=== PATIENT | female | born 1970 | race Caucasian/White ===

== ENCOUNTER → 2019-07-17 07:57 | Outpatient (CLI) | payer OTHER, SELFPAY ==
--- NOTE | ~2019-07-17 | MM_ITS ---
EXAMINATION: MM screening ailyn BI w nancy HISTORY: Screening mammogram TECHNIQUE: Craniocaudal and mediolateral oblique 3-D tomosynthesis images were obtained and synthetic 2-D images were generated. CAD analysis was submitted and interpreted. COMPARISON: 07/13/2018, 04/20/2017, 03/21/2016 bilateral digital screening mammogram examinations BREAST PARENCHYMAL COMPOSITION: The breasts are heterogeneously dense, which may obscure small masses ........... FINDINGS: New areas of asymmetry are suggested bilaterally. Recommend bilateral diagnostic mammography, with ul trasound if required. IMPRESSION: 1. New areas of mammographic asymmetry are suggested 2. Bilateral diagnostic mammography is recommended, with ultrasound if required BI-RADS Category 0: Incomplete: Needs additional imaging evaluation. Reviewed, dictated and finalized at location A. MER OPERATOR
== END ==
PROVIDERS: Visit Provider Obstetrics & Gynecology Gynecology
DX: Z12.31 Encounter for screening mammogram for malignant neoplasm of breast (principal); R92.8 Other abnormal and inconclusive findings on diagnostic imaging of breast
CPT/HCPCS: 77063; 77067

== ENCOUNTER → 2019-07-19 09:24 | Outpatient (CLI) | payer OTHER, SELFPAY ==
--- NOTE | ~2019-07-19 | MMUS_ITS ---
EXAMINATION: MM diagnostic mammo BI, US breast BI complete HISTORY: New mammographic areas of asymmetry were suggested bilaterally on 07/17/2019 screening mammogr am examination. TECHNIQUE: Additional 3-D tomosynthesis images of were performed and synthetic 2-D images were genera berkley. CAD analysis was submitted and interpreted. High resolution breast ultrasound was performed. COMPARISON: 07/17/2019 07/13/2018, 04/20/2017, 03/21/2016 bilateral digital screening mammogram examinatio ns FINDINGS: MAMMOGRAPHIC FINDINGS: No reproducible mass or architectural distortion is evident. No malignant calcification, skin thicken ing or retraction. ULTRASOUND: Right breast: 7:00 4 cm from nipple: 1.4 x 3.3 x 4.4 mm parallel circumscribed hypoechoic lesion without internal v ascularity or posterior shadowing 9:00 5 cm from nipple: Similar 2.6 x 6 x 5.1 mm parallel circumscribed hypoechoic lesion without inte rnal vascularity or posterior shadowing Left breast: 12:00 4 cm from nipple: 1.7 x 4.7 mm x 4.4 mm circumscribed parallel hypoechoic lesion without management internship al vascularity or posterior shadowing 4:00 4 cm from nipple: 3.8 x 6.2 x 6.4 mm sonolucency, compatible with simple cyst 6:00 subareolar area: 2.6 x 3.8 x 4.6 mm sonolucency without through transmission and posterior enhan cement No suspicious solid lesion or shadowing of either breast is evident. IMPRESSION: 1. No mammographic evidence of malignancy 2. Routine annual mammographic screening is recommended. BI-RADS Category 2: Benign finding(s). Reviewed, dictated and finalized at location A. MAKING MACHINE SETTER IMPRESSION: 1. No mammographic evidence of malignancy 2. Routine annual mammographic screening is recommended. BI-RADS Category 2: Benign finding(s).
== END ==
PROVIDERS: Visit Provider Obstetrics & Gynecology Gynecology
DX: R92.8 Other abnormal and inconclusive findings on diagnostic imaging of breast (principal)
CPT/HCPCS: 76641; 77066

== ENCOUNTER → 2020-07-17 07:35 | Outpatient (CLI) | payer OTHER, SELFPAY ==
--- NOTE | ~2020-07-17 | MM_ITS ---
EXAMINATION: MM screening ailyn BI w nancy HISTORY: Screening TECHNIQUE: Craniocaudal and mediolateral oblique 3-D tomosynthesis images were obtained and synthetic 2-D images were generated. CAD analysis was submitted and interpreted. COMPARISON: Comparison to multiple prior studies sequentially, with oldest reviewed study dated 10/24. BREAST PARENCHYMAL COMPOSITION: The breasts are heterogeneously dense, which may obscure small masses . FINDINGS: There is no evidence of suspicious mass, calcification, or architectural distortion to sugg est malignancy in either breast. There has been no suspicious interval change. IMPRESSION: 1. No mammographic evidence of malignancy. 2. Recommend routine screening mammography in one year. BI-RADS Category 1: Negative Reviewed, dictated and finalized at location A. RNAL MEDICINE HOSPITALIST
== END ==
PROVIDERS: PCP Family Medicine; Visit Provider Obstetrics & Gynecology Gynecology
DX: Z12.31 Encounter for screening mammogram for malignant neoplasm of breast (principal)
CPT/HCPCS: 77063; 77067

== ENCOUNTER 2020-11-25 10:26 | Outpatient (CLI) | payer OTHER, SELFPAY ==
[2020-11-25 11:04] LABS: Hematocrit 45.4 % (37.0-47.0); Hemoglobin 15.2 g/dL (12.0-15.0); Mean Corpuscular HGB Conc 33.5 g/dl (32-36); Mean Corpuscular Hemoglobin 28.7 pg (26-34); Mean Corpuscular Volume 85.8 fl (80-100); Mean Platelet Volume 10.4 fl (7.4-10.4); Platelet Count Result 307 k/mm3 (150-375); Red Blood Count 5.29 M/mm3 (4.2-5.4); White Blood Count 6.4 K/mm3 (4.5-10.0)
[2020-11-25 11:16] LABS: Alanine Aminotransferase 16 U/L (4-35); Albumin Level 4.7 g/dL (3.5-5.1); Alkaline Phosphatase 82 U/L (38-126); Anion Gap 11 mmol/L (8-16); Aspartate Amino Transferase 25 U/L (14-36); Bilirubin,Total 0.9 mg/dL (0.2-1.3); Blood Urea Nitrogen 15 mg/dL (7-17); Calcium 9.8 mg/dL (8.4-10.2); Carbon Dioxide 24 mmol/L (22-30); Chloride 108 mmol/L (98-107); Cholesterol 168 mg/dL (0-200); Estimated Glomerular Filt Rate > 60; Glucose 105 mg/dL (65-105); HDL Direct 58 mg/dL; Lipase 64 U/L (23-300); Potassium 3.6 mmol/L (3.4-5.0); Sodium 143 mmol/L (137-145); Triglycerides 36 mg/dL (<150)
[2020-11-25 11:27] LABS: LDL Cholesterol Direct 75 mg/dL
[2020-11-28 11:23] LABS: Vitamin D 1,25 (OH)2 Total 69 pg/mL (18-72); Vitamin D2 1,25 (OH)2 <8 pg/mL; Vitamin D3 1,25 (OH)2 69 pg/mL
== END 2020-11-25 10:27 | disposition home or self-care (01) ==
PROVIDERS: PCP Family Medicine; Visit Provider Physician Assistant
DX: E55.9 Vitamin D deficiency, unspecified (principal); R10.9 Unspecified abdominal pain; Z13.220 Encounter for screening for lipoid disorders
CPT/HCPCS: 36415; 80053; 80061; 82652; 83690; 85027

== ENCOUNTER 2020-11-28 12:38 | Inpatient (IN) | payer OTHER, SELFPAY ==
--- NOTE | ~2020-11-28 | US_ITS ---
EXAMINATION: US right upper quadrant DATE: 11/29/2020 08:06 INDICATION: Pancreatitis. TECHNIQUE: Multiple grayscale and Doppler ultrasound images of the abdomen were obtained. COMPARISON: CT abdomen and pelvis 11/28/2020 FINDINGS: The visualized portions of the head and body of the pancreas are normal. There are cysts in the liver measuring up to 4.0 cm. No liver surface nodularity. There is normal flow in main portal v ein. The gallbladder is normal in size and contains sludge. No gallstones or gallbladder wall thicken ing. There are comet tail artifacts in the gallbladder wall, consistent with adenomyomatosis. The com mon duct is normal and measures 5 mm. IMPRESSION: 1. Gallbladder sludge. No evidence of acute cholecystitis. Reviewed, dictated and finalized at location A.
--- NOTE | ~2020-11-28 | CT_ITS ---
EXAMINATION: CT abdomen pelvis w con DATE: 11/28/2020 17:24 INDICATION: Lower abdominal pain TECHNIQUE: Computed tomography (CT) of the abdomen and pelvis was performed with 100 mL Omnipaque-350 intravenous contrast. Automated exposure control and iterative reconstruction technique were employe d. The dose-length product was 324.59 mGy-cm. COMPARISON: None FINDINGS: Minimal discoid atelectasis in the bilateral lower lobes. Heart size is normal. No pericardial or ple ural effusion. Several hepatic cysts, the largest measuring 4.0 cm in maximal diameter. There is an a dditional 11 mm less well-defined low but not simple fluid attenuation lesion at the dome of the live r. Gallbladder, spleen, pancreas, bilateral adrenal glands and kidneys are normal. There are few scat tered colonic diverticula without adjacent from 3 change to suggest diverticulitis. No abnormal bowel wall thickening or obstruction. Appendix is normal. Bladder is normal. IUD in expected position with in the normal uterus. There is a prominent left gonadal vein and prominent left parametrial vessels w hich can be seen with pelvic vascular congestion syndrome. No free intraperitoneal gas or fluid. No p athologically enlarged abdominal or pelvic lymphadenopathy. Bone islands at the left posterior iliac spine and bilateral femoral heads. IMPRESSION: 1. No acute intra-abdominal/pelvic process. 2. Indeterminate 11 mm hypodense hepatic lesion most likely representing a hemangioma but would recom mend further evaluation with follow-up pre and postcontrast MRI. 3. Dilated left gonadal vein and left sided parametrial vessels which could be seen with pelvic vascu lar congestion syndrome. 4. IUD in expected position. Reviewed, dictated and finalized at location A. IMPRESSION: 1. No acute intra-abdominal/pelvic process. 2. Indeterminate 11 mm hypodense hepatic lesion most likely representing a alyssa ngioma but would recommend further evaluation with follow-up pre and postcontra st MRI. 3. Dilated left gonadal vein and left sided parametrial vessels which could be seen with pelvic vascular congestion syndrome. 4. IUD in expected position.
[2020-11-28 12:51] VITALS: BP 132/98; PULSE 88; RESP 18; TEMP 36.4
[2020-11-28 13:40] LABS: Add Urine Microscopic? YES; Appearance Urine Clear (Clear); Bilirubin Urine Negative (Negative); Blood Urine Negative (Negative); Calcium Oxalate Crystals Urine Present /hpf; Color Urine Yellow (Yellow); Glucose Urine UA Negative (Negative); Ketones Urine Negative (Negative); Leukocyte Esterase Ur Trace LEU/UL (Negative); Mucus Urine Few /lpf; Nitrate Urine Negative (Negative); Protein Urine Negative (Negative); RBC Urine 0-2 /hpf (0-2); Squamous Epithelial Cell Urine Occasional /hpf (Few); Urobilinogen Urine Negative mg/dL (<2.0); WBC Urine 0-3 /hpf
[2020-11-28] MEDS: MORPHINE SULFATE (*CRX) 4 MG/ML INJ IV PUSH ×2 (14:30→22:05)
[2020-11-28] MEDS: SODIUM CHLORIDE 0.9% IV 1,000 ML 999 ML IV CONT (14:31)
[2020-11-28] MEDS: ONDANSETRON INJ 4 MG/2 ML VIAL IV PUSH ×2 (14:31→22:05)
--- NOTE | 2020-11-28 14:43 | ED.ABDPAIN ---
HPI - Abdominal Pain General Chief Complaint: Urogenital-Female Stated Complaint: R Lower Back Pain Time Seen by Provider: 11/28/20 13:50 Source: patient Mode of arrival: ambulatory Limitations: no limitations History of Present Illness HPI narrative: Patient is 50 years old white female presents with intermittent lower abdominal pain for the last 2 to 3 days, associated with intermittent nausea and vomiting today pain radiating to right flank associated with nausea and vomiting. Patient denies any fever, chills, diarrhea, constipation, vaginal bleeding or discharge. Patient denied any history of abdominal surgery. Patient does not smoke or drink or uses drugs, does not take medicine at home, history of IVDA for the last 16 years. Patient is fully vaccinated for COVID-19 Related Data Allergies Allergy/AdvReac Type Severity Reaction Status Date / Time Penicillins Allergy Mild Unknown Verified 11/28/20 12:54 Review of Systems Review of Systems: Narrative: CONSTITUTIONAL: Denies fever, chills, or sweats. EYES: Denies visual changes, redness, or discharge. ENT: Denies rhinorrhea, congestion, sore throat, or otalgia. CARDIOVASCULAR: Denies chest pain, palpitations, or edema. RESPIRATORY: Denies cough or dyspnea. GASTROINTESTINAL: Denies abdominal pain, nausea, vomiting, or diarrhea. GENITOURINARY: Denies dysuria or hematuria. SKIN: Denies rash or itching. MUSCULOSKELETAL: Denies back pain, joint pain, or myalgia. NEUROLOGIC: Denies headache, numbness, or weakness. PSYCHIATRIC: Denies anxiety or depression. PMFSH Past Medical History Medical History Vitamin D deficiency Family History Family History Mother Healthy adult Father Healthy adult Social History Social History Smoking status: Never smoker Second hand tobacco smoke exposure: No Alcohol intake: current Substance use: never Exam Narrative: Exam Narrative: General appearance: Well-developed, well-nourished Skin: Normal color Head: Normocephalic, nontraumatic Eyes: Clear conjunctiva ENT: Oropharynx normal, ears normal, nose normal Neck: Supple, nontender Chest and respiratory: Airway patent, no respiratory distress, no accessory muscle use Heart: Regular rate/rhythm Abdomen: Soft, right flank tenderness, no organomegaly, quiet bowel sounds Vascular: Normal peripheral pulses, normal capillary refill. Musculoskeletal: Normal range of motion, nontender back Neurologic: Alert and oriented ?3, SIFTING OPERATOR is normal as tested, no gross motor deficit Course Course Emergency Course: Stable Consultations Consultation #1: Dr. Howard Date: 11/28/20 Time: 19:06 Vital Signs Vital signs: Vital Signs Temperature 36.4 C L 11/28/20 12:51 Pulse Rate 88 11/28/20 12:51 Respiratory Rate 18 11/28/20 12:51 Blood Pressure 132/98 H 11/28/20 12:51 Temperature 36.4 C L 11/28/20 12:51 Pulse Rate 88 11/28/20 12:51 Respiratory Rate 18 11/28/20 12:51 Blood Pressure 132/98 H 11/28/20 12:51 MDM - Abdominal Pain MDM Narrative Medical decision making narrative: Abdominal pain with numerous vomiting and nausea. Labs, IV fluid, CT abdomen pelvis with IV contrast, ordered. Further plan to follow Differential Diagnosis Differential diagnosis: Likely abdominal pain, calculus of kidney, constipation, diverticulitis and pancreatitis Lab Data Result diagrams: 11/28/20 14:33 11/28/20 16:41 Labs: Lab Results 11/28/20 11/28/20 11/28/20 Range/Units 13:00 14:33 16:41 WBC 4.8 (4.5-10.0) K/m
[2020-11-28 14:45] LABS: Basophils Percent Auto 0.6 % (0.2-1.2); Eosinophils Absolute Auto 0.1 K/mm3 (0-0.3); Eosinophils Percent Auto 1.7 % (0-4.4); Hematocrit 46.6 % (37.0-47.0); Hemoglobin 15.3 g/dL (12.0-15.0); Immature Granulocyte Absolute 0.02 K/mm3 (0.00-0.031); Immature Granulocyte Percent A 0.4 % (0-0.5); Lymphocytes Absolute Auto 1.14 K/mm3 (0.9-3.2); Lymphocytes Percent Auto 23.8 % (18.3-44.2); Mean Corpuscular HGB Conc 32.8 g/dl (32-36); Mean Corpuscular Hemoglobin 28.5 pg (26-34); Mean Corpuscular Volume 86.8 fl (80-100); Mean Platelet Volume 10.5 fl (7.4-10.4); Monocytes Absolute Auto 0.5 K/mm3 (0.1-0.6); Neutrophils Absolute Auto 3.1 K/mm3 (1.3-6.7); Neutrophils Percent Auto 63.5 % (45.5-73.1); Platelet Count Result 248 k/mm3 (150-375); Red Blood Count 5.37 M/mm3 (4.2-5.4); Red Cell Distribution Width 11.9 % (11.5-14.5); White Blood Count 4.8 K/mm3 (4.5-10.0)
[2020-11-28 16:59] LABS: Alanine Aminotransferase 16 U/L (4-35); Albumin Level 4.4 g/dL (3.5-5.1); Alkaline Phosphatase 72 U/L (38-126); Anion Gap 8 mmol/L (8-16); Aspartate Amino Transferase 23 U/L (14-36); Bilirubin,Total 0.8 mg/dL (0.2-1.3); Blood Urea Nitrogen 8 mg/dL (7-17); Carbon Dioxide 24 mmol/L (22-30); Chloride 110 mmol/L (98-107); Estimated CRCL calculation 89 ml/min; Estimated Glomerular Filt Rate > 60; Glucose 87 mg/dL (65-105); Potassium 3.8 mmol/L (3.4-5.0); Sodium 142 mmol/L (137-145)
[2020-11-28 17:13] LABS: Lipase 4307 U/L (23-300)
[2020-11-28 19:10] VITALS: BP 148/89; PULSE 75; RESP 16
[2020-11-28 20:00] VITALS: BP 141/72; PULSE 79; RESP 16; TEMP 36.6; O2SAT 98
--- NOTE | 2020-11-28 20:35 | PM.IMHP ---
H&P: HPI History of Present Illness Date/Time: 11/28/20 20:35 Chief Complaint: right flank pain Narrative: 50-year-old previously healthy female who presented to the ER with right flank pain. She reports that she initially began having symptoms about 2 weeks ago. She woke up in the middle of the night at that time and had severe nausea and vomiting that lasted throughout the night. The next days she had some vague abdominal discomfort was pressure-like in nature. After a day or to her symptoms resolved. She did not have any associated fever or known ill contacts. Then 5 days ago she had almost the same symptoms. She again woke up in the rail bender hours with severe nausea and vomiting that lasted throughout the night. It was also accompanied by incontinence of urine at that time due to severe vomiting. She was so weak that she could not get up off the bathroom floor and was throwing up into a bowl. She did not have any hematemesis or coffee-ground emesis. Ironically she had eaten fed itchy knee Jasvir before each event. The 1st time had been from a restaurant in the 2nd had been at a [employer] from [employer]. After the 2nd episode the patient went to her primary care physician where she was prescribed Zofran. They obtained labs at that time which were unremarkable. Then today the patient developed right flank pain. Her pain was a 6 or 7/10 in intensity. It was accompanied by some mild epigastric discomfort. Pain was sharp in nature and she has not noticed any eliciting or relieving factors. She had been on a clear liquid diet for the last 4 days following her recent episode of vomiting. She denied any changes in her bowel habits, hematochezia or melena. She reports that her last episode of emesis was 3 days ago. She reports that she has lost about 20 lb over the last year to urine half through dietary changes. She reports a decreased appetite over the last 2 weeks. She does not think she has any further weight loss. She has not noticed any eliciting or relieving factors for her abdominal pain. She had a fasting lipid panel performed a few days ago that was within normal limits. Review of Systems Review of Systems: Narrative: 12 systems were reviewed with pertinent positives and negatives per HPI. Except as documented in the HPI, all other systems were reviewed and are negative. [facility] Past Medical History Medical History (Updated 11/29/20 @ 03:48 by Celena Martinez DO) COVID-19 vaccine series completed Vitamin D deficiency Surgical History Surgical History (Updated 11/29/20 @ 03:44 by Celena Martinez DO) Status post excision of lipoma left shoulder Family History Family History Mother Healthy adult Father Healthy adult Social History Social History (Updated 11/29/20 @ 03:46 by Celena Martinez DO) Social History: Primary care physician: Dr. Jolly Bauman code status: Full code surrogate decision maker: Smoking status: Never smoker Second hand tobacco smoke exposure: No Alcohol intake: current Alcohol use details: She rarely drinks alcohol and only in moderation. Substance use: never Additional living arrangements comments: She lives in [place] with her and their 16-year-old daughter. She also has a 26-year-old daughter as well. 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 Gender identity (if verbalized by the patient): Female Sexual Orientation (if Verbalized by the Patient): Straight or Heterosexual Spiritual care concerns: No Meds Home Medications and Allergies Home Medications Medication Instructions Recorded Confirmed Type ondansetron 4 mg disintegrating 4 mg PO Q8H PRN #10 tablet 11/25/20 11/28/20 Rx tablet Allergies Allergy/AdvReac Type Severity Reaction Status Date / Time Penicillins Allergy Mild Unknown Verified
--- NOTE | 2020-11-28 21:35 | ADMGEN ---
This patient, Jenni López, was admitted to Medical Room 249-01. Patient/family oriented to hospital policies and general routines including ID bracelet, bed and alarms, visiting hours, pain management, procedures, bathroom and other care routines, personal items, smoking policy, room service/diet, and visiting hours. Information on how to activate the Rapid Response Team has been discussed. Patient/Family are encouraged to report perceived risks to care and to ask questions if they do not understand what they are told or what they should do.
[2020-11-28 21:53] VITALS: PULSE 75; RESP 16; O2SAT 97
[2020-11-28] MEDS: SODIUM CHLORIDE 0.9% IV 1,000 ML 200 ML IV CONT (21:58)
[2020-11-28 22:38] VITALS: BMI 26.9
[2020-11-29] VITALS (9 sets, daily range): BP systolic 105–137; BP diastolic 58–79; PULSE 60–73; RESP 16–18; TEMP 36.3–36.6; O2SAT 97–100
[2020-11-29] MEDS: SODIUM CHLORIDE 0.9% IV 1,000 ML 200 ML IV CONT (04:43)
[2020-11-29 06:48] LABS: Basophils Percent Auto 0.6 % (0.2-1.2); Eosinophils Absolute Auto 0.1 K/mm3 (0-0.3); Eosinophils Percent Auto 1.5 % (0-4.4); Hematocrit 43.5 % (37.0-47.0); Hemoglobin 14.3 g/dL (12.0-15.0); Immature Granulocyte Absolute 0.02 K/mm3 (0.00-0.031); Immature Granulocyte Percent A 0.4 % (0-0.5); Lymphocytes Absolute Auto 1.03 K/mm3 (0.9-3.2); Lymphocytes Percent Auto 19.5 % (18.3-44.2); Mean Corpuscular HGB Conc 32.9 g/dl (32-36); Mean Corpuscular Hemoglobin 28.5 pg (26-34); Mean Corpuscular Volume 86.7 fl (80-100); Mean Platelet Volume 10.3 fl (7.4-10.4); Monocytes Absolute Auto 0.5 K/mm3 (0.1-0.6); Monocytes Percent Auto 9.1 % (2.6-8.5); Neutrophils Absolute Auto 3.6 K/mm3 (1.3-6.7); Neutrophils Percent Auto 68.9 % (45.5-73.1); Platelet Count Result 255 k/mm3 (150-375); Red Blood Count 5.02 M/mm3 (4.2-5.4); Red Cell Distribution Width 11.8 % (11.5-14.5); White Blood Count 5.3 K/mm3 (4.5-10.0)
[2020-11-29 07:00] LABS: Alanine Aminotransferase 15 U/L (4-35); Albumin Level 4.3 g/dL (3.5-5.1); Alkaline Phosphatase 71 U/L (38-126); Amylase 235 U/L (30-110); Anion Gap 9 mmol/L (8-16); Aspartate Amino Transferase 22 U/L (14-36); Bilirubin,Total 0.9 mg/dL (0.2-1.3); Blood Urea Nitrogen 7 mg/dL (7-17); Calcium 9.2 mg/dL (8.4-10.2); Carbon Dioxide 23 mmol/L (22-30); Chloride 109 mmol/L (98-107); Estimated CRCL calculation 89 ml/min; Estimated Glomerular Filt Rate > 60; Glucose 84 mg/dL (65-105); Lipase 846 U/L (23-300); Potassium 4.1 mmol/L (3.4-5.0); Sodium 141 mmol/L (137-145)
[2020-11-29] MEDS: ENOXAPARIN 40 MG/0.4 ML SYRINGE SUB-Q (08:27)
[2020-11-29] MEDS: SODIUM CHLORIDE 0.9% IV 1,000 ML 150 ML IV CONT ×2 (11:06→18:48)
--- NOTE | 2020-11-29 14:38 | WPDGICN ---
Assessment and Plan Assessment and plan (1) Pancreatitis: Qualifiers: Chronicity: acute Pancreatitis type: unspecified pancreatitis type Acute pancreatitis complication: no infection or necrosis Qualified Code(s): K85.90 - Acute pancreatitis without necrosis or infection, unspecified Code(s): K85.90 - Acute pancreatitis without necrosis or infection, unspecified Status: Acute Assessment and Plan: denies alcohol use, normal TG and denies previous episode now she is doing better, start liquid diet and see if tolerates continue with supportive care will ask surgery to see, wonder if could have been related to GB (sludge but no stones or cholecystitis, also normal liver enzymes) (2) Sludge in gallbladder: Code(s): K82.8 - Other specified diseases of gallbladder Status: Acute (3) Abdominal pain: Qualifiers: Abdominal location: upper abdomen, unspecified Qualified Code(s): R10.10 - Upper abdominal pain, unspecified Code(s): R10.9 - Unspecified abdominal pain Status: Acute Assessment and Plan: improving (4) Nausea and vomiting in adult: Code(s): R11.2 - Nausea with vomiting, unspecified Status: Acute Assessment and Plan: antiemetics prn (5) Colon cancer screening: Code(s): Z12.11 - Encounter for screening for malignant neoplasm of colon Status: Acute Assessment and Plan: she never had a colonoscopy and she is interested eventually to have one we can schedule one later this year as outpatient (6) Liver cyst: Code(s): K76.89 - Other specified diseases of liver Status: Acute Assessment and Plan: reviewed, benign finding GI Consult Note Consult date/time: 11/29/20 14:38 Reason for consult: n/v, pancreatitis HPI: Jenni López is a 50 year old female with no chronic medial problems or previous abdominal surgery who about 2 weeks ago had episode of nausea and vomiting, then similar episode day before of admission but that time more severe, she had to lay down in floor for some time and also had epigastric discomfort with radiation to her back, sharp in nature. Patient says that both times she had dave sauce. She denies drinking or smoking, does not take any medications and never had scopes. CT scan no acute intra-abdominal/pelvic process, indeterminate 11 mm hypodense hepatic lesion most likely representing a hemangioma. Blood work with elevated lipase and amylase but normal liver enzymes, denies history of pancreatitis. Abdominal ultrasound reviewed and showed gallbladder sludge. No evidence of acute cholecystitis. She denies any more pain or nausea, feeling much better. Review of Systems Constitutional: Constitutional: Reports no additional constitutional complaints Eyes: Eyes: Denies blurry vision ENT: Reports Normal hearing present Cardiovascular: Cardiovascular: Denies chest pain Respiratory: Respiratory: Denies dyspnea Gastrointestinal: Gastrointestinal: Reports abdominal pain, Reports nausea and Reports vomiting Genitourinary: Genitourinary: Denies hematuria Musculoskeletal: Musculoskeletal: Denies neck pain Integumentary/Breasts: Skin/Breast: Denies dry skin Neurologic: Denies headache(s) Psychiatric: Psychiatric: Reports no additional psychiatric complaints [facility] Past Medical History Medical History (Updated 11/29/20 @ 14:51 by Toñito Ramirez MD) Colon cancer screening COVID-19 vaccine series completed Liver cyst Nausea and vomiting in adult Sludge in gallbladder Vitamin D deficiency Surgical History Surgical History (Updated 11/29/20 @ 03:44 by Celena Martinez DO) Status post excision of lipoma left shoulder Family History Family History Mother Healthy adult Father Healthy adult Social History Social History (Updated 11/29/20 @ 03:46 by Celena Martinez DO) Social History:
--- NOTE | 2020-11-29 15:28 | PM.IMPN ---
Progress Note: A&P Assessment and Plan (1) Pancreatitis: Qualifiers: Chronicity: acute Pancreatitis type: unspecified pancreatitis type Acute pancreatitis complication: no infection or necrosis Qualified Code(s): K85.90 - Acute pancreatitis without necrosis or infection, unspecified Code(s): K85.90 - Acute pancreatitis without necrosis or infection, unspecified Status: Acute Assessment and Plan: Patient presents for evaluation of abdominal pain after a few episodes of excessive vomiting 2 weeks apart, see timeline in HPI. Lipase elevated on arrival to 4307, now improved to 846. CT abd/pel shows normal appearing pancreas. US shows sludge in gallbladder. Appreciate GI recommendations. Discussed with Dr Howard this afternoon - agree with his recommendation for GI consult. She has improved with conservative management - bowel rest and IV hydration, analgesics and antiemetics as needed. Advance diet to liquids and repeat lipase in AM. 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 Appreciate general surgery input. Incidental liver cysts noted, explained to patient. (3) Sludge in gallbladder: Code(s): K82.8 - Other specified diseases of gallbladder Status: Acute Assessment and Plan: See above. Subjective Date/time seen: 11/29/20 1440 Interval history: Ms. López is a very pleasant 50yo F admitted with abdominal pain/nausea and vomiting. She is feeling much better today. She denies abdominal pain at present and has not vomited since Wednesday. She describes her pain returned yesterday in more of her right upper flank /back pain. These episodes were precipitated both by eating fettuccine dave each time. She denies chest pain or shortness of breath. Patient reported time line as follows: - 2 weeks ago, patient had fettuccine at a restaurant for dinner, woke up that night around 1am with excessive vomiting, no pain per se. - Wednesday night 11/24, patient made fettuccine at home and ate a lot of it, again woke up with excessive vomiting overnight this time with significant pain to mid abdomen/epigastrium. Seen by PCP following morning and had normal lipase (64), instructed on clear liquid diet. - 11/28 patient started to have back pain which she actually describes as right upper flank pain, no vomiting. Proceeded to ER thinking she may have a kidney stone. Had only had liquid diet that morning. Review of Systems Review of Systems: All systems reviewed & are unremarkable except as noted in HPI and below Exam Narrative: Exam Narrative: General: Well-developed well-appearing female resting comfortably supine in bed in no acute distress. HEENT: Normocephalic, EOMI, oral mucosa moist. Cardiovascular: Rate and rhythm are regular. Respiratory: Lungs clear to auscultation bilaterally. Respirations even and non-labored. Tolerating room air. Abdomen: Soft, non-tender, non-distended, bowel sounds present. Extremities: Peripheral pulses intact. No edema or pain to palpation. Neuro: Awake and alert; answering questions appropriately. No focal neurological deficits. Speech is clear. Objective Data Vital Signs Vital Signs: Last Vital Signs Temp 97.9 F 11/29/20 13:34 Pulse 73 11/29/20 13:34 Resp 16 11/29/20 13:34 BP 119/58 L 11/29/20 13:34 Pulse Ox 99 11/29/20 13:34 Intake/Output Intake/Output: Intake & Output 11/26/20 11/27/20 11/28/20 11/29/20 23:59 23:59 23:59 23:59 Intake Total 1000 2100 Output Total 17
--- NOTE | 2020-11-29 17:11 | PM.CNGS ---
Assessment and Plan Assessment and plan (1) Acute biliary pancreatitis: Code(s): K85.10 - Biliary acute pancreatitis without necrosis or infection Status: Acute Assessment and Plan: with her symptoms of pain nausea and vomiting after fatty meal on at least 2 occasions in the last 2 weeks, it seems very likely that she is having episodes of biliary dyskinesia or cholecystitis. With sludge in her gallbladder, it is most likely that her pancreatitis is also caused by this sludge. I explained this to the patient and her . Her pain has resolved at this time. Agree with liquids. If tolerated, she can advance to a low-fat diet. I have recommended laparoscopic cholecystectomy to prevent further recurrences. I described the procedure, the usual recovery, the time off work, the potential complications to her. I will continue to follow but she could possibly go home this weekend and come back for outpatient laparoscopic cholecystectomy in 1-2 weeks. History of Present Illness Consult details Consult date: 11/29/20 Reason for consult: other ( Acute pancreatitis) Requesting physician: Toñito Ramirez MD Narrative: patient is a 50-year-old woman who about 2 weeks ago had a dinner of fried chicken with pasta and Jasvir sauce. That night she got severe nausea and vomiting with some upper abdominal pain. This got better but then 6 days ago she again had pasta and developed periumbilical pain that was a heavy pressure like a brick and was also associated with even more severe nausea and vomiting. She saw her primary care physician, Dr. quintero, who ordered some labs which came back normal. Patient was pretty much okay last week but then yesterday started developing severe right lower thoracic back pain and some nausea. She was afraid her previous symptoms would recur her and went to the emergency room. Evaluation there showed right flank pain and tenderness. Chemistry showed a markedly elevated serum lipase of 4307. Her white count was normal and liver enzymes were normal. CT scan of the abdomen and pelvis was done and was negative. No acute pancreatitis was seen on CT. she had an ultrasound of the gallbladder which showed sludge but no evidence of cholecystitis. The common bile duct was normal diameter at 5 mm. She got admitted to the hospital last night around 10:00 p.m.. She received some morphine in the emergency room as well as right after being admitted. Since about 11 or 12:00 p.m. last night she has not required any further pain medicine an actually has no abdominal or back pain at this time. She is seen now in consultation at the request of Dr. Howard regarding her pancreatitis and abnormal gallbladder ultrasound. She has no family history of gallbladder disease. She has had no symptoms such as those she noticed in the last 2 weeks previously. Review of Systems Review of Systems: All systems reviewed & are unremarkable except as noted in HPI and below Constitutional: Constitutional: Denies chills and Denies fever(s) Cardiovascular: Cardiovascular: Denies chest pain, Denies diaphoresis, Denies dyspnea and Denies paroxysmal nocturnal dyspnea Respiratory: Respiratory: Denies chest congestion, Denies cough and Denies dyspnea Integumentary/Breasts: Skin/Breast: Denies lesions and Denies rash PMFSH Past Medical History Medical History (Updated 11/29/20 @ 17:19 by Tawanda Elizondo MD) Colon cancer screening COVID-19 vaccine series completed Liver cyst Nausea and vomiting in adult Sludge in gallbladder Vitamin D deficiency Surgical History Surgical History (Updated 11/29/20 @ 03:44 by Celena Martinez DO) Status post excision of lipoma left shoulder Family History Family History Mother Healthy adult Father Healthy adult Social History Social History (Updated 11/29/20 @ 03:46 by Celena Martinez DO) Social History: Primary c
[2020-11-30] VITALS: BP 117/70; PULSE 61; RESP 16; TEMP 36.1; O2SAT 100
[2020-11-30] MEDS: SODIUM CHLORIDE 0.9% IV 1,000 ML 150 ML IV CONT ×2 (01:00→07:51)
[2020-11-30 04:00] VITALS: BP 119/52; PULSE 84; RESP 16; TEMP 36.4; O2SAT 100
[2020-11-30 06:00] VITALS: BP 119/52; PULSE 84; RESP 16; TEMP 36.4; O2SAT 100
[2020-11-30 06:01] LABS: Basophils Percent Auto 0.6 % (0.2-1.2); Eosinophils Absolute Auto 0.1 K/mm3 (0-0.3); Eosinophils Percent Auto 1.5 % (0-4.4); Hematocrit 43.2 % (37.0-47.0); Hemoglobin 14.3 g/dL (12.0-15.0); Immature Granulocyte Absolute 0.01 K/mm3 (0.00-0.031); Immature Granulocyte Percent A 0.2 % (0-0.5); Lymphocytes Absolute Auto 1.15 K/mm3 (0.9-3.2); Lymphocytes Percent Auto 24.5 % (18.3-44.2); Mean Corpuscular HGB Conc 33.1 g/dl (32-36); Mean Corpuscular Volume 84.7 fl (80-100); Mean Platelet Volume 10.2 fl (7.4-10.4); Monocytes Absolute Auto 0.5 K/mm3 (0.1-0.6); Monocytes Percent Auto 10.4 % (2.6-8.5); Neutrophils Absolute Auto 2.9 K/mm3 (1.3-6.7); Neutrophils Percent Auto 62.8 % (45.5-73.1); Platelet Count Result 268 k/mm3 (150-375); Red Cell Distribution Width 11.5 % (11.5-14.5); White Blood Count 4.7 K/mm3 (4.5-10.0)
[2020-11-30 06:10] LABS: Alanine Aminotransferase 14 U/L (4-35); Alkaline Phosphatase 66 U/L (38-126); Anion Gap 9 mmol/L (8-16); Aspartate Amino Transferase 21 U/L (14-36); Blood Urea Nitrogen 4 mg/dL (7-17); Carbon Dioxide 22 mmol/L (22-30); Chloride 108 mmol/L (98-107); Estimated CRCL calculation 89 ml/min; Estimated Glomerular Filt Rate > 60; Glucose 74 mg/dL (65-110); Lipase 72 U/L (23-300); Magnesium 1.8 mg/dL (1.6-2.3); Potassium 4.1 mmol/L (3.4-5.0); Sodium 139 mmol/L (137-145)
--- NOTE | 2020-11-30 07:45 | PM.PNGS ---
Progress Note: A&P Assessment and Plan (1) Acute biliary pancreatitis: Code(s): K85.10 - Biliary acute pancreatitis without necrosis or infection Status: Acute Assessment and Plan: No recurrence of pain. Lipase normal this morning. Advance diet to low fat. Patient can go home at discretion of hospitalist and Gastroenterology. She should stay on a low-fat diet. My office will call her this week and set up appointment for outpatient laparoscopic cholecystectomy in the near future. Subjective Subjective Date/Time Seen: 11/30/20 07:45 Patient reports: pain is less ( No complaints of recurrent pain through the night.), tolerating liquids well and afebrile Interval history: Feels good. Tolerated liquids well. No recurrence of abdominal or back pain. Review of Systems Review of Systems: All systems reviewed & are unremarkable except as noted in HPI and below Constitutional: Constitutional: Reports as per HPI, Denies body ache(s), Denies chills, Denies fever(s) and Denies headache(s) Gastrointestinal: Gastrointestinal: Reports as per HPI, Denies abdominal pain, Denies nausea and Denies vomiting Neurologic: Denies confusion and Denies headache(s) Exam Const: General: comfortable and no acute distress; No confusion Orientation/consciousness: patient oriented x3 and No confusion GI: Inspection: non-distended and scaphoid GI Palp: Yes Soft to palpation, No Tenderness to palpation present (GI), No Guarding due to palpation present (GI) and No Rebound tenderness present Auscultation: normal bowel sounds Neuro: General: patient oriented x3, no focal motor deficits and No confusion Extrem: General: no calf tenderness and no edema Objective Data Vital Signs Vital Signs: Vital Signs - 24 hr 11/29/20 08:27 11/29/20 10:00 11/29/20 13:34 Temperature 36.3 C L 36.6 C Pulse Rate 70 73 Respiratory Rate 16 16 16 Blood Pressure 124/65 119/58 L Pulse Oximetry 98 100 99 11/29/20 18:00 11/29/20 20:00 11/30/20 00:00 Temperature 36.6 C 36.5 C 36.1 C L Pulse Rate 61 60 61 Respiratory Rate 18 18 16 Blood Pressure 119/68 109/79 117/70 Pulse Oximetry 100 99 100 11/30/20 04:00 Temperature 36.4 C Pulse Rate 84 Respiratory Rate 16 Blood Pressure 119/52 L Pulse Oximetry 100 Intake/Output Intake/Output: Intake & Output 11/27/20 11/28/20 11/29/20 11/30/20 23:59 23:59 23:59 23:59 Intake Total 1000 3980 1000 Output Total 2700 900 Balance 1000 1280 100 Meds/Results Medications: Active Medications Generic Name Dose Route Start Last Admin Trade Name Freq PRN Reason Stop Dose Admin Enoxaparin Sodium 40 mg 11/29/20 09:00 11/29/20 08:27 Enoxaparin 40 Mg/0.4 Ml Syringe SUB-Q 40 mg DAILY SHASHANK Administration Acetaminophen 1,000 mg in 100 mls @ 400 mls/hr 11/28/20 18:42 11/29/20 13:43 Ofirmev 1,000 Mg Ivpb IVPB 11/30/20 18:43 Infused Q6H PRN Infusion Mild Pain (1-3) or Fever Sodium Chloride 1,000 mls @ 150 mls/hr 11/28/20 19:00 11/30/20 03:15 Normal Saline Iv IV CONT Not Given .Q6H40M SHASHANK Morphine Sulfate 2 mg 11/29/20 13:37 Morphine Sulfate (*Crx) 4 Mg/Ml Inj IV PUSH Q4H PRN Pain Rated 7-10 Ondansetron HCl 4 mg 11/28/20 18:42 11/28/20 22:05 Ondansetron Inj 4 Mg/2 Ml Vial IV PUSH 4 mg Q4H PRN Administration Nausea Radiology Results: ITS Impressions Abdomen/Pelvis CT 11/28/20 17:43 IMPRESSION: 1. No acute intra-abdominal/pelvic process. 2. Indeterminate 11 mm hypodense hepatic lesion most likely representing a hemangioma but would recommend further evaluation with follow-up pre and postcontrast MRI. 3. Dilated left gonadal vein and left sided parametrial vessels which could be seen with pelvic vascular congestion syndrome. 4. IUD in expected position. Upper Quadrant Ultrasound 11/29/20 08:07 IMPRESSION: 1. Gallbladder sludge. No evidence of acute cholecystitis. Labs Labs: Laboratory Results - l
--- NOTE | 2020-11-30 09:33 | PM.DS ---
DS: Admitting Diagnosis Admitting Diagnosis Admitting Diagnosis: abdominal pain, elevated lipase DS: Discharge Diagnosis Discharge Diagnosis (1) Pancreatitis: Qualifiers: Acute pancreatitis complication: no infection or necrosis Chronicity: acute Pancreatitis type: unspecified pancreatitis type Qualified Code(s): K85.90 - Acute pancreatitis without necrosis or infection, unspecified Code(s): K85.90 - Acute pancreatitis without necrosis or infection, unspecified Status: Acute Assessment and Plan: Date of Admission 11/28/20 Date of Discharge 11/30/20 Mrs. López is a very pleasant healthy 50yo F who presented to the ED for evaluation of abdominal pain after a few episodes of excessive vomiting 2 weeks apart.She reports she was in her normal state of health up until about 2 weeks ago when she woke up in middle of the night with excessive vomiting after eating fettuccine dave at a restaurant. She felt okay the following day and felt well up until Friday 11/24 when she again woke up overnight with excessive vomiting this time with significant pain to her mid abdomen/ epigastrium. Ironically, this episode was also followed by eating fettuccine dave for dinner again. She was seen by PCP the following morning and had a normal lipase at 64 and was instructed on a clear liquid diet. On 11/28 the patient started to have back/right upper flank pain without vomiting and proceeded to the ER thinking she may have a kidney stone. Lipase was elevated on arrival to 4307. CT abdomen/pelvis demonstrated a normal appearing pancreas. Ultrasound showed sludge in the gallbladder without evidence of acute cholecystitis. She was evaluated by GI, Dr. Howard, and General surgery, Dr. Elizondo. It is felt that her symptoms after fatty meals on 2 occasions in the last 2 weeks seem likely that she may be having episodes of biliary dyskinesia given the sludge in her gallbladder this may have also caused pancreatitis. She was treated with supportive care to include bowel rest and IV hydration, analgesics and antiemetics as needed. Her diet was advanced slowly as her lipase improved. Lipase is normal at 72 this morning, day of discharge. She has had no abdominal pain or vomiting now for days and she is feeling better. Dr. Elizondo has offered her laparoscopic cholecystectomy outpatient in 1-2 weeks and his office will call her this week to schedule. It is the general medical consensus is that she is doing well and hemodynamically stable for discharge on 11/30/2020 with instructions to follow-up with Dr. Elizondo next week. She is instructed to stay on a low-fat diet until her surgery. She notes she has Zofran at home from Dr Bauman earlier this week. 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 Patient to have laparoscopic cholecystectomy by Dr. Elizondo in 1-2 weeks. Incidental liver cysts noted, explained to patient. (3) Sludge in gallbladder: Code(s): K82.8 - Other specified diseases of gallbladder Status: Acute Assessment and Plan: See above. DS: Summary Hospital Course Hospital Course: See above. Time Spent with Patient Time attestation: Total time spent providing and/or coordinating discharge services: 35 minutes. Exam Narrative: Exam Narrative: General: Well-developed well-appearing female resting comfortably supine in bed in no acute distress. HEENT: Normocephalic, EOMI, oral mucosa moist. Cardiovascular: Rate and rhythm are regular. Respira
[2020-11-30 10:00] VITALS: BP 120/52; PULSE 85; RESP 18; TEMP 36.6; O2SAT 100
[2020-11-30] MEDS: MAGNESIUM OXIDE 400 MG TABLET PO (11:17)
[2020-11-30] MEDS: ENOXAPARIN 40 MG/0.4 ML SYRINGE SUB-Q (11:19)
== END 2020-11-30 12:47 | disposition home or self-care (01) | DRG 440 ==
LOC: ANHED 19:05 → ANH2MED 11-29 08:11
PROVIDERS: Admitting Provider Internal Medicine; Emergency Provider Emergency Medicine; PCP Family Medicine; Visit Provider Physician Assistant
DX: K85.90 Acute pancreatitis without necrosis or infection, unspecified (principal); K82.8 Other specified diseases of gallbladder; K76.89 Other specified diseases of liver; R93.5 Abnormal findings on diagnostic imaging of other abdominal regions, including retroperitoneum; E55.9 Vitamin D deficiency, unspecified
CPT/HCPCS: 36415; 74177; 76705; 80053; 80061; 81001; 81025; 82150; 82652; 83690; 83735; 85025; 85027; 96361; 96374; 96375; 99285; A9270; J0131; J1650; J2270; J2405; J7030; Q9967

== ENCOUNTER 2020-12-13 12:53 | Emergency (ER) | payer OTHER, SELFPAY ==
--- NOTE | 2020-12-13 | ECHOL_ITS ---
Patient Info Name: Jenni López Age: 50 years : 1970 Gender: Female Ht: 63 in Wt: 147 lbs BSA: 1.74 m2 HR: 93 bpm BP: 107 / 68 mmHg Heart Rhythm: Sinus Rhythm Technical Quality: Good Exam Date: 12/13/2020 4:06 PM [facility]: ER Patient Status: Emergency Admit Date: 12/13/2020 Staff Ordering Physician: Shari Farrar MD [employer] Specialist: Sena Wynn RDCS Attending Provider: Shari Farrar MD Referring Physician: Charan TREVIÑO; Exam Type: CA echo limited Study Info Indications - pericardial effusion Limited two-dimensional transthoracic echocardiogram is performed. Summary 1. There is small circumferential pericardial effusion. 2. Otherwise normal exam. Left Ventricle Left ventricular chamber dimension is normal. Left ventricular systolic function is normal, estimated at 65-70%. Right Ventricle Right ventricular chamber dimension is normal. Left Atria Left atrial chamber dimension is normal. Right Atria Right atrial chamber dimension is normal. Aortic Valve The aortic valve is trileaflet. Pulmonic Valve The pulmonic valve is not well visualized. Mitral Valve The mitral valve has normal leaflets. Tricuspid Valve The tricuspid valve leaflets are normal. Pericardium/Pleural There is small circumferential pericardial effusion. Aorta The aortic root size at the sinus of Valsalva is normal. Report Signatures
--- NOTE | ~2020-12-13 | CT_ITS ---
EXAMINATION: CTA chest PE protocol EXAM DATE: 12/13/2020 15:02 INDICATION: Upper chest pain, upper back pain. TECHNIQUE: Spiral CTA of the chest (pulmonary arteries) was performed with 100 cc Omnipaque 350 intr avenous contrast injection. Images were acquired during the pulmonary arterial phase. Coronal maxi mum intensity projection 3D-reconstructions were created by the technologist on dedicated workstation . Axial, coronal and sagittal reformatted images were reviewed. The dose-length product (DLP) for t his examination was 388.23 mGy-cm. The exposure was tailored according to patient size (auto mA exp osure control), and iterative reconstruction (ASIR) was used as additional dose reduction technique. There is no prior study for comparison. FINDINGS: Pulmonary arteries are well opacified and without intraluminal filling defects. No thora cic aortic dissection. Left basilar subsegmental atelectasis. Moderate-sized pericardial effusion. Tracheobronchial tree is patent. There is no mediastinal, hilar or axillary lymphadenopathy. The re is no pneumothorax. Heart normal in size. No evidence of coronary arterial calcification. Sev eral fluid density liver lesions consistent with cysts, largest in the left liver lobe at 4 cm. Ther e is thoracic spondylosis without osteoblastic or osteolytic lesions identified. IMPRESSION: 1. Moderate-sized pericardial effusion. 2. Left basilar subsegmental atelectasis. 3. No pulmonary emboli. Reviewed, dictated and finalized at location B.
--- NOTE | ~2020-12-13 | XR_ITS ---
EXAMINATION: XR chest 2V 12/13/2020 13:35 INDICATION: Generalized chest pain PROCEDURE: 2 view chest COMPARISON: 07/08/2016 FINDINGS: The lungs are clear. The cardiomediastinal silhouette is within normal limits. There are no pleural effusions. There is no pneumothorax suspected. IMPRESSION: 1: NO ACUTE CARDIOPULMONARY DISEASE. Reviewed, dictated and finalized at location A.
[2020-12-13 13:00] VITALS: BP 181/99; PULSE 95; RESP 18; TEMP 36.6; O2SAT 99
[2020-12-13 13:05] VITALS: PULSE 103
--- NOTE | 2020-12-13 13:23 | ECG_ITS ---
Measurements Intervals [place] Rate: 93 P: 71 CO: 143 QRS: 53 QRSD: 73 T: 32 QT: 319 QTc: 397 Interpretive Statements SINUS RHYTHM POSSIBLE LEFT ATRIAL ENLARGEMENT BORDERLINE ECG Electronically Signed On 12-13-2020 15:35:22 CDT by Yonis Mccullough D.O.
[2020-12-13 13:35] LABS: Basophils Percent Auto 0.4 % (0.2-1.2); Eosinophils Percent Auto 0.5 % (0-4.4); Hemoglobin 13.5 g/dL (12.0-15.0); Immature Granulocyte Absolute 0.01 K/mm3 (0.00-0.031); Immature Granulocyte Percent A 0.1 % (0-0.5); Lymphocytes Percent Auto 10.3 % (18.3-44.2); Mean Corpuscular HGB Conc 32.9 g/dl (32-36); Mean Corpuscular Volume 84.9 fl (80-100); Mean Platelet Volume 11.1 fl (7.4-10.4); Monocytes Absolute Auto 0.9 K/mm3 (0.1-0.6); Monocytes Percent Auto 11.5 % (2.6-8.5); Neutrophils Percent Auto 77.2 % (45.5-73.1); Platelet Count Result 276 k/mm3 (150-375); Red Blood Count 4.83 M/mm3 (4.2-5.4); Red Cell Distribution Width 11.9 % (11.5-14.5); White Blood Count 7.7 K/mm3 (4.5-10.0)
--- NOTE | 2020-12-13 13:42 | ED.CHESTPAIN ---
HPI - Chest Pain General Chief Complaint: Chest Pain Stated Complaint: chest pain since Wednesday sent by PCP Time Seen by Provider: 12/13/20 12:58 Source: patient, RN notes reviewed and old records reviewed Mode of arrival: ambulatory Limitations: no limitations History of Present Illness HPI narrative: 50 year old female with history of cholelithiasis, anxiety and pancreatitis who presents for evaluation upper chest pain that has been present since Wednesday. She states this pain has been constant and she describes it as pressure. She has pain in her upper chest and upper back. She also states her pain is worse with eating. She is scheduled for a cholecystectomy next . She was referred to ER for evaluation of her chest pain to see if pain due to her gallbladder or something else. She denies shortness of breathing, fever, nausea, vomiting or cough. She took ibuprofen on Wednesday and she thinks that helped her pain. She denies any abdominal pain Related Data Allergies Allergy/AdvReac Type Severity Reaction Status Date / Time Penicillins Allergy Mild HIVES/ RASH Verified 12/13/20 13:03 Review of Systems Review of Systems: All systems reviewed & are unremarkable except as noted in HPI and below PMFSH Past Medical History Medical History Colon cancer screening COVID-19 vaccine series completed Liver cyst Nausea and vomiting in adult Sludge in gallbladder Vitamin D deficiency Surgical History Surgical History Status post excision of lipoma left shoulder Family History Family History Mother Healthy adult Father Healthy adult Social History Social History (Updated 11/29/20 @ 03:46 by Celena Martinez DO) Social History: Primary care physician: Dr. Jolly Bauman code status: Full code surrogate decision maker: Smoking status: Never smoker Second hand tobacco smoke exposure: No Alcohol intake: never Alcohol use details: She rarely drinks alcohol and only in moderation. Substance use: never Additional living arrangements comments: She lives in [place] with her and their 16-year-old daughter. She also has a 26-year-old daughter as well. 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 Gender identity (if verbalized by the patient): Female Spiritual care concerns: No Exam Const: General: alert Orientation/consciousness: patient oriented x3 Other: extremely anxious Eyes: EOM: EOMs intact bilaterally Resp: Effort & Inspection: normal respiratory effort and no retractions Auscultation: clear to auscultation bilaterally Cardio: Rate: regular rate Rhythm: regular rhythm Heart sounds: no murmurs GI: GI Palp: Yes Soft to palpation, No Tenderness to palpation present (GI) and No Guarding due to palpation present (GI) Auscultation: normal bowel sounds Skin: General skin exam: normal color Rashes: no rashes Neuro: General: patient oriented x3, moves all extremities and CN's II-XI intact bilaterally Course Reevaluation(s) Reevaluation #1: PAtient presented with upper chest pain and back pain. This may be due to her pericardial effusion . She had an ECHO performed in ED that shows only small pericardial effusion . Dr. Gardner reviewed ECHO and said its a very small pericardial effusion. No intervention needed at his time. I discussed patient with be discharge to take ibuprofen for her pain. I have reviewed discharge plan with patient. She is also requesting anxiety medication so will prescribe hydroxyzine. Date: 12/13/20 Time: 17:23 Consultations Consultation #1: I spoke with DR. Bauman about ED course and CT findings. She agrees with getting echo and talk with cardiology. Patient is to call office on Wednesday for follow up . Date: 12/13/20 Time:
[2020-12-13 13:43] LABS: Prothrombin Time 12.8 Seconds (11.1-14.7)
[2020-12-13 13:46] LABS: Partial Thromboplastin Time 32.6 SECONDS (22.3-36.8)
[2020-12-13 13:47] LABS: D Dimer 0.55 ug/mL (<0.48)
[2020-12-13] MEDS: LORazepam INJ (*CRX) 2 MG/ML VIAL 0.5 MG IV PUSH (13:58)
[2020-12-13] MEDS: PANTOPRAZOLE SODIUM IV 40 MG VIAL IV PUSH (13:58)
[2020-12-13 14:30] LABS: Alanine Aminotransferase 13 U/L (4-35); Albumin Level 4.2 g/dL (3.5-5.1); Alkaline Phosphatase 73 U/L (38-126); Anion Gap 10 mmol/L (8-16); Aspartate Amino Transferase 20 U/L (14-36); Bilirubin,Total 0.9 mg/dL (0.2-1.3); Blood Urea Nitrogen 11 mg/dL (7-17); Calcium 9.7 mg/dL (8.4-10.2); Carbon Dioxide 25 mmol/L (22-30); Chloride 104 mmol/L (98-107); Estimated CRCL calculation 79 ml/min; Estimated Glomerular Filt Rate > 60; Glucose 94 mg/dL (65-110); Lipase 79 U/L (23-300); Sodium 139 mmol/L (137-145)
[2020-12-13 14:38] VITALS: PULSE 101; RESP 18; O2SAT 98
[2020-12-13 14:42] LABS: Troponin I < 0.012 ng/mL (0.000-0.034)
--- NOTE | 2020-12-13 15:42 | PC.NURSE ---
Spoke with cardiology and notified that Dr Farrar ordered an echo at bedside.
[2020-12-13 15:54] VITALS: BP 107/69; PULSE 108; RESP 19; O2SAT 98
[2020-12-13] MEDS: SODIUM CHLORIDE 0.9% IV 1,000 ML 999 ML IV CONT (16:27)
[2020-12-13 17:14] LABS: Troponin I < 0.012 ng/mL (0.000-0.034)
[2020-12-13 17:46] VITALS: BP 131/77; PULSE 107; RESP 17; O2SAT 100
== END 2020-12-13 17:47 | disposition home or self-care (01) ==
PROVIDERS: Emergency Provider General Practice; PCP Family Medicine
DX: I31.3 Pericardial effusion (noninflammatory) (principal); F41.9 Anxiety disorder, unspecified; E55.9 Vitamin D deficiency, unspecified; R94.31 Abnormal electrocardiogram [ECG] [EKG]
CPT/HCPCS: 36415; 71046; 71275; 80053; 83690; 84484; 85025; 85380; 85610; 85730; 93005; 93308; 96361; 96374; 96375; 99284; C9113; J2060; J7030; Q9967

== ENCOUNTER 2020-12-16 12:43 | Outpatient (CLI) | payer OTHER, SELFPAY ==
[2020-12-16 15:27] LABS: Alanine Aminotransferase 13 U/L (4-35); Albumin Level 4.3 g/dL (3.5-5.1); Alkaline Phosphatase 67 U/L (38-126); Amylase 57 U/L (30-110); Aspartate Amino Transferase 20 U/L (14-36); Bilirubin,Total 0.4 mg/dL (0.2-1.3); Lipase 118 U/L (23-300)
== END 2020-12-16 12:44 | disposition home or self-care (01) ==
LOC: ANHSURGERY 01-24 12:44
PROVIDERS: PCP Family Medicine; Visit Provider Surgery
DX: Z01.812 Encounter for preprocedural laboratory examination (principal); K82.8 Other specified diseases of gallbladder; K81.0 Acute cholecystitis
CPT/HCPCS: 36415; 80076; 82150; 83690; 86850; 86900; 86901

== ENCOUNTER 2020-12-23 02:25 | Day surgery (SDC) | payer OTHER, SELFPAY ==
[2020-12-13 09:58] VITALS: BMI 26.2
--- NOTE | 2020-12-20 19:29 | WPDANESEPP ---
Anes - Eval Pre Procedure Procedure: Operation Date: 12/23/20 13:00 Proposed Procedures p Laparoscopic Cholecystectomy with Intra Operative Cholangiogram - Tawanda Elizondo MD Date/Time: 12/20/20 19:29 Pre Op Diagnosis: acute cholecystitis with stones Patient Data Age: 50 Gender: F Height: 1.6 m Weight: 67 kg Allergies Allergy/AdvReac Type Severity Reaction Status Date / Time Penicillins Allergy Mild HIVES/ RASH Verified 12/20/20 09:41 Home Medications Medication Instructions Recorded Confirmed Type ondansetron 4 mg PO Q8H PRN #10 tablet 11/30/20 12/20/20 Rx hydroxyzine HCl 50 mg PO BID PRN #14 tablet 12/13/20 12/20/20 Rx ibuprofen 600 mg PO TID PRN #20 tablet 12/13/20 12/20/20 Rx Patient hx anesthesia problems: none Family hx anesthesia problems: none PMFSH Past Medical History Medical History Colon cancer screening COVID-19 vaccine series completed Liver cyst Nausea and vomiting in adult Sludge in gallbladder Vitamin D deficiency Surgical History Surgical History Status post excision of lipoma left shoulder Family History Family History Mother Healthy adult Father Healthy adult Social History Social History (Updated 11/29/20 @ 03:46 by Celena Martinez DO) Social History: Primary care physician: Dr. Jolly Bauman code status: Full code surrogate decision maker: Smoking status: Never smoker Second hand tobacco smoke exposure: No Alcohol intake: never Alcohol use details: She rarely drinks alcohol and only in moderation. Substance use: never Additional living arrangements comments: She lives in [place] with her and their 16-year-old daughter. She also has a 26-year-old daughter as well. 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 Gender identity (if verbalized by the patient): Female Spiritual care concerns: No Exam Day of Procedure 12/20/20 19:29
[2020-12-23] VITALS (7 sets, daily range): BP systolic 81–132; BP diastolic 52–74; PULSE 60–86; RESP 14–18; TEMP 36.4–37.2; O2SAT 99
--- NOTE | ~2020-12-23 | XR_ITS ---
EXAMINATION: XR cholangiogram surg 1st inj DATE: 12/23/2020 14:30 INDICATION: Intraoperative cholangiogram TECHNIQUE: 164 fluoroscopic images of the right upper quadrant were obtained during intraoperative ch olangiography performed by the surgeon. I was not present in the operating room. Fluoroscopy exposure time was 25.6 seconds. COMPARISON: CT, 11/28/2020 FINDINGS: There is a small filling defect in the common bile duct on the first run. This is not ident ified on the second run, possibly reflecting a gas bubble. No stones or stricture are identified. IMPRESSION: 1. No biliary stones or stricture identified. Reviewed, dictated and finalized at location B.
--- NOTE | 2020-12-23 09:23 | P.PNAN_ITS ---
Anes - Initial Pre Proc Eval Procedure: Operation Date: 12/23/20 13:00 Proposed Procedures p Laparoscopic Cholecystectomy with Intra Operative Cholangiogram - Tawanda Elizondo MD Date/Time: 12/23/20 09:23 Surgeon: Tawanda Elizondo MD Pre Op Diagnosis: acute cholecystitis with stones Patient Data Age: 50 Gender: F Height: 1.6 m Weight: 67 kg Allergies Allergy/AdvReac Type Severity Reaction Status Date / Time Penicillins Allergy Intermediate HIVES/ RASH Verified 12/23/20 09:12 Home Medications Medication Instructions Recorded Confirmed Type ondansetron 4 mg PO Q8H PRN #10 tablet 11/30/20 12/23/20 Rx hydroxyzine HCl 50 mg PO BID PRN #14 tablet 12/13/20 12/23/20 Rx ibuprofen 600 mg PO TID PRN #20 tablet 12/13/20 12/23/20 Rx Patient hx anesthesia problems: none Family hx anesthesia problems: none PMFSH Past Medical History Medical History Colon cancer screening COVID-19 vaccine series completed Liver cyst Nausea and vomiting in adult Sludge in gallbladder Vitamin D deficiency Surgical History Surgical History Status post excision of lipoma left shoulder Family History Family History Mother Healthy adult Father Healthy adult Social History Social History (Updated 11/29/20 @ 03:46 by Celena Martinez DO) Social History: Primary care physician: Dr. Jolly Bauman code status: Full code surrogate decision maker: Smoking status: Never smoker Second hand tobacco smoke exposure: No Alcohol intake: never Alcohol use details: She rarely drinks alcohol and only in moderation. Substance use: never Living arrangements: with family Additional living arrangements comments: She lives in [place] with her shani harris and their 16-year-old daughter. She also has a 26-year-old daughter as well. 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 Gender identity (if verbalized by the patient): Female Spiritual care concerns: No Anes - Eval Final PreProcedure Day of Procedure 12/23/20 09:23 Patient weight: overweight Heart: regular rate and rhythm Lungs: clear to auscultation Airway: Mallampati scale class II Neurological: alert and oriented Last oral intake: >/= 8 hours ASA classification: II Emergent: no Anesthetic plan: proceed Anesthesia type and monitoring: general ETT and standard monitoring Informed Consent: The patient's anesthetic plan and its attendant risks and benefits were discussed with the patient/family/POA. Questions were solicited and answers provided to the satisfaction of the patient/family/POA.
[2020-12-23] MEDS: ACETAMINOPHEN 500 MG TABLET 1000 MG PO (11:37)
[2020-12-23] MEDS: MIDAZOLAM HCL (*CRX) 2 MG/2 ML VIAL IV PUSH (12:24)
--- NOTE | 2020-12-23 12:42 | WPDHPUPDATE1 ---
History and Physical Update Update Date/Time: 12/23/20 12:42 History and Physical has been reviewed, including an updated exam of the patient. There are NO changes in the patient's condition. Risks, benefits, and alternatives have been discussed and questions answered. Patient agrees to proceed with procedure.
[2020-12-23] MEDS: SCOPOLAMINE 1.5 MG PATCH TRANSDERM (12:55)
[2020-12-23] MEDS: ceFAZolin 2 GM/D5W 50 ML 2 GM/50 ML BAG IVPB (13:00)
[2020-12-23] MEDS: BUPIVACAINE/EPINEPHRINE 0.5% 10 ML VIAL 40 ML INFILTRATE (13:31)
[2020-12-23] MEDS: LACTATED RINGERS 1,000 ML 30 ML IV CONT ×2 (14:09→15:05)
--- NOTE | 2020-12-23 14:18 | P.OP_ITS ---
Procedure Note - Detailed Date of Procedure 12/23/20 Pre-op Diagnosis Biliary pancreatitis Post-op Diagnosis same Procedure Performed Laparoscopic cholecystectomy with intraoperative cholangiogram Surgeon Tawanda Elizondo MD Operator [employer] Anesthesia general and local (0.5% Marcaine with epinephrine) Indications Patient was admitted about 3 weeks ago with acute pancreatitis and was found to have sludge in the gallbladder on ultrasound. She is felt to have an episode of biliary pancreatitis. Her pain resolved and she was discharged. She is taken back to surgery now for laparoscopic cholecystectomy with cholangiogram. Findings Mild chronic inflammation. No stones noted. No biliary ductal dilatation. Intraoperative cholangiogram did not show any evidence of gallstones or anatomic variant. Liver appeared normal. Description of Procedure Patient was taken to surgery and induced into general anesthesia. The abdomen is prepped and draped. Trocars were placed in the usual fashion using 0.5% Marcaine with epinephrine and applied Medical optical trocars. A 5 mm camera was used. The gallbladder was decompressed with a laparoscopic aspirator. The cholecystotomy was closed with a Vicryl endoloop. The gallbladder was then retracted anterosuperiorly and traction was placed on the infundibulum. Dissection was carried out in the cholecystohepatic triangle. The cystic duct and cystic artery were dissected out very clearly. The cystic artery was securely clipped and divided. Critical view had been achieved. The cystic duct was clipped at its most proximal aspect near the gallbladder. Cystic duct scissors were used and this cystic duct was opened. Cholangiogram catheter was introduced into the cystic duct. Then using cine fluoroscopy, cholangiograms were obtained. Findings were as noted above. There was prompt duodenal filling and no evidence of any bile duct stones or injury. The cholangiogram catheter was removed. The cystic duct was securely clipped and then divided. We dissected the remaining peritoneal attachments of the gallbladder to the liver. Eventually the gallbladder was completely freed. It was placed in an Endo-Catch bag and retrieved through the 10 11 epigastric trocar. The trocar was then replaced. We reviewed the right upper quadrant and areas of dissection. There was no evidence of bleeding or bile leakage. Cautery had been used for hemostasis. We evacuated CO2 and removed the trocar sleeves. Skin wounds were closed with subcuticular 4 O Monocryl skin suture. The wounds were dressed with Exofin surgical adhesive. Estimated Blood Loss -5.0 Drains No Packing No Pathology yes (Gallbladder) Complications None Condition stable Disposition PACU
--- NOTE | 2020-12-23 14:41 | SUR.PHASEI ---
1440- pt does not have any c/o pain when asked.
[2020-12-23] MEDS: oxyCODONE HCL (*CRX) 5 MG TAB IR PO (15:35)
== END 2020-12-23 16:45 | disposition home or self-care (01) ==
PROVIDERS: PCP Family Medicine; Visit Provider Surgery
PROC: 0FT44ZZ Resection of Gallbladder, Percutaneous Endoscopic Approach (ICD-10-PCS; CPT 47562; principal; 2020-12-23 13:00)
DX: K81.1 Chronic cholecystitis (principal); K76.89 Other specified diseases of liver; E55.9 Vitamin D deficiency, unspecified; R11.2 Nausea with vomiting, unspecified; R10.9 Unspecified abdominal pain
CPT/HCPCS: 47563; 74300; 88304; A9270; C1713; J0690; J1100; J2250; J2370; J2405; J2704; J2710; J3010; J7030; J7120

== ENCOUNTER 2021-04-08 00:11 | Day surgery (SDC) | payer OTHER, SELFPAY ==
[2021-03-24 14:26] VITALS: BMI 25.7
[2021-04-08 06:54] VITALS: BP 124/79; PULSE 99; RESP 17; TEMP 36.3; O2SAT 99; BMI 25.1
[2021-04-08] MEDS: LACTATED RINGERS 1,000 ML 150 ML IV CONT (07:10)
--- NOTE | 2021-04-08 07:15 | WPDANESEPPF ---
Anes - Initial Pre Proc Eval Procedure: Operation Date: 04/08/21 08:15 Proposed Procedures p Screening Colonoscopy - Toñito Ramirez MD Date/Time: 04/08/21 07:15 Surgeon: Toñito Ramirez MD Pre Op Diagnosis: neoplasm screening Patient Data Age: 51 Gender: F Height: 1.6 m Weight: 64.3 kg Last Vital Signs Temp 36.3 C L 04/08/21 06:54 Pulse 99 04/08/21 06:54 Resp 17 04/08/21 06:54 BP 124/79 04/08/21 06:54 Pulse Ox 99 04/08/21 06:54 Allergies Allergy/AdvReac Type Severity Reaction Status Date / Time Penicillins Allergy Intermediate HIVES/ RASH Verified 04/08/21 06:53 Home Medications Medication Instructions Recorded Confirmed Type jthqcuffiglp-dtup-rrhkv acid 1 tablet PO DAILY 03/24/21 04/08/21 History [[facility]] Patient hx anesthesia problems: none Family hx anesthesia problems: none Results Review: All pre-operative results and documents have been reviewed as part of the pre-operative evaluation. [facility] Past Medical History Medical History Colon cancer screening COVID-19 vaccine series completed Liver cyst Nausea and vomiting in adult Sludge in gallbladder Vitamin D deficiency Surgical History Surgical History Hx laparoscopic cholecystectomy Status post excision of lipoma left shoulder Family History Family History Mother Healthy adult Father Healthy adult Social History Social History Social History: Primary care physician: Dr. Jolly Bauman code status: Full code surrogate decision maker: Smoking status: Never smoker Second hand tobacco smoke exposure: No Alcohol intake: never Alcohol use details: She rarely drinks alcohol and only in moderation. Substance use: never Substance use type: does not use Living arrangements: with family Additional living arrangements comments: She lives in [place] with her and their 16-year-old daughter. She also has a 26-year-old daughter as well. 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 Gender identity (if verbalized by the patient): Female Sexual Orientation (if Verbalized by the Patient): Straight or Heterosexual Spiritual care concerns: No Anes - Eval Final PreProcedure Day of Procedure 04/08/21 07:15 Patient weight: normal Heart: regular rate and rhythm Lungs: clear to auscultation Airway: Mallampati scale class II Neurological: alert and oriented Last oral intake: >/= 8 hours ASA classification: I Emergent: no Anesthetic plan: proceed Anesthesia type and monitoring: general Results Review: All pre-operative results and documents have been reviewed as part of the pre-operative evaluation. Informed Consent: The patient's anesthetic plan and its attendant risks and benefits were discussed with the patient/family/POA. Questions were solicited and answers provided to the satisfaction of the patient/family/POA.
--- NOTE | 2021-04-08 08:03 | PM.HPGS ---
History of Present Illness History of Present Illness Consent: Risks, benefits, and alternatives have been discussed and questions answered. Patient agrees to proceed with procedure. Chief complaint: neoplasm screening Narrative: Jenni López is a 51 year old female here for first screening colonoscopy Review of Systems Constitutional: Constitutional: Denies headache(s) and Denies weakness Eyes: Eyes: Denies blurry vision ENT: Reports Normal hearing present, Denies headache(s) and Denies neck pain Cardiovascular: Cardiovascular: Denies chest pain and Denies dyspnea Respiratory: Respiratory: Denies dyspnea Gastrointestinal: Gastrointestinal: Reports no additional gastrointestinal complaints Genitourinary: Genitourinary: Denies dysuria Musculoskeletal: Musculoskeletal: Denies neck pain Integumentary/Breasts: Skin/Breast: Denies dry skin Neurologic: Reports Normal hearing present, Denies headache(s) and Denies weakness Psychiatric: Psychiatric: Denies anxiety Endocrine: Endocrine: Denies change in body appearance Hematologic/Lymphatic: Hematologic/Lymphatic: Denies easy bleeding Allergic/Immunologic: Allergic/Immunologic: Denies urticaria PMFSH Past Medical History Medical History Colon cancer screening COVID-19 vaccine series completed Liver cyst Nausea and vomiting in adult Sludge in gallbladder Vitamin D deficiency Surgical History Surgical History Hx laparoscopic cholecystectomy Status post excision of lipoma left shoulder Family History Family History Mother Healthy adult Father Healthy adult Social History Social History Social History: Primary care physician: Dr. Jolly Bauman code status: Full code surrogate decision maker: Smoking status: Never smoker Second hand tobacco smoke exposure: No Alcohol intake: never Alcohol use details: She rarely drinks alcohol and only in moderation. Substance use: never Substance use type: does not use Living arrangements: with family Additional living arrangements comments: She lives in [place] with her and their 16-year-old daughter. She also has a 26-year-old daughter as well. 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 Gender identity (if verbalized by the patient): Female Sexual Orientation (if Verbalized by the Patient): Straight or Heterosexual Spiritual care concerns: No Meds Home Medications and Allergies Home Medications Medication Instructions Recorded Confirmed Type swwhaejvleoo-froh-ebdqk acid 1 tablet PO DAILY 03/24/21 04/08/21 History [[facility] Women] Allergies Allergy/AdvReac Type Severity Reaction Status Date / Time Penicillins Allergy Intermediate HIVES/ RASH Verified 04/08/21 06:53 Vital Signs Vital Signs - 24 hr 04/08/21 06:54 Temperature 97.3 F L Pulse Rate 99 Respiratory Rate 17 Blood Pressure 124/79 Pulse Oximetry 99 Exam Const: General: comfortable and no acute distress HENMT: General nose exam: Normal nares present Eyes: General: appearance normal, both eyes and all related structures Neck: Neck: no JVD Resp: Auscultation: clear to auscultation bilaterally Cardio: Rate: regular rate Rhythm: regular rhythm GI: Inspection: non-distended GI Palp: Yes Soft to palpation Skin: General skin exam: normal color Neuro: General: gait normal Speech: normal speech Extrem: General: normal to inspection Psych: Mental Status: mental status grossly normal Assessment and Plan Assessment and plan (1) Colon cancer screening: Code(s): Z12.11 - Encounter for screening for malignant neoplasm of colon Status: Acute Assessment and Plan: colonosco
[2021-04-08 08:24] VITALS: BP 92/56; PULSE 72; RESP 16; O2SAT 99
[2021-04-08 08:34] VITALS: BP 102/64; PULSE 71; RESP 24; O2SAT 100
[2021-04-08 08:44] VITALS: BP 109/67; PULSE 69; RESP 13; O2SAT 100
== END 2021-04-08 08:59 | disposition home or self-care (01) ==
PROVIDERS: PCP Family Medicine; Visit Provider Internal Medicine Gastroenterology
PROC: 0DJD8ZZ Inspection of Lower Intestinal Tract, Via Natural or Artificial Opening Endoscopic (ICD-10-PCS; CPT 45378; principal; 2021-04-08 08:15)
DX: Z12.11 Encounter for screening for malignant neoplasm of colon (principal); K64.8 Other hemorrhoids
CPT/HCPCS: 45378; J2704; J7120

== ENCOUNTER → 2021-07-21 10:25 | Outpatient (CLI) | payer OTHER, SELFPAY ==
--- NOTE | ~2021-07-21 | MM_ITS ---
EXAMINATION: MM screening ailyn BI w nancy HISTORY: Screening TECHNIQUE: Craniocaudal and mediolateral oblique 3-D tomosynthesis images were obtained and synthetic 2-D images were generated. CAD analysis was submitted and interpreted. COMPARISON: Comparison to multiple prior studies sequentially, with oldest reviewed study dated 09/2015. BREAST PARENCHYMAL COMPOSITION: The breasts are heterogenously dense, which may obscure small masses FINDINGS: There is no evidence of suspicious mass, calcification, or architectural distortion to sugg est malignancy in either breast. There has been no suspicious interval change. IMPRESSION: 1. No mammographic evidence of malignancy. 2. Recommend routine screening mammography in one year. BI-RADS Category 1: Negative Reviewed, dictated and finalized at location A. NUT COOKER
== END ==
PROVIDERS: PCP Family Medicine; Visit Provider Nurse Practitioner
DX: Z12.31 Encounter for screening mammogram for malignant neoplasm of breast (principal)
CPT/HCPCS: 77063; 77067

== ENCOUNTER → 2022-07-23 10:04 | Outpatient (CLI) | payer OTHER, SELFPAY ==
--- NOTE | ~2022-07-23 | MM_ITS ---
EXAMINATION: MM screening [facility] BI w nancy HISTORY: Screening mammogram TECHNIQUE: Craniocaudal and mediolateral oblique 3-D tomosynthesis images were obtained and synthetic 2-D images were generated. CAD analysis was submitted and interpreted. COMPARISON: 07/21/2021, 07/17/2020, 07/19/2019, 07/17/2019 BREAST PARENCHYMAL COMPOSITION: The breasts are heterogeneously dense, which may obscure small masses . FINDINGS: RIGHT BREAST: There is a possible mass in the posterior third of the outer breast. LEFT BREAST: No suspicious mass, calcification, or architectural distortion are identified to suggest malignancy. There has been no suspicious interval change. IMPRESSION: 1. Possible right breast mass 2. Additional mammographic views and possible breast ultrasound are recommended. BI-RADS Category 0: Incomplete: Needs additional imaging evaluation. Reviewed, dictated and finalized at location A. TO SPOTTER IMPRESSION: 1. Possible right breast mass 2. Additional mammographic views and possible breast ultrasound are recommended . BI-RADS Category 0: Incomplete: Needs additional imaging evaluation.
== END ==
PROVIDERS: PCP Family Medicine; Visit Provider Obstetrics & Gynecology Gynecology
DX: Z12.31 Encounter for screening mammogram for malignant neoplasm of breast (principal); R92.8 Other abnormal and inconclusive findings on diagnostic imaging of breast
CPT/HCPCS: 77063; 77067

== ENCOUNTER → 2022-08-18 08:30 | Outpatient (CLI) | payer OTHER, SELFPAY ==
--- NOTE | ~2022-08-18 | MMUS_ITS ---
EXAMINATION: MM diagnostic ailyn RT w nancy, US breast RT limited HISTORY: Possible mass reported in posterior third of outer right breast on 07/23/2022 screening mammog cecile TECHNIQUE: Additional 3-D tomosynthesis images of the right breast were performed and synthetic 2-D i mages were generated. CAD analysis was submitted and interpreted. High resolution upper outer and low er-outer quadrants right breast ultrasound was performed. COMPARISON: 07/23/2022 bilateral screening mammogram FINDINGS: MAMMOGRAPHIC FINDINGS: Possible 5 mm nodular mass in the lower outer right breast (spot right lateral craniocaudal Tomosynth esis image 15). No other suspicious mass, architectural distortion or any malignant calcification, skin thickening or retraction is noted. ULTRASOUND: 8:00 6 cm from nipple: 1.7 x 3.5 mm parallel circumscribed sonolucency, likely a small cyst 8:00 5 cm from nipple: Parallel circumscribed 2.2 x 3.5 x 3.7 mm hypoechoic lesion without internal v ascularity or suspicious shadowing. No suspicious mass or shadowing or other significant sonographic finding is noted. IMPRESSION: 1. Benign findings; no mammographic evidence of malignancy 2. Routine annual mammographic screening is recommended BI-RADS Category 2: Benign finding(s). Reviewed, dictated and finalized at location A. IMPRESSION: 1. Benign findings; no mammographic evidence of malignancy 2. Routine annual mammographic screening is recommended BI-RADS Category 2: Benign finding(s).
== END ==
PROVIDERS: PCP Family Medicine; Visit Provider Obstetrics & Gynecology Gynecology
DX: R92.8 Other abnormal and inconclusive findings on diagnostic imaging of breast (principal)
CPT/HCPCS: 76642; 77061; 77065; G0279

== ENCOUNTER → 2022-11-27 12:20 | Outpatient (CLI) | payer OTHER, SELFPAY ==
--- NOTE | ~2022-11-27 | DEXA_ITS ---
Bone Density Report Name: JORDAN WORLEY Age: 52 Sex: Female Ethnicity: White Date of : 1970 Indication: postmenopausal; screening for osteoporosis; Referring Provider: ANGÉLICA VAUGHAN Study: Bone densitometry was performed. Exam Date: November 27, 2022 Accession number: [id number] Bone Density: Region BMD T-score Z-score Classification AP Spine (L1-L4) 0.954 -0.8 0.1 Normal Femoral Neck (Left) 0.810 -0.4 0.5 Normal Total Hip (Left) 0.876 -0.5 0.0 Normal Femoral Neck (Right) 0.725 -1.1 -0.2 Osteopenia Total Hip (Right) 0.811 -1.1 -0.5 Osteopenia Total Hip Mean 0.844 -0.8 -0.3 Normal World Health Organization criteria for BMD impression classify patients as: Normal (T-score at or above -1.0), Osteopenia (T-score between -1.0 and -2.5), or Osteoporosis (T-score at or below -2.5). 10-year Fracture Risk(1): Major Osteoporotic Fracture 4.9% Hip Fracture 0.3% Reported Risk Factors: [place] (), Neck BMD=0.725, BMI=30.0 (1) FRAX(R) Version 3.08. Fracture probability calculated for an untreated patient. Fracture probability may be lower if the patient has received treatment. Clinical Information Provided by Patient: Has used the following medications: Vitamin D, MTV Patient maximum height was 63.5 No regular weight bearing exercise Onset of menses at age 13 Number of children 2 Missed period for more than 6 months in a row Impression: The patient has low bone mass, based on the Right Total Hip T-score. The patient has an estimated ten-year risk of hip fracture of 0.3% and an estimated ten-year risk of major fracture of 4.9%, based on the WHO FRAX algorithm. Discussion: BONE DENSITY IS LOW AT ONE OR MORE SKELETAL SITES. This patient's lowest T-score is low at one or more skeletal sites. It meets the World Health Organization's (WHO) criteria for ?low bone mass? (T-score between -1.0 and -2.5). The patient's 10-year risk of fracture as calculated by FRAX is less than the threshold where pharmacological therapy is recommended by the National Osteoporosis Foundation (NOF). However, all treatment decisions require clinical judgment and consideration of individual patient factors, including patient preferences, comorbidities, previous drug use, risk factors not captured in the FRAX model (e.g., frailty, falls, vitamin D deficiency, increased bone turnover, interval significant decline in bone density) and possible under or overestimation of fracture risk by FRAX. The patient should follow a healthful lifestyle (good nutrition with adequate calcium and vitamin D, and appropriate weight-bearing exercise). Follow-Up: Consider repeating this study in 2 to 3 years to reassess this patient's status, or sooner if there is some new clinical indication. Reported by: JESSICA on 11/27/2022 12:55:00
== END ==
PROVIDERS: PCP Family Medicine; Visit Provider Obstetrics & Gynecology Gynecology
DX: Z78.0 Asymptomatic menopausal state (principal); M85.851 Other specified disorders of bone density and structure, right thigh
CPT/HCPCS: 77080

== ENCOUNTER 2023-04-21 19:29 | Emergency (ER) | payer OTHER, SELFPAY ==
[2023-04-21 19:49] VITALS: BP 141/74; PULSE 104; RESP 16; TEMP 37.8; O2SAT 98
[2023-04-21 19:50] VITALS: BP 141/74; PULSE 104; RESP 16; TEMP 37.8; O2SAT 98
--- NOTE | 2023-04-21 20:11 | ED.URI ---
HPI - URI/Sore Throat General Chief Complaint: Upper Respiratory Infection Stated Complaint: sinus issue Source: patient and RN notes reviewed Mode of arrival: ambulatory Limitations: no limitations History of Present Illness HPI Narrative: 53-year-old female presented for complaint of sinus congestion for one week, that has moved to the chest. Endorses pressure to the upper chest. Cough is only when she is in the shower. denies shortness of breath, wheezing, nausea, vomiting, fevers or chills. She is taking Advil for symptoms. MD elicited complaint: cough Related Data Home Medications Medication Instructions Recorded Confirmed multivitamin-ferrous 1 tablet PO DAILY 03/24/21 04/21/23 fumarate-folic acid 18 mg-400 mcg tablet (Centrum Women) levonorgestrel 21 mcg/24 hours (8 See Rx Instructions .Route .COMPLEX 04/21/23 04/21/23 yrs) 52 mg intrauterine device (Mirena) Allergies Allergy/AdvReac Type Severity Reaction Status Date / Time Penicillins AdvReac Mild HIVES/ RASH Verified 04/21/23 19:50 Review of Systems Review of Systems: CONSTITUTIONAL: Denies malaise, chills, sweats, fever EYES: Denies visual changes, redness, or discharge ENT: Reports rhinorrhea, congestion, denies otalgia, sore throat CARDIOVASCULAR: Denies chest pain, palpitations, edema RESPIRATORY: Reports occasional cough, post nasal drainage. Denies dyspnea GASTROINTESTINAL: Denies abdominal pain, nausea, vomiting, diarrhea SKIN: Denies rash or itching MUSCULOSKELETAL: Denies myalgia NEUROLOGIC: Denies headache PMFSH Past Medical History Medical History Colon cancer screening COVID-19 vaccine series completed Liver cyst Nausea and vomiting in adult Sludge in gallbladder Vitamin D deficiency Surgical History Surgical History Hx laparoscopic cholecystectomy Status post excision of lipoma left shoulder Family History Family History Mother Healthy adult Father Healthy adult Social History Social History Social History: Primary care physician: Dr. Jolly Bauman code status: Full code surrogate decision maker: Smoking status: Never smoker Second hand tobacco smoke exposure: No Alcohol intake: never Alcohol use details: She rarely drinks alcohol and only in moderation. Substance use: never Substance use type: does not use Living arrangements: with family Additional living arrangements comments: She lives in [place] with her and their 16-year-old daughter. She also has a 26-year-old daughter as well. 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 Gender identity (if verbalized by the patient): Female Sexual Orientation (if Verbalized by the Patient): Straight or Heterosexual Spiritual care concerns: No Exam Narrative: GENERAL: well-appearing, nontoxic no acute distress. HEAD: Normocephalic EYES: PERRLA, conjunctivae clear ENT: Mucous membranes moist. TMs pearly marquez with dull light reflex bilaterally; no tragal tenderness. Oropharynx erythematous without lesions or exudate, no drooling, no hoarseness, no trismus, uvula midline. No tripod positioning, muffled voice, soft palate or pharyngeal wall bulging NECK: Supple. No lymphadenopathy CHEST: Clear to auscultation, breath sounds equal. No wheezing, rhonchi, rales, or stridor. No respiratory distress, speaks in full sentences. HEART: Regular rate and rhythm. No murmur heard. SKIN: Warm, dry, no rash. NEURO: Alert and oriented x3. PSYCH: Normal mood and affect Course Course Emergency Course: Patient is aware of diagnosis, understands and agrees to treatment plan. Anticipatory guidance given. Patient agrees to follow-up as directed and is awar
== END 2023-04-21 20:22 | disposition home or self-care (01) ==
PROVIDERS: Emergency Provider Nurse Practitioner Family; PCP Family Medicine
DX: J06.9 Acute upper respiratory infection, unspecified (principal)
CPT/HCPCS: 99213; G0463

== ENCOUNTER 2023-07-27 09:28 | Outpatient (CLI) | payer OTHER, SELFPAY ==
--- NOTE | ~2023-07-27 | MM_ITS ---
EXAMINATION: MM screening ailyn BI w nancy HISTORY: Screening mammogram TECHNIQUE: Craniocaudal and mediolateral oblique 3-D tomosynthesis images were obtained and synthetic 2-D images were generated. Bilateral rotated lateral CC views. CAD analysis was submitted and interp reted. COMPARISON: August 18, 2022 diagnostic right mammogram and limited right breast ultrasound July 23, 2022, July 21, 2021 bilateral screening mammogram examinations BREAST PARENCHYMAL COMPOSITION: The breasts are heterogeneously dense, which may obscure small masses . FINDINGS: There is no evidence of suspicious mass, calcification, or architectural distortion to sugg est malignancy in either breast. There has been no suspicious interval change. IMPRESSION: 1. No mammographic evidence of malignancy. 2. Recommend routine screening mammography in one year. BI-RADS Category 1: Negative Reviewed, dictated and finalized at location A.
== END 2023-07-27 09:29 ==
LOC: MICIMG 09:29
PROVIDERS: PCP Obstetrics & Gynecology Gynecology; Visit Provider Obstetrics & Gynecology Gynecology
DX: Z12.31 Encounter for screening mammogram for malignant neoplasm of breast (principal)
CPT/HCPCS: 77063; 77067

== ENCOUNTER 2023-11-01 09:14 | Emergency (ER) | payer OTHER, SELFPAY ==
[2023-11-01 09:23] VITALS: BP 102/61; PULSE 114; RESP 16; TEMP 37.4; O2SAT 97
--- NOTE | 2023-11-01 10:05 | ED.URI ---
HPI - URI/Sore Throat General Chief Complaint: Upper Respiratory Infection Stated Complaint: Sinus Infection Time Seen by Provider: 11/01/23 10:05 Source: patient, RN notes reviewed and old records reviewed Mode of arrival: ambulatory Limitations: no limitations History of Present Illness HPI Narrative: 53-year-old female presents to the [facility] with complaints of 6 day history of sinus pressure and ear pain. Reports a fever 101.4 last night. Reports of productive cough. Treatments prior to arrival: cold medicine Related Data Home Medications Medication Instructions Recorded Confirmed multivitamin-ferrous 1 tablet PO DAILY 03/24/21 11/01/23 fumarate-folic acid 18 mg-400 mcg tablet (Centrum Women) Allergies Allergy/AdvReac Type Severity Reaction Status Date / Time Penicillins AdvReac Mild HIVES/ RASH Verified 11/01/23 10:04 Review of Systems Review of Systems: All systems reviewed & are unremarkable except as noted in HPI and below Constitutional: Constitutional: Reports no additional constitutional complaints Eyes: Eyes: Reports no additional eye complaints ENT: Reports as per HPI Cardiovascular: Cardiovascular: Reports no additional cardiovascular complaints, Denies chest pain and Denies dyspnea Respiratory: Respiratory: Reports no additional respiratory complaints, Denies chest congestion, Denies cough and Denies dyspnea Gastrointestinal: Gastrointestinal: Reports no additional gastrointestinal complaints, Denies abdominal pain, Denies nausea and Denies vomiting Musculoskeletal: Musculoskeletal: Reports no additional musculoskeletal complaints Integumentary/Breasts: Skin/Breast: Reports system reviewed and no additional complaints, except as docu Neurologic: Reports system reviewed and no additional complaints, except as documented Psychiatric: Psychiatric: Reports no additional psychiatric complaints Allergic/Immunologic: Allergic/Immunologic: Reports no additional allergic/immunologic complaints [facility] Past Medical History Medical History Abdominal pain Abnormal abdominal ultrasound Acute biliary pancreatitis Chronic cholecystitis without calculus COVID-19 vaccine series completed Elevated lipase Encounter for surgical aftercare following surgery on the digestive system Hepatic lesion Liver cyst Pancreatitis Pericardial effusion Vitamin D deficiency Vomiting Surgical History Surgical History Hx laparoscopic cholecystectomy Status post excision of lipoma left shoulder Family History Family History Mother Healthy adult Father Healthy adult Social History Social History Social History: Primary care physician: Dr. Jolly Bauman code status: Full code surrogate decision maker: Smoking status: Never smoker Second hand tobacco smoke exposure: No Alcohol intake: never Alcohol use details: She rarely drinks alcohol and only in moderation. Substance use: never Substance use type: does not use Living arrangements: with family Additional living arrangements comments: She lives in [place] with her and their 16-year-old daughter. She also has a 26-year-old daughter as well. 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 Gender identity (if verbalized by the patient): Female Sexual Orientation (if Verbalized by the Patient): Straight or Heterosexual Spiritual care concerns: No Comments At the time of my signature, I reviewed and agree with the nursing past medical, surgical, social, and family history. There is no relevant family history pertinent to the patient complaint. Exam Const: General: cooperative, healthy appearing, comfortable, no acute distress, well developed, al
== END 2023-11-01 10:20 | disposition home or self-care (01) ==
PROVIDERS: Emergency Provider Nurse Practitioner; PCP Family Medicine
DX: H66.91 Otitis media, unspecified, right ear (principal); J01.10 Acute frontal sinusitis, unspecified
CPT/HCPCS: 99213; G0463

== ENCOUNTER 2024-02-26 09:56 | Outpatient (CLI) | payer OTHER, SELFPAY ==
--- NOTE | ~2024-02-26 | US_ITS ---
EXAMINATION: US soft tissue head and neck DATE: 02/26/2024 10:12 INDICATION: Localized swelling, mass and lump, neck. TECHNIQUE: Multiple grayscale and Doppler ultrasound images of the head and neck were obtained. COMPARISON: None FINDINGS: Right thyroid lobe measures 5.0 x 2.2 x 2.3 cm. Left thyroid lobe measures 3.0 x 1.1 x 1.1 cm. In the right thyroid lobe, there is a 3.6 cm solid, isoechoic, wider than tall nodule with smooth margin without echogenic foci (TI-RADS TR3). IMPRESSION: 1. Right thyroid nodule. Ultrasound-guided fine-needle aspiration is recommended. Reviewed, dictated and finalized at location A. IMPRESSION: 1. Right thyroid nodule. Ultrasound-guided fine-needle aspiration is recommende d.
== END 2024-02-26 09:57 | disposition home or self-care (01) ==
LOC: MICIMG 09:57
PROVIDERS: PCP Family Medicine; Visit Provider Student in an Organized Health Care Education/Training Program
DX: E04.1 Nontoxic single thyroid nodule (principal)
CPT/HCPCS: 76536

== ENCOUNTER 2024-04-05 08:05 | Outpatient (CLI) | payer OTHER, SELFPAY ==
[2024-04-05 09:16] LABS: Iron 93 ug/dL (37-170)
[2024-04-05 09:25] LABS: Percent Iron Saturation 28 % (20-50)
== END 2024-04-05 08:06 | disposition home or self-care (01) ==
LOC: ANHLAB 08:07
PROVIDERS: PCP Family Medicine; Visit Provider Student in an Organized Health Care Education/Training Program
DX: R71.8 Other abnormality of red blood cells (principal)
CPT/HCPCS: 36415; 82728; 83540; 83550

== ENCOUNTER 2024-04-10 12:21 | Outpatient (CLI) | payer OTHER, SELFPAY ==
--- NOTE | ~2024-04-10 | US_ITS ---
EXAMINATION: US FNA w image guidance DATE: 04/10/2024 13:13 INDICATION: Nontoxic single thyroid nodule TECHNIQUE: A time-out was performed to verify the patient's name, date of , and procedure to be performed . The procedure and its benefits and risks were discussed with the patient. Risks specifically discus sed included bleeding and infection. The patient understood the risks and agreed to proceed. The ante rior right neck was prepped and draped in the usual sterile manner. 3 mL 1% lidocaine was used for l ocal anesthesia. 6 passes were made with a 25G needle into the lesion. Appropriate needle location was documented with continuous sonographic guidance. A sterile bandage was applied. There were no i mmediate complications. FINDINGS: Grayscale ultrasound images demonstrate biopsy needles advanced into the 2.3 cm TI-RADS 3 solid isoec hoic right thyroid nodule of concern. IMPRESSION: 1. Successful ultrasound-guided fine needle aspiration of a 2.3 cm TI-RADS 3 right thyroid nodule. Reviewed, dictated and finalized at location A. NING DIRECTOR IMPRESSION: 1. Successful ultrasound-guided fine needle aspiration of a 2.3 cm TI-RADS 3 r ight thyroid nodule.
== END 2024-04-10 12:22 | disposition home or self-care (01) ==
LOC: ANHIMG 12:22
PROVIDERS: PCP Family Medicine; Visit Provider Student in an Organized Health Care Education/Training Program
DX: E04.1 Nontoxic single thyroid nodule (principal)
CPT/HCPCS: 10005; 88172; 88173; 88177; 88305

== ENCOUNTER 2024-07-04 08:22 | Inpatient (IN) | payer OTHER, SELFPAY ==
[2024-07-04] VITALS (12 sets, daily range): BP systolic 103–135; BP diastolic 70–93; PULSE 94–127; RESP 16–28; TEMP 36.7–37.1; O2SAT 91–97; BMI 30.8
--- NOTE | 2024-07-04 | ECHO_ITS ---
Patient Info Name: Jenni López Age: 54 years : 1970 Gender: Female Ht: 63 in Wt: 171 lbs BSA: 1.88 m2 HR: 114 bpm BP: 120 / 87 mmHg Heart Rhythm: Sinus Rhythm, Tachycardia Technical Quality: Good Exam Date: 07/04/2024 11:54 AM Exam Location: Echo Lab Patient Status: Inpatient Admit Date: 07/04/2024 Staff Ordering Physician: Hernan Yusuf MD Apprentice Stylist: Salena Hurtado RDCS Attending Provider: Priscila Gibbons MD Exam Type: CA echo doppler color flow Study Info Indications - PERICARDIAL EFFUSION Complete two-dimensional, color flow and Doppler transthoracic echocardiogram is performed. Summary 1. Left ventricular chamber dimension is normal. 2. Left ventricular systolic function is normal, estimated at 60-65%. 3. There is mildly increased left ventricular wall thickness. 4. The left ventricular diastolic function is grade I diastolic dysfunction. 5. Right ventricular systolic function is normal. 6. There is mild tricuspid valve regurgitation. 7. Large pericardial effusion. Measures up to 2.6cm posteriorly. Measures up to 1.5cm anteriorly. There is right atrial systolic collapse. There is respiratory variation of the tricuspid and mitral valve flow, although these do not meet the tamponade criteria. However, the right atrial systolic collapse is suggestive of echocardiographic tamponade. 8. Left pleural effusion present. Left Ventricle Left ventricular chamber dimension is normal. Left ventricular systolic function is normal, estimated at 60-65%. There is mildly increased left ventricular wall thickness. The left ventricular diastolic function is grade I diastolic dysfunction. Right Ventricle Right ventricular chamber dimension is normal. Right ventricular systolic function is normal. Left Atria Left atrial chamber dimension is normal. Right Atria Right atrial chamber dimension is normal. Atrial Septum Intact interatrial septum visualized by color flow imaging. Aortic Valve The aortic valve is trileaflet. There is no aortic valve stenosis. There is no aortic valve regurgitation. Pulmonic Valve The pulmonic valve is not well visualized. Mitral Valve There is trace mitral valve regurgitation. Tricuspid Valve There is mild tricuspid valve regurgitation. Pericardium/Pleural Left pleural effusion present. Large pericardial effusion. Measures up to 2.6cm posteriorly. Measures up to 1.5cm anteriorly. There is right atrial systolic collapse. There is respiratory variation of the tricuspid and mitral valve flow, although these do not meet the tamponade criteria. However, the right atrial systolic collapse is suggestive of echocardiographic tamponade. Inferior Vena Cava Normal inferior vena cava with >50% collapse upon inspiration consistent with normal right atrial pressure, 3 mmHg. Aorta The aortic root size at the sinus of Valsalva is normal. Left Ventricular Outflow Tract Name Value Normal LVOT 2D LVOT Diameter 1.8 cm LVOT Doppler LVOT Peak Gradient 7 mmHg LVOT Mean Gradient 4 mmHg LVOT VTI 21 cm LVOT VTI/AV VTI Ratio 0.9 LVOT Stroke Volume 55 ml LVOT CO 6.1 l/min LVOT CI 3.2 l/min/m2 Pulmonic Valve Name Value Normal RVOT Doppler RVOT Peak Gradient 2 mmHg PV Doppler PV Peak Gradient 4 mmHg Mitral Valve Name Value Normal MV Doppler MV Decel Pacific 738 cm/s2 MV PHT 30 ms MV Area (PHT) 7.4 cm2 4.0-5.0 MV Diastolic Function MV E Peak Velocity 76 cm/s MV A Peak Velocity 93 cm/s MV E/A 0.8 MV Decel Time 102 ms Tricuspid Valve Name Value Normal TV Regurgitation Doppler TR Peak Velocity 243 cm/s TR Peak Gradient 15 mmHg Estimated PAP/RSVP RA Pressure 3 mmHg <=5 PA Systolic Pressure 27 mmHg <36 RV Systolic Pressure 27 mmHg <36 Aorta Name Value Normal Ascending Aorta Ao Root Diameter (MM) 2.8 cm Ao Root Diam Index (MM) 1.5 cm/m2 Aortic Valve Name Value Normal AV Doppler AV Peak Velocity 146 cm/s AV Peak Gradient 9 mmHg AV Mean Gradient 5 mmHg AV VTI 23 cm AV Area (Cont Eq VTI) 2.4 cm2 >=3.0 AV Area (Cont Eq Arnie) 2.4 cm2 AV Regurgitation 2D LVOT Area 2.6 cm2 Ventricles Name Value Normal LV Dimensions 2D/MM IVS Diastolic Thickness (2D) 1.3 cm 0.6-1.0 IVS Diastole Thickness (MM) 1.6 cm 0.6-0.9 LVID Diastole (2D) 3.2 cm 3.8-5.2 LVID Diastole (MM) 4.4 cm 3.8-5.2 LVIW Diastolic Thickness (2D) 1.0 cm 0.6-0.9 LVIW Diastolic Thickness (MM) 0.8 cm 0.6-0.9 LVID Systole (2D) 2.0 cm 2.2-3.5 LVID Systole (MM) 2.4 cm 2.2-3.5 LVOT Diameter 1.8 cm LV Mass (2D Cubed) 104.73 g 67.00-162.00 LV Mass Index (2D Cubed) 56 g/m2 43-95 Relative Wall Thickness (2D) 0.61 LV Mass (MM Cubed) 190.81 g 67.00-162.00 LV Mass Index (MM Cubed) 101 g/m2 43-95 Relative Wall Thickness (MM) 0.36 LV Fractional Shortening/Ejection Fraction 2D/MM LV Fractional Shortening (2D) 37 % 27-45 LV Fractional Shortening (MM) 47 % 27-45 LV EF (MM Teicholz) 78 % 54-74 LV EF (2D Teicholz) 68 % 54-74 LV Diastolic Volume (4C MOD) 31 ml LV EF (4C MOD) 57 % LV Diastolic Volume (2C MOD) 34 ml LV EF (2C MOD) 81 % LV Diastolic Volume (BP MOD) 33 ml 46-106 LV Diastolic Volume Index (BP MOD) 17 ml/m2 29-61 LV Systolic Volume (BP MOD) 9 ml 14-42 LV Systolic Volume Index (BP MOD) 5 ml/m2 8-24 LV EF (BP MOD) 71 % 54-74 LV Diastolic Length (4C) 7.1 cm LV Systolic Length (4C) 4.9 cm LV Stroke Volume (4C MOD) 18 ml Atria Name Value Normal LA Dimensions LA Dimension (MM) 2.2 cm 2.7-3.8 LA Volume (4C A-L) 18 ml LA Volume (BP A-L) 28 ml RA Dimensions RA Area (4C) 10.4 cm2 <=18.0 Report Signatures
--- NOTE | ~2024-07-04 | CT_ITS ---
EXAMINATION: CTA chest PE protocol DATE: 07/04/2024 10:23 INDICATION: Chest pain. TECHNIQUE: Computed tomography angiography (CTA) of the chest was performed with 100 mL Omnipaque-350 intravenous contrast timed to evaluate the pulmonary arteries. Coronal maximum intensity projection 3D-reconstructions were created by the technologist. Automated exposure control and iterative reconst ruction technique were employed. The dose-length product was 357.17 mGy-cm. COMPARISON: Chest CT 12/13/2020, ultrasound 04/10/2024 FINDINGS: There are small right and moderate-sized left pleural effusions. There is dependent atelect asis bilaterally. There is a 2.0 cm nodule in right thyroid lobe status post recent biopsy. The heart size is normal. There is a large pericardial effusion. There is no pulmonary embolus. There are cyst s in the liver measuring up to 4.4 cm. There are changes of cholecystectomy. There is mild thoracic s pondylosis. IMPRESSION: 1. Large pericardial effusion. 2. Small right and moderate-sized left pleural effusions. 3. No pulmonary embolus. Reviewed, dictated and finalized at location A. UNT RESOLUTION EXPERT
--- NOTE | ~2024-07-04 | XR_ITS ---
EXAMINATION: XR chest 2V DATE: 07/04/2024 09:09 INDICATION: Chest tightness. TECHNIQUE: Frontal and lateral views of the chest were obtained. COMPARISON: Chest 2 views 12/13/2020 FINDINGS: There are small right and moderate-sized left pleural effusions. There are airspace opaciti es at the lung bases. No pneumothorax. The heart size is obscured. IMPRESSION: 1. Small right and moderate-sized left pleural effusions. 2. Airspace opacities at the lung bases, likely atelectasis. Reviewed, dictated and finalized at location A. PRE COOLER
--- NOTE | ~2024-07-04 | XR_ITS ---
EXAMINATION: XR chest 2V DATE: 07/08/2024 10:13 INDICATION: Pleural effusion TECHNIQUE: PA and lateral views of the chest were obtained. COMPARISON: Chest radiograph and CT dated 07/04/2024 FINDINGS: Persistent moderate-sized left and very small right pleural effusions with associated compressive ate lectasis. No evident pneumonia, pulmonary edema or other opacities in the aerated portions the lungs. No pneumothorax. The left-sided cardiac silhouette is obscured. Mediastinal silhouette is normal. Ch olecystectomy clips in right upper quadrant. IMPRESSION: 1. Unchanged moderate left and very small right pleural effusions with associated atelectasis. Reviewed, dictated and finalized at location A. ARINE ADVISORY TEAM WATCH OFFICER IMPRESSION: 1. Unchanged moderate left and very small right pleural effusions with associat ed atelectasis.
--- NOTE | 2024-07-04 08:23 | ECG_ITS ---
Test Date: 2024-07-04 08:34:27 Measurements Intervals Velva Rate: 121 P: 56 CA: 125 QRS: 37 QRSD: 70 T: 16 QT: 338 QTc: 480 Interpretive Statements SINUS TACHYCARDIA LOW QRS VOLTAGE IN PRECORDIAL LEADS BORDERLINE T WAVE ABNORMALITY- INF/HIGH LAT LEADS BASELINE ARTIFACT- I, II, III, AVR, AVL, AVF, V2 ABNORMAL ECG No previous ECG available for comparison Electronically Signed On 07-04-2024 08:48:29 MEDICAL IMAGING TECH by Yonis Mccullough D.O.
--- OUTSIDE RECORDS SUMMARY | 2024-07-04 08:27 | XMS_ITS | Referral Summary ---
Author Organization [facility] Address [facility] [place] [address] Care Team Providers Care Regional Planner Name Role Phone Jolly Bauman MD Primary Care Provider [phone] Allergies Active Allergy Reactions Criticality Noted Date Comments Penicillins Hives Medium Reaction: HIVES, Medications cholecalciferol (cholecalciferol) 25 mcg (1,000 unit) tablet Active Active Problems Problem Noted Date Diagnosed Date Lipoma of left upper extremity 02/13/2021 Left shoulder pain 02/13/2021 Pericardial effusion 12/17/2020 Other chest pain 12/17/2020 Neoplasm of connective and soft tissue 7 Social History Tobacco Use Types Packs/Day Years Used Date Smoking Tobacco: Never Smokeless Tobacco: Never Comments Unknown Sex and Gender Information Value Date Recorded Sex Assigned at Not on file Legal 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 Gender Identity Female 12/16/2020 4:04 PM CDT Sexual Orientation Straight 12/16/2020 4: 04 PM CDT Last Filed Vital Signs Vital Sign Reading Time Taken Comments Blood Pressure 124/68 12/17/2020 10:10 AM CDT Pulse 65 12/17/2020 10:10 AM CDT Temperature - - Respiratory Rate - - Oxygen Saturation 97% 12/17/2020 10:10 AM CDT Inhaled Oxygen Concentration - - Weight 65.8 kg (145 lb) 04/28/2021 12:40 PM 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
--- OUTSIDE RECORDS SUMMARY | 2024-07-04 08:27 | XMS_ITS | Clinical Summary ---
Author Organization [facility] Address [facility] [place] [address] Care Team Providers Care Eyeglass Assembler Name Role Phone Jolly Bauman MD Primary Care Provider Allergies Active Allergy Reactions Criticality Noted Date Comments Penicillins Hives Medium Reaction: HIVES, Medications cholecalciferol (cholecalciferol) 25 mcg (1,000 unit) tablet Active Active Problems Problem Noted Date Diagnosed Date Lipoma of left upper extremity 02/13/2021 Left shoulder pain 02/13/2021 Pericardial effusion 12/17/2020 Other chest pain 12/17/2020 Neoplasm of connective and soft tissue 7 Surgical History Surgery Date Site/Laterality Comments CHOLECYSTECTOMY Family History Medical History Relation Name Comments No Known Problems Father No Known Problems Mother No Known Problems Sister Relation Name Status Comments Father Alive Mother Alive Sister Alive Social History Tobacco Use Types Packs/Day Years Used Date Smoking Tobacco: Never Smokeless Tobacco: Never Comments Unknown Sex and Gender Information Value Date Recorded Sex Assigned at Not on file Legal Sex Female 8:36 AM PHARMACY STUDENT Gender Identity Female 12/16/2020 4:04 PM CDT Sexual Orientation Straight 12/16/2020 4: 04 PM CDT Obstetrics History Last Filed Vital Signs Vital Sign Reading Time Taken Comments Blood Pressure 124/68 12/17/2020 10:10 AM CDT Pulse 65 12/17/2020 10:10 AM CDT Temperature - - Respiratory Rate - - Oxygen Saturation 97% 12/17/2020 10:10 AM CDT Inhaled Oxygen Concentration - - Weight 65.8 kg (145 lb) 04/28/2021 12:40 PM PHARMACY STUDENT Height 160 cm (5' 3 ) 04/28/2021 12:40 PM PHARMACY STUDENT Body Mass Index 25.69 04/28/2021 12:40 PM PHARMACY STUDENT Plan of Treatment Health Maintenance Due Date Last Done Comments Breast Cancer Screening-Mammogram 1970 Cervical Cancer Screening 1970 Colon Cancer Screening-Colonoscopy 1970 Depression Screening 1970 Hepatitis C Screening 1970 DTaP/Tdap/Td Vaccine (1 - Tdap) 1981 Hepatitis B Screening 1988 Regular Well Visit/Exam 18-64 1988 Zoster Vaccine (1 of 2) 2020 Covid-19 Vaccine (3 - 2023-2 5 season) 2024 10/31/2020, 10/10/2020 Influenza Vaccine (#1) 2024 Pneumococcal vaccine <65 Aged Out No longer eligible based on patient's age to complete this topic Insurance [facility] CHOICE PLUS Member Subscriber Plan / Payer (Ef fective 2020-Present) Name:Jenni López Relation to Subscriber:Spouse Name:KETAN LÓPEZ Date of :1970 (Home) Address: [address] [place] [address] Payer ID:[id number] (NAIC) Type:[facility] HMO/PPO Address: [place] [id number] Care Teams Eyeglass Assembler Relationship Specialty Start Date End Date Jolly Bauman MD PCP - General Family Medicine 12/13/20
--- NOTE | 2024-07-04 08:29 | PC.NURSE ---
Patient stating she needs an ultrasonic IV . Patient refusing to allow this RN start an IV and requesting that an US nurse start line. Patient unable to tell this RN where they are usually successful obtaining IV access, states they have to stick her 5 or 6 times . EDP made aware.
[2024-07-04] MEDS: ASPIRIN 81 MG CHEWABLE TABLET 324 MG PO (08:36)
[2024-07-04 08:58] LABS: Basophils Percent Auto 0.4 % (0.2-1.2); Eosinophils Absolute Auto 0.1 K/mm3 (0-0.3); Eosinophils Percent Auto 0.5 % (0-4.4); Hematocrit 42.7 % (37.0-47.0); Hemoglobin 13.8 g/dL (12.0-15.0); Immature Granulocyte Absolute 0.06 K/mm3 (0.00-0.031); Immature Granulocyte Percent A 0.5 % (0-0.5); Lymphocytes Absolute Auto 0.72 K/mm3 (0.9-3.2); Lymphocytes Percent Auto 6.3 % (18.3-44.2); Mean Corpuscular HGB Conc 32.3 g/dl (32-36); Mean Corpuscular Hemoglobin 28.1 pg (26-34); Mean Platelet Volume 9.2 fl (7.4-10.4); Monocytes Absolute Auto 1.1 K/mm3 (0.1-0.6); Monocytes Percent Auto 9.5 % (2.6-8.5); Neutrophils Absolute Auto 9.4 K/mm3 (1.3-6.7); Neutrophils Percent Auto 82.8 % (45.5-73.1); Platelet Count Result 464 k/mm3 (150-375); Red Blood Count 4.91 M/mm3 (4.2-5.4); White Blood Count 11.4 K/mm3 (4.5-10.0)
[2024-07-04 09:10] LABS: INR 1.2; Prothrombin Time 15.5 Seconds (11.1-14.7)
[2024-07-04 09:11] LABS: Alanine Aminotransferase 23 U/L (6-35); Albumin Level 4.2 g/dL (3.5-5.1); Alkaline Phosphatase 128 U/L (38-126); Anion Gap 11 mmol/L (4-12); Aspartate Amino Transferase 24 U/L (14-36); Bilirubin,Total 1.8 mg/dL (0.2-1.3); Blood Urea Nitrogen 13 mg/dL (7-17); Calcium 9.5 mg/dL (8.4-10.2); Carbon Dioxide 24 mmol/L (22-30); Chloride 103 mmol/L (98-107); Estimated Glomerular Filt Rate > 60; Glucose 106 mg/dL (65-110); Lipase 39 U/L (23-300); Partial Thromboplastin Time 33.4 Seconds (22.3-36.8); Potassium 4.2 mmol/L (3.4-5.0); Sodium 138 mmol/L (137-145)
[2024-07-04 09:23] LABS: Troponin I < 0.012 ng/mL (0.000-0.034)
[2024-07-04 09:26] LABS: D Dimer 6.09 ug/mL (<0.48)
--- NOTE | 2024-07-04 11:00 | ED_ITS ---
HPI - Chest Pain General Chief Complaint: Chest Pain Stated Complaint: cp, SOB Time Seen by Provider: 07/04/24 08:28 Source: patient Mode of arrival: ambulatory Limitations: no limitations History of Present Illness HPI narrative: 54-year-old with a history remote history of pericardial effusion here with the complaints of left-sided chest pain mostly under the left breast for past 1 week. She denied any shortness of breath, cough or, fever or chills. No previous history of CAD. MD complaint: chest pain Onset (ago): week(s) (1) Timing of current episode: constant Pain location: left chest Pain radiation: none Relieving factors: nothing Exacerbating factors: nothing Risk Factors Coronary artery disease risk factors: none Related Data Home Medications ?Medication ?Instructions ?Recorded ?Confirmed ?Last Taken ?Type multivitamin-ferrous 1 tablet PO DAILY 03/24/21 07/04/24 07/03/24 History fumarate-folic acid 18 mg-400 mcg tablet (Centrum Women) Allergies Allergy/AdvReac Type Severity Reaction Status Date / Time Penicillins AdvReac Mild HIVES/ RASH Verified 07/04/24 08:22 Review of Systems 2 Review of Systems: All systems reviewed & are unremarkable except as noted in HPI and below Constitutional: Constitutional: Reports no additional constitutional complaints Eyes: Eyes: Reports no additional eye complaints ENT: Reports system reviewed and no additional complaints, except as documented Cardiovascular: Cardiovascular: Reports as per HPI Respiratory: Respiratory: Reports no additional respiratory complaints Gastrointestinal: Gastrointestinal: Reports no additional gastrointestinal complaints Musculoskeletal: Musculoskeletal: Reports no additional musculoskeletal complaints PMFSH Past Medical History Medical History Chronic cholecystitis without calculus Encounter for surgical aftercare following surgery on the digestive system Pericardial effusion Acute biliary pancreatitis Abnormal abdominal ultrasound Liver cyst Pancreatitis COVID-19 vaccine series completed Hepatic lesion Elevated lipase Vomiting Abdominal pain Vitamin D deficiency Surgical History Surgical History Hx laparoscopic cholecystectomy Status post excision of lipoma left shoulder Family History Family History Mother Healthy adult Father Healthy adult Social History Social History Social History: Primary care physician: Dr. Jolly Bauman code status: Full code surrogate decision maker: Smoking status: Never smoker Second hand tobacco smoke exposure: No Alcohol intake: never Alcohol use details: She rarely drinks alcohol and only in moderation. Substance use: never Substance use type: does not use Living arrangements: with family Additional living arrangements comments: She lives in [place] with her and their 16-year-old daughter. She also has a 26-year-old daughter as well. 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 Gender identity (if verbalized by the patient): Female Sexual Orientation (if Verbalized by the Patient): Straight or Heterosexual Spiritual care concerns: No Exam 2 Narrative: GENERAL: Well-appearing, well-nourished, and in no acute distress. HEAD: Normocephalic, atraumatic. EYES: PERRLA and EOMI. ENT: Nares clear, no rhinorrhea or epistaxis. Mucous membranes moist. NECK: Supple. CHEST: Clear to auscultation. No respiratory distress. HEART: Regular rate and rhythm. No murmur heard. Normal peripheral pulses. ABDOMEN: Soft, nontender, nondistended, normal active bowel sounds. EXTREMITIES: Normal range of motion. No edema. SKIN: Warm, dry, no rash. NEURO: No focal deficits. Alert and oriented x3. PSYCH: Normal mood and affect. Course Course Emergency Course: Patient comfortably resting on the bed in no discomfort. she is stightly tachycardic with a heart rate of 107-110. With a blood pressure of 120/87. I discussed lab values and CT findings with the patient and .. Did consult Cardiology recommended admission. Discussed with Hospitalist , will accept the pt . Vital Signs Vital signs: Vital Signs Temperature 36.7 C 07/04/24 08:28 Pulse Rate 122 H 07/04/24 08:28 Respiratory Rate 17 07/04/24 08:28 Blood Pressure 127/93 H 07/04/24 08:28 Pulse Oximetry 97 07/04/24 08:28 Oxygen Delivery Room Air 07/04/24 08:28 Temperature 36.7 C 07/04/24 08:28 Pulse Rate 113 H 07/04/24 08:54 Respiratory Rate 17 07/04/24 08:28 Blood Pressure 117/87 07/04/24 08:54 Pulse Oximetry 97 07/04/24 08:54 Oxygen Delivery Room Air 07/04/24 08:44 MDM - Chest Pain Differential Diagnosis Differential diagnosis: Likely stable angina, unstable angina pectoris, atypical chest pain, st elevation myocardial infarction and costochondritis Medical Records Data Attestation: I reviewed the patient's medical records. Lab Data Attestation: I reviewed the patient's lab results. 07/04/24 08:52 07/04/24 08:52 Labs: Lab Results 07/04/24 Range/Units 08:52 WBC 11.4 H (4.5-10.0) K/mm3 RBC 4.91 (4.2-5.4) M/mm3 Hgb 13.8 (12.0-15.0) g/dL Hct 42.7 (37.0-47.0) % MCV 87.0 (80-100) fl MCH 28.1 (26-34) pg MCHC 32.3 (32-36) g/dl RDW 12.0 (11.5-14.5) % Plt Count 464 H D (150-375) k/mm3 MPV 9.2 (7.4-10.4) fl Immature Gran % (Auto) 0.5 (0-0.5) % Neut % (Auto) 82.8 H (45.5-73.1) % Lymph % (Auto) 6.3 L (18.3-44.2) % Dorado % (Auto) 9.5 H (2.6-8.5) % Eos % (Auto) 0.5 (0-4.4) % Baso % (Auto) 0.4 (0.2-1.2) % Lymph # (Auto) 0.72 L (0.9-3.2) K/mm3 Dorado # (Auto) 1.1 H (0.1-0.6) K/mm3 Eos # (Auto) 0.1 (0-0.3) K/mm3 Baso # (Auto) 0.0 (0.0-0.1) K/mm3 Abs Immat Gran (auto) 0.06 H (0.00-0.031) K/mm3 Absolute Neuts (auto) 9.4 H (1.3-6.7) K/mm3 Absolute Nucleated RBC 0.000 (0.0-0.012) K/mm3 Nucleated RBC % 0.0 (0.0-0.2) % PT 15.5 H (11.1-14.7) Seconds INR 1.2 APTT 33.4 (22.3-36.8) Seconds D-Dimer 6.09 H (<0.48) ug/mL Sodium 138 (137-145) mmol/L Potassium 4.2 (3.4-5.0) mmol/L Chloride 103 (98-107) mmol/L Carbon Dioxide 24 (22-30) mmol/L Anion Gap 11 (4-12) mmol/L BUN 13 (7-17) mg/dL Creatinine 0.55 L (0.7-1.0) mg/dL Estim Creat Clear Calc Not Reportable Estimated GFR > 60 (59 - ) Glucose 106 (65-110) mg/dL Calcium 9.5 (8.4-10.2) mg/dL Total Bilirubin 1.8 H (0.2-1.3) mg/dL AST 24 (14-36) U/L ALT 23 (6-35) U/L Alkaline Phosphatase 128 H (38-126) U/L Troponin I < 0.012 (0.000-0.034) ng/mL Total Protein 8.0 (6.3-8.2) g/dL Albumin 4.2 (3.5-5.1) g/dL Lipase 39 (23-300) U/L Imaging Data Attestation: I personally reviewed and interpreted this imaging study as follows: Radiologist's impression: ITS Impressions Chest X-Ray 07/04/24 09:16 IMPRESSION: 1. Small right and moderate-sized left pleural effusions. 2. Airspace opacities at the lung bases, likely atelectasis. Chest CTA 07/04/24 10:25 IMPRESSION: 1. Large pericardial effusion. 2. Small right and moderate-sized left pleural effusions. 3. No pulmonary embolus. ECG Data EKG #1: ECG completion date: 07/04/24 ECG completion time: 08:34 EKG Interpretation: tachycardia (121), non-specific ST changes and normal QT Discharge Plan Discharge Clinical Impression: Pericardial effusion Chest pain Qualifiers: Chest pain type: unspecified Qualified Code(s): R07.9 - Chest pain, unspecified Patient Disposition: Still a Patient Condition: Stable Patient Language: Syriac Prescriptions: No Action cholecalciferol (vitamin D3) 25 mcg (1,000 unit) capsule 25 mcg PO DAILY Qty: 1 0RF Centrum Women 18-400 mg-mcg Tablet 1 tablet PO DAILY Follow-up/Referrals: Jolly Bauman MD [Primary Care Provider] - Time of Disposition: 11:12
--- NOTE | 2024-07-04 11:04 | ECG_ITS ---
Test Date: 2024-07-04 11:10:06 Measurements Intervals Morris Rate: 112 P: 53 WY: 130 QRS: 29 QRSD: 74 T: -1 QT: 308 QTc: 421 Interpretive Statements SINUS TACHYCARDIA POSSIBLE LEFT ATRIAL ENLARGEMENT LOW QRS VOLTAGE IN PRECORDIAL LEADS NONSPECIFIC T-WAVE ABNORMALITY- INFERIOR LEADS BASELINE ARTIFACT- I, II, III, AVR, AVL, AVF, V3-V3 ABNORMAL ECG Compared to ECG 07/04/2024 08:34:27 NO SIGNIFICANT CHANGE Electronically Signed On 07-04-2024 12:04:23 NIP WRAPPER by Yonis Mccullough D.O.
[2024-07-04 11:51] LABS: Troponin I < 0.012 ng/mL (0.000-0.034)
--- NOTE | 2024-07-04 13:51 | PC.NURSE ---
Cardiac Cath team here to take pt for procedure and following pt is to be admitted to the ICU. Family member at bedside directed to ICU waiting room by test cell technician.
--- NOTE | 2024-07-04 13:55 | PM.CNCAR ---
Assessment and Plan Assessment and plan (1) Pericardial effusion: Code(s): I31.39 - Other pericardial effusion (noninflammatory) Status: Acute Plan 1. Pericardial effusion This is a 54 year old female who had previously been seen by Dr. Sutherland in 2020 for an incidentally noted small pericardial effusion; no clear etiology for the effusion at that time; no pericarditis. She presented to the ED today for shortness of breath and chest pressure over the past five days. Gets short of breath laying flat. In the ED, noted to have stable blood pressure, however, tachycardic. EKG with sinus tachycardia, low QRS voltage in the precordial leads. Troponins negative x 2. TSH level normal. Chest CTA with large pericardial effusion, small right and moderate left pleural effusions; no pulmonary embolism. STAT echocardiogram shows large pericardial effusion, measuring up to 2.6cm posteriorly, 1.5cm anteriorly. There is right atrial systolic collapse with some respiratory variation of the tricuspid and mitral valve flow. Although the tricuspid and mitral valve flow do not meet the criteria for tamponade, the right atrial systolic collapse is concerning for echocardiographic tamponade. Given the tachycardia, patient's symptoms, and echocardiographic findings, I recommended pericardiocentesis with placement of pericardial drain. Discussed indication for the procedure, risks vs benefits, alternative management options, etc. Patient agreeable to proceed. Will plan for pericardiocentesis today. Will be admitted to the ICU afterwards. Case discussed with ICU Physician. History of Present Illness History of Present Illness Consult date/time: 07/04/24 13:55 Requesting physician: Hernan Yusuf MD Consult reason: Other (Pericardial effusion) Reason For Visit: Pericardial Effusion Narrative: We are consulted for pericardial effusion. This is a 54 year old female who had previously been seen by Dr. Sutherland in 2020 for an incidentally noted small pericardial effusion; no clear etiology for the effusion at that time; no pericarditis. She presented to the ED today for shortness of breath and chest pressure over the past five days. Started suddenly. Gets short of breath laying flat. In the ED, noted to have stable blood pressure, however, tachycardic. EKG with sinus tachycardia, low QRS voltage in the precordial leads. WBC elevated at 11.4. Platelet count elevated at 464. Troponins negative x 2. TSH level normal. CXR showed small right and moderate-sized left pleural effusions. Chest CTA with large pericardial effusion, small right and moderate left pleural effusions; no pulmonary embolism. STAT echocardiogram was done which shows large pericardial effusion, measuring up to 2.6cm posteriorly, 1.5cm anteriorly. There is right atrial systolic collapse with some respiratory variation of the tricuspid and mitral valve flow. Review of Systems Review of Systems: All systems reviewed & are unremarkable except as noted in HPI and below (HPI) [facility] Past Medical History Medical History Chronic cholecystitis without calculus Encounter for surgical aftercare following surgery on the digestive system Pericardial effusion Acute biliary pancreatitis Abnormal abdominal ultrasound Liver cyst Pancreatitis COVID-19 vaccine series completed Hepatic lesion Elevated lipase Vomiting Abdominal pain Vitamin D deficiency Surgical History Surgical History Hx laparoscopic cholecystectomy Status post excision of lipoma left shoulder Family History Family History Mother Healthy adult Father Healthy adult Social History Social History Social History: Primary care physician: Dr. Jolly Bauman code status: Full code surrogate decision maker: Smoking status: Never smoker Second hand tobacco smoke exposure: No Alcohol intake: never Alcohol use details: She rarely drinks alcohol and only in moderation. Substance use: never Substance use type: does not use Living arrangements: with family Additional living arrangements comments: She lives in [place] with her and their 16-year-old daughter. She also has a 26-year-old daughter as well. 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 Gender identity (if verbalized by the patient): Female Sexual Orientation (if Verbalized by the Patient): Straight or Heterosexual Spiritual care concerns: No Meds Home Medications and Allergies Home Medications ?Medication ?Instructions ?Recorded ?Confirmed ?Type multivitamin-ferrous 1 tablet PO DAILY 03/24/21 07/04/24 History fumarate-folic acid 18 mg-400 mcg tablet (Centrum Women) cholecalciferol (vitamin D3) 25 25 mcg PO DAILY #1 cap 02/24/24 07/04/24 Rx mcg (1,000 unit) capsule Allergies Allergy/AdvReac Type Severity Reaction Status Date / Time Penicillins AdvReac Mild HIVES/ RASH Verified 07/04/24 08:22 Vital Signs Vital Signs - 24 hr 07/04/24 08:28 07/04/24 08:43 07/04/24 08:44 Temperature 36.7 C Pulse Rate 122 H 116 H Respiratory Rate 17 Blood Pressure 127/93 H Pulse Oximetry 97 96 Oxygen Delivery Room Air Room Air 07/04/24 08:54 07/04/24 11:26 07/04/24 12:35 Temperature Pulse Rate 113 H 107 H 112 H Respiratory Rate 17 19 Blood Pressure 117/87 120/87 130/83 Pulse Oximetry 97 95 95 Oxygen Delivery Exam Const: General: uncomfortable HENMT: Mouth: Yes moist mucous membranes Eyes: General: appearance normal, both eyes and all related structures Sclera: sclerae normal Resp: Effort & Inspection: normal respiratory effort Cardio: Rate: tachycardic Rhythm: regular rhythm Heart sounds: no murmurs Skin: General skin exam: normal color Neuro: Speech: normal speech Psych: Mental Status: mental status grossly normal Affect: normal affect Results Labs and Meds 07/04/24 08:52 07/04/24 08:52 Lab results: Cardiac Enzymes 07/04/24 07/04/24 Range/Units 08:52 11:16 AST 24 (14-36) U/L Troponin I < 0.012 < 0.012 (0.000-0.034) ng/mL Coagulation 07/04/24 Range/Units 08:52 PT 15.5 H (11.1-14.7) Seconds APTT 33.4 (22.3-36.8) Seconds CBC 07/04/24 Range/Units 08:52 WBC 11.4 H (4.5-10.0) K/mm3 RBC 4.91 (4.2-5.4) M/mm3 Hgb 13.8 (12.0-15.0) g/dL Hct 42.7 (37.0-47.0) % Plt Count 464 H D (150-375) k/mm3 Lymph # (Auto) 0.72 L (0.9-3.2) K/mm3 Ashley # (Auto) 1.1 H (0.1-0.6) K/mm3 Eos # (Auto) 0.1 (0-0.3) K/mm3 Baso # (Auto) 0.0 (0.0-0.1) K/mm3 Comprehensive Metabolic Panel 07/04/24 Range/Units 08:52 Sodium 138 (137-145) mmol/L Potassium 4.2 (3.4-5.0) mmol/L Chloride 103 (98-107) mmol/L Carbon Dioxide 24 (22-30) mmol/L BUN 13 (7-17) mg/dL Creatinine 0.55 L (0.7-1.0) mg/dL Glucose 106 (65-110) mg/dL Calcium 9.5 (8.4-10.2) mg/dL AST 24 (14-36) U/L ALT 23 (6-35) U/L Alkaline Phosphatase 128 H (38-126) U/L Total Protein 8.0 (6.3-8.2) g/dL Albumin 4.2 (3.5-5.1) g/dL Patient Weight 07/04/24 23:59 Weight 78 kg
--- NOTE | 2024-07-04 14:06 | WPDMODSED ---
Moderate Sedation Note-Pt Data Patient Data Diagnosis: Pericardial effusion Present Complaint: Pericardial effusion Procedure to be performed/Plan: Pericardiocentesis with placement of pericardial drain Allergies Allergy/AdvReac Type Severity Reaction Status Date / Time Penicillins AdvReac Mild HIVES/ RASH Verified 07/04/24 08:22 Home Medications ?Medication ?Instructions ?Recorded ?Confirmed ?Type multivitamin-ferrous 1 tablet PO DAILY 03/24/21 07/04/24 History fumarate-folic acid 18 mg-400 mcg tablet (Centrum Women) cholecalciferol (vitamin D3) 25 25 mcg PO DAILY #1 cap 02/24/24 07/04/24 Rx mcg (1,000 unit) capsule Current Medications: Active Medications Acetaminophen (Acetaminophen 325 Mg Tablet) 650 mg PO Q4H PRN PRN Reason: Mild Pain (1-3) or Fever Morphine Sulfate (Morphine Sulfate (*Crx) 2 Mg/Ml Inj) 2 mg IV PUSH Q2H PRN PRN Reason: Pain Rated 7-10 Ondansetron HCl (Ondansetron Inj 4 Mg/2 Ml Vial) 4 mg IV PUSH Q4H PRN PRN Reason: Nausea Perflutren Lipid Microsphere (Perflutren Lipid Microspheres 1.5 Ml Vial Diluted To 10 Ml Total Volume) 0 ml IV PUSH ONCE PRN; Protocol PRN Reason: adequate visualization Stop: 07/07/24 11:19 Sedation/Anesthesia: No previous sedation/anesthesia problems (including family history). [facility] Past Medical History Medical History Chronic cholecystitis without calculus Encounter for surgical aftercare following surgery on the digestive system Pericardial effusion Acute biliary pancreatitis Abnormal abdominal ultrasound Liver cyst Pancreatitis COVID-19 vaccine series completed Hepatic lesion Elevated lipase Vomiting Abdominal pain Vitamin D deficiency Surgical History Surgical History Hx laparoscopic cholecystectomy Status post excision of lipoma left shoulder Family History Family History Mother Healthy adult Father Healthy adult Social History Social History Social History: Primary care physician: Dr. Jolly Bauman code status: Full code surrogate decision maker: Smoking status: Never smoker Second hand tobacco smoke exposure: No Alcohol intake: never Alcohol use details: She rarely drinks alcohol and only in moderation. Substance use: never Substance use type: does not use Living arrangements: with family Additional living arrangements comments: She lives in [place] with her and their 16-year-old daughter. She also has a 26-year-old daughter as well. 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 Gender identity (if verbalized by the patient): Female Sexual Orientation (if Verbalized by the Patient): Straight or Heterosexual Spiritual care concerns: No Mod Sed Physical Exam Physical Exam Pre Procedural Exam: Normal: Heart Rhythm, Neuro Exam, Extremities and Skin and Variation: Appearance (Mild discomfort), Lungs (Normal respirations, decreased breath sounds at bases) and Heart Rate (Tachycardia ) Hours since solid foods: 0 Hours since liquid intake: 0 Mallampati Classification: class III Internal Medicine - PN: Obj Da Vital Signs Vital Signs: Vital Signs - 24 hr 07/04/24 08:28 07/04/24 08:43 07/04/24 08:44 Temperature 36.7 C Pulse Rate 122 H 116 H Respiratory Rate 17 Blood Pressure 127/93 H Pulse Oximetry 97 96 Oxygen Delivery Room Air Room Air 07/04/24 08:54 07/04/24 11:26 07/04/24 12:35 Temperature Pulse Rate 113 H 107 H 112 H Respiratory Rate 17 19 Blood Pressure 117/87 120/87 130/83 Pulse Oximetry 97 95 95 Oxygen Delivery Meds/Results Medications: Active Medications Generic Name Dose Route Start Last Admin Trade Name Freq PRN Reason Stop Dose Admin Acetaminophen 650 mg 07/04/24 11:16 Acetaminophen 325 Mg Tablet PO Q4H PRN Mild Pain (1-3) or Fever Morphine Sulfate 2 mg 07/04/24 11:16 Morphine Sulfate (*Crx) 2 Mg/Ml Inj IV PUSH Q2H PRN Pain Rated 7-10 Ondansetron HCl 4 mg 07/04/24 11:16 Ondansetron Inj 4 Mg/2 Ml Vial IV PUSH Q4H PRN Nausea Perflutren Lipid Microsphere 0 ml 07/04/24 11:16 Perflutren Lipid Microspheres 1.5 Ml Vial Diluted To 10 Ml Total Volume IV PUSH 07/07/24 11:19 ONCE PRN adequate visualization Protocol Radiology Results: ITS Impressions Chest X-Ray 07/04/24 09:16 IMPRESSION: 1. Small right and moderate-sized left pleural effusions. 2. Airspace opacities at the lung bases, likely atelectasis. Chest CTA 07/04/24 10:25 IMPRESSION: 1. Large pericardial effusion. 2. Small right and moderate-sized left pleural effusions. 3. No pulmonary embolus. Labs 07/04/24 08:52 07/04/24 08:52 Labs: Laboratory Results - last 24 hr 07/04/24 07/04/24 08:52 11:16 WBC 11.4 H RBC 4.91 Hgb 13.8 Hct 42.7 MCV 87.0 MCH 28.1 MCHC 32.3 RDW 12.0 Plt Count 464 H D MPV 9.2 Immature Gran % (Auto) 0.5 Neut % (Auto) 82.8 H Lymph % (Auto) 6.3 L [place] % (Auto) 9.5 H Eos % (Auto) 0.5 Baso % (Auto) 0.4 Lymph # (Auto) 0.72 L [place] # (Auto) 1.1 H Eos # (Auto) 0.1 Baso # (Auto) 0.0 Abs Immat Gran (auto) 0.06 H Absolute Neuts (auto) 9.4 H Absolute Nucleated RBC 0.000 Nucleated RBC % 0.0 PT 15.5 H INR 1.2 APTT 33.4 D-Dimer 6.09 H Sodium 138 Potassium 4.2 Chloride 103 Carbon Dioxide 24 Anion Gap 11 BUN 13 Creatinine 0.55 L Estim Creat Clear Calc Not Reportable Estimated GFR > 60 Glucose 106 Calcium 9.5 Total Bilirubin 1.8 H AST 24 ALT 23 Alkaline Phosphatase 128 H Troponin I < 0.012 < 0.012 Total Protein 8.0 Albumin 4.2 Lipase 39 TSH (Reflex) 2.480 ASA Classification/Sedation ASA Classification/Sedation ASA Class: III Emergent: No Risks: Risks, benefits and alternatives explained and patient/family accepted plan for sedation. Patient re-evaluated immediately prior to sedation.
--- NOTE | 2024-07-04 15:00 | PM.IMHP ---
H&P: HPI History of Present Illness Date/Time: 07/04/24 15:00 Chief Complaint: 54-year-old female past medical history of pericardial effusion who presented to the ER on account of chest pain which she stated is substernal pressure with worse with laying and better with sitting up, 10/10. Denies any vomiting, abd pain, diarrhea, lightheadedness, no dysuria and no focal weakness. ER eval notable for HR 113, ST on EKG, with low voltage on precordial leads. CT Chest showed large pericardial effusion. Stat ECHO as done and cardiology noted it was concerning and thus stat pericardial fluid drainage was recommended. Review of Systems Review of Systems: All other systems were reviewed and negative except as noted in the HPI above. [facility] Past Medical History Medical History Chronic cholecystitis without calculus Encounter for surgical aftercare following surgery on the digestive system Pericardial effusion Acute biliary pancreatitis Abnormal abdominal ultrasound Liver cyst Pancreatitis COVID-19 vaccine series completed Hepatic lesion Elevated lipase Vomiting Abdominal pain Vitamin D deficiency Surgical History Surgical History Hx laparoscopic cholecystectomy Status post excision of lipoma left shoulder Family History Family History Mother Healthy adult Father Healthy adult Social History Social History Social History: Primary care physician: Dr. oJlly Bauman code status: Full code surrogate decision maker: Smoking status: Never smoker Second hand tobacco smoke exposure: No Alcohol intake: never Alcohol use details: She rarely drinks alcohol and only in moderation. Substance use: never Substance use type: does not use Living arrangements: with family Additional living arrangements comments: She lives in [place] with her and their 16-year-old daughter. She also has a 26-year-old daughter as well. 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 Gender identity (if verbalized by the patient): Female Sexual Orientation (if Verbalized by the Patient): Straight or Heterosexual Spiritual care concerns: No Meds Home Medications and Allergies Home Medications ?Medication ?Instructions ?Recorded ?Confirmed ?Type multivitamin-ferrous 1 tablet PO DAILY 03/24/21 07/04/24 History fumarate-folic acid 18 mg-400 mcg tablet (Centrum Women) cholecalciferol (vitamin D3) 25 25 mcg PO DAILY #1 cap 02/24/24 07/04/24 Rx mcg (1,000 unit) capsule Allergies Allergy/AdvReac Type Severity Reaction Status Date / Time Penicillins AdvReac Mild HIVES/ RASH Verified 07/04/24 16:16 Vital Signs Vital Signs - 24 hr 07/04/24 08:28 07/04/24 08:43 07/04/24 08:44 Temperature 98.0 F Pulse Rate 122 H 116 H Respiratory Rate 17 Blood Pressure 127/93 H Pulse Oximetry 97 96 Oxygen Delivery Room Air Room Air 07/04/24 08:54 07/04/24 11:26 07/04/24 12:35 Temperature Pulse Rate 113 H 107 H 112 H Respiratory Rate 17 19 Blood Pressure 117/87 120/87 130/83 Pulse Oximetry 97 95 95 Oxygen Delivery Exam Narrative: General: alert and comfortable Eyes: EOMI, PERRLA ENNT External ears normal, Neck is supple, no masses, Respiratory systems: Clear to auscultation Cardiovascular S1, S2, normal rhythm, no murmur, rub, or gallop; no thrill or palpable murmurs on palpation. Gastrointestinal: soft, non-tender, and non-distended abdomen with no masses; BS present Skin: no rash, lesions, ulcerations, subcutaneous nodules or induration Musculoskeletal: no abnormality and no tenderness, normal ROM Neurologic: Alert and oriented x3, non focal Mental Status Exam: normal affect H&P: Results Labs Labs: Short CBC 07/04/24 Range/Units 08:52 WBC 11.4 H (4.5-10.0) K/mm3 Hgb 13.8 (12.0-15.0) g/dL Hct 42.7 (37.0-47.0) % Plt Count 464 H D (150-375) k/mm3 BMP 07/04/24 08:52 Sodium 138 Potassium 4.2 Chloride 103 Carbon Dioxide 24 BUN 13 Creatinine 0.55 L Glucose 106 Calcium 9.5 Cardiac Enzymes 07/04/24 07/04/24 Range/Units 08:52 11:16 Troponin I < 0.012 < 0.012 (0.000-0.034) ng/mL Liver Function 02/18/25 Range/Units 08:52 Total Bilirubin 1.8 H (0.2-1.3) mg/dL AST 24 (14-36) U/L ALT 23 (6-35) U/L Alkaline Phosphatase 128 H (38-126) U/L Albumin 4.2 (3.5-5.1) g/dL Assessment and Plan Assessment and plan (1) Pericardial effusion: Code(s): I31.39 - Other pericardial effusion (noninflammatory) Status: Acute Assessment and Plan: Pericardial Effusion CT Chest large pericardial effusion stat ECHO showed pericardial For pericardiocentesis cardiology following DVT prophylaxis on [facility] [place] [facility] Advance Care Plan I have confirmed that the patient's Advanced Care Plan is present, code status is documented, or surrogate decision maker is listed in patient medical record.: Yes Medication Reconciliation I have utilized all available resources to obtain, update and review the patients current medications (includes all prescriptions, OTC, herbals, cannabis, and nutritional supplements).: Yes
--- NOTE | 2024-07-04 16:07 | WPDCARDPROC ---
Cardiac Cath Procedure Note Date of procedure:: 07/04/24 Performing physician:: CATHETERIZATION LABORATORY REPORT Procedure Date: 07/04/2024 Product Development Director: Lorraine Nicoel M.D., [facility]? Referring Physician: Lorraine Nicole M.D. ? Anesthesia: Versed and Fentanyl were ordered and given in my presence at 14:16, procedure ended at 15:30 Supervision of nurse monitored moderate sedation with Versed and Fentanyl was provided for 74 minutes. Total of Versed 3mg and Fentanyl 200mcg were administered by the [facility] RN Pierre Harris. Pre-op Diagnosis: Symptomatic large pericardial effusion Post-op Diagnosis: Unsuccessful attempt at pericardiocentesis via subxiphoid approach Procedure(s): 1. Moderate sedation 2.Unsuccessful attempt at pericardiocentesis via subxiphoid approach Access Site: Subxiphoid approach Brief History and Clinical Indications: Patient is a 54 year old female who is referred for pericardiocentesis for symptomatic large pericardial effusion with echocardiographic tamponade. All risks, benefits and alternatives to pericardiocentesis was discussed at length with the patient. Risk of complications including but not limited to bleeding, infection, arrhythmia, blood loss, hematoma, emergency surgery, and even were discussed with the patient and all questions were answered. The patient understood and wished to proceed. Time out called, patient name, date of , medical record number, allergies, procedure performed, identify Product Development Director, patient and staff member concurred with accurate data, procedure carried on. Description of Procedure: Informed consent signed and placed in the chart. Patient transferred to cathead operator room. Prepped and draped in usual sterile fashion. 2% lidocaine injected subcutaneously in subxiphoid area. Multiple attempts at accessing the pericardial fluid via subxiphoid area, however, had difficulty and was unable to get access into pericardium. After prolonged attempt, we decided to stop and reattempt case with my partner, Dr. Myers. Disposition: ICU Plan: Admit to ICU. Not in clinical cardiac tamponade at this time, however, closely monitor for signs of clinical tamponade. NPO at midnight, will reattempt pericardiocentesis tomorrow morning. ? Lorraine Nicole M.D. Interventional Cardiology
--- NOTE | 2024-07-04 16:14 | ADMGEN ---
This patient, Jenni López, was admitted to Intensive Care Unit-5 at approximaetly 1600. Patient/family oriented to hospital policies and general routines including ID bracelet, bed and alarms, visiting hours, pain management, procedures, bathroom and other care routines, personal items, smoking policy, room service/diet, and visiting hours. Information on how to activate the Rapid Response Team has been discussed. Patient/Family are encouraged to report perceived risks to care and to ask questions if they do not understand what they are told or what they should do.
[2024-07-04 16:44] LABS: Influenza A QL RT-PCR Negative (Negative); Influenza B QL RT-PCR Negative (Negative); RSV RNA, RT-PCR Negative (Negative); SARS-CoV-2 RNA PCR Negative (Negative)
[2024-07-04 17:13] LABS: Erythrocyte Sedimentation Rate 21 mm/hr (0-20)
[2024-07-04 17:18] LABS: Troponin I < 0.012 ng/mL (0.000-0.034)
[2024-07-04 17:37] LABS: MRSA (PCR) NOT DETECTED (NOT DETECTE)
[2024-07-04 17:50] LABS: CRP 14.6 mg/dL (<1.0)
[2024-07-04] MEDS: ACETAMINOPHEN 325 MG TABLET 650 MG PO (20:32)
[2024-07-05] VITALS (15 sets, daily range): BP systolic 90–127; BP diastolic 65–85; PULSE 90–117; RESP 14–22; TEMP 36.8–37.2; O2SAT 89–97
--- NOTE | 2024-07-05 | ECHOL_ITS ---
Patient Info Name: Jenni López Age: 54 years : 1970 Gender: Female Ht: 64 in Wt: 171 lbs BSA: 1.90 m2 HR: 125 bpm BP: 90 / 65 mmHg Heart Rhythm: Tachycardia Technical Quality: Good Exam Date: 07/05/2024 9:21 AM Exam Location: Echo Lab Patient Status: Inpatient Admit Date: 07/04/2024 Staff Ordering Physician: Lorraine Nicole MD (alton/ollie) Membership Director: Shelby Cruz RDCS Attending Provider: Priscila Gibbons MD Referring Physician: Corey FONTENOT; Exam Type: CA echo limited Study Info Indications - pericardialcentesis Limited two-dimensional transthoracic echocardiogram is performed. Summary 1. Circumferential pericardial effusion. Moderate in size anteriorly. Large in size posteriorly. Echocardiogram was done during pericardiocentesis. Bubbles are seen in the pericardium. Decrease in the size of the pericardial effusion noted after pericardiocentesis. Pericardium/Pleural Circumferential pericardial effusion. Moderate in size anteriorly. Large in size posteriorly. Echocardiogram was done during pericardiocentesis. Bubbles are seen in the pericardium. Decrease in the size of the pericardial effusion noted after pericardiocentesis. Report Signatures
[2024-07-05 04:44] LABS: Basophils Percent Auto 0.3 % (0.2-1.2); Eosinophils Percent Auto 0.3 % (0-4.4); Hematocrit 38.9 % (37.0-47.0); Hemoglobin 12.8 g/dL (12.0-15.0); Immature Granulocyte Absolute 0.07 K/mm3 (0.00-0.031); Immature Granulocyte Percent A 0.6 % (0-0.5); Lymphocytes Absolute Auto 0.76 K/mm3 (0.9-3.2); Lymphocytes Percent Auto 6.6 % (18.3-44.2); Mean Corpuscular HGB Conc 32.9 g/dl (32-36); Mean Corpuscular Hemoglobin 28.3 pg (26-34); Mean Corpuscular Volume 85.9 fl (80-100); Mean Platelet Volume 9.3 fl (7.4-10.4); Monocytes Absolute Auto 1.5 K/mm3 (0.1-0.6); Monocytes Percent Auto 12.7 % (2.6-8.5); Neutrophils Absolute Auto 9.2 K/mm3 (1.3-6.7); Neutrophils Percent Auto 79.5 % (45.5-73.1); Platelet Count Result 452 k/mm3 (150-375); Red Blood Count 4.53 M/mm3 (4.2-5.4); White Blood Count 11.5 K/mm3 (4.5-10.0)
[2024-07-05 05:37] LABS: Alanine Aminotransferase 18 U/L (6-35); Albumin Level 3.7 g/dL (3.5-5.1); Alkaline Phosphatase 97 U/L (38-126); Anion Gap 10 mmol/L (4-12); Aspartate Amino Transferase 17 U/L (14-36); Bilirubin,Total 1.6 mg/dL (0.2-1.3); Blood Urea Nitrogen 14 mg/dL (7-17); Calcium 8.9 mg/dL (8.4-10.2); Carbon Dioxide 24 mmol/L (22-30); Chloride 103 mmol/L (98-107); Estimated CRCL calculation 96 ml/min; Estimated Glomerular Filt Rate > 60; Glucose 123 mg/dL (65-110); Magnesium 2.1 mg/dL (1.6-2.3); Sodium 137 mmol/L (137-145)
--- NOTE | 2024-07-05 09:02 | PC.NURSE ---
Patient off floor to experimental machining lab manager via bed with RN x2 at bedside. No issue noted.
--- NOTE | 2024-07-05 09:40 | P.SEDATION_ITS ---
Moderate Sedation Note-Pt Data Patient Data Diagnosis: Pericardial effusion Present Complaint: Pericardial effusion Procedure to be performed/Plan: Pericardiocentesis Allergies Allergy/AdvReac Type Severity Reaction Status Date / Time Penicillins AdvReac Mild HIVES/ RASH Verified 07/04/24 16:16 Home Medications ?Medication ?Instructions ?Recorded ?Confirmed ?Type multivitamin-ferrous 1 tablet PO DAILY 03/24/21 07/04/24 History fumarate-folic acid 18 mg-400 mcg tablet (Centrum Women) cholecalciferol (vitamin D3) 25 25 mcg PO DAILY #1 cap 02/24/24 07/04/24 Rx mcg (1,000 unit) capsule Current Medications: Active Medications Acetaminophen (Acetaminophen 325 Mg Tablet) 650 mg PO Q4H PRN PRN Reason: Mild Pain (1-3) or Fever Last Admin: 07/04/24 20:32 Dose: 650 mg Enoxaparin Sodium (Enoxaparin 40 Mg/0.4 Ml Syringe) 40 mg SUB-Q DAILY SHASHANK Last Admin: 07/05/24 08:53 Dose: Not Given Morphine Sulfate (Morphine Sulfate (*Crx) 2 Mg/Ml Inj) 2 mg IV PUSH Q2H PRN PRN Reason: Pain Rated 7-10 Ondansetron HCl (Ondansetron Inj 4 Mg/2 Ml Vial) 4 mg IV PUSH Q4H PRN PRN Reason: Nausea Perflutren Lipid Microsphere (Perflutren Lipid Microspheres 1.5 Ml Vial Diluted To 10 Ml Total Volume) 0 ml IV PUSH ONCE PRN; Protocol PRN Reason: adequate visualization Stop: 07/07/24 11:19 Sedation/Anesthesia: No previous sedation/anesthesia problems (including family history). [facility] Past Medical History Medical History Chronic cholecystitis without calculus Encounter for surgical aftercare following surgery on the digestive system Pericardial effusion Acute biliary pancreatitis Abnormal abdominal ultrasound Liver cyst Pancreatitis COVID-19 vaccine series completed Hepatic lesion Elevated lipase Vomiting Abdominal pain Vitamin D deficiency Surgical History Surgical History Hx laparoscopic cholecystectomy Status post excision of lipoma left shoulder Family History Family History Mother Healthy adult Father Healthy adult Social History Social History Social History: Primary care physician: Dr. Jolly Bauman code status: Full code surrogate decision maker: Smoking status: Never smoker Second hand tobacco smoke exposure: No Alcohol intake: current Drinks per week: 0 Alcohol use details: She rarely drinks alcohol and only in moderation. Substance use: never Substance use type: does not use Do You Feel Safe in your Home?: Yes Lack of Transportation: No Lack of Food: Never True Current Housing: I Have Housing Concerned About Future Housing: No Difficulty Paying Gas/Electric Bills: No Difficulty Paying for Meds: No Currently Unemployed: No Education: Bachelor's Degree Difficulty w/ Childcare or Family Care: No Living arrangements: with family Additional living arrangements comments: She lives in [place] with her and their 16-year-old daughter. She also has a 26-year-old daughter as well. 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 Gender identity (if verbalized by the patient): Female Sexual Orientation (if Verbalized by the Patient): Straight or Heterosexual Spiritual care concerns: No Mod Sed Physical Exam Physical Exam Pre Procedural Exam: Normal: Appearance, Heart Rhythm, Neuro Exam, Extremities and Skin and Variation: Heart Rate (Tachycardia ) Hours since solid foods: 12 Hours since liquid intake: 8 Mallampati Classification: class III Internal Medicine - PN: Obj Da Vital Signs Vital Signs: Vital Signs - 24 hr 07/04/24 11:26 07/04/24 12:35 07/04/24 16:00 Temperature 37.1 C Pulse Rate 107 H 112 H 109 H Respiratory Rate 17 19 17 Blood Pressure 120/87 130/83 121/70 Pulse Oximetry 95 95 93 Oxygen Delivery 07/04/24 16:00 07/04/24 16:00 07/04/24 18:00 Temperature Pulse Rate 94 127 H Respiratory Rate Blood Pressure Pulse Oximetry Oxygen Delivery Room Air 07/04/24 18:00 07/04/24 19:58 07/04/24 19:59 Temperature Pulse Rate 127 H 120 H 120 H Respiratory Rate 17 20 Blood Pressure 135/89 Pulse Oximetry 94 91 Oxygen Delivery Room Air 07/04/24 20:00 07/04/24 22:00 07/04/24 22:00 Temperature 36.8 C Pulse Rate 120 H 114 H 114 H Respiratory Rate 28 H 16 Blood Pressure 111/84 103/78 Pulse Oximetry 97 92 Oxygen Delivery 07/05/24 00:00 07/05/24 00:00 07/05/24 00:00 Temperature Pulse Rate 108 H 108 H 108 H Respiratory Rate 14 14 Blood Pressure 100/75 Pulse Oximetry 92 92 Oxygen Delivery Room Air 07/05/24 02:00 07/05/24 02:00 07/05/24 03:53 Temperature 36.8 C Pulse Rate 104 H 104 H 103 H Respiratory Rate 20 20 Blood Pressure 107/77 Pulse Oximetry 91 91 Oxygen Delivery Room Air 07/05/24 03:53 07/05/24 04:00 07/05/24 06:00 Temperature 36.8 C Pulse Rate 103 H 107 H 109 H Respiratory Rate 20 Blood Pressure 90/65 L Pulse Oximetry 90 Oxygen Delivery 07/05/24 06:00 07/05/24 08:00 07/05/24 08:00 Temperature 37.2 C Pulse Rate 106 H 115 H 115 H Respiratory Rate 20 21 H 21 H Blood Pressure 99/73 L 108/76 Pulse Oximetry 91 93 93 Oxygen Delivery Room Air 07/05/24 08:00 Temperature Pulse Rate 117 H Respiratory Rate Blood Pressure Pulse Oximetry Oxygen Delivery Intake/Output Intake/Output: Intake & Output 07/02/24 07/03/24 07/04/24 07/05/24 23:59 23:59 23:59 23:59 Intake Total 360 200 Output Total 350 Balance 360 -150 Meds/Results Medications: Active Medications Generic Name Dose Route Start Last Admin Trade Name Freq PRN Reason Stop Dose Admin Acetaminophen 650 mg 07/04/24 11:16 07/04/24 20:32 Acetaminophen 325 Mg Tablet PO 650 mg Q4H PRN Administration Mild Pain (1-3) or Fever Enoxaparin Sodium 40 mg 07/05/24 09:00 07/05/24 08:53 Enoxaparin 40 Mg/0.4 Ml Syringe SUB-Q Not Given DAILY SHASHANK Morphine Sulfate 2 mg 07/04/24 11:16 Morphine Sulfate (*Crx) 2 Mg/Ml Inj IV PUSH Q2H PRN Pain Rated 7-10 Ondansetron HCl 4 mg 07/04/24 11:16 Ondansetron Inj 4 Mg/2 Ml Vial IV PUSH Q4H PRN Nausea Perflutren Lipid Microsphere 0 ml 07/04/24 11:16 Perflutren Lipid Microspheres 1.5 Ml Vial Diluted To 10 Ml Total Volume IV PUSH 07/07/24 11:19 ONCE PRN adequate visualization Protocol Radiology Results: ITS Impressions Chest X-Ray 07/04/24 09:16 IMPRESSION: 1. Small right and moderate-sized left pleural effusions. 2. Airspace opacities at the lung bases, likely atelectasis. Chest CTA 07/04/24 10:25 IMPRESSION: 1. Large pericardial effusion. 2. Small right and moderate-sized left pleural effusions. 3. No pulmonary embolus. Labs 07/05/24 04:37 07/05/24 04:37 Labs: Laboratory Results - last 24 hr 07/04/24 07/04/24 07/04/24 11:16 16:03 16:49 WBC RBC Hgb Hct MCV MCH MCHC RDW Plt Count MPV Immature Gran % (Auto) Neut % (Auto) Lymph % (Auto) [place] % (Auto) Eos % (Auto) Baso % (Auto) Lymph # (Auto) [place] # (Auto) Eos # (Auto) Baso # (Auto) Abs Immat Gran (auto) Absolute Neuts (auto) Absolute Nucleated RBC Nucleated RBC % ESR 21 H Sodium Potassium Chloride Carbon Dioxide Anion Gap BUN Creatinine Estim Creat Clear Calc Estimated GFR Glucose Lactic Acid Calcium Magnesium Total Bilirubin AST ALT Alkaline Phosphatase Troponin I < 0.012 < 0.012 C-Reactive Protein 14.6 H Total Protein Albumin TSH (Reflex) 2.480 Nasal MRSA (PCR) Not detected Influenza A (RT-PCR) Negative Influenza B (RT-PCR) Negative RSV (RT-PCR) Negative SARS-CoV-2 RNA (RT-PCR) Negative 07/05/24 04:37 WBC 11.5 H RBC 4.53 Hgb 12.8 Hct 38.9 MCV 85.9 MCH 28.3 MCHC 32.9 RDW 12.0 Plt Count 452 H MPV 9.3 Immature Gran % (Auto) 0.6 H Neut % (Auto) 79.5 H Lymph % (Auto) 6.6 L [place] % (Auto) 12.7 H Eos % (Auto) 0.3 Baso % (Auto) 0.3 Lymph # (Auto) 0.76 L [place] # (Auto) 1.5 H Eos # (Auto) 0.0 Baso # (Auto) 0.0 Abs Immat Gran (auto) 0.07 H Absolute Neuts (auto) 9.2 H Absolute Nucleated RBC 0.000 Nucleated RBC % 0.0 ESR Sodium 137 Potassium 4.0 Chloride 103 Carbon Dioxide 24 Anion Gap 10 BUN 14 Creatinine 0.56 L Estim Creat Clear Calc 96 Estimated GFR > 60 Glucose 123 H Lactic Acid 1.0 Calcium 8.9 Magnesium 2.1 Total Bilirubin 1.6 H AST 17 ALT 18 Alkaline Phosphatase 97 Troponin I C-Reactive Protein Total Protein 7.0 Albumin 3.7 TSH (Reflex) Nasal MRSA (PCR) Influenza A (RT-PCR) Influenza B (RT-PCR) RSV (RT-PCR) SARS-CoV-2 RNA (RT-PCR) ASA Classification/Sedation ASA Classification/Sedation ASA Class: III Emergent: No Risks: Risks, benefits and alternatives explained and patient/family accepted plan for sedation. Patient re-evaluated immediately prior to sedation.
--- NOTE | 2024-07-05 09:40 | WPDHPUPDATE1 ---
History and Physical Update Update Date/Time: 07/05/24 09:40 History and Physical has been reviewed, including an updated exam of the patient. There are NO changes in the patient's condition. Risks, benefits, and alternatives have been discussed and questions answered. Patient agrees to proceed with procedure.
--- NOTE | 2024-07-05 10:24 | WPDCARDPROC ---
Cardiac Cath Procedure Note Date of procedure:: 07/05/24 Performing physician:: CATHETERIZATION LABORATORY REPORT Procedure Date: 07/05/2024 Orchestra Teacher: Lazaro Myers M.D and Lorraine Nicole M.D., [facility]? Referring Physician: Lorraine Nicole M.D. Anesthesia: Versed and Fentanyl were ordered and given in my presence at 09:56, procedure ended at 10:18. Supervision of nurse monitored moderate sedation with Versed and Fentanyl was provided for 20 minutes. Total of Versed 2mg, Fentanyl 100mcg, Morphine 1mg were administered by the Sales Contractor RN Gema Najera. Pre-op Diagnosis: Pericardial effusion Post-op Diagnosis: Successful pericardiocentesis via subxiphoid approach with removal of 180ccs of serosanguineous fluid, successful placement of pigtail catheter Procedure(s): 1. Moderate sedation 2. Pericardiocentesis with placement of pericardial drain. Access Site: Subxiphoid Brief History and Clinical Indications: Patient is a 54 year old female who is referred for pericardiocentesis for symptomatic large pericardial effusion with echocardiographic tamponade. All risks, benefits and alternatives to pericardiocentesis was discussed at length with the patient. Risk of complications including but not limited to bleeding, infection, arrhythmia, blood loss, hematoma, emergency surgery, and even were discussed with the patient and all questions were answered. The patient understood and wished to proceed. Time out called, patient name, date of , medical record number, allergies, procedure performed, identify Orchestra Teacher, patient and staff member concurred with accurate data, procedure carried on. Description of Procedure: Informed consent signed and placed in the chart. Patient transferred to chemical lab technician room. Prepped and draped in usual sterile fashion. 2% lidocaine injected subcutaneously in subxiphoid area. Micropuncture needle used to access pericardial space. Micropuncture wire advanced through needed. Confirmed via fluoroscopy. Micropuncture dilator advanced over wire. Bubble study done to confirm position was in the pericardium. J-wire advanced through micropuncture dilator. Dilator advanced over wire. Pigtail catheter advanced over wire. Bubble study done again to confirm position. Total of 180ccs of serosanguineous fluid was removed via syringe and sent to lab for testing. Drain connected to pigtail catheter. Pigtail catheter sutured in place. Disposition: ICU Plan: Remove pigtail catheter when drain output is <50ccs/24 hours. ? Lorraien Nicole M.D. Interventional Cardiology
--- NOTE | 2024-07-05 10:35 | PM.PNCARD ---
Progress Note: A&P Assessment and Plan (1) Pericardial effusion: Code(s): I31.39 - Other pericardial effusion (noninflammatory) Status: Acute Plan 1. Pericardial effusion This is a 54 year old female who had previously been seen by Dr. Sutherland in 2020 for an incidentally noted small pericardial effusion; no clear etiology for the effusion at that time; no pericarditis. She presented to the ED for shortness of breath and chest pressure over the past five days. Gets short of breath laying flat. In the ED, noted to have stable blood pressure, however, tachycardic. EKG with sinus tachycardia, low QRS voltage in the precordial leads. Troponins negative x 2. TSH level normal. Chest CTA with large pericardial effusion, small right and moderate left pleural effusions; no pulmonary embolism. STAT echocardiogram shows large pericardial effusion, measuring up to 2.6cm posteriorly, 1.5cm anteriorly. There is right atrial systolic collapse with some respiratory variation of the tricuspid and mitral valve flow. Although the tricuspid and mitral valve flow do not meet the criteria for tamponade, the right atrial systolic collapse is concerning for echocardiographic tamponade. Given the tachycardia, patient's symptoms, and echocardiographic findings, recommended pericardiocentesis with placement of pericardial drain. Unsuccessful attempt at pericardiocentesis on 07/04, however s/p successful pericardiocentesis on 07/05 with via subxiphoid approach with removal of 180ccs of serosanguineous fluid, successful placement of pigtail catheter with drain. Pericardial fluid sent to lab for testing. Remove pigtail catheter when drain output is <50ccs/24 hours. Plan discussed with ICU Physician. Subjective Date/time seen: 07/05/24 10:35 Interval history: Reason for visit: Pericardial effusion HPI: We are consulted for pericardial effusion. This is a 54 year old female who had previously been seen by Dr. Sutherland in 2020 for an incidentally noted small pericardial effusion; no clear etiology for the effusion at that time; no pericarditis. She presented to the ED today for shortness of breath and chest pressure over the past five days. Started suddenly. Gets short of breath laying flat. In the ED, noted to have stable blood pressure, however, tachycardic. EKG with sinus tachycardia, low QRS voltage in the precordial leads. WBC elevated at 11.4. Platelet count elevated at 464. Troponins negative x 2. TSH level normal. CXR showed small right and moderate-sized left pleural effusions. Chest CTA with large pericardial effusion, small right and moderate left pleural effusions; no pulmonary embolism. STAT echocardiogram was done which shows large pericardial effusion, measuring up to 2.6cm posteriorly, 1.5cm anteriorly. There is right atrial systolic collapse with some respiratory variation of the tricuspid and mitral valve flow. Date of service 07/05: S/p successful pericardiocentesis this morning. Remains tachycardic. Blood pressures stable. Review of Systems Review of Systems: All systems reviewed & are unremarkable except as noted in HPI and below (HPI) Exam Const: General: in distress mild HENMT: Mouth: Yes moist mucous membranes Eyes: General: appearance normal, both eyes and all related structures Sclera: sclerae normal Resp: Effort & Inspection: normal respiratory effort Cardio: Rate: tachycardic Rhythm: regular rhythm Skin: General skin exam: normal color Neuro: Speech: normal speech Psych: Mental Status: mental status grossly normal Affect: normal affect Objective Data Vital Signs Vital Signs: Vital Signs - 24 hr 07/04/24 11:26 07/04/24 12:35 07/04/24 16:00 Temperature 37.1 C Pulse Rate 107 H 112 H 109 H Respiratory Rate 17 19 17 Blood Pressure 120/87 130/83 121/70 Pulse Oximetry 95 95 93 Oxygen Delivery 07/04/24 16:00 07/04/24 16:00 07/04/24 18:00 Temperature Pulse Rate 94 127 H Respiratory Rate Blood Pressure Pulse Oximetry Oxygen Delivery Room Air 07/04/24 18:00 07/04/24 19:58 07/04/24 19:59 Temperature Pulse Rate 127 H 120 H 120 H Respiratory Rate 17 20 Blood Pressure 135/89 Pulse Oximetry 94 91 Oxygen Delivery Room Air 07/04/24 20:00 07/04/24 22:00 07/04/24 22:00 Temperature 36.8 C Pulse Rate 120 H 114 H 114 H Respiratory Rate 28 H 16 Blood Pressure 111/84 103/78 Pulse Oximetry 97 92 Oxygen Delivery 07/05/24 00:00 07/05/24 00:00 07/05/24 00:00 Temperature Pulse Rate 108 H 108 H 108 H Respiratory Rate 14 14 Blood Pressure 100/75 Pulse Oximetry 92 92 Oxygen Delivery Room Air 07/05/24 02:00 07/05/24 02:00 07/05/24 03:53 Temperature 36.8 C Pulse Rate 104 H 104 H 103 H Respiratory Rate 20 20 Blood Pressure 107/77 Pulse Oximetry 91 91 Oxygen Delivery Room Air 07/05/24 03:53 07/05/24 04:00 07/05/24 06:00 Temperature 36.8 C Pulse Rate 103 H 107 H 109 H Respiratory Rate 20 Blood Pressure 90/65 L Pulse Oximetry 90 Oxygen Delivery 07/05/24 06:00 07/05/24 08:00 07/05/24 08:00 Temperature 37.2 C Pulse Rate 106 H 115 H 115 H Respiratory Rate 20 21 H 21 H Blood Pressure 99/73 L 108/76 Pulse Oximetry 91 93 93 Oxygen Delivery Room Air 07/05/24 08:00 Temperature Pulse Rate 117 H Respiratory Rate Blood Pressure Pulse Oximetry Oxygen Delivery Intake/Output Intake/Output: Intake & Output 07/02/24 07/03/24 07/04/24 07/05/24 23:59 23:59 23:59 23:59 Intake Total 360 200 Output Total 350 Balance 360 -150 Meds/Results Medications: Active Medications Generic Name Dose Route Start Last Admin Trade Name Freq PRN Reason Stop Dose Admin Acetaminophen 650 mg 07/04/24 11:16 07/04/24 20:32 Acetaminophen 325 Mg Tablet PO 650 mg Q4H PRN Administration Mild Pain (1-3) or Fever Enoxaparin Sodium 40 mg 07/05/24 09:00 07/05/24 08:53 Enoxaparin 40 Mg/0.4 Ml Syringe SUB-Q Not Given DAILY SHASHANK Morphine Sulfate 2 mg 07/04/24 11:16 Morphine Sulfate (*Crx) 2 Mg/Ml Inj IV PUSH Q2H PRN Pain Rated 7-10 Ondansetron HCl 4 mg 07/04/24 11:16 Ondansetron Inj 4 Mg/2 Ml Vial IV PUSH Q4H PRN Nausea Perflutren Lipid Microsphere 0 ml 07/04/24 11:16 Perflutren Lipid Microspheres 1.5 Ml Vial Diluted To 10 Ml Total Volume IV PUSH 07/07/24 11:19 ONCE PRN adequate visualization Protocol Radiology Results: ITS Impressions Chest X-Ray 07/04/24 09:16 IMPRESSION: 1. Small right and moderate-sized left pleural effusions. 2. Airspace opacities at the lung bases, likely atelectasis. Chest CTA 07/04/24 10:25 IMPRESSION: 1. Large pericardial effusion. 2. Small right and moderate-sized left pleural effusions. 3. No pulmonary embolus. Labs Labs: Laboratory Results - last 24 hr 07/04/24 07/04/24 07/04/24 11:16 16:03 16:49 WBC RBC Hgb Hct MCV MCH MCHC RDW Plt Count MPV Immature Gran % (Auto) Neut % (Auto) Lymph % (Auto) [place] % (Auto) Eos % (Auto) Baso % (Auto) Lymph # (Auto) [place] # (Auto) Eos # (Auto) Baso # (Auto) Abs Immat Gran (auto) Absolute Neuts (auto) Absolute Nucleated RBC Nucleated RBC % ESR 21 H Sodium Potassium Chloride Carbon Dioxide Anion Gap BUN Creatinine Estim Creat Clear Calc Estimated GFR Glucose Lactic Acid Calcium Magnesium Total Bilirubin AST ALT Alkaline Phosphatase Troponin I < 0.012 < 0.012 C-Reactive Protein 14.6 H Total Protein Albumin TSH (Reflex) 2.480 Nasal MRSA (PCR) Not detected Influenza A (RT-PCR) Negative Influenza B (RT-PCR) Negative RSV (RT-PCR) Negative SARS-CoV-2 RNA (RT-PCR) Negative 07/05/24 04:37 WBC 11.5 H RBC 4.53 Hgb 12.8 Hct 38.9 MCV 85.9 MCH 28.3 MCHC 32.9 RDW 12.0 Plt Count 452 H MPV 9.3 Immature Gran % (Auto) 0.6 H Neut % (Auto) 79.5 H Lymph % (Auto) 6.6 L [place] % (Auto) 12.7 H Eos % (Auto) 0.3 Baso % (Auto) 0.3 Lymph # (Auto) 0.76 L [place] # (Auto) 1.5 H Eos # (Auto) 0.0 Baso # (Auto) 0.0 Abs Immat Gran (auto) 0.07 H Absolute Neuts (auto) 9.2 H Absolute Nucleated RBC 0.000 Nucleated RBC % 0.0 ESR Sodium 137 Potassium 4.0 Chloride 103 Carbon Dioxide 24 Anion Gap 10 BUN 14 Creatinine 0.56 L Estim Creat Clear Calc 96 Estimated GFR > 60 Glucose 123 H Lactic Acid 1.0 Calcium 8.9 Magnesium 2.1 Total Bilirubin 1.6 H AST 17 ALT 18 Alkaline Phosphatase 97 Troponin I C-Reactive Protein Total Protein 7.0 Albumin 3.7 TSH (Reflex) Nasal MRSA (PCR) Influenza A (RT-PCR) Influenza B (RT-PCR) RSV (RT-PCR) SARS-CoV-2 RNA (RT-PCR)
--- NOTE | 2024-07-05 10:45 | PC.NURSE ---
Received report from Helen Campbell at 1035. Patient back in room via bed at 1040 without issue. Bedside assessment completed, vitals reviewed.
--- NOTE | 2024-07-05 10:54 | P.CONIN_ITS ---
Assessment and Plan Assessment and plan (1) Pericardial effusion: Code(s): I31.39 - Other pericardial effusion (noninflammatory) Status: Acute Assessment and Plan: No clear etiology at this point. Can be secondary to pericarditis Status post drain placement Fluid sent for studies (2) Pleural effusion: Code(s): J90 - Pleural effusion, not elsewhere classified Status: Acute Assessment and Plan: CT scan showed very small right and moderate site left pleural effusion with some atelectasis This could be secondary to heart failure could be secondary to tamponade (3) Pericarditis: Code(s): I31.9 - Disease of pericardium, unspecified Status: Acute Assessment and Plan: Patient's chest pain and elevated CRP suggest possible pericarditis Will start a course of NSAIDs and colchicine And PPI for GI prophylaxis Plan DVT prophylaxis -SCD Nutrition - Tube Feeds [employer] Consult Note Consult date: 07/05/24 Reason for consult: Pericardial effusion HPI: Jenni López is a 54 year old female with past medical history of pericardial effusion presented with chest pain under left breast for last 1 week to ER yesterday. Patient was evaluated in 2020 by Cardiology with incidental finding of small pericardial effusion. No clear etiology was determined at that time and pericarditis was not diagnosed. EKG showed sinus tachycardia with low QRS in precordial leads. Troponin were negative TSH was normal CT chest showed large pericardial effusion and bilateral pleural effusion left greater than right. Echocardiogram showed some echocardiogram findings suggestive of tamponade. Patient had a pericardiocentesis attempted yesterday but was unsuccessful. Patient was taken back to cardiac catheterization lab this morning and had a pericardiocentesis with 180 mL of fluid removed and a drain placed. Fluid was serosanguineous Patient states that in 2020 she was diagnosed with fluid collection on her heart and she had a repeat echocardiogram done which did not show any worsening and she took medications for short while. She was unable to tell me the name of the medication. She states that she had a gallbladder removed at that time. She was at her baseline until a week ago when she started having shortness of breath on exertion. No PND. She states she sleeps on a bed with head reclined up. She also started having pain in her chest which she rates 8/10 severe. She states the pain was consistent with a with acute worsening specially when she laid on her belly or had deep breathing or coughing. She denied any fever cough or runny nose. No sick contacts around her. No body aches diarrhea dysuria hematuria of vaginal discharge. All other systems were reviewed and were negative Review of Systems 2 Review of Systems: All systems reviewed & are unremarkable except as noted in HPI and below (HPI) [facility] Past Medical History Medical History Chronic cholecystitis without calculus Encounter for surgical aftercare following surgery on the digestive system Pericardial effusion Acute biliary pancreatitis Abnormal abdominal ultrasound Liver cyst Pancreatitis COVID-19 vaccine series completed Hepatic lesion Elevated lipase Vomiting Abdominal pain Vitamin D deficiency Surgical History Surgical History Hx laparoscopic cholecystectomy Status post excision of lipoma left shoulder Family History Family History Mother Healthy adult Father Healthy adult Social History Social History Social History: Primary care physician: Dr. Jolly Bauman code status: Full code surrogate decision maker: Smoking status: Never smoker Second hand tobacco smoke exposure: No Alcohol intake: current Drinks per week: 0 Alcohol use details: She rarely drinks alcohol and only in moderation. Substance use: never Substance use type: does not use Do You Feel Safe in your Home?: Yes Lack of Transportation: No Lack of Food: Never True Current Housing: I Have Housing Concerned About Future Housing: No Difficulty Paying Gas/Electric Bills: No Difficulty Paying for Meds: No Currently Unemployed: No Education: Bachelor's Degree Difficulty w/ Childcare or Family Care: No Living arrangements: with family Additional living arrangements comments: She lives in [place] with her and their 16-year-old daughter. She also has a 26-year-old daughter as well. 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 Gender identity (if verbalized by the patient): Female Sexual Orientation (if Verbalized by the Patient): Straight or Heterosexual Spiritual care concerns: No Meds Home Medications and Allergies Home Medications ?Medication ?Instructions ?Recorded ?Confirmed ?Type multivitamin-ferrous 1 tablet PO DAILY 03/24/21 07/04/24 History fumarate-folic acid 18 mg-400 mcg tablet (Centrum Women) cholecalciferol (vitamin D3) 25 25 mcg PO DAILY #1 cap 02/24/24 07/04/24 Rx mcg (1,000 unit) capsule Allergies Allergy/AdvReac Type Severity Reaction Status Date / Time Penicillins AdvReac Mild HIVES/ RASH Verified 07/04/24 16:16 Vital Signs Vital Signs - 24 hr 07/04/24 11:26 07/04/24 12:35 07/04/24 16:00 Temperature 37.1 C Pulse Rate 107 H 112 H 109 H Respiratory Rate 17 19 17 Blood Pressure 120/87 130/83 121/70 Pulse Oximetry 95 95 93 Oxygen Delivery 07/04/24 16:00 07/04/24 16:00 07/04/24 18:00 Temperature Pulse Rate 94 127 H Respiratory Rate Blood Pressure Pulse Oximetry Oxygen Delivery Room Air 07/04/24 18:00 07/04/24 19:58 07/04/24 19:59 Temperature Pulse Rate 127 H 120 H 120 H Respiratory Rate 17 20 Blood Pressure 135/89 Pulse Oximetry 94 91 Oxygen Delivery Room Air 07/04/24 20:00 07/04/24 22:00 07/04/24 22:00 Temperature 36.8 C Pulse Rate 120 H 114 H 114 H Respiratory Rate 28 H 16 Blood Pressure 111/84 103/78 Pulse Oximetry 97 92 Oxygen Delivery 07/05/24 00:00 07/05/24 00:00 07/05/24 00:00 Temperature Pulse Rate 108 H 108 H 108 H Respiratory Rate 14 14 Blood Pressure 100/75 Pulse Oximetry 92 92 Oxygen Delivery Room Air 07/05/24 02:00 07/05/24 02:00 07/05/24 03:53 Temperature 36.8 C Pulse Rate 104 H 104 H 103 H Respiratory Rate 20 20 Blood Pressure 107/77 Pulse Oximetry 91 91 Oxygen Delivery Room Air 07/05/24 03:53 07/05/24 04:00 07/05/24 06:00 Temperature 36.8 C Pulse Rate 103 H 107 H 109 H Respiratory Rate 20 Blood Pressure 90/65 L Pulse Oximetry 90 Oxygen Delivery 07/05/24 06:00 07/05/24 08:00 07/05/24 08:00 Temperature 37.2 C Pulse Rate 106 H 115 H 115 H Respiratory Rate 20 21 H 21 H Blood Pressure 99/73 L 108/76 Pulse Oximetry 91 93 93 Oxygen Delivery Room Air 07/05/24 08:00 Temperature Pulse Rate 117 H Respiratory Rate Blood Pressure Pulse Oximetry Oxygen Delivery Exam 2 Narrative: General: Pt is alert awake and in NAD Lungs/Chest: Trachea central Clear BS B/L, No crackles or wheezing. Cardiac: Tachycardia. Normal S1 S2. No murmurs, pericardial drain in place with serosanguineous output 400 mL in the back Circulation: Pedal pulses are intact and symmetrical. Abdomen: Normal bowel sounds.. Soft. NT. ND. Extremities: No clubbing, cyanosis or edema. Warm : Echols in place Neurologic: Follows commands. Moves all 4 extremities PERRL AO x3 Skin: No Rash Results Labs 07/05/24 04:37 07/05/24 04:37 Labs: Short CBC 07/05/24 Range/Units 04:37 WBC 11.5 H (4.5-10.0) K/mm3 Hgb 12.8 (12.0-15.0) g/dL Hct 38.9 (37.0-47.0) % Plt Count 452 H (150-375) k/mm3 BMP 07/05/24 04:37 Sodium 137 Potassium 4.0 Chloride 103 Carbon Dioxide 24 BUN 14 Creatinine 0.56 L Glucose 123 H Calcium 8.9 Cardiac Enzymes 07/04/24 07/04/24 Range/Units 11:16 16:49 Troponin I < 0.012 < 0.012 (0.000-0.034) ng/mL Liver Function 07/05/24 Range/Units 04:37 Total Bilirubin 1.6 H (0.2-1.3) mg/dL AST 17 (14-36) U/L ALT 18 (6-35) U/L Alkaline Phosphatase 97 (38-126) U/L Albumin 3.7 (3.5-5.1) g/dL ECG Interpretation: SINUS TACHYCARDIA POSSIBLE LEFT ATRIAL ENLARGEMENT LOW QRS VOLTAGE IN PRECORDIAL LEADS NONSPECIFIC T-WAVE ABNORMALITY- INFERIOR LEADS BASELINE ARTIFACT- I, II, III, AVR, AVL, AVF, V3-V3 ABNORMAL ECG Quality VTE Prophylaxis VTE prophylaxis: mechanical ordered Hospitalist MIPS Advance Care Plan I have confirmed that the patient's Advanced Care Plan is present, code status is documented, or surrogate decision maker is listed in patient medical record.: Yes Medication Reconciliation I have utilized all available resources to obtain, update and review the patients current medications (includes all prescriptions, OTC, herbals, cannabis, and nutritional supplements).: Yes
[2024-07-05] MEDS: MORPHINE SULFATE (*CRX) 2 MG/ML INJ IV PUSH ×2 (10:58→23:10)
[2024-07-05 11:33] LABS: NT Pro B Type Natriuretic Pept 133 pg/mL (19.9-100)
[2024-07-05] MEDS: PANTOPRAZOLE 40 MG TABLET PO (12:05)
[2024-07-05] MEDS: IBUPROFEN 600 MG TABLET PO ×2 (13:50→17:34)
[2024-07-05] MEDS: COLCHICINE 0.6 MG TABLET PO (20:07)
--- NOTE | 2024-07-05 23:06 | ECG_ITS ---
Test Date: 2024-07-05 23:16:41 Measurements Intervals [place] Rate: 102 P: 60 WA: 138 QRS: 30 QRSD: 72 T: 29 QT: 330 QTc: 430 Interpretive Statements SINUS TACHYCARDIA LOW QRS VOLTAGE IN PRECORDIAL LEADS BORDERLINE T WAVE ABNORMALITY- ANT/INF LEADS BASELINE ARTIFACT- I, II, III, AVR, AVL, AVF BORDERLINE ECG Compared to ECG 07/04/2024 11:10:06 HEART RATE HAS DECREASED Electronically Signed On 07-06-2024 05:46:49 LEAD JANITOR by Yonis Mccullough D.O.
[2024-07-06] VITALS (15 sets, daily range): BP systolic 90–137; BP diastolic 59–88; PULSE 91–110; RESP 15–27; TEMP 36.8–37.2; O2SAT 92–100
[2024-07-06] MEDS: MORPHINE SULFATE (*CRX) 2 MG/ML INJ IV PUSH ×2 (01:04→06:10)
[2024-07-06] MEDS: ACETAMINOPHEN 325 MG TABLET 650 MG PO (02:11)
[2024-07-06] MEDS: HYDROcodone/acetaminophen (*CRX) 7.5-325 MG TABLET 1 TAB PO (02:38)
[2024-07-06] MEDS: PANTOPRAZOLE 40 MG TABLET PO (08:15)
[2024-07-06] MEDS: CHOLECALCIFEROL 1,000 UNITS TABLET 1000 UNITS PO (08:15)
[2024-07-06] MEDS: COLCHICINE 0.6 MG TABLET PO ×2 (08:15→20:30)
[2024-07-06] MEDS: IBUPROFEN 600 MG TABLET PO ×3 (08:15→17:24)
[2024-07-06] MEDS: ENOXAPARIN 40 MG/0.4 ML SYRINGE SUB-Q (08:16)
[2024-07-06] MEDS: MULTIVITAMINS /C LUTEIN (CENTRUM SILVER) TABLET *BKC 1 TAB PO (08:16)
--- NOTE | 2024-07-06 09:12 | WPDINTPN ---
Progress Note: A&P Assessment and Plan (1) Pericardial effusion: Code(s): I31.39 - Other pericardial effusion (noninflammatory) Status: Acute Assessment and Plan: Likely secondary to pericarditis Status post drain placement. Pericardial drain output 100 mL over last 12 hours. Monitor Fluid sent for studies Hemodynamically stable tachycardia improved Monitor (2) Pericarditis: Code(s): I31.9 - Disease of pericardium, unspecified Status: Acute Assessment and Plan: Patient's chest pain and elevated CRP suggest possible pericarditis Discussed with Cardiology and patient started on course of NSAIDs and colchicine Continue PPI for GI prophylaxis (3) Pleural effusion: Code(s): J90 - Pleural effusion, not elsewhere classified Status: Acute Assessment and Plan: CT scan showed very small right and moderate site left pleural effusion with some atelectasis This could be secondary to heart failure could be secondary to tamponade Monitor Incentive spirometry Plan DVT prophylaxis -Lovenox SuP-PPI Nutrition -diet ordered Subjective Date/time seen: 07/06/24 Overnight events reviewed. Afebrile Tachycardia improved She states she feels tired. States the pain is improved but still present per rates pain at 3/10. Pain is worse with deep breathing. Denies any other complaints all other systems were reviewed and were negative Patient has pericardial drain with 100 mL of serosanguineous fluid over last 12 hours Other Vitals acceptable Review of Systems Review of Systems: All systems reviewed & are unremarkable except as noted in HPI and below (HPI) Exam Narrative: General: Pt is alert awake and in NAD Lungs/Chest: Trachea central Clear BS B/L, No crackles or wheezing. Cardiac: Tachycardia. Normal S1 S2. No murmurs, pericardial drain in place with serosanguineous output Circulation: Pedal pulses are intact and symmetrical. Abdomen: Normal bowel sounds.. Soft. NT. ND. Extremities: No clubbing, cyanosis or edema. Warm : Echols in place Neurologic: Follows commands. Moves all 4 extremities PERRL AO x3 Skin: No Rash Objective Data Vital Signs Vital Signs: Vital Signs - 24 hr 07/05/24 10:42 07/05/24 10:42 07/05/24 11:00 Temperature Pulse Rate 111 H 111 H Respiratory Rate 14 16 Blood Pressure 119/80 Pulse Oximetry 90 89 L Oxygen Delivery Nasal Cannula Oxygen Flow Rate 2 07/05/24 12:00 07/05/24 12:00 07/05/24 12:00 Temperature 36.8 C Pulse Rate 112 H 114 H 114 H Respiratory Rate 16 21 H Blood Pressure 104/74 Pulse Oximetry 95 96 Oxygen Delivery Nasal Cannula Oxygen Flow Rate 2 07/05/24 14:00 07/05/24 14:00 07/05/24 16:00 Temperature 36.8 C Pulse Rate 117 H 117 H 102 H Respiratory Rate 19 17 Blood Pressure 127/79 116/78 Pulse Oximetry 94 95 Oxygen Delivery Oxygen Flow Rate 07/05/24 16:00 07/05/24 16:00 07/05/24 18:00 Temperature Pulse Rate 109 H 117 H 113 H Respiratory Rate 21 H Blood Pressure Pulse Oximetry 97 Oxygen Delivery Nasal Cannula Oxygen Flow Rate 2 07/05/24 18:00 07/05/24 20:00 07/05/24 20:00 Temperature Pulse Rate 113 H 102 H 102 H Respiratory Rate 22 H 16 Blood Pressure 121/85 Pulse Oximetry 95 95 Oxygen Delivery Nasal Cannula Oxygen Flow Rate 2 07/05/24 20:47 07/05/24 22:00 07/05/24 22:00 Temperature 36.8 C 36.9 C Pulse Rate 110 H 99 90 Respiratory Rate 19 20 Blood Pressure 121/85 109/76 Pulse Oximetry 94 96 Oxygen Delivery Oxygen Flow Rate 07/06/24 00:00 07/06/24 00:00 07/06/24 00:00 Temperature 36.9 C Pulse Rate 94 97 100 Respiratory Rate 15 18 Blood Pressure 126/59 L Pulse Oximetry 96 96 Oxygen Delivery Nasal Cannula Oxygen Flow Rate 2 07/06/24 02:00 07/06/24 02:00 07/06/24 02:49 Temperature 36.9 C Pulse Rate 108 H 102 H 102 H Respiratory Rate 27 H 20 Blood Pressure 103/70 103/70 Pulse Oximetry 100 95 Oxygen Delivery Nasal Cannula Oxygen Flow Rate 2 07/06/24 04:00 07/06/24 04:00 07/06/24 04:00 Temperature 36.9 C Pulse Rate 103 H 93 91 Respiratory Rate 20 15 Blood Pressure 103/76 Pulse Oximetry 96 93 Oxygen Delivery Nasal Cannula Oxygen Flow Rate 2 07/06/24 06:00 07/06/24 06:07 07/06/24 08:00 Temperature 37.1 C 36.9 C Pulse Rate 107 H 101 H 106 H Respiratory Rate 20 17 Blood Pressure 102/77 133/88 Pulse Oximetry 94 95 Oxygen Delivery Oxygen Flow Rate Intake/Output Intake/Output: Intake & Output 07/03/24 07/04/24 07/05/24 07/06/24 23:59 23:59 23:59 23:59 Intake Total 360 680 340 Output Total 850 500 Balance 360 -170 -160 Meds/Results Medications: Active Medications Generic Name Dose Route Start Last Admin Trade Name Freq PRN Reason Stop Dose Admin Acetaminophen 650 mg 07/04/24 11:16 07/06/24 02:11 Acetaminophen 325 Mg Tablet PO 650 mg Q4H PRN Administration Mild Pain (1-3) or Fever Hydrocodone Bitart/Acetaminophen 1 tab 07/06/24 08:27 Hydrocodone/Acetaminophen (*Crx) 7.5-325 Mg Tablet PO Q6H PRN Pain Rated 7-10 Colchicine 0.6 mg 07/05/24 21:00 07/06/24 08:15 Colchicine 0.6 Mg Tablet PO 0.6 mg Q12HR SHASHANK Administration Enoxaparin Sodium 40 mg 07/05/24 09:00 07/06/24 08:16 Enoxaparin 40 Mg/0.4 Ml Syringe SUB-Q 40 mg DAILY SHASHANK Administration Ibuprofen 600 mg 07/05/24 13:00 07/06/24 08:15 Ibuprofen 600 Mg Tablet PO 600 mg TID SHASHANK Administration Morphine Sulfate 2 mg 07/04/24 11:16 07/06/24 06:10 Morphine Sulfate (*Crx) 2 Mg/Ml Inj IV PUSH 2 mg Q2H PRN Administration Pain Rated 7-10 Multivitamins/Minerals 1 tab 07/06/24 09:00 07/06/24 08:16 Multivitamins /C Lutein (Centrum Silver) Tablet *Bkc PO 1 tab DAILY SHASHANK Administration Ondansetron HCl 4 mg 07/04/24 11:16 Ondansetron Inj 4 Mg/2 Ml Vial IV PUSH Q4H PRN Nausea Pantoprazole Sodium 40 mg 07/05/24 11:45 07/06/24 08:15 Pantoprazole 40 Mg Tablet PO 40 mg QAM SHASHANK Administration Perflutren Lipid Microsphere 0 ml 07/04/24 11:16 Perflutren Lipid Microspheres 1.5 Ml Vial Diluted To 10 Ml Total Volume IV PUSH 07/07/24 11:19 ONCE PRN adequate visualization Protocol Vitamin D 1,000 units 07/06/24 09:00 07/06/24 08:15 Cholecalciferol 1,000 Units Tablet PO 1,000 units DAILY SHASHANK Administration Radiology Results: ITS Impressions Chest X-Ray 07/04/24 09:16 IMPRESSION: 1. Small right and moderate-sized left pleural effusions. 2. Airspace opacities at the lung bases, likely atelectasis. Chest CTA 07/04/24 10:25 IMPRESSION: 1. Large pericardial effusion. 2. Small right and moderate-sized left pleural effusions. 3. No pulmonary embolus. Labs Labs: Laboratory Results - last 24 hr 07/05/24 04:37 NT-Pro-B Natriuret Pep 133 H Quality VTE Prophylaxis VTE prophylaxis: mechanical ordered
[2024-07-06 09:18] LABS: Basophils Percent Auto 0.2 % (0.2-1.2); Eosinophils Percent Auto 0.2 % (0-4.4); Hematocrit 42.4 % (37.0-47.0); Hemoglobin 13.6 g/dL (12.0-15.0); Immature Granulocyte Absolute 0.05 K/mm3 (0.00-0.031); Immature Granulocyte Percent A 0.5 % (0-0.5); Lymphocytes Absolute Auto 0.47 K/mm3 (0.9-3.2); Lymphocytes Percent Auto 4.5 % (18.3-44.2); Mean Corpuscular HGB Conc 32.1 g/dl (32-36); Mean Corpuscular Hemoglobin 27.6 pg (26-34); Mean Platelet Volume 9.7 fl (7.4-10.4); Monocytes Absolute Auto 0.9 K/mm3 (0.1-0.6); Monocytes Percent Auto 8.6 % (2.6-8.5); Neutrophils Absolute Auto 9.1 K/mm3 (1.3-6.7); Platelet Count Result 462 k/mm3 (150-375); Red Blood Count 4.93 M/mm3 (4.2-5.4); White Blood Count 10.5 K/mm3 (4.5-10.0)
[2024-07-06 10:17] LABS: Alanine Aminotransferase 30 U/L (6-35); Albumin Level 3.4 g/dL (3.5-5.1); Alkaline Phosphatase 128 U/L (38-126); Anion Gap 10 mmol/L (4-12); Aspartate Amino Transferase 23 U/L (14-36); Bilirubin,Total 1.1 mg/dL (0.2-1.3); Blood Urea Nitrogen 13 mg/dL (7-17); Calcium 9.2 mg/dL (8.4-10.2); Carbon Dioxide 25 mmol/L (22-30); Chloride 103 mmol/L (98-107); Estimated CRCL calculation 105 ml/min; Estimated Glomerular Filt Rate > 60; Glucose 162 mg/dL (65-110); Magnesium 1.9 mg/dL (1.6-2.3); Potassium 4.1 mmol/L (3.4-5.0); Sodium 138 mmol/L (137-145)
--- NOTE | 2024-07-06 12:05 | PM.PNCARD ---
Progress Note: A&P Assessment and Plan (1) Pericarditis: Code(s): I31.9 - Disease of pericardium, unspecified Status: Acute Plan 54-year-old woman who presented with shortness of breath and chest pressure found to have large pericardial effusion with evidence of tamponade who is now status post pericardial drain Acute pericarditis -continue ibuprofen 600 mg t.i.d. and colchicine 0.6 mg p.o. b.i.d. -at about 100 cc drain output in the last 24 hours and patient has a on repeat limited echo with possible drain level today -she expressed concerns of having to re-attempt pericardiocentesis and thus was leaning towards having the drain in for another day which is reasonable since there was 100 cc drain output in the last 24 hours -likely limited echo to reassess effusion tomorrow morning if drain output less than 50 cc in the last 24 hours -we discussed possible etiologies and necessity to follow-up with primary care physician for workup of autoimmune or vasculitis conditions Subjective Date/time seen: 07/06/24 12:05 Interval history: She is having the chest discomfort throughout the evening requiring pain medication. Review of Systems Cardiovascular: Cardiovascular: Reports as per HPI Respiratory: Respiratory: Reports as per HPI Exam Const: General: comfortable HENMT: Mouth: Yes moist mucous membranes Eyes: EOM: EOMs intact bilaterally Neck: Neck: no JVD Resp: Effort & Inspection: normal respiratory effort Auscultation: clear to auscultation bilaterally Cardio: Rate: regular rate Rhythm: regular rhythm Extrem: General: no pedal edema Objective Data Vital Signs Vital Signs: Vital Signs - 24 hr 07/05/24 14:00 07/05/24 14:00 07/05/24 16:00 Temperature 36.8 C Pulse Rate 117 H 117 H 102 H Respiratory Rate 19 17 Blood Pressure 127/79 116/78 Pulse Oximetry 94 95 Oxygen Delivery Oxygen Flow Rate 07/05/24 16:00 07/05/24 16:00 07/05/24 18:00 Temperature Pulse Rate 109 H 117 H 113 H Respiratory Rate 21 H Blood Pressure Pulse Oximetry 97 Oxygen Delivery Nasal Cannula Oxygen Flow Rate 2 07/05/24 18:00 07/05/24 20:00 07/05/24 20:00 Temperature Pulse Rate 113 H 102 H 102 H Respiratory Rate 22 H 16 Blood Pressure 121/85 Pulse Oximetry 95 95 Oxygen Delivery Nasal Cannula Oxygen Flow Rate 2 07/05/24 20:47 07/05/24 22:00 07/05/24 22:00 Temperature 36.8 C 36.9 C Pulse Rate 110 H 99 90 Respiratory Rate 19 20 Blood Pressure 121/85 109/76 Pulse Oximetry 94 96 Oxygen Delivery Oxygen Flow Rate 07/06/24 00:00 07/06/24 00:00 07/06/24 00:00 Temperature 36.9 C Pulse Rate 94 97 100 Respiratory Rate 15 18 Blood Pressure 126/59 L Pulse Oximetry 96 96 Oxygen Delivery Nasal Cannula Oxygen Flow Rate 2 07/06/24 02:00 07/06/24 02:00 07/06/24 02:49 Temperature 36.9 C Pulse Rate 108 H 102 H 102 H Respiratory Rate 27 H 20 Blood Pressure 103/70 103/70 Pulse Oximetry 100 95 Oxygen Delivery Nasal Cannula Oxygen Flow Rate 2 07/06/24 04:00 07/06/24 04:00 07/06/24 04:00 Temperature 36.9 C Pulse Rate 103 H 93 91 Respiratory Rate 20 15 Blood Pressure 103/76 Pulse Oximetry 96 93 Oxygen Delivery Nasal Cannula Oxygen Flow Rate 2 07/06/24 06:00 07/06/24 06:07 07/06/24 08:00 Temperature 37.1 C 36.9 C Pulse Rate 107 H 101 H 106 H Respiratory Rate 20 17 Blood Pressure 102/77 133/88 Pulse Oximetry 94 95 Oxygen Delivery Oxygen Flow Rate 07/06/24 08:00 07/06/24 08:00 07/06/24 10:00 Temperature Pulse Rate 108 H 96 Respiratory Rate Blood Pressure Pulse Oximetry 95 Oxygen Delivery Nasal Cannula Oxygen Flow Rate 1 07/06/24 10:00 Temperature 36.8 C Pulse Rate 97 Respiratory Rate 17 Blood Pressure 124/79 Pulse Oximetry 95 Oxygen Delivery Oxygen Flow Rate Intake/Output Intake/Output: Intake & Output 07/03/24 07/04/24 07/05/24 07/06/24 23:59 23:59 23:59 23:59 Intake Total 360 680 340 Output Total 850 500 Balance 360 170 -160 Meds/Results Medications: Active Medications Generic Name Dose Route Start Last Admin Trade Name Freq PRN Reason Stop Dose Admin Acetaminophen 650 mg 07/04/24 11:16 07/06/24 02:11 Acetaminophen 325 Mg Tablet PO 650 mg Q4H PRN Administration Mild Pain (1-3) or Fever Hydrocodone Bitart/Acetaminophen 1 tab 07/06/24 08:27 Hydrocodone/Acetaminophen (*Crx) 7.5-325 Mg Tablet PO Q6H PRN Pain Rated 7-10 Colchicine 0.6 mg 07/05/24 21:00 07/06/24 08:15 Colchicine 0.6 Mg Tablet PO 0.6 mg Q12HR SHASHANK Administration Enoxaparin Sodium 40 mg 07/05/24 09:00 07/06/24 08:16 Enoxaparin 40 Mg/0.4 Ml Syringe SUB-Q 40 mg DAILY SHASHANK Administration Ibuprofen 600 mg 07/05/24 13:00 07/06/24 08:15 Ibuprofen 600 Mg Tablet PO 600 mg TID SHASHANK Administration Morphine Sulfate 2 mg 07/04/24 11:16 07/06/24 06:10 Morphine Sulfate (*Crx) 2 Mg/Ml Inj IV PUSH 2 mg Q2H PRN Administration Pain Rated 7-10 Multivitamins/Minerals 1 tab 07/06/24 09:00 07/06/24 08:16 Multivitamins /C Lutein (Centrum Silver) Tablet *Bkc PO 1 tab DAILY SHASHANK Administration Ondansetron HCl 4 mg 07/04/24 11:16 Ondansetron Inj 4 Mg/2 Ml Vial IV PUSH Q4H PRN Nausea Pantoprazole Sodium 40 mg 07/05/24 11:45 07/06/24 08:15 Pantoprazole 40 Mg Tablet PO 40 mg QAM SHASHANK Administration Perflutren Lipid Microsphere 0 ml 07/04/24 11:16 Perflutren Lipid Microspheres 1.5 Ml Vial Diluted To 10 Ml Total Volume IV PUSH 07/07/24 11:19 ONCE PRN adequate visualization Protocol Vitamin D 1,000 units 07/06/24 09:00 07/06/24 08:15 Cholecalciferol 1,000 Units Tablet PO 1,000 units DAILY SHASHANK Administration Radiology Results: ITS Impressions Chest X-Ray 07/04/24 09:16 IMPRESSION: 1. Small right and moderate-sized left pleural effusions. 2. Airspace opacities at the lung bases, likely atelectasis. Chest CTA 07/04/24 10:25 IMPRESSION: 1. Large pericardial effusion. 2. Small right and moderate-sized left pleural effusions. 3. No pulmonary embolus. Labs Labs: Laboratory Results - last 24 hr 07/06/24 08:55 WBC 10.5 H RBC 4.93 Hgb 13.6 Hct 42.4 MCV 86.0 MCH 27.6 MCHC 32.1 RDW 12.0 Plt Count 462 H MPV 9.7 Immature Gran % (Auto) 0.5 Neut % (Auto) 86.0 H Lymph % (Auto) 4.5 L [place] % (Auto) 8.6 H Eos % (Auto) 0.2 Baso % (Auto) 0.2 Lymph # (Auto) 0.47 L [place] # (Auto) 0.9 H Eos # (Auto) 0.0 Baso # (Auto) 0.0 Abs Immat Gran (auto) 0.05 H Absolute Neuts (auto) 9.1 H Absolute Nucleated RBC 0.000 Nucleated RBC % 0.0 Sodium 138 Potassium 4.1 Chloride 103 Carbon Dioxide 25 Anion Gap 10 BUN 13 Creatinine 0.51 L Estim Creat Clear Calc 105 Estimated GFR > 60 Glucose 162 H Calcium 9.2 Magnesium 1.9 Total Bilirubin 1.1 AST 23 ALT 30 Alkaline Phosphatase 128 H Total Protein 7.0 Albumin 3.4 L
[2024-07-06] MEDS: DOCUSATE SODIUM 100 MG CAPSULE PO (20:30)
[2024-07-07] VITALS (12 sets, daily range): BP systolic 100–124; BP diastolic 67–88; PULSE 100–129; RESP 17–24; TEMP 37–37.3; O2SAT 92–95
--- NOTE | 2024-07-07 | ECHOL_ITS ---
Patient Info Name: Jenni López Age: 54 years : 1970 Gender: Female Ht: 63 in Wt: 176 lbs BSA: 1.91 m2 HR: 121 bpm BP: 120 / 83 mmHg Technical Quality: Fair Exam Date: 07/07/2024 11:38 AM Exam Location: Echo Lab Patient Status: Inpatient Admit Date: 07/04/2024 Staff Ordering Physician: Lorraine Nicole MD (alton/ollie) Tableau Administrator: Kimberli Grossman RDCS Attending Provider: Priscila Gibbons MD Referring Physician: Corey FONTENOT; Exam Type: CA echo limited Study Info Indications - EVAL PERICARDIAL EFFUSION Limited two-dimensional transthoracic echocardiogram is performed. Summary 1. This was a limited study to evaluate for pericardial effusion. Technically difficult study. 2. Technically difficult study with limited views. Small pericardial effusion with echogenic material. 3. Left pleural effusion present. Pericardium/Pleural Left pleural effusion present. Technically difficult study with limited views. Small pericardial effusion with echogenic material. Report Signatures
[2024-07-07 05:02] LABS: Hematocrit 44.1 % (37.0-47.0); Hemoglobin 14.2 g/dL (12.0-15.0); Mean Corpuscular HGB Conc 32.2 g/dl (32-36); Mean Corpuscular Hemoglobin 27.7 pg (26-34); Mean Platelet Volume 9.9 fl (7.4-10.4); Platelet Count Result 549 k/mm3 (150-375); Red Blood Count 5.13 M/mm3 (4.2-5.4); Red Cell Distribution Width 11.9 % (11.5-14.5); White Blood Count 10.7 K/mm3 (4.5-10.0)
[2024-07-07 05:17] LABS: Alanine Aminotransferase 24 U/L (6-35); Albumin Level 3.4 g/dL (3.5-5.1); Alkaline Phosphatase 117 U/L (38-126); Anion Gap 10 mmol/L (4-12); Aspartate Amino Transferase 17 U/L (14-36); Bilirubin,Total 0.8 mg/dL (0.2-1.3); Blood Urea Nitrogen 12 mg/dL (7-17); Calcium 9.1 mg/dL (8.4-10.2); Carbon Dioxide 25 mmol/L (22-30); Chloride 105 mmol/L (98-107); Estimated CRCL calculation 94 ml/min; Estimated Glomerular Filt Rate > 60; Glucose 105 mg/dL (65-110); Potassium 3.9 mmol/L (3.4-5.0); Sodium 140 mmol/L (137-145)
[2024-07-07] MEDS: polyethylene glycoL 3350 17 GM POWD.PACK PO (08:26)
[2024-07-07] MEDS: CHOLECALCIFEROL 1,000 UNITS TABLET 1000 UNITS PO (08:27)
[2024-07-07] MEDS: MULTIVITAMINS /C LUTEIN (CENTRUM SILVER) TABLET *BKC 1 TAB PO (08:27)
[2024-07-07] MEDS: PANTOPRAZOLE 40 MG TABLET PO (08:27)
[2024-07-07] MEDS: COLCHICINE 0.6 MG TABLET PO ×2 (08:27→22:19)
[2024-07-07] MEDS: DOCUSATE SODIUM 100 MG CAPSULE PO ×2 (08:27→22:19)
[2024-07-07] MEDS: IBUPROFEN 600 MG TABLET PO ×3 (08:27→19:13)
[2024-07-07] MEDS: ENOXAPARIN 40 MG/0.4 ML SYRINGE SUB-Q (08:28)
--- NOTE | 2024-07-07 08:37 | WPDINTPN ---
Progress Note: A&P Assessment and Plan (1) Pericardial effusion: Code(s): I31.39 - Other pericardial effusion (noninflammatory) Status: Acute Assessment and Plan: Likely secondary to pericarditis Status post drain placement. Pericardial drain output decreased over last 24 hours Monitor Will discuss with Cardiology regarding obtaining an at repeat echo and may be removing the drain Cytology suggestive of hemopericardium negative for malignancy Hemodynamically stable tachycardia improved but still breath Monitor (2) Pericarditis: Code(s): I31.9 - Disease of pericardium, unspecified Status: Acute Assessment and Plan: Patient's chest pain and elevated CRP suggest possible pericarditis Discussed with Cardiology and patient started on course of NSAIDs and colchicine Continue PPI for GI prophylaxis (3) Pleural effusion: Code(s): J90 - Pleural effusion, not elsewhere classified Status: Acute Assessment and Plan: CT scan showed very small right and moderate site left pleural effusion with some atelectasis This could be secondary to heart failure could be secondary to tamponade Monitor Incentive spirometry PT OT once pericardial drain is removed Plan DVT prophylaxis -Lovenox SuP-PPI Nutrition -diet ordered Subjective Date/time seen: 07/07/24 She states her pain is better but still present she rates it a 4/10. She had only 1 Tylenol tonight. She denies any fever shortness of breath cough nausea vomiting abdominal pain. Her appetite is poor but she is eating. Afebrile. Sinus tachycardia on the monitor. Significant output from the pericardial drain overnight. Review of Systems Review of Systems: All systems reviewed & are unremarkable except as noted in HPI and below (HPI) Exam Narrative: General: Pt is alert awake and in NAD Lungs/Chest: Trachea central Clear BS B/L, No crackles or wheezing. Cardiac: Tachycardia. Normal S1 S2. No murmurs, pericardial drain in place with minimal serosanguineous output Circulation: Pedal pulses are intact and symmetrical. Abdomen: Normal bowel sounds.. Soft. NT. ND. Extremities: No clubbing, cyanosis or edema. Warm : Echols in place Neurologic: Follows commands. Moves all 4 extremities PERRL AO x3 Skin: No Rash Objective Data Vital Signs Vital Signs: Vital Signs - 24 hr 07/06/24 10:00 07/06/24 10:00 07/06/24 12:00 Temperature 36.8 C 36.9 C Pulse Rate 96 97 99 Respiratory Rate 17 19 Blood Pressure 124/79 123/78 Pulse Oximetry 95 93 Oxygen Delivery 07/06/24 12:00 07/06/24 12:00 07/06/24 14:00 Temperature Pulse Rate 98 107 H Respiratory Rate Blood Pressure Pulse Oximetry Oxygen Delivery Room Air 07/06/24 14:00 07/06/24 16:00 07/06/24 16:00 Temperature 36.8 C Pulse Rate 108 H 107 H Respiratory Rate 19 Blood Pressure 112/80 Pulse Oximetry 92 Oxygen Delivery Room Air 07/06/24 16:00 07/06/24 18:00 07/06/24 18:00 Temperature 37.0 C 37.2 C Pulse Rate 104 H 105 H 110 H Respiratory Rate 21 H 21 H Blood Pressure 113/76 119/74 Pulse Oximetry 92 93 Oxygen Delivery 07/06/24 20:00 07/06/24 20:00 07/06/24 20:29 Temperature 36.9 C Pulse Rate 108 H 106 H 108 H Respiratory Rate 22 H 22 H Blood Pressure 137/88 Pulse Oximetry 94 94 Oxygen Delivery Room Air 07/06/24 22:00 07/06/24 22:00 07/07/24 00:00 Temperature Pulse Rate 107 H 110 H 108 H Respiratory Rate 21 H 22 H Blood Pressure 90/67 L Pulse Oximetry 92 94 Oxygen Delivery Room Air 07/07/24 00:00 07/07/24 00:00 07/07/24 02:00 Temperature 37.0 C Pulse Rate 107 H 109 H 109 H Respiratory Rate 21 H 21 H Blood Pressure 100/67 106/82 Pulse Oximetry 93 93 Oxygen Delivery 07/07/24 02:00 07/07/24 04:00 07/07/24 04:00 Temperature 37.2 C Pulse Rate 109 H 115 H 108 H Respiratory Rate 22 H 22 H Blood Pressure 107/84 Pulse Oximetry 94 94 Oxygen Delivery Room Air 07/07/24 04:00 07/07/24 06:00 07/07/24 06:00 Temperature Pulse Rate 109 H 110 H 115 H Respiratory Rate 22 H Blood Pressure 109/83 Pulse Oximetry 93 Oxygen Delivery 07/07/24 08:00 Temperature 37.0 C Pulse Rate 115 H Respiratory Rate 19 Blood Pressure 124/83 Pulse Oximetry 93 Oxygen Delivery Intake/Output Intake/Output: Intake & Output 02/1807/05/24 07/06/24 07/07/24 23:59 23:59 23:59 23:59 Intake Total 547 301 7753 Output Total 850 810 300 Balance 360 -170 990 -300 Meds/Results Medications: Active Medications Generic Name Dose Route Start Last Admin Trade Name Freq PRN Reason Stop Dose Admin Acetaminophen 650 mg 07/04/24 11:16 07/06/24 02:11 Acetaminophen 325 Mg Tablet PO 650 mg Q4H PRN Administration Mild Pain (1-3) or Fever Hydrocodone Bitart/Acetaminophen 1 tab 07/06/24 08:27 Hydrocodone/Acetaminophen (*Crx) 7.5-325 Mg Tablet PO Q6H PRN Pain Rated 7-10 Bisacodyl 10 mg 07/06/24 15:46 Bisacodyl 10 Mg Suppository RECTAL QAM PRN Constipation Colchicine 0.6 mg 07/05/24 21:00 07/07/24 08:27 Colchicine 0.6 Mg Tablet PO 0.6 mg Q12HR SHASHANK Administration Docusate Sodium 100 mg 07/06/24 21:00 07/07/24 08:27 Docusate Sodium 100 Mg Capsule PO 100 mg Q12HR SHASHANK Administration Enoxaparin Sodium 40 mg 07/05/24 09:00 07/07/24 08:28 Enoxaparin 40 Mg/0.4 Ml Syringe SUB-Q 40 mg DAILY SHASHANK Administration Ibuprofen 600 mg 07/05/24 13:00 07/07/24 08:27 Ibuprofen 600 Mg Tablet PO 600 mg TID SHASHANK Administration Morphine Sulfate 2 mg 07/04/24 11:16 07/06/24 06:10 Morphine Sulfate (*Crx) 2 Mg/Ml Inj IV PUSH 2 mg Q2H PRN Administration Pain Rated 7-10 Multivitamins/Minerals 1 tab 07/06/24 09:00 07/07/24 08:27 Multivitamins /C Lutein (Centrum Silver) Tablet *Bkc PO 1 tab DAILY SHASHANK Administration Ondansetron HCl 4 mg 07/04/24 11:16 Ondansetron Inj 4 Mg/2 Ml Vial IV PUSH Q4H PRN Nausea Pantoprazole Sodium 40 mg 07/05/24 11:45 07/07/24 08:27 Pantoprazole 40 Mg Tablet PO 40 mg QAM SHASHANK Administration Perflutren Lipid Microsphere 0 ml 07/04/24 11:16 Perflutren Lipid Microspheres 1.5 Ml Vial Diluted To 10 Ml Total Volume IV PUSH 07/07/24 11:19 ONCE PRN adequate visualization Protocol Polyethylene Glycol 17 gm 07/07/24 09:00 07/07/24 08:26 Polyethylene Glycol 3350 17 Gm Powd.Pack PO 17 gm QAM SHASHANK Administration Vitamin D 1,000 units 07/06/24 09:00 07/07/24 08:27 Cholecalciferol 1,000 Units Tablet PO 1,000 units DAILY SHASHANK Administration Radiology Results: ITS Impressions Chest X-Ray 07/04/24 09:16 IMPRESSION: 1. Small right and moderate-sized left pleural effusions. 2. Airspace opacities at the lung bases, likely atelectasis. Chest CTA 07/04/24 10:25 IMPRESSION: 1. Large pericardial effusion. 2. Small right and moderate-sized left pleural effusions. 3. No pulmonary embolus. Labs Labs: Laboratory Results - last 24 hr 07/06/24 07/07/24 08:55 04:34 WBC 10.5 H 10.7 H RBC 4.93 5.13 Hgb 13.6 14.2 Hct 42.4 44.1 MCV 86.0 86.0 MCH 27.6 27.7 MCHC 32.1 32.2 RDW 12.0 11.9 Plt Count 462 H 549 H MPV 9.7 9.9 Immature Gran % (Auto) 0.5 Neut % (Auto) 86.0 H Lymph % (Auto) 4.5 L [place] % (Auto) 8.6 H Eos % (Auto) 0.2 Baso % (Auto) 0.2 Lymph # (Auto) 0.47 L [place] # (Auto) 0.9 H Eos # (Auto) 0.0 Baso # (Auto) 0.0 Abs Immat Gran (auto) 0.05 H Absolute Neuts (auto) 9.1 H Absolute Nucleated RBC 0.000 Nucleated RBC % 0.0 Sodium 138 140 Potassium 4.1 3.9 Chloride 103 105 Carbon Dioxide 25 25 Anion Gap 10 10 BUN 13 12 Creatinine 0.51 L 0.58 L Estim Creat Clear Calc 105 94 Estimated GFR > 60 > 60 Glucose 162 H 105 Calcium 9.2 9.1 Magnesium 1.9 2.0 Total Bilirubin 1.1 0.8 AST 23 17 ALT 30 24 Alkaline Phosphatase 128 H 117 Total Protein 7.0 7.0 Albumin 3.4 L 3.4 L Quality VTE Prophylaxis VTE prophylaxis: mechanical ordered
--- NOTE | 2024-07-07 10:02 | PM.PNCARD ---
Progress Note: A&P Assessment and Plan (1) Pericarditis: Code(s): I31.9 - Disease of pericardium, unspecified Status: Acute Plan 54-year-old woman who presented with shortness of breath and chest pressure found to have large pericardial effusion with evidence of tamponade who is now status post pericardial drain on 07/05. Large pericardial effusion with evidence of tamponade Acute pericarditis -Cytology of the pericardial fluid shows: numerous red blood cells with scattered white blood cells consistent with hemopericardium; negative for malignancy. Remainder of the pericardial fluid lab studies are pending. -Continue Ibuprofen 600 mg TID and Colchicine 0.6 mg PO BID. -Will obtain limited echo to reassess pericardial effusion today. -Will plan to remove pericardial drain after echocardiogram as it is no longer draining. -Discussed possible etiologies and necessity to follow-up with primary care physician for workup of autoimmune or vasculitis conditions. Recommendations and plan discussed with ICU Physician. Subjective Date/time seen: 07/07/24 10:02 Interval history: Reason for visit: Pericardial effusion HPI: We are consulted for pericardial effusion. This is a 54 year old female who had previously been seen by Dr. Sutherland in 2020 for an incidentally noted small pericardial effusion; no clear etiology for the effusion at that time; no pericarditis. She presented to the ED today for shortness of breath and chest pressure over the past five days. Started suddenly. Gets short of breath laying flat. In the ED, noted to have stable blood pressure, however, tachycardic. EKG with sinus tachycardia, low QRS voltage in the precordial leads. WBC elevated at 11.4. Platelet count elevated at 464. Troponins negative x 2. TSH level normal. CXR showed small right and moderate-sized left pleural effusions. Chest CTA with large pericardial effusion, small right and moderate left pleural effusions; no pulmonary embolism. STAT echocardiogram was done which shows large pericardial effusion, measuring up to 2.6cm posteriorly, 1.5cm anteriorly. There is right atrial systolic collapse with some respiratory variation of the tricuspid and mitral valve flow. Date of service 07/05: S/p successful pericardiocentesis this morning. Remains tachycardic. Blood pressures stable. Date of service 07/06: She is having the chest discomfort throughout the evening requiring pain medication. Date of service 07/07: No output from the drain since yesterday morning. Not able to aspirate any fluid from the drain, not able to flush it either. Review of Systems Cardiovascular: Cardiovascular: Reports as per HPI Exam Const: General: no acute distress HENMT: Mouth: Yes moist mucous membranes Eyes: General: appearance normal, both eyes and all related structures Sclera: sclerae normal Cardio: Rate: tachycardic Rhythm: regular rhythm Neuro: Speech: normal speech Psych: Affect: Anxious affect present Objective Data Vital Signs Vital Signs: Vital Signs - 24 hr 07/06/24 12:00 07/06/24 12:00 07/06/24 12:00 Temperature 36.9 C Pulse Rate 99 98 Respiratory Rate 19 Blood Pressure 123/78 Pulse Oximetry 93 Oxygen Delivery Room Air 07/06/24 14:00 07/06/24 14:00 07/06/24 16:00 Temperature 36.8 C Pulse Rate 107 H 108 H 107 H Respiratory Rate 19 Blood Pressure 112/80 Pulse Oximetry 92 Oxygen Delivery 07/06/24 16:00 07/06/24 16:00 07/06/24 18:00 Temperature 37.0 C 37.2 C Pulse Rate 104 H 105 H Respiratory Rate 21 H 21 H Blood Pressure 113/76 119/74 Pulse Oximetry 92 93 Oxygen Delivery Room Air 07/06/24 18:00 07/06/24 20:00 07/06/24 20:00 Temperature Pulse Rate 110 H 108 H 106 H Respiratory Rate 22 H Blood Pressure Pulse Oximetry 94 Oxygen Delivery Room Air 07/06/24 20:29 07/06/24 22:00 07/06/24 22:00 Temperature 36.9 C Pulse Rate 108 H 107 H 110 H Respiratory Rate 22 H 21 H Blood Pressure 137/88 90/67 L Pulse Oximetry 94 92 Oxygen Delivery 07/07/24 00:00 07/07/24 00:00 07/07/24 00:00 Temperature 37.0 C Pulse Rate 108 H 107 H 109 H Respiratory Rate 22 H 21 H Blood Pressure 100/67 Pulse Oximetry 94 93 Oxygen Delivery Room Air 07/07/24 02:00 07/07/24 02:00 07/07/24 04:00 Temperature 37.2 C Pulse Rate 109 H 109 H 115 H Respiratory Rate 21 H 22 H Blood Pressure 106/82 107/84 Pulse Oximetry 93 94 Oxygen Delivery 07/07/24 04:00 07/07/24 04:00 07/07/24 06:00 Temperature Pulse Rate 108 H 109 H 110 H Respiratory Rate 22 H 22 H Blood Pressure 109/83 Pulse Oximetry 94 93 Oxygen Delivery Room Air 07/07/24 06:00 07/07/24 08:00 07/07/24 08:00 Temperature 37.0 C Pulse Rate 115 H 115 H Respiratory Rate 19 Blood Pressure 124/83 Pulse Oximetry 93 92 Oxygen Delivery Room Air Intake/Output Intake/Output: Intake & Output 07/04/24 07/05/24 07/06/24 07/07/24 23:59 23:59 23:59 23:59 Intake Total 993 494 2926 Output Total 850 810 300 Balance 360 -170 990 -300 Meds/Results Medications: Active Medications Generic Name Dose Route Start Last Admin Trade Name Freq PRN Reason Stop Dose Admin Acetaminophen 650 mg 07/04/24 11:16 07/06/24 02:11 Acetaminophen 325 Mg Tablet PO 650 mg Q4H PRN Administration Mild Pain (1-3) or Fever Hydrocodone Bitart/Acetaminophen 1 tab 07/06/24 08:27 Hydrocodone/Acetaminophen (*Crx) 7.5-325 Mg Tablet PO Q6H PRN Pain Rated 7-10 Bisacodyl 10 mg 07/06/24 15:46 Bisacodyl 10 Mg Suppository RECTAL QAM PRN Constipation Colchicine 0.6 mg 07/05/24 21:00 07/07/24 08:27 Colchicine 0.6 Mg Tablet PO 0.6 mg Q12HR SHASHANK Administration Docusate Sodium 100 mg 07/06/24 21:00 07/07/24 08:27 Docusate Sodium 100 Mg Capsule PO 100 mg Q12HR SHASHANK Administration Enoxaparin Sodium 40 mg 07/05/24 09:00 07/07/24 08:28 Enoxaparin 40 Mg/0.4 Ml Syringe SUB-Q 40 mg DAILY SHASHANK Administration Ibuprofen 600 mg 07/05/24 13:00 07/07/24 08:27 Ibuprofen 600 Mg Tablet PO 600 mg TID SHASHANK Administration Morphine Sulfate 2 mg 07/04/24 11:16 07/06/24 06:10 Morphine Sulfate (*Crx) 2 Mg/Ml Inj IV PUSH 2 mg Q2H PRN Administration Pain Rated 7-10 Multivitamins/Minerals 1 tab 07/06/24 09:00 07/07/24 08:27 Multivitamins /C Lutein (Centrum Silver) Tablet *Bkc PO 1 tab DAILY SHASHANK Administration Ondansetron HCl 4 mg 07/04/24 11:16 Ondansetron Inj 4 Mg/2 Ml Vial IV PUSH Q4H PRN Nausea Pantoprazole Sodium 40 mg 07/05/24 11:45 07/07/24 08:27 Pantoprazole 40 Mg Tablet PO 40 mg QAM SHASHANK Administration Perflutren Lipid Microsphere 0 ml 07/04/24 11:16 Perflutren Lipid Microspheres 1.5 Ml Vial Diluted To 10 Ml Total Volume IV PUSH 07/07/24 11:19 ONCE PRN adequate visualization Protocol Polyethylene Glycol 17 gm 07/07/24 09:00 07/07/24 08:26 Polyethylene Glycol 3350 17 Gm Powd.Pack PO 17 gm QAM SHASHANK Administration Vitamin D 1,000 units 07/06/24 09:00 07/07/24 08:27 Cholecalciferol 1,000 Units Tablet PO 1,000 units DAILY SHASHANK Administration Radiology Results: ITS Impressions Chest X-Ray 07/04/24 09:16 IMPRESSION: 1. Small right and moderate-sized left pleural effusions. 2. Airspace opacities at the lung bases, likely atelectasis. Chest CTA 07/04/24 10:25 IMPRESSION: 1. Large pericardial effusion. 2. Small right and moderate-sized left pleural effusions. 3. No pulmonary embolus. Labs Labs: Laboratory Results - last 24 hr 07/06/24 07/07/24 08:55 04:34 WBC 10.5 H 10.7 H RBC 4.93 5.13 Hgb 13.6 14.2 Hct 42.4 44.1 MCV 86.0 86.0 MCH 27.6 27.7 MCHC 32.1 32.2 RDW 12.0 11.9 Plt Count 462 H 549 H MPV 9.7 9.9 Immature Gran % (Auto) 0.5 Neut % (Auto) 86.0 H Lymph % (Auto) 4.5 L [place] % (Auto) 8.6 H Eos % (Auto) 0.2 Baso % (Auto) 0.2 Lymph # (Auto) 0.47 L [place] # (Auto) 0.9 H Eos # (Auto) 0.0 Baso # (Auto) 0.0 Abs Immat Gran (auto) 0.05 H Absolute Neuts (auto) 9.1 H Absolute Nucleated RBC 0.000 Nucleated RBC % 0.0 Sodium 138 140 Potassium 4.1 3.9 Chloride 103 105 Carbon Dioxide 25 25 Anion Gap 10 10 BUN 13 12 Creatinine 0.51 L 0.58 L Estim Creat Clear Calc 105 94 Estimated GFR > 60 > 60 Glucose 162 H 105 Calcium 9.2 9.1 Magnesium 1.9 2.0 Total Bilirubin 1.1 0.8 AST 23 17 ALT 30 24 Alkaline Phosphatase 128 H 117 Total Protein 7.0 7.0 Albumin 3.4 L 3.4 L
[2024-07-07] MEDS: MORPHINE SULFATE (*CRX) 2 MG/ML INJ IV PUSH (13:19)
--- NOTE | 2024-07-07 15:36 | P.CONPL_ITS ---
Assessment and Plan Assessment and plan (1) Pleural effusion: Code(s): J90 - Pleural effusion, not elsewhere classified Status: Acute Assessment and Plan: A 54-year-old female presented with shortness of breath and chest pain, attributed to a large pericardial effusion. This was successfully drained using a pericardial catheter. In addition to the pericardial effusion, she was also found to have a moderate-sized pleural effusion on the left side and a small pleural effusion on the right. The etiology of the pericardial effusion is most likely inflammatory, as cytology showed no malignant cells. It is noteworthy that this is her second pericardial effusion episode in the last five years. Serology tests conducted thus far have not indicated any underlying autoimmune disease. The pleural effusions are likely due to the same inflammatory process affecting the pericardium, as inflammation can extend to the pleura, resulting in pleural effusion. The patient does not report significant discomfort from the left pleural effusion and remains stable on room air, with no signs of lower respiratory tract infection such as cough, sputum production, or fever. Plan: We will monitor the pleural effusion while the patient undergoes anti- inflammatory treatment for pericarditis, which is expected to also alleviate the left pleural effusion. If follow-up imaging studies show an increase in the size of the pleural effusion, we will consider proceeding with thoracentesis. Will screen for latent TB. Monitor CRP. Added rheumatoid factor and anti CCP antibodies. May consider HIV testing after talking to the patient. Repeat chest x-ray Wednesday morning. Will continue to follow along with you. (2) Pericardial effusion: Code(s): I31.39 - Other pericardial effusion (noninflammatory) Status: Acute (3) Pericarditis: Code(s): I31.9 - Disease of pericardium, unspecified Status: Acute History of Present Illness History of Present Illness Consult date: 07/07/24 Chief complaint: Pericardial Effusion Narrative: A 54-year-old female presented with a several-day history of shortness of breath and left-sided chest pain. She was in her usual state of health until a few days before admission, when she began experiencing exertional shortness of breath and left-sided chest pain beneath her left breast. She reported no other respiratory symptoms, such as hemoptysis, wheezing, fever, chills, or orthopnea. A chest CT revealed a large pericardial effusion, a moderate left pleural effusion, and a very small right pleural effusion. Cardiology Services evaluated her, and due to signs consistent with tamponade, she underwent pericardial tube placement, which drained over 500 mL of serosanguineous fluid. The pericardial tube was removed earlier today. Cytology showed the fluid was bloody, with no evidence of malignancy. I was consulted to evaluate the moderate left pleural effusion and the smaller right pleural effusion. On questioning, the patient denied any previous history of lung disease and is a non-smoker. Approximately four years ago, she had a small pericardial effusion detected on echocardiogram, for which she received short-term treatment, and subsequent testing showed resolution of the effusion. The patient reports no history of autoimmune diseases such as rheumatoid arthritis or systemic lupus erythematosus (SLE). She also denies any history of arthritis or skin rashes, other than contact dermatitis, and has no exposure to inhalant agents at home or work. Her clinical condition has significantly improved since hospital admission, and she is currently in the intensive care unit, breathing ambient air. Laboratory tests showed a borderline elevation of white blood cell count, without a left shift, and she has remained afebrile. The erythrocyte sedimentation rate (ESR) was elevated at 21. She is currently receiving treatment with colchicine and other anti-inflammatory agents, also subcu treatment for for DVT prophylaxis. Review of Systems 2 Review of Systems: Patient was diagnosed with thyroid nodule for which she underwent biopsy. Reportedly the nodule was not malignant. She had gallbladder removed in the past. [facility] Past Medical History Medical History Chronic cholecystitis without calculus Encounter for surgical aftercare following surgery on the digestive system Pericardial effusion Acute biliary pancreatitis Abnormal abdominal ultrasound Liver cyst Pancreatitis COVID-19 vaccine series completed Hepatic lesion Elevated lipase Vomiting Abdominal pain Vitamin D deficiency Surgical History Surgical History Hx laparoscopic cholecystectomy Status post excision of lipoma left shoulder Family History Family History Mother Healthy adult Father Healthy adult Social History Social History Social History: Primary care physician: Dr. Jolly Bauman code status: Full code surrogate decision maker: Smoking status: Never smoker Second hand tobacco smoke exposure: No Alcohol intake: current Drinks per week: 0 Alcohol use details: She rarely drinks alcohol and only in moderation. Substance use: never Substance use type: does not use Do You Feel Safe in your Home?: Yes Lack of Transportation: No Lack of Food: Never True Current Housing: I Have Housing Concerned About Future Housing: No Difficulty Paying Gas/Electric Bills: No Difficulty Paying for Meds: No Currently Unemployed: No Education: Bachelor's Degree Difficulty w/ Childcare or Family Care: No Living arrangements: with family Additional living arrangements comments: She lives in [place] with her and their 16-year-old daughter. She also has a 26-year-old daughter as well. 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 Gender identity (if verbalized by the patient): Female Sexual Orientation (if Verbalized by the Patient): Straight or Heterosexual Spiritual care concerns: No Meds Home Medications and Allergies Home Medications ?Medication ?Instructions ?Recorded ?Confirmed ?Type multivitamin-ferrous 1 tablet PO DAILY 03/24/21 07/04/24 History fumarate-folic acid 18 mg-400 mcg tablet (Centrum Women) cholecalciferol (vitamin D3) 25 25 mcg PO DAILY #1 cap 02/24/24 07/04/24 Rx mcg (1,000 unit) capsule Allergies Allergy/AdvReac Type Severity Reaction Status Date / Time Penicillins AdvReac Mild HIVES/ RASH Verified 07/04/24 16:16 Vital Signs Vital Signs - 24 hr 07/06/24 16:00 07/06/24 16:00 07/06/24 16:00 Temperature 37.0 C Pulse Rate 107 H 104 H Respiratory Rate 21 H Blood Pressure 113/76 Pulse Oximetry 92 Oxygen Delivery Room Air 07/06/24 18:00 07/06/24 18:00 07/06/24 20:00 Temperature 37.2 C Pulse Rate 105 H 110 H 108 H Respiratory Rate 21 H 22 H Blood Pressure 119/74 Pulse Oximetry 93 94 Oxygen Delivery Room Air 07/06/24 20:00 07/06/24 20:29 07/06/24 22:00 Temperature 36.9 C Pulse Rate 106 H 108 H 107 H Respiratory Rate 22 H 21 H Blood Pressure 137/88 90/67 L Pulse Oximetry 94 92 Oxygen Delivery 07/06/24 22:00 07/07/24 00:00 07/07/24 00:00 Temperature 37.0 C Pulse Rate 110 H 108 H 107 H Respiratory Rate 22 H 21 H Blood Pressure 100/67 Pulse Oximetry 94 93 Oxygen Delivery Room Air 07/07/24 00:00 07/07/24 02:00 07/07/24 02:00 Temperature Pulse Rate 109 H 109 H 109 H Respiratory Rate 21 H Blood Pressure 106/82 Pulse Oximetry 93 Oxygen Delivery 07/07/24 04:00 07/07/24 04:00 07/07/24 04:00 Temperature 37.2 C Pulse Rate 115 H 108 H 109 H Respiratory Rate 22 H 22 H Blood Pressure 107/84 Pulse Oximetry 94 94 Oxygen Delivery Room Air 07/07/24 06:00 07/07/24 06:00 07/07/24 08:00 Temperature 37.0 C Pulse Rate 110 H 115 H 115 H Respiratory Rate 22 H 19 Blood Pressure 109/83 124/83 Pulse Oximetry 93 93 Oxygen Delivery 07/07/24 08:00 07/07/24 08:00 07/07/24 10:00 Temperature Pulse Rate 114 H 119 H Respiratory Rate Blood Pressure Pulse Oximetry 92 Oxygen Delivery Room Air 07/07/24 10:00 07/07/24 12:00 07/07/24 12:00 Temperature 37.0 C Pulse Rate 121 H 115 H Respiratory Rate 18 18 Blood Pressure 120/83 124/87 Pulse Oximetry 93 95 94 Oxygen Delivery Room Air 07/07/24 12:00 07/07/24 14:00 07/07/24 14:00 Temperature Pulse Rate 111 H 110 H 106 H Respiratory Rate 19 Blood Pressure 118/84 Pulse Oximetry 93 Oxygen Delivery Exam 2 Narrative: GENERAL APPEARANCE: Well developed, well nourished, alert and cooperative, and appears to be in no acute distress SKIN: Inspection of the skin reveals no rashes, ulcerations or petechiae. HEENT: Sclerae anicteric and conjunctivae pink and moist. Extraocular movements were intact and pupils were equal, round, and reactive to light. The oral mucosa, hard and soft palate, tongue and posterior pharynx were normal. NECK: Supple. JVD present There was no thyroid enlargement, and no tenderness, or masses were felt. CHEST: Normal AP diameter and normal contour without any kyphoscoliosis. LUNGS: Clear breath sounds anteriorly decreased breath sounds left lateral chest CARDIAC: There was a regular rate and rhythm without any murmurs, gallops, rubs. ABDOMEN: Soft and nontender with normal bowel sounds. There was no organomegaly. LYMPH NODES: No lymphadenopathy was appreciated in the neck. EXTREMITIES: No cyanosis, clubbing or edema. NEUROLOGIC: Alert and oriented x 3. Normal affect. Results Laboratory Findings 07/07/24 04:34 07/07/24 04:34 ABG, PT/INR, D-dimer: PT/INR, D-dimer PT 15.5 Seconds (11.1-14.7) H 07/04/24 08:52 INR 1.2 07/04/24 08:52 D-Dimer 6.09 ug/mL (<0.48) H 07/04/24 08:52 Abnormal lab findings: Abnormal Labs 07/04/24 07/04/24 07/05/24 08:52 16:49 04:37 WBC 11.4 H 11.5 H Plt Count 464 H D 452 H Immature Gran % (Auto) 0.6 H Neut % (Auto) 82.8 H 79.5 H Lymph % (Auto) 6.3 L 6.6 L [place] % (Auto) 9.5 H 12.7 H Lymph # (Auto) 0.72 L 0.76 L [place] # (Auto) 1.1 H 1.5 H Abs Immat Gran (auto) 0.06 H 0.07 H Absolute Neuts (auto) 9.4 H 9.2 H ESR 21 H PT 15.5 H D-Dimer 6.09 H Creatinine 0.55 L 0.56 L Glucose 123 H Total Bilirubin 1.8 H 1.6 H Alkaline Phosphatase 128 H C-Reactive Protein 14.6 H NT-Pro-B Natriuret Pep 133 H Albumin 07/06/24 07/07/24 08:55 04:34 WBC 10.5 H 10.7 H Plt Count 462 H 549 H Immature Gran % (Auto) Neut % (Auto) 86.0 H Lymph % (Auto) 4.5 L [place] % (Auto) 8.6 H Lymph # (Auto) 0.47 L [place] # (Auto) 0.9 H Abs Immat Gran (auto) 0.05 H Absolute Neuts (auto) 9.1 H ESR PT D-Dimer Creatinine 0.51 L 0.58 L Glucose 162 H Total Bilirubin Alkaline Phosphatase 128 H C-Reactive Protein NT-Pro-B Natriuret Pep Albumin 3.4 L 3.4 L
[2024-07-08] VITALS (9 sets, daily range): BP systolic 117; BP diastolic 85; PULSE 100–131; RESP 17; TEMP 37.1; O2SAT 94–96
--- NOTE | 2024-07-08 | ECHOL_ITS ---
Patient Info Name: Jenni López Age: 54 years : 1970 Gender: Female Ht: 63 in Wt: 176 lbs BSA: 1.91 m2 HR: 91 bpm BP: 117 / 85 mmHg Heart Rhythm: Sinus Rhythm Technical Quality: Good Exam Date: 07/08/2024 9:16 AM Exam Location: Echo Lab Exam Room: ICU 5 Patient Status: Inpatient Admit Date: 07/04/2024 Staff Ordering Physician: Lorraine Nicole MD (alton/ollie) Log Handling Equipment Operator: Rhonda Esparza RDCS Attending Provider: Priscila Gibbons MD Referring Physician: Corey FONTENOT; Exam Type: CA echo limited Study Info Indications - EVAL PERICARDIAL EFFUSION Limited two-dimensional transthoracic echocardiogram is performed. Summary 1. Limited echo. Normal LV size and wall thickness, normal LV systolic function, ejection fraction 65-70%. Normal structure of the visualized valves. Trivial to mild residual pericardial effusion, no echo evidence of tamponade. Pleural effusion is noted. Left Ventricle Left ventricular chamber dimension is normal. Left ventricular systolic function is normal, estimated at 65-70%. There is no increased left ventricular wall thickness. Right Ventricle Right ventricular chamber dimension is normal. Right ventricular systolic function is normal. Left Atria Left atrial chamber dimension is normal. Right Atria Right atrial chamber dimension is normal. Aortic Valve The aortic valve is normal. Pulmonic Valve The pulmonic valve is not well visualized. Mitral Valve The mitral valve has normal leaflets. Tricuspid Valve The tricuspid valve leaflets are normal. Pericardium/Pleural There is trivial pericardial effusion. Aorta The aortic root size at the sinus of Valsalva is not well visualized. Ventricles Name Value Normal LV Fractional Shortening/Ejection Fraction 2D/MM LV Diastolic Volume (4C MOD) 62 ml LV EF (4C MOD) 69 % LV Diastolic Length (4C) 6.5 cm LV Systolic Length (4C) 5.1 cm LV Stroke Volume (4C MOD) 42 ml Atria Name Value Normal LA Dimensions LA Volume (4C A-L) 42 ml RA Dimensions RA Area (4C) 12.7 cm2 <=18.0 Report Signatures
[2024-07-08 04:00] LABS: Hematocrit 42.8 % (37.0-47.0); Hemoglobin 13.7 g/dL (12.0-15.0); Mean Corpuscular Hemoglobin 28.3 pg (26-34); Mean Corpuscular Volume 88.4 fl (80-100); Mean Platelet Volume 9.6 fl (7.4-10.4); Platelet Count Result 461 k/mm3 (150-375); Red Blood Count 4.84 M/mm3 (4.2-5.4); Red Cell Distribution Width 11.9 % (11.5-14.5); White Blood Count 5.9 K/mm3 (4.5-10.0)
[2024-07-08 04:16] LABS: Rheumatoid Factor < 12.0 IU/ML (<12)
[2024-07-08 04:18] LABS: Alanine Aminotransferase 20 U/L (6-35); Albumin Level 2.9 g/dL (3.5-5.1); Alkaline Phosphatase 105 U/L (38-126); Anion Gap 8 mmol/L (4-12); Aspartate Amino Transferase 17 U/L (14-36); Bilirubin,Total 0.6 mg/dL (0.2-1.3); Blood Urea Nitrogen 11 mg/dL (7-17); Calcium 8.7 mg/dL (8.4-10.2); Carbon Dioxide 27 mmol/L (22-30); Chloride 106 mmol/L (98-107); Estimated CRCL calculation 102 ml/min; Estimated Glomerular Filt Rate > 60; Glucose 100 mg/dL (65-110); Magnesium 1.9 mg/dL (1.6-2.3); Potassium 3.8 mmol/L (3.4-5.0); Sodium 141 mmol/L (137-145)
[2024-07-08 04:27] LABS: CRP 17.1 mg/dL (<1.0)
--- NOTE | 2024-07-08 07:22 | P.PNPL_ITS ---
Progress Note: A&P Assessment and Plan (1) Pleural effusion: Code(s): J90 - Pleural effusion, not elsewhere classified Status: Acute Assessment and Plan: A 54-year-old female presented with shortness of breath and chest pain, attributed to a large pericardial effusion. This was successfully drained using a pericardial catheter. In addition to the pericardial effusion, she was also found to have a moderate-sized pleural effusion on the left side and a small pleural effusion on the right. The etiology of the pericardial effusion is most likely inflammatory, as cytology showed no malignant cells. It is noteworthy that this is her second pericardial effusion episode in the last five years. Serology tests conducted thus far have not indicated any underlying autoimmune disease. The pleural effusions are likely due to the same inflammatory process affecting the pericardium, as inflammation can extend to the pleura, resulting in pleural effusion. The patient does not report significant discomfort from the left pleural effusion and remains stable on room air, with no signs of lower respiratory tract infection such as cough, sputum production, or fever. On today's testing the WBC is normal although the CRP remains more or less the same range. Additional tests ordered yesterday pending. Plan: We will monitor the pleural effusion while the patient undergoes anti- inflammatory treatment for pericarditis, which is expected to also alleviate the left pleural effusion. If follow-up imaging studies show an increase in the size of the pleural effusion, we will consider proceeding with thoracentesis. Will continue to follow along with you. (2) Pericardial effusion: Code(s): I31.39 - Other pericardial effusion (noninflammatory) Status: Acute (3) Pericarditis: Code(s): I31.9 - Disease of pericardium, unspecified Status: Acute Subjective Date/time seen: 07/08/24 07:22 Interval history: Patient has no new respiratory symptoms infectious stated her breathing is improving. Was able to mow out of bed yesterday. She is still in bed now breathing ambient air. Afebrile. No chest pain coughing or wheezing Review of Systems Review of Systems: All systems reviewed & are unremarkable except as noted in HPI and below (HPI and below) Exam Narrative: GENERAL APPEARANCE: Well developed, well nourished, alert and cooperative, and appears to be in no acute distress SKIN: Inspection of the skin reveals no rashes, ulcerations or petechiae. HEENT: Sclerae anicteric and conjunctivae pink and moist. Extraocular movements were intact and pupils were equal, round, and reactive to light. The oral mucosa, hard and soft palate, tongue and posterior pharynx were normal. NECK: Supple. JVD present There was no thyroid enlargement, and no tenderness, or masses were felt. CHEST: Normal AP diameter and normal contour without any kyphoscoliosis. LUNGS: Clear breath sounds anteriorly decreased breath sounds left lateral chest CARDIAC: There was a regular rate and rhythm without any murmurs, gallops, rubs. ABDOMEN: Soft and nontender with normal bowel sounds. There was no organomegaly. LYMPH NODES: No lymphadenopathy was appreciated in the neck. EXTREMITIES: No cyanosis, clubbing or edema. NEUROLOGIC: Alert and oriented x 3. Normal affect. Objective Data Vital Signs Vital Signs: Vital Signs - 24 hr 07/07/24 08:00 07/07/24 08:00 07/07/24 08:00 Temperature 37.0 C Pulse Rate 115 H 114 H Respiratory Rate 19 Blood Pressure 124/83 Pulse Oximetry 93 92 Oxygen Delivery Room Air 07/07/24 10:00 07/07/24 10:00 07/07/24 12:00 Temperature 37.0 C Pulse Rate 119 H 121 H 115 H Respiratory Rate 18 18 Blood Pressure 120/83 124/87 Pulse Oximetry 93 95 Oxygen Delivery 07/07/24 12:00 07/07/24 12:00 07/07/24 14:00 Temperature Pulse Rate 111 H 110 H Respiratory Rate 19 Blood Pressure 118/84 Pulse Oximetry 94 93 Oxygen Delivery Room Air 07/07/24 14:00 07/07/24 16:00 07/07/24 16:00 Temperature 37.3 C Pulse Rate 106 H 100 Respiratory Rate 17 Blood Pressure 118/88 Pulse Oximetry 92 Oxygen Delivery Room Air 07/07/24 16:00 07/07/24 18:00 07/07/24 18:00 Temperature Pulse Rate 105 H 129 H 129 H Respiratory Rate 24 H Blood Pressure Pulse Oximetry 93 Oxygen Delivery 07/07/24 20:00 07/07/24 20:00 07/07/24 20:00 Temperature 37.1 C Pulse Rate 105 H 115 H 103 H Respiratory Rate 20 20 Blood Pressure 100/76 Pulse Oximetry 92 93 Oxygen Delivery Room Air 07/07/24 22:00 07/07/24 22:00 07/08/24 00:00 Temperature Pulse Rate 115 H 108 H 111 H Respiratory Rate 20 Blood Pressure 109/70 Pulse Oximetry 93 Oxygen Delivery 07/08/24 04:00 Temperature Pulse Rate 101 H Respiratory Rate Blood Pressure Pulse Oximetry Oxygen Delivery Intake/Output Intake/Output: Intake & Output 07/05/24 07/06/24 07/07/24 07/08/24 23:59 23:59 23:59 23:59 Intake Total 680 1800 480 Output Total 850 810 600 300 Balance -170 990 -120 -300 Meds/Results Medications: Active Medications Generic Name Dose Route Start Last Admin Trade Name Freq PRN Reason Stop Dose Admin Acetaminophen 650 mg 07/04/24 11:16 07/06/24 02:11 Acetaminophen 325 Mg Tablet PO 650 mg Q4H PRN Administration Mild Pain (1-3) or Fever Hydrocodone Bitart/Acetaminophen 1 tab 07/06/24 08:27 Hydrocodone/Acetaminophen (*Crx) 7.5-325 Mg Tablet PO Q6H PRN Pain Rated 7-10 Bisacodyl 10 mg 07/06/24 15:46 Bisacodyl 10 Mg Suppository RECTAL QAM PRN Constipation Colchicine 0.6 mg 07/05/24 21:00 07/07/24 22:19 Colchicine 0.6 Mg Tablet PO 0.6 mg Q12HR SHASHANK Administration Docusate Sodium 100 mg 07/06/24 21:00 07/07/24 22:19 Docusate Sodium 100 Mg Capsule PO 100 mg Q12HR SHASHANK Administration Enoxaparin Sodium 40 mg 07/05/24 09:00 07/07/24 08:28 Enoxaparin 40 Mg/0.4 Ml Syringe SUB-Q 40 mg DAILY SHASHANK Administration Ibuprofen 600 mg 07/05/24 13:00 07/07/24 19:13 Ibuprofen 600 Mg Tablet PO 600 mg TID SHASHANK Administration Morphine Sulfate 2 mg 07/04/24 11:16 07/07/24 13:19 Morphine Sulfate (*Crx) 2 Mg/Ml Inj IV PUSH 2 mg Q2H PRN Administration Pain Rated 7-10 Multivitamins/Minerals 1 tab 07/06/24 09:00 07/07/24 08:27 Multivitamins /C Lutein (Centrum Silver) Tablet *Bkc PO 1 tab DAILY SHASHANK Administration Ondansetron HCl 4 mg 07/04/24 11:16 Ondansetron Inj 4 Mg/2 Ml Vial IV PUSH Q4H PRN Nausea Pantoprazole Sodium 40 mg 07/05/24 11:45 07/07/24 08:27 Pantoprazole 40 Mg Tablet PO 40 mg QAM SHASHANK Administration Perflutren Lipid Microsphere 0 ml 07/07/24 10:01 Perflutren Lipid Microspheres 1.5 Ml Vial Diluted To 10 Ml Total Volume IV PUSH 07/10/24 10:01 ONCE PRN adequate visualization Protocol Perflutren Lipid Microsphere 0 ml 07/07/24 13:51 Perflutren Lipid Microspheres 1.5 Ml Vial Diluted To 10 Ml Total Volume IV PUSH 07/10/24 13:51 ONCE PRN adequate visualization Protocol Polyethylene Glycol 17 gm 07/07/24 09:00 07/07/24 08:26 Polyethylene Glycol 3350 17 Gm Powd.Pack PO 17 gm QAM SHASHANK Administration Vitamin D 1,000 units 07/06/24 09:00 07/07/24 08:27 Cholecalciferol 1,000 Units Tablet PO 1,000 units DAILY SHASHANK Administration Radiology Results: ITS Impressions Chest X-Ray 07/04/24 09:16 IMPRESSION: 1. Small right and moderate-sized left pleural effusions. 2. Airspace opacities at the lung bases, likely atelectasis. Chest CTA 07/04/24 10:25 IMPRESSION: 1. Large pericardial effusion. 2. Small right and moderate-sized left pleural effusions. 3. No pulmonary embolus. Labs Labs: Laboratory Results - last 24 hr 07/08/24 03:54 WBC 5.9 RBC 4.84 Hgb 13.7 Hct 42.8 MCV 88.4 MCH 28.3 MCHC 32.0 RDW 11.9 Plt Count 461 H MPV 9.6 Sodium 141 Potassium 3.8 Chloride 106 Carbon Dioxide 27 Anion Gap 8 BUN 11 Creatinine 0.53 L Estim Creat Clear Calc 102 Estimated GFR > 60 Glucose 100 Calcium 8.7 Magnesium 1.9 Total Bilirubin 0.6 AST 17 ALT 20 Alkaline Phosphatase 105 C-Reactive Protein 17.1 H Total Protein 6.0 L Albumin 2.9 L Rheumatoid Factor < 12.0
--- NOTE | 2024-07-08 08:34 | P.PNIM_ITS ---
Progress Note: A&P Assessment and Plan (1) Pericardial effusion: Code(s): I31.39 - Other pericardial effusion (noninflammatory) Status: Acute Assessment and Plan: Likely secondary to pericarditis Status post drain placement. Pericardial drain now removed Plan for repeat limited echo today Cytology suggestive of hemopericardium negative for malignancy Hemodynamically stable tachycardia improved but still breath Monitor (2) Pericarditis: Code(s): I31.9 - Disease of pericardium, unspecified Status: Acute Assessment and Plan: Patient's chest pain and elevated CRP suggest possible pericarditis Discussed with Cardiology and patient started on course of NSAIDs and colchicine Continue PPI for GI prophylaxis (3) Pleural effusion: Code(s): J90 - Pleural effusion, not elsewhere classified Status: Acute Assessment and Plan: CT scan showed very small right and moderate site left pleural effusion with sylvie e atelectasis This could be secondary to heart failure could be secondary to tamponade or pericardial Patient evaluated by Pulmonary Incentive spirometry PT OT once pericardial drain is removed Plan DVT prophylaxis -Lovenox SuP-PPI Nutrition -diet ordered Anticipate patient will ambulate today Subjective Date/time seen: 07/08/24 08:34 Overnight events reviewed. Afebrile On room air Tolerating p.o. Sinus rhythm on the monitor Other Vitals acceptable She states her pain is resolved. She denies any new complaints. All other systems review and negative Review of Systems Review of Systems: All systems reviewed & are unremarkable except as noted in HPI and below (HPI) Exam Narrative: General: Pt is alert awake and in NAD Lungs/Chest: Trachea central Clear BS B/L, No crackles or wheezing. Cardiac: Tachycardia. Normal S1 S2. No murmurs, pericardial drain in place with minimal serosanguineous output Circulation: Pedal pulses are intact and symmetrical. Abdomen: Normal bowel sounds.. Soft. NT. ND. Extremities: No clubbing, cyanosis or edema. Warm : Echols in place Neurologic: Follows commands. Moves all 4 extremities PERRL AO x3 Skin: No Rash Objective Data Vital Signs Vital Signs: Vital Signs - 24 hr 07/07/24 10:00 07/07/24 10:07/07/24 12:00 Temperature 37.0 C Pulse Rate 119 H 121 H 115 H Respiratory Rate 18 18 Blood Pressure 120/83 124/87 Pulse Oximetry 93 95 Oxygen Delivery 07/07/24 12:00 07/07/24 12:00 07/07/24 14:00 Temperature Pulse Rate 111 H 110 H Respiratory Rate 19 Blood Pressure 118/84 Pulse Oximetry 94 93 Oxygen Delivery Room Air 07/07/24 14:00 07/07/24 16:00 07/07/24 16:00 Temperature 37.3 C Pulse Rate 106 H 100 Respiratory Rate 17 Blood Pressure 118/88 Pulse Oximetry 92 Oxygen Delivery Room Air 07/07/24 16:00 07/07/24 18:00 07/07/24 18:00 Temperature Pulse Rate 105 H 129 H 129 H Respiratory Rate 24 H Blood Pressure Pulse Oximetry 93 Oxygen Delivery 07/07/24 20:00 07/07/24 20:00 07/07/24 20:00 Temperature 37.1 C Pulse Rate 105 H 115 H 103 H Respiratory Rate 20 20 Blood Pressure 100/76 Pulse Oximetry 92 93 Oxygen Delivery Room Air 07/07/24 22:00 07/07/24 22:00 07/08/24 00:00 Temperature Pulse Rate 115 H 108 H 111 H Respiratory Rate 20 Blood Pressure 109/70 Pulse Oximetry 93 Oxygen Delivery 07/08/24 04:00 07/08/24 08:00 Temperature 37.1 C Pulse Rate 101 H 100 Respiratory Rate 17 Blood Pressure 117/85 Pulse Oximetry 96 Oxygen Delivery Intake/Output Intake/Output: Intake & Output 07/05/24 07/06/24 07/07/24 07/08/24 23:59 23:59 23:59 23:59 Intake Total 680 1800 480 Output Total 850 810 600 300 Balance -170 990 -120 -300 Meds/Results Medications: Active Medications Generic Name Dose Route Start Last Admin Trade Name Freq PRN Reason Stop Dose Admin Acetaminophen 650 mg 07/04/24 11:16 07/06/24 02:11 Acetaminophen 325 Mg Tablet PO 650 mg Q4H PRN Administration Mild Pain (1-3) or Fever Hydrocodone Bitart/Acetaminophen 1 tab 07/06/24 08:27 Hydrocodone/Acetaminophen (*Crx) 7.5-325 Mg Tablet PO Q6H PRN Pain Rated 7-10 Bisacodyl 10 mg 07/06/24 15:46 Bisacodyl 10 Mg Suppository RECTAL QAM PRN Constipation Colchicine 0.6 mg 07/05/24 21:00 07/07/24 22:19 Colchicine 0.6 Mg Tablet PO 0.6 mg Q12HR HSASHANK Administration Docusate Sodium 100 mg 07/06/24 21:00 07/07/24 22:19 Docusate Sodium 100 Mg Capsule PO 100 mg Q12HR SHASHANK Administration Enoxaparin Sodium 40 mg 07/05/24 09:00 07/07/24 08:28 Enoxaparin 40 Mg/0.4 Ml Syringe SUB-Q 40 mg DAILY SHASHANK Administration Ibuprofen 600 mg 07/05/24 13:00 07/07/24 19:13 Ibuprofen 600 Mg Tablet PO 600 mg TID SHASHANK Administration Morphine Sulfate 2 mg 07/04/24 11:16 07/07/24 13:19 Morphine Sulfate (*Crx) 2 Mg/Ml Inj IV PUSH 2 mg Q2H PRN Administration Pain Rated 7-10 Multivitamins/Minerals 1 tab 07/06/24 09:00 07/07/24 08:27 Multivitamins /C Lutein (Centrum Silver) Tablet *Bkc PO 1 tab DAILY SHASHANK Administration Ondansetron HCl 4 mg 07/04/24 11:16 Ondansetron Inj 4 Mg/2 Ml Vial IV PUSH Q4H PRN Nausea Pantoprazole Sodium 40 mg 07/05/24 11:45 07/07/24 08:27 Pantoprazole 40 Mg Tablet PO 40 mg QAM SHASHANK Administration Perflutren Lipid Microsphere 0 ml 07/07/24 10:01 Perflutren Lipid Microspheres 1.5 Ml Vial Diluted To 10 Ml Total Volume IV PUSH 07/10/24 10:01 ONCE PRN adequate visualization Protocol Perflutren Lipid Microsphere 0 ml 07/07/24 13:51 Perflutren Lipid Microspheres 1.5 Ml Vial Diluted To 10 Ml Total Volume IV PUSH 07/10/24 13:51 ONCE PRN adequate visualization Protocol Polyethylene Glycol 17 gm 07/07/24 09:00 07/07/24 08:26 Polyethylene Glycol 3350 17 Gm Powd.Pack PO 17 gm QAM SHASHANK Administration Vitamin D 1,000 units 07/06/24 09:00 07/07/24 08:27 Cholecalciferol 1,000 Units Tablet PO 1,000 units DAILY SHASHANK Administration Radiology Results: ITS Impressions Chest X-Ray 07/04/24 09:16 IMPRESSION: 1. Small right and moderate-sized left pleural effusions. 2. Airspace opacities at the lung bases, likely atelectasis. Chest CTA 07/04/24 10:25 IMPRESSION: 1. Large pericardial effusion. 2. Small right and moderate-sized left pleural effusions. 3. No pulmonary embolus. Labs Labs: Laboratory Results - last 24 hr 07/08/24 03:54 WBC 5.9 RBC 4.84 Hgb 13.7 Hct 42.8 MCV 88.4 MCH 28.3 MCHC 32.0 RDW 11.9 Plt Count 461 H MPV 9.6 Sodium 141 Potassium 3.8 Chloride 106 Carbon Dioxide 27 Anion Gap 8 BUN 11 Creatinine 0.53 L Estim Creat Clear Calc 102 Estimated GFR > 60 Glucose 100 Calcium 8.7 Magnesium 1.9 Total Bilirubin 0.6 AST 17 ALT 20 Alkaline Phosphatase 105 C-Reactive Protein 17.1 H Total Protein 6.0 L Albumin 2.9 L Rheumatoid Factor < 12.0 Quality VTE Prophylaxis VTE prophylaxis: mechanical ordered
[2024-07-08] MEDS: polyethylene glycoL 3350 17 GM POWD.PACK PO (09:11)
[2024-07-08] MEDS: COLCHICINE 0.6 MG TABLET PO (09:11)
[2024-07-08] MEDS: PANTOPRAZOLE 40 MG TABLET PO (09:11)
[2024-07-08] MEDS: IBUPROFEN 600 MG TABLET PO ×2 (09:11→13:00)
[2024-07-08] MEDS: CHOLECALCIFEROL 1,000 UNITS TABLET 1000 UNITS PO (09:11)
[2024-07-08] MEDS: ENOXAPARIN 40 MG/0.4 ML SYRINGE SUB-Q (09:11)
[2024-07-08] MEDS: MULTIVITAMINS /C LUTEIN (CENTRUM SILVER) TABLET *BKC 1 TAB PO (09:11)
[2024-07-08] MEDS: DOCUSATE SODIUM 100 MG CAPSULE PO (09:11)
--- NOTE | 2024-07-08 10:04 | PM.PNCARD ---
Progress Note: A&P Assessment and Plan (1) Pericarditis: Code(s): I31.9 - Disease of pericardium, unspecified Status: Acute Plan 54-year-old female with no known prior cardiac history presented with shortness of breath and chest pressure found to have large pericardial effusion with evidence of tamponade who is now status post pericardiocentesis with serosanguineous drainage of more 500 CC. Pericardial drain is out. Repeat echocardiogram on my personal interpretation today shows minimal residual pericardial effusion; pleural effusion. Patient symptomatically better. -Cytology of the pericardial fluid shows: numerous red blood cells with scattered white blood cells consistent with hemopericardium; negative for malignancy. Remainder of the pericardial fluid lab studies are pending. -Continue Ibuprofen 600 mg TID along with PPI and Colchicine 0.6 mg PO BID. -discussed with ICU physician. Plan for repeat chest x-ray today to reassess for pleural effusion. -Discussed possible etiologies and necessity to follow-up with primary care physician for workup of possible autoimmune or vasculitis etiology. -cardiology follow-up information was provided to the patient. -will sign off. Please call with any questions. Subjective Date/time seen: 07/08/24 10:04 Interval history: 07/08/2024-patient reports resolution of dyspnea. No chest pain. Bedside echocardiogram which I personally reviewed on preliminary assessment shows minimal residual pericardial effusion; pleural effusion. Normal LV systolic function. On telemetry, patient is in predominantly in sinus rhythm. At the time of evaluation, patient's was present in the room. Review of Systems Review of Systems: General: Negative for fever, chills, fatigue Psychological: Positive for anxiety Ophthalmic: negative for loss of vision ENT: Negative for epistaxis, headaches Allergy and immunology: Negative for hives, nasal congestion Hematologic and lymphatic: Negative for overt bleeding problems Endocrine: Negative for hot flashes, palpitations Respiratory: Negative for cough, hemoptysis Cardiovascular: Negative for chest pain. Gastrointestinal: Negative for abdominal pain, nausea, vomiting, hematochezia Musculoskeletal: Negative for myalgia, joint pains Neurological: Negative for weakness Dermatological: Negative for rash, skin discoloration Exam Narrative: PHYSICAL EXAMINATION: GENERAL: Alert, oriented, no acute distress MENTAL STATUS: Anxious EYES: Extraocular movements intact, no pallor EARS: External ears appear normal, hearing grossly normal NOSE: Normal and patent, no discharge MOUTH: Mucous membranes moist, tongue normal NECK: Supple, no JVD CHEST: Decreased breath sounds at base HEART: Normal rate, regular rhythm, normal S1 and S2, no audible murmurs ABDOMEN: Soft, nontender NEUROLOGICAL: Alert, oriented, normal speech, no gross motor deficits MUSCULOSKELETAL: No major deformity, no amputation EXTREMITIES: No pedal edema, no clubbing, no cyanosis SKIN: no rash on the exposed area, no cyanosis PSYCHIATRIC: Normal mood, appropriate affect Objective Data Vital Signs Vital Signs: Vital Signs - 24 hr 07/07/24 12:00 07/07/24 12:00 07/07/24 12:00 Temperature 37.0 C Pulse Rate 115 H 111 H Respiratory Rate 18 Blood Pressure 124/87 Pulse Oximetry 95 94 Oxygen Delivery Room Air 07/07/24 14:00 07/07/24 14:00 07/07/24 16:00 Temperature Pulse Rate 110 H 106 H Respiratory Rate 19 Blood Pressure 118/84 Pulse Oximetry 93 Oxygen Delivery Room Air 07/07/24 16:00 07/07/24 16:00 07/07/24 18:00 Temperature 37.3 C Pulse Rate 100 105 H 129 H Respiratory Rate 17 Blood Pressure 118/88 Pulse Oximetry 92 Oxygen Delivery 07/07/24 18:00 07/07/24 20:00 07/07/24 20:00 Temperature 37.1 C Pulse Rate 129 H 105 H 115 H Respiratory Rate 24 H 20 20 Blood Pressure 100/76 Pulse Oximetry 93 92 93 Oxygen Delivery Room Air 07/07/24 20:00 07/07/24 22:00 07/07/24 22:00 Temperature Pulse Rate 103 H 115 H 108 H Respiratory Rate 20 Blood Pressure 109/70 Pulse Oximetry 93 Oxygen Delivery 07/08/24 00:00 07/08/24 04:00 07/08/24 08:00 Temperature 37.1 C Pulse Rate 111 H 101 H 100 Respiratory Rate 17 Blood Pressure 117/85 Pulse Oximetry 96 Oxygen Delivery 07/08/24 08:00 07/08/24 08:00 Temperature Pulse Rate 101 H Respiratory Rate Blood Pressure Pulse Oximetry Oxygen Delivery Room Air Intake/Output Intake/Output: Intake & Output 07/05/24 07/06/24 07/07/24 07/08/24 23:59 23:59 23:59 23:59 Intake Total 680 1800 480 Output Total 850 810 600 300 Balance -170 990 -120 -300 Meds/Results Medications: Active Medications Generic Name Dose Route Start Last Admin Trade Name Freq PRN Reason Stop Dose Admin Acetaminophen 650 mg 07/04/24 11:16 07/06/24 02:11 Acetaminophen 325 Mg Tablet PO 650 mg Q4H PRN Administration Mild Pain (1-3) or Fever Hydrocodone Bitart/Acetaminophen 1 tab 07/06/24 08:27 Hydrocodone/Acetaminophen (*Crx) 7.5-325 Mg Tablet PO Q6H PRN Pain Rated 7-10 Bisacodyl 10 mg 07/06/24 15:46 Bisacodyl 10 Mg Suppository RECTAL QAM PRN Constipation Colchicine 0.6 mg 07/05/24 21:00 07/08/24 09:11 Colchicine 0.6 Mg Tablet PO 0.6 mg Q12HR SHASHANK Administration Docusate Sodium 100 mg 07/06/24 21:00 07/08/24 09:11 Docusate Sodium 100 Mg Capsule PO 100 mg Q12HR SHASHANK Administration Enoxaparin Sodium 40 mg 07/05/24 09:00 07/08/24 09:11 Enoxaparin 40 Mg/0.4 Ml Syringe SUB-Q 40 mg DAILY SHASHANK Administration Ibuprofen 600 mg 07/05/24 13:00 07/08/24 09:11 Ibuprofen 600 Mg Tablet PO 600 mg TID SHASHANK Administration Morphine Sulfate 2 mg 07/04/24 11:16 07/07/24 13:19 Morphine Sulfate (*Crx) 2 Mg/Ml Inj IV PUSH 2 mg Q2H PRN Administration Pain Rated 7-10 Multivitamins/Minerals 1 tab 07/06/24 09:00 07/08/24 09:11 Multivitamins /C Lutein (Centrum Silver) Tablet *Bkc PO 1 tab DAILY SHASHANK Administration Ondansetron HCl 4 mg 07/04/24 11:16 Ondansetron Inj 4 Mg/2 Ml Vial IV PUSH Q4H PRN Nausea Pantoprazole Sodium 40 mg 07/05/24 11:45 07/08/24 09:11 Pantoprazole 40 Mg Tablet PO 40 mg QAM SHASHANK Administration Perflutren Lipid Microsphere 0 ml 07/07/24 10:01 Perflutren Lipid Microspheres 1.5 Ml Vial Diluted To 10 Ml Total Volume IV PUSH 07/10/24 10:01 ONCE PRN adequate visualization Protocol Perflutren Lipid Microsphere 0 ml 07/07/24 13:51 Perflutren Lipid Microspheres 1.5 Ml Vial Diluted To 10 Ml Total Volume IV PUSH 07/10/24 13:51 ONCE PRN adequate visualization Protocol Polyethylene Glycol 17 gm 07/07/24 09:00 07/08/24 09:11 Polyethylene Glycol 3350 17 Gm Powd.Pack PO 17 gm QAM SHASHANK Administration Vitamin D 1,000 units 07/06/24 09:00 07/08/24 09:11 Cholecalciferol 1,000 Units Tablet PO 1,000 units DAILY SHASHANK Administration Radiology Results: ITS Impressions Chest X-Ray 07/04/24 09:16 IMPRESSION: 1. Small right and moderate-sized left pleural effusions. 2. Airspace opacities at the lung bases, likely atelectasis. Chest CTA 07/04/24 10:25 IMPRESSION: 1. Large pericardial effusion. 2. Small right and moderate-sized left pleural effusions. 3. No pulmonary embolus. Labs Labs: Laboratory Results - last 24 hr 07/08/24 03:54 WBC 5.9 RBC 4.84 Hgb 13.7 Hct 42.8 MCV 88.4 MCH 28.3 MCHC 32.0 RDW 11.9 Plt Count 461 H MPV 9.6 Sodium 141 Potassium 3.8 Chloride 106 Carbon Dioxide 27 Anion Gap 8 BUN 11 Creatinine 0.53 L Estim Creat Clear Calc 102 Estimated GFR > 60 Glucose 100 Calcium 8.7 Magnesium 1.9 Total Bilirubin 0.6 AST 17 ALT 20 Alkaline Phosphatase 105 C-Reactive Protein 17.1 H Total Protein 6.0 L Albumin 2.9 L Rheumatoid Factor < 12.0
--- NOTE | 2024-07-08 10:31 | PCRCNOTE ---
RT completed home oxygen evaluation. Patient does not qualify for home oxygen. Pt completed entire test on room air. Will notify RN that patient does not need oxygen for home.
--- NOTE | 2024-07-08 11:59 | PM.DS ---
DS: Admitting Diagnosis Discharge Date 07/08/2024 Admitting Diagnosis Chest pain and pericardial effusion DS: Discharge Diagnosis Discharge Diagnosis (1) Pericardial effusion: Code(s): I31.39 - Other pericardial effusion (noninflammatory) Status: Acute Assessment and Plan: Patient presented on 07/04 with chief complaint of chest pain and was found to be having a large pericardial effusion on CTA which was negative for PE. Patient was evaluated for pericardial effusion in 2020 at that time it was small. Echocardiogram was done which showed some finding concerning of tamponade. A pericardiocentesis attempted on 07/04 but was unsuccessful. A repeat pericardiocentesis was done on 07/05 and a drain was placed. Due to her symptoms of chest pain which was worse with deep breathing, cough laying on her abdomen a was suspected the patient pericarditis although EKG findings were not convincing but they could have been altered due to large pericardial effusion. Patient was started on a course of NSAIDs, colchicine and Protonix after discussion with Cardiology Fluid was serosanguineous and total 540 mL was drained over 2 days. Repeat echo was poor quality but there was no significant output from the drain hence was drain was removed on 07/07. And repeat echocardiogram was done on 07/08 which showed a trivial pericardial effusion. I spoke to Cardiology and they recommended discharge and follow up as an outpatient in 2 weeks. Cardiology recommended 2 weeks of ibuprofen and 3 months of colchicine. Patient is also on protonix for stress ulcer prophylaxis since due to high ibuprofen dose. Fluid cytology was negative for malignancy and showed hemopericardium Patient will be discharged today and will follow up with both storyboard artist and salvager helper in 2 weeks she has been instructed to call and set up an appointment (2) Pericarditis: Code(s): I31.9 - Disease of pericardium, unspecified Status: Acute Assessment and Plan: See above (3) Pleural effusion: Code(s): J90 - Pleural effusion, not elsewhere classified Status: Acute Assessment and Plan: CT scan showed very small right and moderate site left pleural effusion with some atelectasis This could be secondary to heart failure from the tamponade that she presented with or inflammatory process of pericarditis Patient was evaluated by storyboard artist Dr. Altman. He recommended conservative management at this time unless there was increase infusions, repeat two-view chest x-ray was done today on 07/08 which showed unchanged effusion. He recommends follow-up as an outpatient for repeat image. And continue treatment of pericarditis at this time. Patient will call and set up an appointment Her oxygen levels were evaluated on walking and ambulation and she was found to be oxygenating satisfactorily and does not needing oxygen at this time. Patient was recommended to use incentive spirometry and be active at home DS: Summary Hospital Course Reason for hospitalization: Chest pain and pericardial effusion Hospital Course: See above Time Spent with Patient Time attestation: Total time spent providing and/or coordinating discharge services: Exam Narrative: General: Pt is alert awake and in NAD Lungs/Chest: Trachea central Clear BS B/L, No crackles or wheezing. Cardiac: Tachycardia. Normal S1 S2. No murmurs, pericardial drain in place with minimal serosanguineous output Circulation: Pedal pulses are intact and symmetrical. Abdomen: Normal bowel sounds.. Soft. NT. ND. Extremities: No clubbing, cyanosis or edema. Warm : Echols in place Neurologic: Follows commands. Moves all 4 extremities PERRL AO x3 Skin: No Rash DS: Data Data Completed and Pending Completed studies during hospitalization: Pending at discharge 07/04/24 13:29 Cytology [PTH] Routine Labs on day of discharge: Labs from last 24 hours 07/08/24 03:54 WBC 5.9 RBC 4.84 Hgb 13.7 Hct 42.8 MCV 88.4 MCH 28.3 MCHC 32.0 RDW 11.9 Plt Count 461 H MPV 9.6 Sodium 141 Potassium 3.8 Chloride 106 Carbon Dioxide 27 Anion Gap 8 BUN 11 Creatinine 0.53 L Estim Creat Clear Calc 102 Estimated GFR > 60 Glucose 100 Calcium 8.7 Magnesium 1.9 Total Bilirubin 0.6 AST 17 ALT 20 Alkaline Phosphatase 105 C-Reactive Protein 17.1 H Total Protein 6.0 L Albumin 2.9 L Rheumatoid Factor < 12.0 Anti-Cycl Citrul Peptide Pending TB Test (QFT) Gold Plus Pending TB Test (QFT) Nil Pending TB Test Mitogen - Nil Pending TB Test Ag - Nil 1 Pending TB Test Ag - Nil 2 Pending Discharge Plan Discharge Attending physician on discharge: Carlos Galdamez Consulting providers: Lorraine Nicole; Torin Altman Discharging Clinician: Rudolph,Carlos Patient Disposition: Home, Self-Care Activity: as tolerated Diet: as tolerated and regular Patient Instructions: Antibiotic Form, Colchicine (By mouth), Pericardial Effusion (GEN) Patient Language: Tamaz[place] Stand Alone Forms: General Discharge Information, Work/School Release IP Follow-up/Referrals: Lazaro Myers MD [Physician] - 2 Weeks (Call office to set up an appointment) Torin Altman MD [Physician] - Call for Appointment (Call office to set up an appointment on 07/10/2024) Discharge Medications: New pantoprazole 40 mg Tablet,Delayed Release (Dr/Ec) 40 mg PO QAM 30 Days Qty: 30 0RF ibuprofen 600 mg Tablet 600 mg PO TID 10 Days Qty: 30 0RF colchicine [Colcrys] 0.6 mg Tablet 0.6 mg PO BID Qty: 60 2RF Continued cholecalciferol (vitamin D3) 25 mcg (1,000 unit) capsule 25 mcg PO DAILY Qty: 1 0RF Centrum Women 18-400 mg-mcg Tablet 1 tablet PO DAILY Date of admission: 07/04/24 11:16 Primary Care Provider: Jolly Bauman Admitting Provider: Priscila Gibbons Attending physician on admission: Priscila Gibbons Condition: Stable Hospitalist MIPS Heart Failure (Exclusion) Patient has history of Heart Transplant or Left Ventricular Assistive Device?: No IF YES, STOP HERE Heart Failure (Qualifier) Patient has current or prior documentation of LVEF less than or equal to 40%, or mod/servere depressed LVSF?: No IF NO, STOP HERE
--- NOTE | 2024-07-08 13:08 | PC.NURSE ---
This patient was discharged from room ICU 6 on 07/08/24 at 13:08. This nurse reviewed written discharge instructions with the patient and the patient's ; both parties acknowledged the instructions and expressed understanding. The written discharge instructions were given to the patient. The patient was transported to their privately owned vehicle via wheelchair where she was discharged to home with .
[2024-07-10 16:03] LABS: Anti Cyclic Citrullinated Pept <16 UNITS
[2024-07-12 13:14] LABS: NIL 0.03 IU/mL; Quantiferon TB Plus, 1T NEGATIVE (NEGATIVE)
== END 2024-07-08 13:08 | disposition home or self-care (01) | DRG 315 ==
LOC: ANHED 11:12 → ANH3MEDSUR 12:19 → ANHICU 15:03
PROVIDERS: Internal Medicine; Internal Medicine Pulmonary Disease; Admitting Provider Internal Medicine; Emergency Provider Family Medicine; PCP Family Medicine; Visit Provider Internal Medicine
PROC: 0WJ Anatomical Regions, General, Inspection (ICD-10-PCS; CPT 33016; principal; 2024-07-04 13:30)
PROC: 0W9D30Z Drainage of Pericardial Cavity with Drainage Device, Percutaneous Approach (ICD-10-PCS; CPT 33016; principal; 2024-07-05 09:30)
DX: I31.39 Other pericardial effusion (noninflammatory) (principal); J91.8 Pleural effusion in other conditions classified elsewhere; J98.11 Atelectasis; I31.9 Disease of pericardium, unspecified; I31.4 Cardiac tamponade; I50.9 Heart failure, unspecified; Z90.49 Acquired absence of other specified parts of digestive tract
CPT/HCPCS: 33016; 36415; 71046; 71275; 80053; 83605; 83690; 83735; 83880; 84443; 84484; 85025; 85027; 85380; 85610; 85652; 85730; 86140; 86200; 86430; 86480; 87637; 87641; 88108; 88305; 93005; 93306; 93308; 94618; 96374; 96375; 99285; A9270; C1894; J1644; J1650; J2003; J2250; J2270; J3010; J7040; Q9967

== ENCOUNTER 2024-07-13 10:23 | Outpatient (CLI) | payer OTHER, SELFPAY | END 2024-07-13 10:24 | disposition home or self-care (01) | PROVIDERS: PCP Family Medicine; Visit Provider Internal Medicine Pulmonary Disease | DX: J90 Pleural effusion, not elsewhere classified (principal); J98.11 Atelectasis | CPT/HCPCS: 71046 ==

== ENCOUNTER 2024-07-26 09:55 | Emergency (ER) | payer OTHER, SELFPAY ==
[2024-07-26 10:07] VITALS: BP 112/76; PULSE 124; RESP 16; TEMP 37.7; O2SAT 97
--- NOTE | 2024-07-26 10:17 | ED.GENADULT ---
HPI - General Adult General Chief complaint: Nausea/Vomiting/Diarrhea Stated complaint: Diarrhea Time Seen by Provider: 07/26/24 10:17 Source: patient Mode of arrival: ambulatory Limitations: no limitations History of Present Illness HPI narrative: 54 yo F presents with c/o generalized weakness, diarrhea for approx. 2.5 wks, at least 5 episodes of diarrhea a day. Pt discharged from hospital 07/08. States diarrhea started 2 to 3 days after discharge. Was admitted for pericardial effusion and effusions to left lung. Had pericardial effusion drained. Is scheduled to have a effusions to lungs drained next week. Reports shortness of breath is at baseline. No chest pain at this time. Afebrile. Did not have any IV antibiotics while at hospital. Is currently not on any antibiotics. Patient concerned that diarrhea is causing her to be dehydrated. All systems reviewed and negative except as noted above. Related Data Allergies Allergy/AdvReac Type Severity Reaction Status Date / Time Penicillins AdvReac Mild HIVES/ RASH Verified 07/26/24 11:08 Review of Systems Review of Systems: CONSTITUTIONAL: Denies fever, chills, or sweats. reports fatigue. EYES: Denies visual changes, redness, or discharge. ENT: Denies rhinorrhea, congestion, sore throat, or otalgia. CARDIOVASCULAR: Denies chest pain, palpitations, or edema. RESPIRATORY: Denies cough or dyspnea. GASTROINTESTINAL: Denies abdominal pain, nausea, vomiting . Reports diarrhea. GENITOURINARY: Denies dysuria or hematuria. SKIN: Denies rash or itching. MUSCULOSKELETAL: Denies back pain, joint pain, or myalgia. NEUROLOGIC: Denies headache, numbness, or weakness. PSYCHIATRIC: Denies anxiety or depression. All other systems reviewed are negative, except as documented in HPI. [facility] Past Medical History Medical History Chronic cholecystitis without calculus Encounter for surgical aftercare following surgery on the digestive system Pericardial effusion Acute biliary pancreatitis Abnormal abdominal ultrasound Liver cyst Pancreatitis COVID-19 vaccine series completed Hepatic lesion Elevated lipase Vomiting Abdominal pain Vitamin D deficiency Surgical History Surgical History Hx laparoscopic cholecystectomy Status post excision of lipoma left shoulder Family History Family History Mother Healthy adult Father Healthy adult Social History Social History Social History: Primary care physician: Dr. Jolly Bauman code status: Full code surrogate decision maker: Smoking status: Never smoker Second hand tobacco smoke exposure: No Alcohol intake: current Drinks per week: 0 Alcohol use details: She rarely drinks alcohol and only in moderation. Substance use: never Substance use type: does not use Do You Feel Safe in your Home?: Yes Lack of Transportation: No Lack of Food: Never True Current Housing: I Have Housing Concerned About Future Housing: No Difficulty Paying Gas/Electric Bills: No Difficulty Paying for Meds: No Currently Unemployed: No Education: Bachelor's Degree Difficulty w/ Childcare or Family Care: No Living arrangements: with family Additional living arrangements comments: She lives in [place] with her and their 16-year-old daughter. She also has a 26-year-old daughter as well. 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 Gender identity (if verbalized by the patient): Female Sexual Orientation (if Verbalized by the Patient): Straight or Heterosexual Spiritual care concerns: No Comments At time of signature, agree with nursing past medical, surgical, social and family history. There is no relevant family history pertinent to the presenting complaint. Exam Narrative: GENERAL: This is a well-nourished, well-developed patient, Patient pale HEAD: normocephalic, atraumatic. EYES: PERRL. Sclera clear/white. Vision is grossly intact. EARS: External ears normal NOSE: External nose normal NECK: Neck supple, non-tender without lymphadenopathy, masses or thyromegaly. CARDIOVASCULAR: tachycardic, without murmurs, gallops, or rubs. RESPIRATORY: Clear to auscultation. Breath sounds equal bilaterally. No wheezes, rales, or rhonchi. GASTROINTESTINAL: Abdomen soft, non-tender, nondistended. Bowel sounds are active. No hepato-splenomegaly, or palpable masses. No guarding. SKIN: warm, Dry, intact with no suspicious lesions or rash, good texture and turgor. NEURO: awake, alert, and oriented to person, place and time. There were no obvious focal neurologic abnormalities. EXTREMITIES: No joint tenderness, effusion, or edema noted. Course Course Level of Care: Express Care Visit Vital Signs Vital signs: Vital Signs Temperature 37.7 C H 07/26/24 10:07 Pulse Rate 124 H 07/26/24 10:07 Respiratory Rate 16 07/26/24 10:07 Blood Pressure 112/76 07/26/24 10:07 Pulse Oximetry 97 07/26/24 10:07 Oxygen Delivery Room Air 07/26/24 10:07 Temperature 37.7 C H 07/26/24 10:07 Pulse Rate 124 H 07/26/24 10:07 Respiratory Rate 16 07/26/24 10:07 Blood Pressure 112/76 07/26/24 10:07 Pulse Oximetry 97 07/26/24 10:07 Oxygen Delivery Room Air 07/26/24 10:07 reviewed Transfer Transfered to: [facility] Transportation: Other ( private vehicle) Transfer rationale: transferring to ER for dehydration Accepting physician: Margie MARCUS Medical Decision Making MDM Narrative Medical decision making narrative: Please be advised this is a medical document. It is intended for [id number] communication. It is written in medical language and may contain unfamiliar abbreviations or verbiage. Medical documents are intended to carry relevant information, facts as evident, and the clinical opinion of the practitioner at the time of the encounter. This report may have been done utilizing a voice recognition system. Attempts have been made to correct errors. However, there may be uncorrected grammatical, spelling, and recognition errors present. The file time of this note does not necessarily represent the time of service. Vital Signs Vital Signs: Vital Signs Temperature 37.7 C H 07/26/24 10:07 Pulse Rate 124 H 07/26/24 10:07 Respiratory Rate 16 07/26/24 10:07 Blood Pressure 112/76 07/26/24 10:07 Pulse Oximetry 97 07/26/24 10:07 Oxygen Delivery Room Air 07/26/24 10:07 Temperature 37.7 C H 07/26/24 10:07 Pulse Rate 124 H 07/26/24 10:07 Respiratory Rate 16 07/26/24 10:07 Blood Pressure 112/76 07/26/24 10:07 Pulse Oximetry 97 07/26/24 10:07 Oxygen Delivery Room Air 07/26/24 10:07 Discharge Plan Discharge Clinical Impression: Tachycardia, Diarrhea Patient Disposition: Acute Care Hospital Condition: Stable Patient Language: Italian Prescriptions: No Action pantoprazole 40 mg Tablet,Delayed Release (Dr/Ec) 40 mg PO QAM 30 Days Qty: 30 0RF ibuprofen 600 mg Tablet 600 mg PO TID 10 Days Qty: 30 0RF colchicine [Colcrys] 0.6 mg Tablet 0.6 mg PO BID Qty: 60 2RF Follow-up/Referrals: Jolly Bauman MD [Primary Care Provider] - Time of Disposition: 10:39
--- NOTE | 2024-07-26 10:32 | ECG_ITS ---
Test Date: 2024-07-26 10:46:10 Measurements Intervals [place] Rate: 112 P: 48 [place]: 128 QRS: 46 QRSD: 68 T: 35 QT: 306 QTc: 419 Interpretive Statements SINUS TACHYCARDIA POSSIBLE LEFT ATRIAL ENLARGEMENT [-0.1mV P WAVE IN V1/V2] LOW QRS VOLTAGE IN PRECORDIAL LEADS [QRS DEFLECTION < 1.0 mV IN CHEST LEADS] NONSPECIFIC T-WAVE ABNORMALITY ABNORMAL RHYTHM ECG Compared to ECG 07/05/2024 23:16:41 NO SIGNIFICANT CHANGES Electronically Signed On 07-26-2024 13:47:45 CDT by Lorraine Nicole M.D.
== END 2024-07-26 10:50 | disposition short-term general hospital (02) ==
PROVIDERS: Emergency Provider Nurse Practitioner Family; PCP Family Medicine
DX: R00.0 Tachycardia, unspecified (principal); R19.7 Diarrhea, unspecified
CPT/HCPCS: 93005; 99213; G0463

== ENCOUNTER 2024-07-26 11:03 | Inpatient (IN) | payer OTHER, SELFPAY ==
[2024-07-26] VITALS (7 sets, daily range): BP systolic 106–123; BP diastolic 73–80; PULSE 106–123; RESP 16–27; TEMP 36.8–37.7; O2SAT 94–96; BMI 29.0
--- NOTE | ~2024-07-26 | CT_ITS ---
EXAMINATION: CT chest abdomen pelvis w con DATE: 07/26/2024 13:11 INDICATION: Diarrhea. Abdominal pain. Pericardial effusion. TECHNIQUE: Computed tomography (CT) of the chest, abdomen, and pelvis was performed with 100 mL Omnip aque 350 intravenous contrast. Automated exposure control and iterative reconstruction technique were employed. The dose-length product was 492.86 mGy-cm. COMPARISON: Chest CT 07/04/2024 FINDINGS: CHEST CT: There are small right and large left pleural effusions. There is dependent atelectasis bilaterally. T here is a 2.2 cm nodule in right thyroid lobe, benign at biopsy on 04/10/2024. The heart size is norm al. There is a moderate-sized pericardial effusion with pericardial thickening. There is severe cervi nahun spondylosis and mild thoracic spondylosis. ABDOMEN/PELVIS CT: There are cysts in the liver measuring up to 4.5 cm. There are changes of cholecystectomy. The spleen , pancreas, adrenal glands, and left kidney are normal. There are cysts in right kidney measuring up to 11 mm. There is an intrauterine device in expected position. There are no dilated loops of bowel. The appendix is normal. There are no pathologically enlarged lymph nodes. There is no free intraperit mckeon fluid. There is mild lumbar spondylosis. IMPRESSION: 1. Small right and large left pleural effusions. 2. Moderate-sized pericardial effusion with decrease in size from 07/04/2024. Reviewed, dictated and finalized at location B.
--- NOTE | ~2024-07-26 | XR_ITS ---
EXAMINATION: XR chest 1V DATE: 07/26/2024 13:14 INDICATION: Cardiomegaly. Pericardial effusion. TECHNIQUE: A single frontal view of the chest was obtained. COMPARISON: Chest 2 views 07/13/2024 FINDINGS: There are small right and large left pleural effusions. There are airspace opacities at the lung bases, likely atelectasis. No pneumothorax. There is enlargement of the cardiac silhouette. [place] gical clips in the right upper quadrant are likely from cholecystectomy. IMPRESSION: 1. Small right and large left pleural effusions. 2. Enlargement of the cardiac silhouette correlating with a pericardial effusion by CT. Reviewed, dictated and finalized at location B. IMPRESSION: 1. Small right and large left pleural effusions. 2. Enlargement of the cardiac silhouette correlating with a pericardial effusio n by CT.
--- NOTE | ~2024-07-26 | US_ITS ---
EXAMINATION: US thoracentesis DATE: 07/27/2024 15:04 INDICATION: Large left-sided pleural effusion TECHNIQUE: The procedure and its risks, benefits, and alternatives were discussed with the patient. Potential risks discussed included bleeding, infection, and pneumothorax. The patient understood the risks and agreed to proceed. A timeout was then performed as per protocol. The skin was prepped and draped in sterile fashion. 1% lidocaine was used for local anesthesia. Under ultrasound guidance, a 5 Fr catheter with trocar was advanced into the left sided pleural effus ion, and the trocar needle removed. The catheter was then attached to vacuum suction. Aspiration was performed while monitoring patient tolerance of the procedure. The catheter was then removed, and a sterile dressing was applied. There were no immediate complications. FINDINGS: Ultrasound images demonstrate a large left-sided pleural effusion and the catheter within the fluid. IMPRESSION: Technically successful ultrasound-guided thoracentesis yielding 1250 mL of thin yellow fluid. Aspirates were sent for evaluation. Reviewed, dictated and finalized at location A.
--- NOTE | ~2024-07-26 | XR_ITS ---
CHEST RADIOGRAPH, PA AND LATERAL CLINICAL HISTORY: Status post thoracentesis . COMPARISON: 07/26/2024 and 07/08/2024 TECHNIQUE: PA and lateral views of the chest. FINDINGS The cardiomediastinal silhouette is partially obscured. Decreased left-sided pleural effusion, when compared with prior. The left lung is fully inflated. At the right hemithorax is unremarkable. IMPRESSION: Decreased left-sided pleural effusion. No left-sided pneumothorax. Reviewed, dictated and finalized at location A.
--- NOTE | 2024-07-26 11:16 | ECG_ITS ---
Test Date: 2024-07-26 11:34:03 Measurements Intervals [place] Rate: 122 P: 25 SD: 108 QRS: 36 QRSD: 68 T: 31 QT: 338 QTc: 482 Interpretive Statements SINUS TACHYCARDIA WITH SHORT SD INTERVAL LOW QRS VOLTAGE IN PRECORDIAL LEADS [QRS DEFLECTION < 1.0 mV IN CHEST LEADS] NONSPECIFIC T-WAVE ABNORMALITY ABNORMAL RHYTHM ECG Compared to ECG 07/26/2024 10:46:10 NO SIGNIFICANT CHANGES Electronically Signed On 07-26-2024 13:53:16 CDT by Lorraine Nicole M.D.
--- NOTE | 2024-07-26 11:46 | PC.NURSE ---
pt states that she is a hard stick and they normally have to use ultrasound for IV and blooddraws. ultrasound RN called to place a line and draw labs.
[2024-07-26 12:05] LABS: Basophils Percent Auto 0.3 % (0.2-1.2); Eosinophils Percent Auto 0.1 % (0-4.4); Hematocrit 44.8 % (37.0-47.0); Hemoglobin 14.4 g/dL (12.0-15.0); Immature Granulocyte Absolute 0.07 K/mm3 (0.00-0.031); Immature Granulocyte Percent A 0.5 % (0-0.5); Lymphocytes Absolute Auto 0.72 K/mm3 (0.9-3.2); Lymphocytes Percent Auto 5.2 % (18.3-44.2); Mean Corpuscular HGB Conc 32.1 g/dl (32-36); Mean Corpuscular Hemoglobin 27.2 pg (26-34); Mean Corpuscular Volume 84.5 fl (80-100); Mean Platelet Volume 9.7 fl (7.4-10.4); Monocytes Absolute Auto 1.3 K/mm3 (0.1-0.6); Monocytes Percent Auto 9.2 % (2.6-8.5); Neutrophils Absolute Auto 11.8 K/mm3 (1.3-6.7); Neutrophils Percent Auto 84.7 % (45.5-73.1); Platelet Count Result 355 k/mm3 (150-375); Red Cell Distribution Width 12.9 % (11.5-14.5); White Blood Count 13.9 K/mm3 (4.5-10.0)
[2024-07-26 12:16] LABS: Alanine Aminotransferase 107 U/L (6-35); Albumin Level 4.3 g/dL (3.5-5.1); Alkaline Phosphatase 126 U/L (38-126); Anion Gap 12 mmol/L (4-12); Aspartate Amino Transferase 54 U/L (14-36); Bilirubin,Total 1.6 mg/dL (0.2-1.3); Blood Urea Nitrogen 10 mg/dL (7-17); Calcium 9.6 mg/dL (8.4-10.2); Carbon Dioxide 25 mmol/L (22-30); Chloride 100 mmol/L (98-107); Estimated CRCL calculation 80 ml/min; Estimated Glomerular Filt Rate > 60; Glucose 110 mg/dL (65-110); Lipase 33 U/L (23-300); Sodium 137 mmol/L (137-145)
[2024-07-26 12:21] LABS: BEDSIDEPREGUCG Negative (Negative)
[2024-07-26 12:36] LABS: Add Urine Microscopic? YES; Appearance Urine Cloudy (Clear); Bacteria Urine 1+ /hpf; Bilirubin Urine 1+ (Negative); Blood Urine 1+ (Negative); Color Urine Dark Yellow (Yellow); Glucose Urine UA Negative (Negative); Ketones Urine 1+ mg/dL (Negative); Leukocyte Esterase Ur 3+ LEU/UL (Negative); Need Manual Microscopic Reviewed; Nitrate Urine Negative (Negative); Protein Urine 1+ mg/dL (Negative); Specific Grav Ur 1.025 (1.001-1.035); Squamous Epithelial Cell Urine Moderate /hpf (Few); WBC Urine >100 /hpf (0-3)
--- NOTE | 2024-07-26 12:44 | ED_ITS ---
HPI - Nausea/Vomiting/Diarrhea General Chief complaint: Nausea/Vomiting/Diarrhea Stated complaint: tachycardia, diarrhea, dehydration from UC Time Seen by Provider: 07/26/24 12:02 History of Present Illness HPI Narrative: 54-year-old female with a past medical history including recent intensive care unit stay for pericardial effusion with tamponade physiology requiring pericardiocentesis. She was diagnosed with pericarditis and sent home with 3 months of colchicine, ibuprofen, Protonix as for stress ulcer prophylaxis. She has followed up with Cardiology and pulmonology on outpatient basis most recently 9 days ago. Patient states that since she was discharged from the hospital and been having loose diarrheal stools without any solid stools. She goes about 5-6 times per day and states that any time she has a medial she goes the bathroom with diarrhea. Endorses some mild cramping abdominal pain. No fever chills, endorses feeling dehydrated, denies any nauseousness or vomiting. No chest pain and states that her shortness of breath is much better since her discharge. Related Data Allergies Allergy/AdvReac Type Severity Reaction Status Date / Time Penicillins AdvReac Mild HIVES/ RASH Verified 07/26/24 11:08 Review of Systems 2 Review of Systems: As reviewed above in HPI [facility] Past Medical History Medical History (Updated 07/26/24 @ 20:51 by Igor Bob MD) Anxiety Biliary acute pancreatitis (12/2020) Pericardial effusion Liver cyst Pancreatitis Hepatic lesion Vitamin D deficiency Surgical History Surgical History (Updated 07/26/24 @ 20:00 by Cher Camacho PA-C) History of laparoscopic cholecystectomy (12/2020) Status post excision of lipoma left shoulder Family History Family History Mother Healthy adult Father Healthy adult Social History Social History (Updated 07/26/24 @ 20:01 by Cher Camacho PA-C) Social History: Surrogate medical decision maker: Koko Goodmanjeff, spouse. Code status: Full code. Smoking status: Never smoker Second hand tobacco smoke exposure: No Alcohol intake: never Drinks per week: 0 Alcohol use details: She rarely drinks alcohol and only in moderation. Substance use: never Substance use type: does not use Do You Feel Safe in your Home?: Yes Lack of Transportation: No Lack of Food: Never True Current Housing: I Have Housing Concerned About Future Housing: No Difficulty Paying Gas/Electric Bills: No Difficulty Paying for Meds: No Currently Unemployed: No Education: Trade/Vocational Certificate Difficulty w/ Childcare or Family Care: No Living arrangements: with family Additional living arrangements comments: She lives in [place] with her . They have 2 daughters. 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 Spiritual care concerns: No Exam 2 Narrative: GENERAL: [Well-appearing, well-nourished, and in no acute distress.] HEAD: [Normocephalic, atraumatic.] EYES: [PERRLA and EOMI.] ENT: Nares clear, no rhinorrhea or epistaxis. Mucous membranes dry. Braces present NECK: Supple. CHEST: [Clear to auscultation. No respiratory distress.] HEART: [Regular rate and rhythm]. No murmur heard. [Normal peripheral pulses.] ABDOMEN: [Soft, nondistended], [nontender], [No rigidity or guarding] EXTREMITIES: Normal range of motion. [No edema.] SKIN: Warm, dry, no rash. NEURO: [No focal deficits]. Alert and oriented [x3.] PSYCH: [Normal mood and affect.] Course Vital Signs Vital signs: Vital Signs Temperature 37.7 C H 07/26/24 11:18 Pulse Rate 123 H 07/26/24 11:18 Respiratory Rate 19 07/26/24 11:18 Blood Pressure 123/80 07/26/24 11:18 Pulse Oximetry 96 07/26/24 11:18 Oxygen Delivery Room Air 07/26/24 11:18 Temperature 36.8 C 07/26/24 19:51 Pulse Rate 106 H 07/26/24 19:51 Respiratory Rate 16 07/26/24 19:51 Blood Pressure 119/73 07/26/24 19:51 Pulse Oximetry 94 07/26/24 19:51 Oxygen Delivery Room Air 07/26/24 19:39 Fraction of Inspired Oxygen 21 07/26/24 19:39 MDM - Nausea/Vomiting/Diarrhea MDM Narrative Medical decision making narrative: 54-year-old female presenting to the emergency department for evaluation of diarrhea and loose watery stools for the last 2-3 weeks. She was just admitted to the hospital with intensive care unit stay for pericardiocentesis and pleural fluid drainage. She was diagnosed with pericarditis and sent home with colchicine, NSAIDs, Protonix for stress ulcer prophylaxis. She has been having loose watery stools consistently up to 5-6 times per day since her discharge. She was not informed about the side effects of colchicine has been taking it twice daily 0.6 mg. Endorses feeling dehydrated, mild cramping abdominal pain whenever she has diarrhea but denies any abdominal pain without going to the bathroom. No urinary complaints, fever, chills, chest pain or worsening difficulty in breathing. Considerations presently are for colchicine toxicity verses appropriate side effect of micro tubular inhibition, dehydration, electrolyte disturbances, acute kidney injury. Low suspicion GI pathology or bacterial illness or C difficile as she has not had any recent antibiotics during her hospital stay. Blood work and workup ordered including CBC, CMP, PT, PTT, chest x-ray to evaluate the fusion and CT of the chest abdomen pelvis. EKG obtained shows sinus tachycardia. She is slightly tachycardic we also appears dry and dehydrated likely from volume loss. She is not febrile, no blood pressure concerns and saturating well on room air. Patient was given 2 L of hydration and re-evaluated. Patient was frequent re-evaluated with improvement her heart rate down to the 110 range. She felt significantly improved on re-evaluation was no longer as dehydrated. Workup reveals a urinary tract infection as well as a leukocytosis of 13.9, normal platelet count. She was started on IV dose of Rocephin to cover for this and this could be contributing to her tachycardia as well. She was afebrile after dose of Tylenol here in the ED. electrolytes within normal limits, normal renal function panel. Mildly elevated LFT. Negative lipase. CT of the chest abdomen pelvis shows a small right-sided and a large left-sided pleural effusion, moderate size pericardial effusions stable and decreased in size from previous scan. EKG shows sinus tachycardia. Discussed with the patient plan for admission to the hospital for continued hydration and treatment of her urinary infection. Patient was comfortable with this and I spoke to the hospitalist currently being covered by the midlevel provider Cher. Patient was accepted to a telemetry monitored bed. Medical Records Attestation: I reviewed the patient's medical records. Lab Data Attestation: I reviewed the patient's lab results. 07/26/24 11:56 07/26/24 11:56 Labs: Lab Results 07/26/24 07/26/24 07/26/24 Range/Units 11:20 11:56 12:18 WBC 13.9 H (4.5-10.0) K/mm3 RBC 5.30 (4.2-5.4) M/mm3 Hgb 14.4 (12.0-15.0) g/dL Hct 44.8 (37.0-47.0) % MCV 84.5 (80-100) fl MCH 27.2 (26-34) pg MCHC 32.1 (32-36) g/dl RDW 12.9 (11.5-14.5) % Plt Count 355 (150-375) k/mm3 MPV 9.7 (7.4-10.4) fl Immature Gran % (Auto) 0.5 (0-0.5) % Neut % (Auto) 84.7 H (45.5-73.1) % Lymph % (Auto) 5.2 L (18.3-44.2) % [place] % (Auto) 9.2 H (2.6-8.5) % Eos % (Auto) 0.1 (0-4.4) % Baso % (Auto) 0.3 (0.2-1.2) % Lymph # (Auto) 0.72 L (0.9-3.2) K/mm3 [place] # (Auto) 1.3 H (0.1-0.6) K/mm3 Eos # (Auto) 0.0 (0-0.3) K/mm3 Baso # (Auto) 0.0 (0.0-0.1) K/mm3 Abs Immat Gran (auto) 0.07 H (0.00-0.031) K/mm3 Absolute Neuts (auto) 11.8 H (1.3-6.7) K/mm3 Absolute Nucleated RBC 0.000 (0.0-0.012) K/mm3 Nucleated RBC % 0.0 (0.0-0.2) % Sodium 137 (137-145) mmol/L Potassium 4.0 (3.4-5.0) mmol/L Chloride 100 (98-107) mmol/L Carbon Dioxide 25 (22-30) mmol/L Anion Gap 12 (4-12) mmol/L BUN 10 (7-17) mg/dL Creatinine 0.67 L (0.7-1.0) mg/dL Estim Creat Clear Calc 80 ml/min Estimated GFR > 60 (59 - ) Glucose 110 (65-110) mg/dL Calcium 9.6 (8.4-10.2) mg/dL Total Bilirubin 1.6 H (0.2-1.3) mg/dL AST 54 H (14-36) U/L ALT 107 H (6-35) U/L Alkaline Phosphatase 126 (38-126) U/L Total Protein 8.0 (6.3-8.2) g/dL Albumin 4.3 (3.5-5.1) g/dL Lipase 33 (23-300) U/L Urine Color Dark yellow (Yellow) Urine Appearance Cloudy H (Clear) Urine pH 5.0 (5.0-9.0) Ur Specific R[place] 1.025 (1.001-1.035) Urine Protein 1+ H (Negative) mg/dL Urine Glucose (UA) Negative (Negative) mg/dL Urine Ketones 1+ H (Negative) mg/dL Ur Blood (Man) 1+ H (Negative) Urine Nitrate Negative (Negative) Urine Bilirubin 1+ H (Negative) Urine Urobilinogen 1.0 (<2.0) mg/dL Add Ur Microanalysis Reviewed Leukocyte Esterase Rfl 3+ H (Negative) MAGAN/UL Urine RBC 6-10 H (0-2) /hpf Urine WBC >100 H (0-3) /hpf Ur Squamous Epith Cells Moderate (Few) /hpf Urine Bacteria 1+ H /hpf Urine Casts 11-20 POC Urine HCG, Qual Negative (Negative) Imaging Data Attestation: I personally reviewed and interpreted this imaging study as follows: My impression: Impressions Chest/Abdomen/Pelvis CT 07/26/24 13:18 IMPRESSION: 1. Small right and large left pleural effusions. 2. Moderate-sized pericardial effusion with decrease in size from 07/04/2024. Chest X-Ray 07/26/24 13:29 IMPRESSION: 1. Small right and large left pleural effusions. 2. Enlargement of the cardiac silhouette correlating with a pericardial effusion by CT. Discharge Plan Discharge Clinical Impression: Adverse effect of colchicine, Pericardial effusion, Acute diarrhea, Urinary tract infection, Acute dehydration, Sinus tachycardia Patient Disposition: Still a Patient Condition: Stable
--- OUTSIDE RECORDS SUMMARY | 2024-07-26 12:47 | XMS_ITS | Clinical Summary ---
Author Organization [facility] Address [address] [place] [address] Care Team Providers Care Rehab Manager Name Role Phone Jolly Bauman MD Primary Care Provider [phone] Allergies Active Allergy Reactions Criticality Noted Date Comments Penicillins Hives Medium Reaction: HIVES, Medications cholecalciferol (cholecalciferol ) 25 mcg (1,000 unit) tablet Active colchicine (COLCRYS) 0.6 mg tablet Take 1 tablet (0.6 mg total) by mouth 2 (two) times a day 07/08/2024 Active ibuprofen (ADVIL,MOTRIN) 600 mg tablet Take 1 tablet (600 mg total) by mouth 3 (three) times a day 07/08/[address] (PROTONIX) 40 mg EC tablet Take 1 tablet (40 mg total) by mouth daily 07/08/2024 Active Active Problems Problem Noted Date Diagnosed Date Lipoma of left upper extremity 02/13/2021 Left shoulder pain 02/13/2021 Pericardial effusion 12/17/2020 Other chest pain 12/17/2020 Neoplasm of connective and soft tissue 7 Encounters Date Type Department Care Team Description 07/17/2024 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 Office Visit [facility] [address] [place] [address] Sophie Quiles NP Pericardial effusion (Primary Dx); Pleural effusion; Hospital discharge follow-up 07/17/2024 Orders Only [facility] [address] [place] [address] Lorraine Nicole MD 07/13/2024 Telephone [facility] [address] [place] [address] Sophie Quiles NP Chest Pain 07/08/2024 Orders Only [facility] [address] [place] [address] Lorraine Nicole MD 07/05/2024 Orders Only [facility] Information [facility] [address] [place] [id number] Lorraine Nicole MD from Last 3 Months Surgical History Surgery Date Site/Laterality Comments CHOLECYSTECTOMY Family History Medical History Relation Name Comments No Known Problems Father No Known Problems Mother No Known Problems Sister Relation Name Status Comments Father Alive Mother Alive Sister Alive Social History Tobacco Use Types Packs/Day Years Used Date Smoking Tobacco: Never Smokeless Tobacco: Never Tobacco Cessation:Counseling Given: Not Answered Comments Unknown Sex and Gender Information Value Date Recorded Sex Assigned at Not on file Legal Sex Female 8:36 AM 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 Gender Identity Female 12/16/2020 4:04 PM CDT Sexual Orientation Straight 12/16/2020 4: 04 PM CDT Obstetrics History Last Filed Vital Signs Vital Sign Reading Time Taken Comments Blood Pressure 118/74 07/17/2024 9:03 AM 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 Pulse 115 07/17/2024 9:03 AM 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 Temperature - - Respiratory Rate - - Oxygen Saturation 95% 07/17/2024 9:03 AM 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 Inhaled Oxygen Concentration - - Weight 77.1 kg (170 lb) 07/17/2024 9:03 AM 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 Height 160 cm (5' 3 ) 07/17/2024 9:03 AM 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 Body Mass Index 30.11 07/17/2024 9:03 AM 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 Plan of Treatment Health Maintenance Due Date [...] on patient's age to complete this topic Procedures Procedure Name Priority Date/Time Associated Diagnosis Comments CARDIOLOGY DOCUMENT SCAN Routine 07/08/2024 9:13 AM 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 CARDIOLOGY DOCUMENT SCAN 07/08/2024 CARDIOLOGY DOCUMENT SCAN Routine 07/07/2024 3:20 PM 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 CARDIOLOGY DOCUMENT SCAN Routine 07/06/2024 9:11 AM 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 CARDIOLOGY DOCUMENT SCAN Routine 07/05/2024 9:10 AM 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 CARDIOLOGY DOCUMENT SCAN Routine 07/05/2024 9:08 AM 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 CARDIOLOGY DOCUMENT SCAN 07/05/2024 CARDIOLOGY DOCUMENT SCAN Routine 07/04/2024 9:07 AM 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 CARDIOLOGY DOCUMENT SCAN Routine 07/04/2024 9:04 AM 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 SCAN - RADIOLOGY/IMAGING 07/04/2024 from Last 3 Months Results * Cardiology Document Scan (07/08/2024 9:13 AM 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) Anatomical Region Laterality Modality Other us Lazaro Myers MD [facility] CARDIAC SERVICES PROCEDURES F inal Result * Cardiology Document Scan (07/08/2024) Anatomical Region Laterality Modality Other Lorraine Nicole MD [facility] CARDIAC SERVICES PRO CEDURES Final Result * Cardiology Document Scan (07/07/2024 3:20 PM 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) Anatomical Region Laterality Modality Other Lorraine Nicole MD [facility] CARDIAC SERVICES PRO CEDURES Final Result * Cardiology Document Scan (07/06/2024 9:11 AM 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) Anatomical Region Laterality Modality Other Ed Rankin MD [facility] CARDIAC SERVICES PROCEDURES F inal Result * Cardiology Document Scan (07/05/2024 9:10 AM 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) Anatomical Region Laterality Modality Other Lorraine Nicole MD [facility] CARDIAC SERVICES PRO CEDURES Final Result * Cardiology Document Scan (07/05/2024 9:08 AM 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) Anatomical Region Laterality Modality Other Lorraine Nicole MD CV CARDIAC SERVICES PRO CEDURES Final Result * Cardiology Document Scan (07/05/2024) Anatomical Region Laterality Modality Other Lorraine Nicole MD CV CARDIAC SERVICES PRO CEDURES Edited Result - Final * Cardiology Document Scan (07/04/2024 9:07 AM 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) Anatomical Region Laterality Modality Other Lorraine Nicole MD CV CARDIAC SERVICES PRO CEDURES Final Result * Cardiology Document Scan (07/04/2024 9:04 AM 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) Anatomical Region Laterality Modality Other Lorraine Nicole MD [facility] CARDIAC SERVICES PRO CEDURES Final Result * SCAN - RADIOLOGY/IMAGING (07/04/2024) Anatomical Region Laterality Modality Other Hernan Yusuf MD Final Result from Last 3 Months Insurance [facility] Care Teams Rehab Manager Relationship Specialty Start Date End Date Jolly Bauman MD PCP - General Family Medicine 12/13/20
--- OUTSIDE RECORDS SUMMARY | 2024-07-26 12:47 | XMS_ITS | Encounter Summary ---
Author Organization [facility] Address [address] [place] [address] Care Team Providers Care Curtain Drier Name Role Phone Jolly Bauman MD Primary Care Provider [phone] Encounter Details Date Type Department Care Team (Late st Contact Info) Description 07/05/2024 Orders Only [facility] [place] Health Information Management [address] [place] [address] Lorraine Nicole MD [facility] [place] [id number] Social History Tobacco Use Types Packs/Day Years Used Date Smoking Tobacco: Never Smokeless Tobacco: Never Comments Unknown Sex and Gender Information Value Date Recorded Sex Assigned at Not on file Legal Sex Female 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 RACE ENGINE BUILDER Gender Identity Female 12/16/2020 4:04 PM CDT Sexual Orientation Straight 12/16/2020 4: 04 PM CDT documented as of this encounter Plan of Treatment Not on file documented as of this encounter Procedures Procedure Name Priority Date/Time Associated Diagnosis Comments CARDIOLOGY DOCUMENT SCAN 07/05/2024 SCAN - RADIOLOGY/IMAGING 07/04/2024 documented in this encounter Results * Cardiology Document Scan (07/05/2024) Anatomical Region Laterality Modality Other Lorraine Nicole MD CV CARDIAC SERVICES PRO CEDURES Edited Result - Final * SCAN - RADIOLOGY/IMAGING (07/04/2024) Anatomical Region Laterality Modality Other us Hernan Yusuf MD Final Result documented in this encounter Visit Diagnoses Not on filedocumented in this encounter Care Teams Curtain Drier Relationship Specialty Start Date End Date Jolly Bauman MD PCP - General Family Medicine 12/13/20 documented as of this encounter
--- OUTSIDE RECORDS SUMMARY | 2024-07-26 12:47 | XMS_ITS | Referral Summary ---
Author Organization [facility] Address [address] [place] [address] Care Team Providers Care Facilities Supervisor Name Role Phone Jolly Bauman MD Primary Care Provider [phone] Encounters Date Type Department Care Team Description 07/17/[address] [facility] Medical Group Cardiology [address] [facility] [address] [place] [phone] Lorraine Nicole MD 07/17/2024 9:00 AM ASSISTANT PORTFOLIO MANAGER Office Visit [facility] Medical [facility] Cardiology [address] [facility] [address] [place] [address] Sophie Quiles NP Pericardial effusion (Primary Dx); Pleural effusion; Hospital discharge follow-up 07/13/[address] [facility] Medical [facility] Cardiology [address] [facility] [address] [place] [phone] Sopihe Quiles NP Chest Pain 07/08/2024 Orders Only [facility] [place] Management [address] [place] [phone] Lorraine Nicole MD 07/05/2024 Orders Only [facility] [place] Information Management [address] [place] [address] Lorraine Nicole MD from Last 3 Months Allergies Active Allergy Reactions Criticality Noted Date [...] on file Legal Sex Female 8:36 AM ASSISTANT PORTFOLIO MANAGER Gender Identity Female 12/16/2020 4:04 PM CDT Sexual Orientation Straight 12/16/2020 4: 04 PM CDT Last Filed Vital Signs Vital Sign Reading Time Taken Comments Blood Pressure 118/74 07/17/2024 9:03 AM ASSISTANT PORTFOLIO MANAGER Pulse 115 07/17/2024 9:03 AM ASSISTANT PORTFOLIO MANAGER Temperature - - Respiratory Rate - - Oxygen Saturation 95% 07/17/2024 9:03 AM ASSISTANT PORTFOLIO MANAGER Inhaled Oxygen Concentration - - Weight 77.1 kg (170 lb) 07/17/2024 9:03 AM ASSISTANT PORTFOLIO MANAGER Height 160 cm (5' 3 ) 07/17/2024 9:03 AM ASSISTANT PORTFOLIO MANAGER Body Mass Index 30.11 07/17/2024 9:03 AM ASSISTANT PORTFOLIO MANAGER Plan of Treatment Not on file Procedures Procedure Name Priority Date/Time Associated Diagnosis Comments CARDIOLOGY DOCUMENT SCAN Routine 07/08/2024 9:13 AM ASSISTANT PORTFOLIO MANAGER CARDIOLOGY DOCUMENT SCAN 07/08/2024 CARDIOLOGY DOCUMENT SCAN Routine 07/07/2024 3:20 PM ASSISTANT PORTFOLIO MANAGER CARDIOLOGY DOCUMENT SCAN Routine 07/06/2024 9:11 AM ASSISTANT PORTFOLIO MANAGER CARDIOLOGY DOCUMENT SCAN Routine 07/05/2024 9:10 AM ASSISTANT PORTFOLIO MANAGER CARDIOLOGY DOCUMENT SCAN Routine 07/05/2024 9:08 AM ASSISTANT PORTFOLIO MANAGER CARDIOLOGY DOCUMENT SCAN 07/05/2024 CARDIOLOGY DOCUMENT SCAN Routine 07/04/2024 9:07 AM ASSISTANT PORTFOLIO MANAGER CARDIOLOGY DOCUMENT SCAN Routine 07/04/2024 9:04 AM ASSISTANT PORTFOLIO MANAGER SCAN - RADIOLOGY/IMAGING 07/04/2024 from Last 3 Months Results * Cardiology Document Scan (07/08/2024 9:13 AM ASSISTANT PORTFOLIO MANAGER) Anatomical Region Laterality Modality Other Lazaro Myers MD CV CARDIAC SERVICES PROCEDURES F inal Result * Cardiology Document Scan (07/08/2024) Anatomical Region Laterality Modality Other Lorraine Nicole MD CV CARDIAC SERVICES PRO CEDURES Final Result * Cardiology Document Scan (07/07/2024 3:20 PM ASSISTANT PORTFOLIO MANAGER) Anatomical Region Laterality Modality Other Lorraine Nicole MD CV CARDIAC SERVICES PRO CEDURES Final Result * Cardiology Document Scan (07/06/2024 9:11 AM ASSISTANT PORTFOLIO MANAGER) Anatomical Region Laterality Modality Other us Ed Rankin MD CV CARDIAC SERVICES PROCEDURES F inal Result * Cardiology Document Scan (07/05/2024 9:10 AM ASSISTANT PORTFOLIO MANAGER) Anatomical Region Laterality Modality Other Lorraine Nicole MD CV CARDIAC SERVICES PRO CEDURES Final Result * Cardiology Document Scan (07/05/2024 9:08 AM ASSISTANT PORTFOLIO MANAGER) Anatomical Region Laterality Modality Other Lorraine Nicole MD CV CARDIAC SERVICES PRO CEDURES Final Result * Cardiology Document Scan (07/05/2024) Anatomical Region Laterality Modality Other Lorraine Nicole MD CV CARDIAC SERVICES PRO CEDURES Edited Result - Final * Cardiology Document Scan (07/04/2024 9:07 AM ASSISTANT PORTFOLIO MANAGER) Anatomical Region Laterality Modality Other Lorraine Nicole MD CV CARDIAC SERVICES PRO CEDURES Final Result * Cardiology Document Scan (07/04/2024 9:04 AM ASSISTANT PORTFOLIO MANAGER) Anatomical Region Laterality Modality Other Lorraine Nicole MD CV CARDIAC SERVICES PRO CEDURES Final Result * SCAN - RADIOLOGY/IMAGING (07/04/2024) Anatomical Region Laterality Modality Other Hernan Yusuf MD Final Result from Last 3 Months Insurance [facility] CHOICE PLUS [facility] CHOICE PLUS [facility] CHOICE PLUS [place] [id number] Care Teams Facilities Supervisor Relationship Specialty Start Date End Date Jolly Bauman MD PCP - General Family Medicine 12/13/20
[2024-07-26] MEDS: LACTATED RINGERS 1,000 ML 999 ML IV CONT ×2 (12:55)
--- OUTSIDE RECORDS SUMMARY | 2024-07-26 13:45 | XMS_ITS | Clinical Summary ---
Author Organization [facility] Address [address] [place] [address] Care Team Providers Care Millwright Helper Name Role Phone Jolly Bauman MD Primary Care Provider [phone] Allergies Active Allergy Reactions Criticality Noted Date [...] Department Care Team Description 07/17/2024 9:00 AM PAPER SLITTER Office Visit [facility] Medical Group Cardiology [address] [facility] [address] [place] [address] Sophie Quiles NP Pericardial effusion (Primary Dx); Pleural effusion; Hospital discharge follow-up 07/17/2024 Orders Only [facility] Medical Group Cardiology [address] [place] [address] Lorraine Nicole MD 07/13/2024 Telephone [facility] Medical Group Cardiology [address] [place] [address] Sophie Quiles NP Chest Pain 07/08/2024 Orders Only [facility] [place] Health Information Management [address] [place] [address] Lorraine Nicole MD 07/05/2024 Orders Only [facility] [place] Health Information Management [address] [place] [address] Lorraine Nicole MD from Last 3 Months [...] on file Legal Sex Female 8:36 AM PAPER SLITTER Gender Identity Female 12/16/2020 4:04 PM CDT Sexual Orientation Straight 12/16/2020 4: 04 PM CDT Obstetrics History Last Filed Vital Signs Vital Sign Reading Time Taken Comments Blood Pressure 118/74 07/17/2024 9:03 AM PAPER SLITTER Pulse 115 07/17/2024 9:03 AM PAPER SLITTER Temperature - - Respiratory Rate - - Oxygen Saturation 95% 07/17/2024 9:03 AM PAPER SLITTER Inhaled Oxygen Concentration - - Weight 77.1 kg (170 lb) 07/17/2024 9:03 AM PAPER SLITTER Height 160 cm (5' 3 ) 07/17/2024 9:03 AM PAPER SLITTER Body Mass Index 30.11 07/17/2024 9:03 AM PAPER SLITTER Plan of Treatment Health Maintenance Due Date [...] CARDIOLOGY DOCUMENT SCAN Routine 07/08/2024 9:13 AM PAPER SLITTER CARDIOLOGY DOCUMENT SCAN 07/08/2024 CARDIOLOGY DOCUMENT SCAN Routine 07/07/2024 3:20 PM PAPER SLITTER CARDIOLOGY DOCUMENT SCAN Routine 07/06/2024 9:11 AM PAPER SLITTER CARDIOLOGY DOCUMENT SCAN Routine 07/05/2024 9:10 AM PAPER SLITTER CARDIOLOGY DOCUMENT SCAN Routine 07/05/2024 9:08 AM PAPER SLITTER CARDIOLOGY DOCUMENT SCAN 07/05/2024 CARDIOLOGY DOCUMENT SCAN Routine 07/04/2024 9:07 AM PAPER SLITTER CARDIOLOGY DOCUMENT SCAN Routine 07/04/2024 9:04 AM PAPER SLITTER SCAN - RADIOLOGY/IMAGING 07/04/2024 from Last 3 Months Results * Cardiology Document Scan (07/08/2024 9:13 AM PAPER SLITTER) Anatomical Region Laterality Modality Other us Lazaro Myers MD CV CARDIAC SERVICES PROCEDURES F inal Result * Cardiology Document Scan (07/08/2024) Anatomical Region Laterality Modality Other Lorraine Nicole MD CV CARDIAC SERVICES PRO CEDURES Final Result * Cardiology Document Scan (07/07/2024 3:20 PM PAPER SLITTER) Anatomical Region Laterality Modality Other Lorraine Nicole MD CV CARDIAC SERVICES PRO CEDURES Final Result * Cardiology Document Scan (07/06/2024 9:11 AM PAPER SLITTER) Anatomical Region Laterality Modality Other Ed Rankin MD CV CARDIAC SERVICES PROCEDURES F inal Result * Cardiology Document Scan (07/05/2024 9:10 AM PAPER SLITTER) Anatomical Region Laterality Modality Other Lorraine Nicole MD CV CARDIAC SERVICES PRO CEDURES Final Result * Cardiology Document Scan (07/05/2024 9:08 AM PAPER SLITTER) Anatomical Region Laterality Modality Other Lorraine Nicole MD CV CARDIAC SERVICES PRO CEDURES Final Result * Cardiology Document Scan (07/05/2024) Anatomical Region Laterality Modality Other Lorraine Nicole MD CV CARDIAC SERVICES PRO CEDURES Edited Result - Final * Cardiology Document Scan (07/04/2024 9:07 AM PAPER SLITTER) Anatomical Region Laterality Modality Other Lorraine Nicole MD CV CARDIAC SERVICES PRO CEDURES Final Result * Cardiology Document Scan (07/04/2024 9:04 AM PAPER SLITTER) Anatomical Region Laterality Modality Other Lorraine Nicole MD CV CARDIAC SERVICES PRO CEDURES Final Result * SCAN - RADIOLOGY/IMAGING (07/04/2024) Anatomical Region Laterality Modality Other Hernan Yusuf MD Final Result from Last 3 Months Insurance [facility] CHOICE PLUS Care Teams Millwright Helper Relationship Specialty Start Date End Date Jolly Bauman MD PCP - General Family Medicine 12/13/20
--- OUTSIDE RECORDS SUMMARY | 2024-07-26 13:45 | XMS_ITS | Referral Summary ---
Author Organization [facility] Address [address] [place] [address] Care Team Providers Care Compressor Operator Adjuster Name Role Phone Jolly Bauman MD Primary Care Provider [phone] Encounters Date Type Department Care Team Description 07/17/2024 Orders Only [facility] Medical Group Cardiology [address] [facility] [address] [place] [phone] Lorraine Nicole MD 07/17/2024 9:00 AM ORGANIZATION DEVELOPMENT CONSULTANT Office Visit [facility] Medical [facility] Cardiology [address] [facility] [address] [place] [address] Sophie Quiles NP Pericardial effusion (Primary Dx); Pleural effusion; Hospital discharge follow-up 07/13/2024 Telephone [facility] Medical [facility] Cardiology [address] [facility] [address] [place] [phone] Sophie Quiles NP Chest Pain 07/08/2024 Orders Only [facility] [place] Information Management [address] [place] [address] Lorraine Nicole MD 07/05/2024 Orders Only [facility] [place] Information Management [address] [place] [phone] Lorraine Nicole MD from Last 3 Months [...] on file Legal Sex Female 8:36 AM ORGANIZATION DEVELOPMENT CONSULTANT Gender Identity Female 12/16/2020 4:04 PM CDT Sexual Orientation Straight 12/16/2020 4: 04 PM CDT Last Filed Vital Signs Vital Sign Reading Time Taken Comments Blood Pressure 118/74 07/17/2024 9:03 AM ORGANIZATION DEVELOPMENT CONSULTANT Pulse 115 07/17/2024 9:03 AM ORGANIZATION DEVELOPMENT CONSULTANT Temperature - - Respiratory Rate - - Oxygen Saturation 95% 07/17/2024 9:03 AM ORGANIZATION DEVELOPMENT CONSULTANT Inhaled Oxygen Concentration - - Weight 77.1 kg (170 lb) 07/17/2024 9:03 AM ORGANIZATION DEVELOPMENT CONSULTANT Height 160 cm (5' 3 ) 07/17/2024 9:03 AM ORGANIZATION DEVELOPMENT CONSULTANT Body Mass Index 30.11 07/17/2024 9:03 AM ORGANIZATION DEVELOPMENT CONSULTANT Plan of Treatment Not on file Procedures Procedure Name Priority Date/Time Associated Diagnosis Comments CARDIOLOGY DOCUMENT SCAN Routine 07/08/2024 9:13 AM ORGANIZATION DEVELOPMENT CONSULTANT CARDIOLOGY DOCUMENT SCAN 07/08/2024 CARDIOLOGY DOCUMENT SCAN Routine 07/07/2024 3:20 PM ORGANIZATION DEVELOPMENT CONSULTANT CARDIOLOGY DOCUMENT SCAN Routine 07/06/2024 9:11 AM ORGANIZATION DEVELOPMENT CONSULTANT CARDIOLOGY DOCUMENT SCAN Routine 07/05/2024 9:10 AM ORGANIZATION DEVELOPMENT CONSULTANT CARDIOLOGY DOCUMENT SCAN Routine 07/05/2024 9:08 AM ORGANIZATION DEVELOPMENT CONSULTANT CARDIOLOGY DOCUMENT SCAN 07/05/2024 CARDIOLOGY DOCUMENT SCAN Routine 07/04/2024 9:07 AM ORGANIZATION DEVELOPMENT CONSULTANT CARDIOLOGY DOCUMENT SCAN Routine 07/04/2024 9:04 AM ORGANIZATION DEVELOPMENT CONSULTANT SCAN - RADIOLOGY/IMAGING 07/04/2024 from Last 3 Months Results * Cardiology Document Scan (07/08/2024 9:13 AM ORGANIZATION DEVELOPMENT CONSULTANT) Anatomical Region Laterality Modality Other Lazaro Myers MD CV CARDIAC SERVICES PROCEDURES F inal Result * Cardiology Document Scan (07/08/2024) Anatomical Region Laterality Modality Other Lorraine Nicole MD CV CARDIAC SERVICES PRO CEDURES Final Result * Cardiology Document Scan (07/07/2024 3:20 PM ORGANIZATION DEVELOPMENT CONSULTANT) Anatomical Region Laterality Modality Other Lorraine Nicole MD CV CARDIAC SERVICES PRO CEDURES Final Result * Cardiology Document Scan (07/06/2024 9:11 AM ORGANIZATION DEVELOPMENT CONSULTANT) Anatomical Region Laterality Modality Other us Ed Rankin MD CV CARDIAC SERVICES PROCEDURES F inal Result * Cardiology Document Scan (07/05/2024 9:10 AM ORGANIZATION DEVELOPMENT CONSULTANT) Anatomical Region Laterality Modality Other Lorraine Nicole MD CV CARDIAC SERVICES PRO CEDURES Final Result * Cardiology Document Scan (07/05/2024 9:08 AM ORGANIZATION DEVELOPMENT CONSULTANT) Anatomical Region Laterality Modality Other Lorraine Nicole MD CV CARDIAC SERVICES PRO CEDURES Final Result * Cardiology Document Scan (07/05/2024) Anatomical Region Laterality Modality Other Lorraine Nicole MD CV CARDIAC SERVICES PRO CEDURES Edited Result - Final * Cardiology Document Scan (07/04/2024 9:07 AM ORGANIZATION DEVELOPMENT CONSULTANT) Anatomical Region Laterality Modality Other Lorraine Nicole MD CV CARDIAC SERVICES PRO CEDURES Final Result * Cardiology Document Scan (07/04/2024 9:04 AM ORGANIZATION DEVELOPMENT CONSULTANT) Anatomical Region Laterality Modality Other Lorraine Nicole MD CV CARDIAC SERVICES PRO CEDURES Final Result * SCAN - RADIOLOGY/IMAGING (07/04/2024) Anatomical Region Laterality Modality Other Hernan Yusuf MD Final Result from Last 3 Months Insurance [facility] CHOICE PLUS [facility] CHOICE PLUS [facility] CHOICE PLUS [place] [id number] Care Teams Compressor Operator Adjuster Relationship Specialty Start Date End Date Jolly Bauman MD PCP - General Family Medicine 12/13/20
--- OUTSIDE RECORDS SUMMARY | 2024-07-26 13:45 | XMS_ITS | Encounter Summary ---
Author Organization [facility] Address [address] [place] [address] Care Team Providers Care Double Backer Name Role Phone Jolly Bauman MD Primary Care Provider [phone] Encounter Details Date Type Department Care Team (Late st Contact Info) Description 07/05/2024 Orders Only [facility] [place] Information Management [address] [place] [address] Lorraine Nicole MD [facility] [place] [id number] Social History Tobacco Use Types Packs/Day Years Used Date Smoking Tobacco: Never Smokeless Tobacco: Never Comments Unknown Sex and Gender Information Value Date Recorded Sex Assigned at Not on file Legal Sex Female 8:36 AM PRECISION DANCER Gender Identity Female 12/16/2020 4:04 PM CDT [...] on filedocumented in this encounter Care Teams Double Backer Relationship Specialty Start Date End Date Jolly Bauman MD PCP - General Family Medicine 12/13/20 documented as of this encounter
[2024-07-26] MEDS: ACETAMINOPHEN 500 MG TABLET 1000 MG PO (15:12)
--- NOTE | 2024-07-26 15:57 | ADMGEN ---
This patient, Jenni López, was admitted to 2 Medical Room 254-01. Patient/family oriented to hospital policies and general routines including ID bracelet, bed and alarms, visiting hours, pain management, procedures, bathroom and other care routines, personal items, smoking policy, room service/diet, and visiting hours. Information on how to activate the Rapid Response Team has been discussed. Patient/Family are encouraged to report perceived risks to care and to ask questions if they do not understand what they are told or what they should do.
[2024-07-26] MEDS: LACTATED RINGERS 1,000 ML 125 ML IV CONT (17:54)
--- NOTE | 2024-07-26 17:55 | PM.IMHP ---
H&P: HPI History of Present Illness Date/Time: 07/26/24 14:30 Chief Complaint: Tachycardia, diarrhea. Narrative: This is a pleasant 54-year-old female with history of pericardial effusion who presented to the emergency department from urgent care earlier today for evaluation of tachycardia and diarrhea. The patient provides the following history. She had a small pericardial effusion on echocardiogram in November 2020 for evaluation of chest discomfort at which time she was seen by Cardiology who felt this was an incidental finding as she exhibited no symptoms or exam findings suggestive of pericarditis. About a month ago she had an echocardiogram for re-evaluation and she was found to have findings suggestive of tamponade so she was admitted to the hospital. She was taken to the dental laboratory supervisor for pericardiocentesis and drain placement. Pericardiocentesis yielded 180 mL of serosanguineous fluid and she had a total of 540 mL of output from the drain over the course of 2 days. Repeat echocardiogram after the drain was pulled showed trivial pericardial effusion. Cytology was negative for malignancy and showed hemopericardium. QuantiFERON gold, anti CCP antibody, and rheumatoid factor were negative; no other studies were done on the pericardial fluid. She was discharged on a 2 week course of ibuprofen and 3 month course of colchicine. Additionally, imaging showed very small right and moderate sized left pleural effusion which may have been related to heart failure from the tamponade or inflammatory process of pericarditis. She was seen by pulmonology who recommended conservative management and outpatient follow-up. She continues to have shortness of breath with exertion but it seems to be better compared to the shortness of breath she had with her recent hospitalization. She has completed her 2 week course of ibuprofen. Unfortunately she is having quite a lot of diarrhea from the colchicine, at least 5 to 6 times per day, and she has intermittent abdominal cramping with that as well. Due to ongoing diarrhea, she went to urgent care today but was referred to the ED given her recent hospitalization and because she was tachycardic with rates in the 120s. At the time of my evaluation she is resting comfortably but is anxious. She denies fever, chills, sweats, cold and flu symptoms, chest pain, pleuritic pain, palpitations, nausea, vomiting syncope, and near syncope. She denies recent travel, sick contacts, and recent antibiotic use. In the ED: Vital signs on arrival include a temperature of 99.8?, blood pressure 123/80, pulse 123, respiratory 19, SpO2 96% on room air. Labs were significant for WBC count 13.9, total bilirubin 1.6, AST 54, ALT 107. CT of the chest, abdomen, and pelvis showed small right and large left pleural effusions and a moderate-sized pericardial effusion. Urinalysis was positive for 1+ protein, 1+ ketones, 1+ blood, 1+ bilirubin, 3+ leukocyte esterase, 6 to 10 rbc's, greater than 100 WBC, 1+ bacteria, moderate squamous cells. She was given 2 L lactated Ringer's and ceftriaxone 1 g and she is being admitted in this setting for further treatment and evaluation. Review of Systems Review of Systems: 12 systems were reviewed and are negative except for as per HPI. [facility] Past Medical History Medical History (Updated 07/26/24 @ 20:16 by Cher Camacho PA-C) Anxiety Biliary acute pancreatitis (12/2020) Pericardial effusion Liver cyst Pancreatitis Hepatic lesion Vitamin D deficiency Surgical History Surgical History (Updated 07/26/24 @ 20:00 by Cher Camacho PA-C) History of laparoscopic cholecystectomy (12/2020) Status post excision of lipoma left shoulder Family History Family History Mother Healthy adult Father Healthy adult Social History Social History (Updated 07/26/24 @ 20:01 by Cher Camacho PA-C) Social History: Surrogate medical decision maker: Koko López, spouse. Code status: Full code. Smoking status: Never smoker Second hand tobacco smoke exposure: No Alcohol intake: never Drinks per week: 0 Alcohol use details: She rarely drinks alcohol and only in moderation. Substance use: never Substance use type: does not use Do You Feel Safe in your Home?: Yes Lack of Transportation: No Lack of Food: Never True Current Housing: I Have Housing Concerned About Future Housing: No Difficulty Paying Gas/Electric Bills: No Difficulty Paying for Meds: No Currently Unemployed: No Education: Trade/Vocational Certificate Difficulty w/ Childcare or Family Care: No Living arrangements: with family Additional living arrangements comments: She lives in [place] with her . They have 2 daughters. 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 Spiritual care concerns: No Meds Home Medications and Allergies Home Medications ?Medication ?Instructions ?Recorded ?Confirmed ?Type colchicine 0.6 mg tablet (Colcrys) 0.6 mg PO BID Pericarditis #60 tabs 07/08/24 07/26/24 Rx pantoprazole 40 mg tablet,delayed 40 mg PO QAM Ulcer prophylaxis 30 07/08/24 07/26/24 Rx release days #30 tabs Allergies Allergy/AdvReac Type Severity Reaction Status Date / Time Penicillins AdvReac Mild HIVES/ RASH Verified 07/26/24 11:08 Vital Signs Vital Signs - 24 hr 07/26/24 11:18 07/26/24 11:36 07/26/24 15:56 Temperature 99.8 F H 99.6 F Pulse Rate 123 H 121 H 118 H Respiratory Rate 19 27 H 18 Blood Pressure 123/80 106/75 118/78 Pulse Oximetry 96 96 95 Oxygen Delivery Room Air 07/26/24 16:24 Temperature Pulse Rate Respiratory Rate Blood Pressure Pulse Oximetry Oxygen Delivery Room Air Exam Narrative: General: Nontoxic-appearing female sitting up in bed in no acute distress. Weight: 74.5 kg. BMI: 29.1. HEENT: Normocephalic, atraumatic. PERRL, EOMI. Sclera anicteric. Tacky mucous membranes. Neck: Supple. No JVD. Respiratory: Respirations are nonlabored and she is speaking full sentences. Lung sounds are significantly diminished on the left with faint crackles. Cardiovascular: Tachycardic with S1-S2. Gastrointestinal: Abdomen is soft, nontender, and nondistended with positive bowel sounds. Skin: Warm and dry. No rash or lesions on limited exam. Extremities: No cyanosis, clubbing, or edema. Radial and pedal pulses intact. Neurological: Alert. Cranial nerves 2-12 are grossly intact. No gross focal deficits to casual conversation. Psychiatric: Pleasant and cooperative with normal mood and affect. Judgment and insight intact. H&P: Results Labs Labs: Short CBC 07/26/24 Range/Units 11:56 WBC 13.9 H (4.5-10.0) K/mm3 Hgb 14.4 (12.0-15.0) g/dL Hct 44.8 (37.0-47.0) % Plt Count 355 (150-375) k/mm3 [facility] 07/26/24 11:56 Sodium 137 Potassium 4.0 Chloride 100 Carbon Dioxide 25 BUN 10 Creatinine 0.67 L Glucose 110 Calcium 9.6 Liver Function 07/26/24 Range/Units 11:56 Total Bilirubin 1.6 H (0.2-1.3) mg/dL AST 54 H (14-36) U/L ALT 107 H (6-35) U/L Alkaline Phosphatase 126 (38-126) U/L Albumin 4.3 (3.5-5.1) g/dL Urine 07/26/24 Range/Units 12:18 Urine Color Dark yellow (Yellow) Urine Appearance Cloudy H (Clear) Urine pH 5.0 (5.0-9.0) Ur Specific [place] 1.025 (1.001-1.035) Urine Protein 1+ H (Negative) mg/dL Urine Glucose (UA) Negative (Negative) mg/dL Imaging Chest/Abdomen/Pelvis CT 07/26/24 13:18 IMPRESSION: 1. Small right and large left pleural effusions. 2. Moderate-sized pericardial effusion with decrease in size from 07/04/2024. Chest X-Ray 07/26/24 13:29 IMPRESSION: 1. Small right and large left pleural effusions. 2. Enlargement of the cardiac silhouette correlating with a pericardial effusion by CT. Assessment and Plan Assessment and plan (1) Pleural effusion: Code(s): J90 - Pleural effusion, not elsewhere classified Status: Acute (2) Pericardial effusion: Code(s): I31.39 - Other pericardial effusion (noninflammatory) Status: Acute (3) Mild dehydration: Code(s): E86.0 - Dehydration Status: Acute (4) Bacteriuria with pyuria: Code(s): R82.71 - Bacteriuria; R82.81 - Pyuria Status: Acute (5) Elevated LFTs: Code(s): R79.89 - Other specified abnormal findings of blood chemistry Status: Acute (6) Anxiety: Code(s): F41.9 - Anxiety disorder, unspecified Status: Acute Plan The patient presented to the emergency department from urgent care with tachycardia and diarrhea as detailed in HPI. Labs, imaging, EKG, and all reports were personally reviewed. Her heart rate has slowed down somewhat with IV fluid arguing that tachycardia may very well in part be due to dehydration from ongoing diarrhea. She has been adequately hydrated and we will hold on further IV fluids given bilateral pleural effusions. Diagnostic thoracentesis ordered for tomorrow. CHERYL cascade has also been ordered to evaluate for possible underlying autoimmune disorder. Continue ceftriaxone for possible urinary tract infection, pending urine culture. LFTs are a bit elevated though her abdominal exam is benign. CT scan did not show any findings to correlate and we will just monitor these for now. Hold colchicine. The rest of her home medications will be reviewed and resumed as appropriate. Findings and treatment plan were discussed with the patient. Questions were solicited and answered to satisfaction. The patient's medical management will be taken over by the hospitalist team in a.m. Quality VTE Prophylaxis VTE prophylaxis: mechanical ordered If No VTE Prophylaxis Answer both mechanical and pharmacologic: Reason no pharmacologic proph: medical contraindication (thoracentesis tomorrow) The patient has been admitted under observation status. Hospitalist [facility] Advance Care Plan I have confirmed that the patient's Advanced Care Plan is present, code status is documented, or surrogate decision maker is listed in patient medical record.: Yes Medication Reconciliation I have utilized all available resources to obtain, update and review the patients current medications (includes all prescriptions, OTC, herbals, cannabis, and nutritional supplements).: Yes
[2024-07-26 20:49] LABS: Albumin Level 3.6 g/dL (3.5-5.1); Amylase 47 U/L (30-110); Bilirubin,Total 1.2 mg/dL (0.2-1.3); Cholesterol 100 mg/dL (0-200); Glucose 123 mg/dL (65-110); Lactate Dehydrogenase 160 U/L (120-246); Triglycerides 55 mg/dL (<150)
[2024-07-26] MEDS: ALPRAZolam (*CRX) 0.25 MG TABLET PO (21:49)
[2024-07-27] VITALS (8 sets, daily range): BP systolic 112–123; BP diastolic 65–75; PULSE 90–129; RESP 16–18; TEMP 36.8–37.3; O2SAT 93–95
--- NOTE | 2024-07-27 | ECHOL_ITS ---
Patient Info Name: Jenni López Age: 54 years : 1970 Gender: Female Ht: 63 in Wt: 174 lbs BSA: 1.90 m2 HR: 115 bpm BP: 123 / 75 mmHg Technical Quality: Fair Exam Date: 07/27/2024 10:18 AM Exam Location: Echo Lab Patient Status: Inpatient Admit Date: 07/27/2024 Staff Ordering Physician: Chloé Pineda [employer]inking Sewing Machine Operator: Loree Manzanares RDCS Attending Provider: Andrez Jarvis MD Referring Physician: Miriam BARRON; Exam Type: CA echo limited Study Info Indications - Pericardial effusion Limited two-dimensional transthoracic echocardiogram is performed. Summary 1. Normal biventricular size and systolic function. 2. Small amount of pericardial effusion. Left Ventricle There is normal systolic function. Right Ventricle There is normal systolic function. Mitral Valve The mitral valve is normal. Pericardium/Pleural There is small amount of pericardial effusion that is circumferential. Tricuspid Valve Name Value Normal TV Regurgitation Doppler TR Peak Velocity 165 cm/s TR Peak Gradient 11 mmHg Estimated PAP/RSVP RA Pressure 10 mmHg <=5 PA Systolic Pressure 21 mmHg <36 RV Systolic Pressure 21 mmHg <36 Report Signatures
[2024-07-27 05:00] LABS: Hematocrit 41.9 % (37.0-47.0); Hemoglobin 13.7 g/dL (12.0-15.0); Mean Corpuscular HGB Conc 32.7 g/dl (32-36); Mean Corpuscular Hemoglobin 27.3 pg (26-34); Mean Corpuscular Volume 83.6 fl (80-100); Mean Platelet Volume 10.1 fl (7.4-10.4); Platelet Count Result 365 k/mm3 (150-375); Red Blood Count 5.01 M/mm3 (4.2-5.4); Red Cell Distribution Width 12.9 % (11.5-14.5); White Blood Count 14.4 K/mm3 (4.5-10.0)
[2024-07-27] MEDS: ACETAMINOPHEN 325 MG TABLET 650 MG PO ×3 (05:05→20:40)
[2024-07-27 05:13] LABS: INR 1.2; Prothrombin Time 16.2 Seconds (11.1-14.7)
[2024-07-27 05:16] LABS: Alanine Aminotransferase 70 U/L (6-35); Albumin Level 3.7 g/dL (3.5-5.1); Alkaline Phosphatase 112 U/L (38-126); Anion Gap 10 mmol/L (4-12); Aspartate Amino Transferase 31 U/L (14-36); Bilirubin,Total 1.2 mg/dL (0.2-1.3); Blood Urea Nitrogen 7 mg/dL (7-17); Calcium 9.1 mg/dL (8.4-10.2); Carbon Dioxide 24 mmol/L (22-30); Chloride 100 mmol/L (98-107); Estimated CRCL calculation 100 ml/min; Estimated Glomerular Filt Rate > 60; Glucose 108 mg/dL (65-110); Potassium 4.1 mmol/L (3.4-5.0); Sodium 134 mmol/L (137-145)
--- NOTE | 2024-07-27 08:42 | P.PNIM_ITS ---
Progress Note: A&P Assessment and Plan (1) Pleural effusion: Code(s): J90 - Pleural effusion, not elsewhere classified Status: Acute Assessment and Plan: * Small right and large left pleural effusions * Recent treatment for pericardial effusions cath 07/05/24 * Diagnostic thoracentesis * CHERYL cascade pending * Oxygen PRN on RA (2) Pericardial effusion: Code(s): I31.39 - Other pericardial effusion (noninflammatory) Status: Acute Assessment and Plan: Patient with recent Pericardial effusion w/ tamponade Cath 07/05/24 * holding colchicine Cardiology resumed at 0.3 * completed 2 weeks ibuprofen * CT show decrease to pericardial effusion (moderate size ) from 07/04 * cardiac monitoring * cardiology consulted (3) Bacteriuria with pyuria: Code(s): R82.71 - Bacteriuria; R82.81 - Pyuria Status: Acute Assessment and Plan: * UA suspicious for UTI * Rocephin Q 24 IV pending cultures (4) Acute diarrhea: Code(s): R19.7 - Diarrhea, unspecified Status: Acute Assessment and Plan: * Secondary to colchicine * colchicine pending Cardiology recommendations * Imodium as needed * monitor electrolytes replenish as needed * given IV fluids in the ER Plan Code status: Full code per patient DVT prophylaxis: SCD Stress ulcer prophylaxis: Protonix PT/OT notes: Ambulatory Disposition: patient continues admission to the medical unit for further evaluation and treatment of bilateral pleural effusions moderate size pericardial effusion with tachycardia and secondary to colchicine. plan for diagnostic thoracentesis day and consult to Cardiology. Time Spent With Patient Time with patient: 15 - 25 minutes Subjective Date/time seen: 07/27/24 08:42 Interval history: Patient is a 54 female who was admitted for treatment of SOB secondary to bilateral pleural effusions and pericardial effusion. 07/27/24: Assumed Care Patient denied any CP, N/V. Still with diarrhea and exertional SOB. Remains tachycardic but as reported was post procedure and previous admission. Review of Systems Review of Systems: 12 systems were reviewed and are negativ e except for as per HPI. All systems reviewed & are unremarkable except as noted in HPI and below Exam Const: General: comfortable and no acute distress Other: Anxious HENMT: Mouth: Yes moist mucous membranes Eyes: Pupils: Equal, round and reactive pupils present Neck: Neck: supple and no JVD Resp: Effort & Inspection: normal respiratory effort Auscultation: diminished lung sounds bilateral in the lower lung cruz Cardio: Rate: tachycardic Rhythm: regular rhythm GI: GI Palp: Yes Soft to palpation Auscultation: normal bowel sounds Other: Reported ABD cramping and diarrhea Skin: General skin exam: normal color and no rashes or lesions noted Neuro: Speech: normal speech Other: Alert and oriented x 3 Psych: Affect: Anxious affect present Objective Data Vital Signs Vital Signs: Vital Signs - 24 hr 07/26/24 11:18 07/26/24 11:36 07/26/24 15:56 Temperature 99.8 F H 99.6 F Pulse Rate 123 H 121 H 118 H Respiratory Rate 19 27 H 18 Blood Pressure 123/80 106/75 118/78 Pulse Oximetry 96 96 95 Oxygen Delivery Room Air Fraction of Inspired Oxygen 07/26/24 16:24 07/26/24 19:39 07/26/24 19:51 Temperature 98.3 F Pulse Rate 106 H Respiratory Rate 16 Blood Pressure 119/73 Pulse Oximetry 96 94 Oxygen Delivery Room Air Room Air Fraction of Inspired Oxygen 07/26/24 20:00 07/26/24 20:11 07/27/24 00:00 Temperature Pulse Rate 106 H 107 H 117 H Respiratory Rate 16 Blood Pressure Pulse Oximetry 94 Oxygen Delivery Room Air Fraction of Inspired Oxygen 07/27/24 04:38 Temperature 99.2 F Pulse Rate 128 H Respiratory Rate 16 Blood Pressure 123/75 Pulse Oximetry 93 Oxygen Delivery Fraction of Inspired Oxygen Intake/Output Intake/Output: Intake & Output 07/24/24 07/25/24 07/26/24 07/27/24 23:59 23:59 23:59 23:59 Intake Total 2049 700 Output Total 1050 Balance 2049 -350 Meds/Results Medications: Active Medications Generic Name Dose Route Start Last Admin Trade Name Freq PRN Reason Stop Dose Admin Acetaminophen 650 mg 07/26/24 20:14 07/27/24 05:05 Acetaminophen 325 Mg Tablet PO 650 mg Q6H PRN Administration Mild Pain (1-3) or Fever Alprazolam 0.25 mg 07/26/24 19:33 07/26/24 21:49 Alprazolam (*Crx) 0.25 Mg Tablet PO 07/27/24 19:32 0.25 mg TID PRN Administration Anxiety Ceftriaxone Sodium 1 gm in 50 mls @ 100 mls/hr 07/27/24 15:00 Rocephin 1 Gm/Ns 50 Ml IVPB Q24H [facility] Loperamide HCl 2 mg 07/26/24 20:15 Loperamide Hcl 2 Mg Capsule PO PRN PRN Diarrhea Ondansetron HCl 4 mg 07/26/24 14:54 Ondansetron Inj 4 Mg/2 Ml Vial IV PUSH Q4H PRN Nausea Pantoprazole Sodium 40 mg 07/27/24 09:00 Pantoprazole 40 Mg [facility] [place] [facility] Results: ITS Impressions Chest/Abdomen/Pelvis CT 07/26/24 13:18 IMPRESSION: 1. Small right and large left pleural effusions. 2. Moderate-sized pericardial effusion with decrease in size from 07/04/2024. Chest X-Ray 07/26/24 13:29 IMPRESSION: 1. Small right and large left pleural effusions. 2. Enlargement of the cardiac silhouette correlating with a pericardial effusion by CT. Labs Labs: Laboratory Results - last 24 hr 07/26/24 07/26/24 07/26/24 11:20 11:56 12:18 WBC 13.9 H RBC 5.30 Hgb 14.4 Hct 44.8 MCV 84.5 MCH 27.2 MCHC 32.1 RDW 12.9 Plt Count 355 MPV 9.7 Immature Gran % (Auto) 0.5 Neut % (Auto) 84.7 H Lymph % (Auto) 5.2 L Cole % (Auto) 9.2 H Eos % (Auto) 0.1 Baso % (Auto) 0.3 Lymph # (Auto) 0.72 L Cole # (Auto) 1.3 H Eos # (Auto) 0.0 Baso # (Auto) 0.0 Abs Immat Gran (auto) 0.07 H Absolute Neuts (auto) 11.8 H Absolute Nucleated RBC 0.000 Nucleated RBC % 0.0 PT INR APTT Sodium 137 Potassium 4.0 Chloride 100 Carbon Dioxide 25 Anion Gap 12 BUN 10 Creatinine 0.67 L Estim Creat Clear Calc 80 Estimated GFR > 60 Glucose 110 Calcium 9.6 Magnesium Total Bilirubin 1.6 H AST 54 H ALT 107 H Alkaline Phosphatase 126 Lactate Dehydrogenase Total Protein 8.0 Albumin 4.3 Triglycerides Cholesterol Amylase Lipase 33 TSH (Reflex) Urine Color Dark yellow Urine Appearance Cloudy H Urine pH 5.0 Ur Specific [place] 1.025 Urine Protein 1+ H Urine Glucose (UA) Negative Urine Ketones 1+ H Ur Blood (Man) 1+ H Urine Nitrate Negative Urine Bilirubin 1+ H Urine Urobilinogen 1.0 Add Ur Microanalysis Reviewed Leukocyte Esterase Rfl 3+ H Urine RBC 6-10 H Urine WBC >100 H Ur Squamous Epith Cells Moderate Urine Bacteria 1+ H Urine Casts 11-20 POC Urine HCG, Qual Negative 07/26/24 07/27/24 20:34 04:51 WBC 14.4 H RBC 5.01 Hgb 13.7 Hct 41.9 MCV 83.6 MCH 27.3 MCHC 32.7 RDW 12.9 Plt Count 365 MPV 10.1 Immature Gran % (Auto) Neut % (Auto) Lymph % (Auto) Cole % (Auto) Eos % (Auto) Baso % (Auto) Lymph # (Auto) Cole # (Auto) Eos # (Auto) Baso # (Auto) Abs Immat Gran (auto) Absolute Neuts (auto) Absolute Nucleated RBC Nucleated RBC % PT 16.2 H INR 1.2 APTT 34.0 Sodium 134 L Potassium 4.1 Chloride 100 Carbon Dioxide 24 Anion Gap 10 BUN 7 Creatinine 0.54 L Estim Creat Clear Calc 100 Estimated GFR > 60 Glucose 123 H 108 Calcium 9.1 Magnesium 2.0 Total Bilirubin 1.2 1.2 AST 31 ALT 70 H Alkaline Phosphatase 112 Lactate Dehydrogenase 160 Total Protein 7.0 7.0 Albumin 3.6 3.7 Triglycerides 55 Cholesterol 100 Amylase 47 Lipase TSH (Reflex) 3.270 Urine Color Urine Appearance Urine pH Ur Specific [place] Urine Protein Urine Glucose (UA) Urine Ketones Ur Blood (Man) Urine Nitrate Urine Bilirubin Urine Urobilinogen Add Ur Microanalysis Leukocyte Esterase Rfl Urine RBC Urine WBC Ur Squamous Epith Cells Urine Bacteria Urine Casts POC Urine HCG, Qual Quality VTE Prophylaxis VTE prophylaxis: mechanical ordered -Patient's previous records reviewed on admission -ER notes reviewed in detail on admission -discussed all findings and current treatment plan with patient/Family/POA -Consultations reviewed for recommendations -Patient's disposition for safe discharge discussed with rehabilitation caseworker Dictation performed by [employer] direct speech recognition software, therefore front desk manager variants and typographical errors may occur. Hospitalist [facility] Advance Care Plan I have confirmed that the patient's Advanced Care Plan is present, code status is documented, or surrogate decision maker is listed in patient medical record.: Yes Medication Reconciliation I have utilized all available resources to obtain, update and review the patients current medications (includes all prescriptions, OTC, herbals, cannabis, and nutritional supplements).: Yes The patient is not eligible for med reconciliation; the patient is in a emergent medical situation where delaying treatment would jeopardize the patients health.: No
[2024-07-27] MEDS: PANTOPRAZOLE 40 MG TABLET PO (08:45)
--- NOTE | 2024-07-27 10:23 | P.CONCA_ITS ---
Assessment and Plan Assessment and plan (1) Pericardial effusion: Code(s): I31.39 - Other pericardial effusion (noninflammatory) Status: Acute Assessment and Plan: Initially found to have pericardial effusion incidentally on echo in 2020. Effusion was small at the time and she was asymptomatic, therefore no treatment was required. She presented to the hospital on 07/04/24 with chest pain and was found to have moderate-large pericardial effusion. She underwent pericardiocentesis and had pericardial drain in place for 2 days with a total of 540cc drainage. Pericardial fluid negative for malignancy. CT scan performed showed moderate-sized pericardial effusion with decrease in size from 07/04/2024. * Will repeat limited echo for better assessment of effusion size and location * Depending on the findings, may consider CTS referral for pericardial window * CHERYL cascade pending * Will decrease colchicine to 0.3mg b.i.d. since she is experiencing side effects (2) Sinus tachycardia: Code(s): R00.0 - Tachycardia, unspecified Status: Acute Assessment and Plan: Sinus tachycardia with rates generally 110-120bpm. Asymptomatic in this regard. Potentially secondary to dehydration, UTI, or pericardial effusion, though she remained tachycardic following her pericardiocentesis in June. (3) Acute diarrhea: Code(s): R19.7 - Diarrhea, unspecified Status: Acute Assessment and Plan: Possible adverse effect of colchicine. Resolved. History of Present Illness History of Present Illness Consult date/time: 07/27/24 10:23 Requesting physician: Cher Camacho PA-C Consult reason: Other (tachycardia, pericardial effusion) Reason For Visit: Tachycardia, diarrhea from colchicine use, UTI Narrative: Jenni López is a 54 year old female with history of pericardial effusion status post pericardiocentesis and pericardial drain in June of this year. This is a patient who presents to the emergency department from urgent care where she was being seen for diarrhea. She has been having diarrhea and abdominal cramping for couple weeks. She denies a nausea, vomiting. She denies having any chest pain but does report shortness of breath with exertion, stating that if she climbs a flight of stairs she has to sit down in order to catch her breath. She denies any shortness of breath currently but reports feeling anxious. Review of Systems 2 Review of Systems: All systems reviewed & are unremarkable except as noted in HPI and below [facility] Past Medical History Medical History Anxiety Biliary acute pancreatitis (12/2020) Pericardial effusion Liver cyst Pancreatitis Hepatic lesion Vitamin D deficiency Surgical History Surgical History History of laparoscopic cholecystectomy (12/2020) Status post excision of lipoma left shoulder Family History Family History Mother Healthy adult Father Healthy adult Social History Social History Social History: Surrogate medical decision maker: Koko López, spouse. Code status: Full code. Smoking status: Never smoker Second hand tobacco smoke exposure: No Alcohol intake: never Drinks per week: 0 Alcohol use details: She rarely drinks alcohol and only in moderation. Substance use: never Substance use type: does not use Do You Feel Safe in your Home?: Yes Lack of Transportation: No Lack of Food: Never True Current Housing: I Have Housing Concerned About Future Housing: No Difficulty Paying Gas/Electric Bills: No Difficulty Paying for Meds: No Currently Unemployed: No Education: Trade/Vocational Certificate Difficulty w/ Childcare or Family Care: No Living arrangements: with family Additional living arrangements comments: She lives in [place] with her . They have 2 daughters. 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 Spiritual care concerns: No Meds Home Medications and Allergies Home Medications ?Medication ?Instructions ?Recorded ?Confirmed ?Type colchicine 0.6 mg tablet (Colcrys) 0.6 mg PO BID Pericarditis #60 tabs 07/08/24 07/26/24 Rx pantoprazole 40 mg tablet,delayed 40 mg PO QAM Ulcer prophylaxis 30 07/08/24 07/26/24 Rx release days #30 tabs Allergies Allergy/AdvReac Type Severity Reaction Status Date / Time Penicillins AdvReac Mild HIVES/ RASH Verified 07/26/24 11:08 Vital Signs Vital Signs - 24 hr 07/26/24 11:18 07/26/24 11:36 07/26/24 15:56 Temperature 37.7 C H 37.6 C Pulse Rate 123 H 121 H 118 H Respiratory Rate 19 27 H 18 Blood Pressure 123/80 106/75 118/78 Pulse Oximetry 96 96 95 Oxygen Delivery Room Air Fraction of Inspired Oxygen 07/26/24 16:24 07/26/24 19:39 07/26/24 19:51 Temperature 36.8 C Pulse Rate 106 H Respiratory Rate 16 Blood Pressure 119/73 Pulse Oximetry 96 94 Oxygen Delivery Room Air Room Air Fraction of Inspired Oxygen 21 07/26/24 20:00 07/26/24 20:11 07/27/24 00:00 Temperature Pulse Rate 106 H 107 H 117 H Respiratory Rate 16 Blood Pressure Pulse Oximetry 94 Oxygen Delivery Room Air Fraction of Inspired Oxygen 21 07/27/24 04:38 Temperature 37.3 C Pulse Rate 128 H Respiratory Rate 16 Blood Pressure 123/75 Pulse Oximetry 93 Oxygen Delivery Fraction of Inspired Oxygen Exam 2 Const: General: comfortable, no acute distress, alert and awake O rientation/consciousness: patient oriented x3 HENMT: Head: normal to inspection Eyes: General: appearance normal, both eyes and all related structures P upils: Equal, round and reactive pupils present Neck: Neck: normal visual inspection, supple and no JVD Carotids: normal carotid upstroke Resp: Effort & Inspection: normal respiratory effort Auscultation: clear to auscultation bilaterally and diminished lung sounds on the left Cardio: Rate: tachycardic Rhythm: regular rhythm Heart sounds: S1 normal heart sound present, S2 normal heart sound present, no murmurs and no rubs GI: Auscultation: normal bowel sounds Skin: General skin exam: normal color Neuro: General: patient oriented x3 Cranial nerves: Yes Equal, round and reactive pupils present Extrem: General: normal to inspection Psych: Appearance: grossly normal Mental Status: mental status grossly normal Results Labs and Meds 07/27/24 04:51 07/27/24 04:51 Lab results: Cardiac Enzymes 07/26/24 07/26/24 07/27/24 Range/Units 11:56 20:34 04:51 AST 54 H 31 (14-36) U/L Lactate Dehydrogenase 160 (120-246) U/L Coagulation 07/27/24 Range/Units 04:51 PT 16.2 H (11.1-14.7) Seconds APTT 34.0 (22.3-36.8) Seconds Lipids 07/26/24 Range/Units 20:34 Triglycerides 55 (<150) mg/dL Cholesterol 100 (0-200) mg/dL CBC 07/26/24 07/27/24 Range/Units 11:56 04:51 WBC 13.9 H 14.4 H (4.5-10.0) K/mm3 RBC 5.30 5.01 (4.2-5.4) M/mm3 Hgb 14.4 13.7 (12.0-15.0) g/dL Hct 44.8 41.9 (37.0-47.0) % Plt Count 355 365 (150-375) k/mm3 Lymph # (Auto) 0.72 L (0.9-3.2) K/mm3 [place] # (Auto) 1.3 H (0.1-0.6) K/mm3 Eos # (Auto) 0.0 (0-0.3) K/mm3 Baso # (Auto) 0.0 (0.0-0.1) K/mm3 Comprehensive Metabolic Panel 07/26/24 07/26/24 07/27/24 Range/Units 11:56 20:34 04:51 Sodium 137 134 L (137-145) mmol/L Potassium 4.0 4.1 (3.4-5.0) mmol/L Chloride 100 100 (98-107) mmol/L Carbon Dioxide 25 24 (22-30) mmol/L BUN 10 7 (7-17) mg/dL Creatinine 0.67 L 0.54 L (0.7-1.0) mg/dL Glucose 110 123 H 108 (65-110) mg/dL Calcium 9.6 9.1 (8.4-10.2) mg/dL AST 54 H 31 (14-36) U/L ALT 107 H 70 H (6-35) U/L Alkaline Phosphatase 126 112 (38-126) U/L Total Protein 8.0 7.0 7.0 (6.3-8.2) g/dL Albumin 4.3 3.6 3.7 (3.5-5.1) g/dL Intake and Output 07/26/24 07/27/24 07/27/24 23:59 07:59 15:59 Intake Total 700 Output Total 1050 Balance -350 Intake: Oral 700 Output: Urine 1050 Other: # Unmeasured Voids 1 Patient Weight 07/27/24 23:59 Weight 79 kg
[2024-07-27] MEDS: ALPRAZolam (*CRX) 0.25 MG TABLET PO (12:16)
--- NOTE | 2024-07-27 14:38 | PM.OP ---
Procedure Note - Brief Procedure Note - Brief Date of procedure: 07/27/24 large left sided pleural effusion Post-op diagnosis: Same Procedure performed: left sided thoracentesis Surgeon: Zeynep Hancock MD Anesthesia: local Findings: large left sided pleural effusion Description of procedure: sterile technique US guidance 1250cc thin yellow fluid evacuated No immediate complications Estimated blood loss (mL): 0.1 Urine output (mL): 150 Pathology: Yes Complications: No immediate complications Condition: Stable Disposition: Floor
[2024-07-27 14:59] LABS: pH Pleural Fluid 7.169 (7.210-7.500)
--- NOTE | 2024-07-27 15:26 | PM.OP ---
Procedure Note - Brief Procedure Note - Brief Date of procedure: 07/27/24 Tachycardia, diarrhea from colchicine use, UTI Procedure performed: US guided L thoracentesis Surgeon: Zeynep Hancock MD Estimated blood loss (mL): 0.1 Urine output (mL): 150
[2024-07-27 16:28] LABS: Appearance Pleural Fluid Hazy (Clear); Color Pleural Fluid Yellow (Colorless); Pleural fluid source Pleural fluid
[2024-07-27 16:29] LABS: Lymphocytes Pleural Fluid 47 %; Macrophages Pleural Fluid 16 %; Mesothelial Cells Pleural Flui 4 %; Monocytes Pleural Fluid 0 %; Neutrophils Pleural Fluid 33 % (0-25); Nucleated Cell Pleural Fluid 723 /uL (0-1000); RBC Pleural Fluid 2000 /uL (0-10000)
[2024-07-28] VITALS (7 sets, daily range): BP systolic 115–130; BP diastolic 74–80; PULSE 90–113; RESP 16–18; TEMP 36.6–37.2; O2SAT 95–96
[2024-07-28 03:58] LABS: ANA Cascade Screen NEGATIVE (NEGATIVE)
[2024-07-28] MEDS: PANTOPRAZOLE 40 MG TABLET PO (08:12)
[2024-07-28 09:10] LABS: Influenza A QL RT-PCR Negative (Negative); Influenza B QL RT-PCR Negative (Negative); RSV RNA, RT-PCR Negative (Negative); SARS-CoV-2 RNA PCR Negative (Negative)
[2024-07-28] MEDS: COLCHICINE 0.3 MG TABLET PO (09:29)
[2024-07-28 12:45] LABS: Hematocrit 42.8 % (37.0-47.0); Hemoglobin 13.8 g/dL (12.0-15.0); Mean Corpuscular HGB Conc 32.2 g/dl (32-36); Mean Corpuscular Hemoglobin 27.4 pg (26-34); Mean Corpuscular Volume 85.1 fl (80-100); Mean Platelet Volume 10.2 fl (7.4-10.4); Platelet Count Result 390 k/mm3 (150-375); Red Blood Count 5.03 M/mm3 (4.2-5.4); Red Cell Distribution Width 12.9 % (11.5-14.5); White Blood Count 10.7 K/mm3 (4.5-10.0)
[2024-07-28 13:11] LABS: Alanine Aminotransferase 42 U/L (6-35); Albumin Level 3.7 g/dL (3.5-5.1); Alkaline Phosphatase 108 U/L (38-126); Anion Gap 11 mmol/L (4-12); Aspartate Amino Transferase 23 U/L (14-36); Bilirubin,Total 0.9 mg/dL (0.2-1.3); Blood Urea Nitrogen 11 mg/dL (7-17); Carbon Dioxide 25 mmol/L (22-30); Chloride 100 mmol/L (98-107); Estimated CRCL calculation 93 ml/min; Estimated Glomerular Filt Rate > 60; Glucose 116 mg/dL (65-110); Potassium 3.7 mmol/L (3.4-5.0); Sodium 136 mmol/L (137-145)
--- NOTE | 2024-07-28 13:56 | PM.CNPUL ---
Assessment and Plan Assessment and plan (1) Pleural effusion: Code(s): J90 - Pleural effusion, not elsewhere classified Status: Acute Assessment and Plan: This 54-year-old female, with no prior history of lung disease, has been under the care of Cardiology Services for pericardial effusion and tamponade, following a pericardiocentesis performed three weeks ago. Additionally, she has been seen by Pulmonology Services for bilateral pleural effusions, with a moderate effusion on the left and a very small one on the right since her previous hospitalization. Pleural Fluid Analysis: Thoracentesis revealed pleural fluid with a low pH of 7.17, predominantly lymphocytic with 47% lymphocytes, and an elevated neutrophil count at 36%. The Gram stain of the pleural fluid showed no organisms, and the final culture report is pending. The patient tested negative for latent tuberculosis, and previous cytology of the pericardial fluid was negative for malignancy. Notably, this is her second episode of pericardial disease, with the first diagnosed approximately four years ago. Immunology testing for underlying autoimmune disease was nondiagnostic, with negative rheumatoid factor and anti-CCP antibodies. The patient exhibits no other symptoms suggestive of rheumatological disease. Clinical Concerns: Due to the low pleural pH, there is concern about a potential empyema. However, the patient does not exhibit symptoms indicative of empyema, such as fever or leukocytosis. The pleural fluid was described as freely flowing by the radiologist, and the cell count was mostly lymphocytic. The low pH could also be due to a rheumatoid pleural effusion, which, along with empyema, is characterized by a low pH. A low pleural fluid glucose level, along with very high LDH (pending results), would support a diagnosis of rheumatoid pleural effusion in the setting of seronegative arthritis. Given the recurrent nature of the pericardial effusion, seronegative rheumatoid arthritis is a plausible diagnosis. Plan: I engaged in a detailed discussion with the patient and her , who was present at the bedside, regarding further management. From a respiratory standpoint, the patient can be discharged home without any immediate treatment for the pleural effusion. I informed the patient that the pleural fluid may reaccumulate, necessitating further intervention to drain the fluid. The patient will return to the pulmonary clinic in 2 weeks for a follow-up, including a repeat chest X-ray to assess the rate of reaccumulation and to evaluate the possibility of rheumatoid pleural effusion once the remaining tests, such as fluid glucose and LDH, are available. I have ordered repeat tests for rheumatoid factor, anti-CCP antibodies, and IgG subclasses to assess the IgG4 level. (2) Adverse effect of colchicine: Code(s): T50.4X5A - Adverse effect of drugs affecting uric acid metabolism, initial encounter Status: Acute (3) Sinus tachycardia: Code(s): R00.0 - Tachycardia, unspecified Status: Acute (4) Pericardial effusion: Code(s): I31.39 - Other pericardial effusion (noninflammatory) Status: Acute (5) Pericarditis: Code(s): I31.9 - Disease of pericardium, unspecified Status: Acute (6) Acute diarrhea: Code(s): R19.7 - Diarrhea, unspecified Status: Acute History of Present Illness History of Present Illness Consult date: 07/28/24 Chief complaint: Tachycardia, diarrhea from colchicine use, UTI Narrative: Consultation Note: Pleural Effusion Associated with Pericardial Effusion Patient Overview: This patient, well-known to Pulmonary Services at [facility], presents with pleural effusion associated with pericardial effusion. Approximately three weeks ago, the patient was hospitalized due to symptoms related to pericardial effusion and tamponade. During this hospitalization, bilateral pleural effusions were observed, with a moderate effusion on the left and a very small one on the right. Previous Interventions: The Cardiology Services team conducted a pericardiocentesis, after which the patient was started on colchicine and ibuprofen. The patient was subsequently discharged home. This incident toribio the second occurrence of pericardial effusion, with the first episode occurring in 2020. Initially, the left pleural effusion was moderate in size; however, a follow-up chest X-ray indicated some improvement while the patient was on anti-inflammatory medication. Recent Developments: Recently, the patient has experienced watery diarrhea up to five times daily over the past two weeks, along with exertional shortness of breath. There are no reported symptoms of fever, chills, chest pain, syncope, night sweats, or lower extremity edema. The patient was admitted to the hospital two days ago and underwent a left thoracentesis, which removed over 1200 cc of clear liquid. Pleural Fluid Analysis: pH: 7.17 Cell Count: Predominantly lymphocytic with 47% lymphocytes and 36% neutrophils Gram Stain: No organisms detected Culture: Final report pending Additional Testing: Fluid glucose LDH protein amylase and other tests pending. Other tests: Negative for autoimmune diseases, including rheumatoid arthritis (negative rheumatoid factor and anti-CCP antibodies) Negative screening for latent TB Pericardial fluid cytology showed no malignant cells Current Treatment and Symptoms: The patient is currently on antibiotics for a possible urinary tract infection. She denies fever, chills, or night sweats but reports a mild dry cough that began after thoracentesis. She sleeps with the head of the bed elevated due to some shortness of breath. The patient's diarrhea is attributed to colchicine, prescribed as an anti-inflammatory. A repeat chest X-ray post-thoracentesis shows a significantly diminished left pleural effusion. A chest CT performed prior to thoracentesis revealed a moderately large left pleural effusion, a smaller right effusion, and associated atelectasis in the left lower lobe, but no other infiltrates. Review of Systems Review of Systems: All systems reviewed & are unremarkable except as noted in HPI and below (HPI and below) REPLACED BY [facility] Past Medical History Medical History Anxiety Biliary acute pancreatitis (12/2020) Pericardial effusion Liver cyst Pancreatitis Hepatic lesion Vitamin D deficiency Surgical History Surgical History History of laparoscopic cholecystectomy (12/2020) Status post excision of lipoma left shoulder Family History Family History Mother Healthy adult Father Healthy adult Social History Social History Social History: Surrogate medical decision maker: Kokofernando López, spouse. Code status: Full code. Smoking status: Never smoker Second hand tobacco smoke exposure: No Alcohol intake: never Drinks per week: 0 Alcohol use details: She rarely drinks alcohol and only in moderation. Substance use: never Substance use type: does not use Do You Feel Safe in your Home?: Yes Lack of Transportation: No Lack of Food: Never True Current Housing: I Have Housing Concerned About Future Housing: No Difficulty Paying Gas/Electric Bills: No Difficulty Paying for Meds: No Currently Unemployed: No Education: Trade/Vocational Certificate Difficulty w/ Childcare or Family Care: No Living arrangements: with family Additional living arrangements comments: She lives in [place] with her . They have 2 daughters. 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 Spiritual care concerns: No Meds Home Medications and Allergies Home Medications ?Medication ?Instructions ?Recorded ?Confirmed ?Type colchicine 0.6 mg tablet (Colcrys) 0.6 mg PO BID Pericarditis #60 tabs 07/08/24 07/26/24 Rx pantoprazole 40 mg tablet,delayed 40 mg PO QAM Ulcer prophylaxis 30 07/08/24 07/26/24 Rx release days #30 tabs Allergies Allergy/AdvReac Type Severity Reaction Status Date / Time Penicillins AdvReac Mild HIVES/ RASH Verified 07/26/24 11:08 Vital Signs Vital Signs - 24 hr 07/27/24 15:21 07/27/24 16:00 07/27/24 19:45 Temperature 36.9 C 36.8 C Pulse Rate 129 H 116 H 90 Respiratory Rate 18 18 Blood Pressure 113/75 112/65 Pulse Oximetry 93 95 Oxygen Delivery 07/27/24 20:00 07/28/24 00:00 07/28/24 03:55 Temperature 36.6 C Pulse Rate 118 H 102 H 90 Respiratory Rate 18 Blood Pressure 115/74 Pulse Oximetry 95 Oxygen Delivery 07/28/24 04:00 07/28/24 08:15 07/28/24 08:15 Temperature Pulse Rate 113 H 113 H Respiratory Rate Blood Pressure Pulse Oximetry 96 Oxygen Delivery Room Air 07/28/24 08:30 07/28/24 11:48 07/28/24 12:00 Temperature 37.2 C 36.9 C Pulse Rate 107 H 110 H 112 H Respiratory Rate 16 16 Blood Pressure 130/80 126/74 Pulse Oximetry 95 96 Oxygen Delivery Exam Narrative: GENERAL APPEARANCE: Well developed, well nourished, alert and cooperative, and appears to be in no acute distress while on room air, and sitting up in bed SKIN: Inspection of the skin reveals no rashes, ulcerations or petechiae. HEENT: Sclerae anicteric and conjunctivae pink and moist. Extraocular movements were intact and pupils were equal, round, and reactive to light. The oral mucosa, hard and soft palate, tongue and posterior pharynx were normal. NECK: Supple. JVD present There was no thyroid enlargement, and no tenderness, or masses were felt. CHEST: Normal AP diameter and normal contour without any kyphoscoliosis. LUNGS: Decreased breath sounds left base posteriorly no wheezing CARDIAC: Tachycardia, normal heart sounds no friction rub no murmurs. ABDOMEN: Soft and nontender with normal bowel sounds. There was no organomegaly. LYMPH NODES: No lymphadenopathy was appreciated in the neck. EXTREMITIES: No cyanosis, clubbing or edema. NEUROLOGIC: Alert and oriented x 3. Normal affect. Results Laboratory Findings 07/28/24 12:30 07/28/24 12:30 ABG, PT/INR, D-dimer: PT/INR, D-dimer PT 16.2 Seconds (11.1-14.7) H 07/27/24 04:51 INR 1.2 07/27/24 04:51 Abnormal lab findings: Abnormal Labs 07/26/24 07/26/24 07/26/24 11:56 12:18 20:34 WBC 13.9 H Plt Count Neut % (Auto) 84.7 H Lymph % (Auto) 5.2 L Bradley % (Auto) 9.2 H Lymph # (Auto) 0.72 L [place] # (Auto) 1.3 H Abs Immat Gran (auto) 0.07 H Absolute Neuts (auto) 11.8 H PT Sodium Creatinine 0.67 L Glucose 123 H Total Bilirubin 1.6 H AST 54 H ALT 107 H Urine Appearance Cloudy H Urine Protein 1+ H Urine Ketones 1+ H Ur Blood (Man) 1+ H Urine Bilirubin 1+ H Leukocyte Esterase Rfl 3+ H Urine RBC 6-10 H Urine WBC >100 H Urine Bacteria 1+ H Pleural pH Pleural Neutrophils 07/27/24 07/27/24 07/27/24 04:51 14:36 14:45 WBC 14.4 H Plt Count Neut % (Auto) Lymph % (Auto) Bradley % (Auto) Lymph # (Auto) Bradley # (Auto) Abs Immat Gran (auto) Absolute Neuts (auto) PT 16.2 H Sodium 134 L Creatinine 0.54 L Glucose Total Bilirubin AST ALT 70 H Urine Appearance Urine Protein Urine Ketones Ur Blood (Man) Urine Bilirubin Leukocyte Esterase Rfl Urine RBC Urine WBC Urine Bacteria Pleural pH 7.169 L Pleural Neutrophils 33 H 07/28/24 12:30 WBC 10.7 H Plt Count 390 H Neut % (Auto) Lymph % (Auto) Bradley % (Auto) Lymph # (Auto) Bradley # (Auto) Abs Immat Gran (auto) Absolute Neuts (auto) PT Sodium 136 L Creatinine 0.57 L Glucose 116 H Total Bilirubin AST ALT 42 H Urine Appearance Urine Protein Urine Ketones Ur Blood (Man) Urine Bilirubin Leukocyte Esterase Rfl Urine RBC Urine WBC Urine Bacteria Pleural pH Pleural Neutrophils
[2024-07-28 14:46] LABS: Rheumatoid Factor < 12.0 IU/ML (<12)
--- NOTE | 2024-07-28 14:50 | P.DS_ITS ---
DS: Admitting Diagnosis Discharge Date 07/28/2024 Admitting Diagnosis Pleural effusion/pericarditis/acute diarrhea DS: Discharge Diagnosis Discharge Diagnosis (1) Pleural effusion: Code(s): J90 - Pleural effusion, not elsewhere classified Status: Acute Assessment and Plan: * Follow-up pulmonology 2 weeks (2) Pericardial effusion: Code(s): I31.39 - Other pericardial effusion (noninflammatory) Status: Acute Assessment and Plan: * resumed colchicine (3) Bacteriuria with pyuria: Code(s): R82.71 - Bacteriuria; R82.81 - Pyuria Status: Acute Assessment and Plan: * UA suspicious for UTI * Rocephin Q 24 IV pending cultures (4) Acute diarrhea: Code(s): R19.7 - Diarrhea, unspecified Status: Acute Assessment and Plan: * * Imodium as needed Plan Disposition: Discharged to home DS: Summary Hospital Course Reason for hospitalization: Pleural effusion/pericarditis/acute diarrhea/UTI Hospital Course: Patient was a pleasant 54-year-old female with history of pericardial effusion who presented to the emergency department from urgent care earlier today for evaluation of tachycardia and diarrhea. The patient provides the following history. About a month ago she had an echocardiogram for re-evaluation and she was found to have findings suggestive of tamponade so she was admitted to the hospital. [facility] pericardiocentesis and drain placement. Pericardiocentesis yielded 180 mL of serosanguineous fluid and she had a total of 540 mL of output from the drain over the course of 2 days. Repeat echocardiogram after the drain was pulled showed trivial pericardial effusion. Cytology was negative for malignancy and showed hemopericardium. QuantiFERON gold, anti CCP antibody, and rheumatoid factor were negative; no other studies were done on the pericardial fluid. She was discharged on a 2 week course of ibuprofen and 3 month course of colchicine. Additionally, imaging showed very small right and moderate sized left pleural effusion which may have been related to heart failure from the tamponade or inflammatory process of pericarditis. She was seen by pulmonology who recommended conservative management and outpatient follow-up. She continues to have shortness of breath with exertion but it seems to be better compared to the shortness of breath she had with her recent hospitalization. She has completed her 2 week course of ibuprofen. Unfortunately she is having quite a lot of diarrhea from the colchicine, at least 5 to 6 times per day, and she has intermittent abdominal cramping with that as well. patient was found to still have tachycardia and pericardial effusion with Large left pleural effusion she was admitted to the medical unit for further evaluation with consult to Cardiology. patient's colchicine was placed on hold due to diarrhea and a thoracentesis was ordered with cytology. Patient had been seen by Pulmonary outpatient who had previously sent in orders for thoracentesis however patient was admitted prior to having procedure done. Spoke with Pulmonary regarding patient's pleural effusion fluid findings PH consistent with empyema but no signs of severe infection all other findings on Fluid inconsistent it was recommended patient to follow-up with pulmonology in 2 weeks after discharge at which time they will perform a follow-up chest x-ray to evaluate if there is reaccumulation of her pleural effusion. patient was also seen by Cardiology due to limited echo showing improvement in size to pericardial infusion which showed minimal in size they resume her colchicine but at 0.3 with plans to follow-up in 6 weeks for a follow-up limited echo. incidentally patient was found to have urinary tract infection and was discharged on oral antibiotic therapy. review micro pleural fluid all negative patient remained afebrile WBC at 10.7 likely secondary to inflammatory response pericarditis. patient seen and assessed at time of discharge was instructed on discharge plans and need for follow-up patient acknowledged and agreed with discharge plan patient was discharged home at which time her colchicine was reduced to 0.3 mg daily and provided a prescription of cefdinir x5 days for urinary tract infection. Patient was discharged home with Status at Discharge Functional status at discharge: independent ambulation Overall status at discharge: patient is back to baseline Time Spent with Patient Time attestation: Total time spent providing and/or coordinating discharge services: Time spent: Greater than 30 minutes Exam Const: General: comfortable and no acute distress Other: Anxious HENMT: Mouth: Yes moist mucous membranes Eyes: Pupils: Equal, round and reactive pupils present Neck: Neck: supple and no JVD Resp: Effort & Inspection: normal respiratory effort Auscultation: clear to auscultation bilaterally Cardio: Rate: tachycardic Rhythm: regular rhythm GI: Auscultation: normal bowel sounds Other: Reported ABD cramping and diarrhea Skin: General skin exam: normal color and no rashes or lesions noted Neuro: Cranial nerves: Yes Equal, round and reactive pupils present Speech: normal speech Other: Alert and oriented x 3 Psych: Affect: Anxious affect present DS: Data Data Completed and Pending Pending studies at discharge: Pending at discharge 07/26/24 20:13 Cytology [PTH] Routine Labs on day of discharge: Labs from last 24 hours 07/28/24 07/28/24 07/27/24 12:30 08:16 14:45 WBC 10.7 H RBC 5.03 Hgb 13.8 Hct 42.8 MCV 85.1 MCH 27.4 MCHC 32.2 RDW 12.9 Plt Count 390 H MPV 10.2 Sodium 136 L Potassium 3.7 Chloride 100 Carbon Dioxide 25 Anion Gap 11 BUN 11 Creatinine 0.57 L Estim Creat Clear Calc 93 Estimated GFR > 60 Glucose 116 H Calcium 9.0 Total Bilirubin 0.9 AST 23 ALT 42 H Alkaline Phosphatase 108 Total Protein 7.0 Albumin 3.7 Pleural Fluid Source Pleural fluid Pleural Color Yellow Pleural Appearance Hazy Pleural pH Pleural RBC 2000 Pleural Nuc Cells 723 Pleural Neutrophils 33 H Pleural Lymphocytes 47 Pleural Monocytes 0 Pleural Macrophages 16 Pleural Mesothelial 4 Pleural Total Protein Pleural Albumin Pleural LDH Pleural Glucose Pleural Amylase Pleural Cholesterol Pleural Triglycerides IgG Pending IgG1 Pending IgG2 Pending IgG3 Pending IgG4 Pending Rheumatoid Factor < 12.0 Anti-Cycl Citrul Peptide Pending CHERYL Scrn Qualitative Influenza A (RT-PCR) Negative Influenza B (RT-PCR) Negative RSV (RT-PCR) Negative SARS-CoV-2 RNA (RT-PCR) Negative 07/27/24 07/26/24 14:36 20:34 WBC RBC Hgb Hct MCV MCH MCHC RDW Plt Count MPV Sodium Potassium Chloride Carbon Dioxide Anion Gap BUN Creatinine Estim Creat Clear Calc Estimated GFR Glucose Calcium Total Bilirubin AST ALT Alkaline Phosphatase Total Protein Albumin Pleural Fluid Source Pleural Color Pleural Appearance Pleural pH 7.169 L Pleural RBC Pleural Nuc Cells Pleural Neutrophils Pleural Lymphocytes Pleural Monocytes Pleural Macrophages Pleural Mesothelial Pleural Total Protein Pending Pleural Albumin Pending Pleural LDH Pending Pleural Glucose Pending Pleural Amylase Pending Pleural Cholesterol Pending Pleural Triglycerides Pending IgG IgG1 IgG2 IgG3 IgG4 Rheumatoid Factor Anti-Cycl Citrul Peptide CHERYL Scrn Qualitative Negative Influenza A (RT-PCR) Influenza B (RT-PCR) RSV (RT-PCR) SARS-CoV-2 RNA (RT-PCR) Preliminary micro results at discharge 07/27/24 14:36 Anaerobic Culture - Preliminary Pleural Fluid 07/27/24 14:36 Acid Fast Bacilli Culture - Preliminary Pleural Fluid Imaging Radiologist's impression: Radiology Results: ITS Impressions Chest/Abdomen/Pelvis CT 07/26/24 13:18 IMPRESSION: 1. Small right and large left pleural effusions. 2. Moderate-sized pericardial effusion with decrease in size from 07/04/2024. Chest X-Ray 07/26/24 13:29 IMPRESSION: 1. Small right and large left pleural effusions. 2. Enlargement of the cardiac silhouette correlating with a pericardial effusion by CT. Discharge Plan Discharge Attending physician on discharge: Andrez Jarvis Consulting providers: Kacy Greene; Chloé Pineda; Torin Altman Discharging Clinician: Kacy Greene Anticipated Discharge Date/Time: 07/28/24 14:37 Patient Disposition: Home, Self-Care Activity: may shower and as tolerated Diet: regular Discharge Instructions: Pericarditis: * Do to your diarrhea Cardiology decreased your colchicine to 0.3 daily please take 1/2 tablet twice a day * Follow-up with cardiology and repeat limited echo in 8 weeks Pleural Effusion: * You will need to follow-up with Pulmonology in their clinic in 2 weeks for a follow-up and follow-up Chest X-ray to evaluate for re-accumulation of fluid. * If you experience severe shortness of breath, chest pain, fever or chills please seek medical attention. UTI: * I have prescribed and oral antibiotic please take as indicated How can you care for yourself at home? ? Keep track of any new symptoms or changes in your symptoms. ? Rest until you feel better. ? Be safe with medicines. Take your medicines exactly as prescribed. Call your doctor if you think you are having a problem with your medicine. ? Do not drive after taking a prescription pain medicine. ? Ensure to follow-up with primary care physician as indicated and provide updated medication list provided to you at discharge. When should you call for help? Call 911 anytime you think you may need emergency care. For example, call if: ? You passed out (lost consciousness). Call your doctor now or seek immediate medical care if: ? You have new symptoms like fever, difficulty breathing, Chest pain, vomiting, or rash. ? You have new or different pain. ? You are confused and are having trouble thinking clearly. ? Your symptoms are getting worse. Watch closely for changes in your health, and be sure to contact your doctor if: ? You do not get better as expected. Patient Instructions: Antibiotic Form, Pleural Effusion (DC), Acute Pericarditis (DC) Patient Language: Urdu Stand Alone Forms: General Discharge Information Follow-up/Referrals: Jolly Bauman MD [Primary Care Provider] - Keep Reg. Scheduled Appt. Chloé Pineda APN-C [Advanced Practice Nurse] - 09/22/24 (8 week follow-up will need limited echo) Torin Altman MD [Physician] - 2 Weeks (Pleural effusion ) Discharge Medications: New loperamide 2 mg Capsule 2 mg PO PRN PRN (Reason: Diarrhea) Qty: 1 0RF Rx Instructions: OTC cefdinir 300 mg capsule 300 mg PO Q12H Qty: 8 0RF Continued pantoprazole 40 mg Tablet,Delayed Release (Dr/Ec) 40 mg PO QAM 30 Days Qty: 30 0RF Changed colchicine [Colcrys] 0.6 mg Tablet 0.3 mg PO BID Qty: 60 2RF Rx Instructions: 1/2 tablet Date of admission: 07/27/24 09:17 Primary Care Provider: Jolly Bauman Admitting Provider: Andrez Jarvis Attending physician on admission: Andrez Jarvis Condition: Stable Quality VTE Prophylaxis VTE prophylaxis: mechanical ordered -Patient's previous records reviewed on admission -ER notes reviewed in detail on admission -discussed all findings and current treatment plan with patient/Family/POA -Consultations reviewed for recommendations -Patient's disposition for safe discharge discussed with case work aide Dictation performed by [employer] direct speech recognition software, therefore car shagger variants and typographical errors may occur. Hospitalist MIPS Heart Failure (Exclusion) Patient has history of Heart Transplant or Left Ventricular Assistive Device?: No IF YES, STOP HERE Heart Failure (Qualifier) Patient has current or prior documentation of LVEF less than or equal to 40%, or mod/servere depressed LVSF?: No IF NO, STOP HERE
[2024-07-31 15:22] LABS: Anti Cyclic Citrullinated Pept <16 UNITS
[2024-08-01 12:49] LABS: Albumin Pleural Fluid 2.2 g/dL; Amylase, Pleural Fluid 17 U/L; Glucose Pleural Fluid 105 mg/dL; LDH Pleural Fluid 113 U/L; Total Protein Pleural Fluid 4.5 g/dL
[2024-08-02 20:19] LABS: Immunoglobulin G, Serum 1018 mg/dL (600-1640); Immunoglobulin G1 534 mg/dL (382-929); Immunoglobulin G2 379 mg/dL (241-700); Immunoglobulin G3 58 mg/dL (22-178); Immunoglobulin G4 47.3 mg/dL (4.0-86.0)
== END 2024-07-28 15:54 | disposition home or self-care (01) | DRG 187 ==
LOC: ANHED 12:24 → ANH2MED 15:20
PROVIDERS: Emergency Medicine; Internal Medicine Pulmonary Disease; Physician Assistant; Admitting Provider General Practice; Emergency Provider Student in an Organized Health Care Education/Training Program; PCP Family Medicine; Visit Provider Nurse Practitioner Family
DX: J90 Pleural effusion, not elsewhere classified (principal); I31.39 Other pericardial effusion (noninflammatory); N39.0 Urinary tract infection, site not specified; K52.1 Toxic gastroenteritis and colitis; T50.4X5A Adverse effect of drugs affecting uric acid metabolism, initial encounter; K76.89 Other specified diseases of liver; E55.9 Vitamin D deficiency, unspecified; F41.9 Anxiety disorder, unspecified; Z20.822 Contact with and (suspected) exposure to COVID-19
CPT/HCPCS: 32555; 36415; 71045; 71260; 74177; 80053; 81001; 81025; 82040; 82042; 82150; 82247; 82465; 82784; 82787; 82945; 82947; 83615; 83690; 83735; 83986; 84155; 84157; 84311; 84443; 84478; 85025; 85027; 85610; 85730; 86038; 86200; 86225; 86235; 86364; 86430; 87015; 87070; 87075; 87102; 87116; 87205; 87206; 87637; 88108; 88305; 89051; 93005; 93308; 96361; 96365; 96375; 99285; A9270; G0378; J0696; J7120; Q9967

== ENCOUNTER 2024-07-31 12:05 | Outpatient (CLI) | payer OTHER, SELFPAY ==
--- NOTE | ~2024-07-31 | XR_ITS ---
Clinical Indication: Pleural effusion PA and lateral views of the chest: Comparison: 07/26/2024 Findings: Stable moderate pleural effusion on the left side. No right pleural effusion. Cardiomedias tinal silhouette is within normal limits. Bones and soft tissues are unremarkable. Impression: Stable moderate left pleural effusion. Reviewed, dictated and finalized at location . Impression: Stable moderate left pleural effusion.
--- OUTSIDE RECORDS SUMMARY | 2024-07-31 14:30 | XMS_ITS | Encounter Summary ---
Author Organization [facility] Address [address] [place] [address] Care Team Providers Care Global Marketing Coordinator Name Role Phone Jolly Bauman MD Primary Care Provider [phone] Encounter Details Date Type Department Care Team (Late st Contact Info) Description 07/27/2024 Orders Only [facility] Health Information Management [address] [place] [address] Chloé Pineda NP [address] [facility] [address] [address] Social History Tobacco Use Types Packs/Day Years Used Date Smoking Tobacco: Never Smokeless Tobacco: Never Comments Unknown Sex and Gender Information Value Date Recorded Sex Assigned at Not on file Legal Sex Female 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 Gender Identity Female 12/16/2020 4:04 PM CDT Sexual Orientation Straight 12/16/2020 4: 04 PM CDT documented as of this encounter Plan of Treatment Not on file documented as of this encounter Procedures Procedure Name Priority Date/Time Associated Diagnosis Comments CARDIOLOGY DOCUMENT SCAN 07/27/2024 documented in this encounter Results * Cardiology Document Scan (07/27/2024) Anatomical Region Laterality Modality Other Chloé Pineda NP CV CARDIAC SERVICES PROCEDUR ES Final Result documented in this encounter Visit Diagnoses Not on filedocumented in this encounter Care Teams Global Marketing Coordinator Relationship Specialty Start Date End Date Jolly Bauman MD PCP - General Family Medicine 12/13/20 documented as of this encounter
--- OUTSIDE RECORDS SUMMARY | 2024-07-31 14:30 | XMS_ITS | Encounter Summary ---
Author Organization [facility] Address [address] [place] [address] Care Team Providers Care Buildings And Grounds Director Name Role Phone Jolly Bauman MD Primary Care Provider [phone] Encounter Details Date Type Department Care Team (Late st Contact Info) Description 07/05/2024 Orders Only [facility] Health Information Management [address] [place] [address] Lorraine Nicole MD 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
--- OUTSIDE RECORDS SUMMARY | 2024-07-31 14:30 | XMS_ITS | Clinical Summary ---
Author Organization [facility] Address [address] [place] [address] Care Team Providers Care Food Technologist Name Role Phone Jolly Bauman MD Primary Care Provider [phone] Allergies Active Allergy Reactions Criticality Noted Date [...] Encounters Date Type Department Care Team Description 07/27/2024 Orders Only [facility] Health Information Management [address] [place] [id number] Chloé Pineda NP 07/17/2024 9:00 AM HEAD ATHLETIC TRAINER/STRENGTH COACH Office Visit [facility] Medical [facility] Cardiology [address] [facility] [address] [place] [address] Sophie Quiles NP Pericardial effusion (Primary Dx); Pleural effusion; Hospital discharge follow-up 07/17/2024 Orders Only [facility] Cardiology [address] [place] [address] [address] [place] [phone] Lorraine Nicole MD 07/13/2024 Telephone [facility] Cardiology [address] [place] [address] [address] [place] [phone] Sophie Quiles NP Chest Pain 07/08/2024 Orders Only [facility] Health Information Management [address] [place] [id number] Lorraine Nicole MD 07/05/2024 Orders Only [facility] Health Information Management [address] [place] [id number] Lorraine Nicole MD from Last 3 Months [...] on file Legal Sex Female 8:36 AM HEAD ATHLETIC TRAINER/STRENGTH COACH Gender Identity Female 12/16/2020 4:04 PM CDT Sexual Orientation Straight 12/16/2020 4: 04 PM CDT Obstetrics History Last Filed Vital Signs Vital Sign Reading Time Taken Comments Blood Pressure 118/74 07/17/2024 9:03 AM HEAD ATHLETIC TRAINER/STRENGTH COACH Pulse 115 07/17/2024 9:03 AM HEAD ATHLETIC TRAINER/STRENGTH COACH Temperature - - Respiratory Rate - - Oxygen Saturation 95% 07/17/2024 9:03 AM HEAD ATHLETIC TRAINER/STRENGTH COACH Inhaled Oxygen Concentration - - Weight 77.1 kg (170 lb) 07/17/2024 9:03 AM HEAD ATHLETIC TRAINER/STRENGTH COACH Height 160 cm (5' 3 ) 07/17/2024 9:03 AM HEAD ATHLETIC TRAINER/STRENGTH COACH Body Mass Index 30.11 07/17/2024 9:03 AM HEAD ATHLETIC TRAINER/STRENGTH COACH Plan of Treatment Health Maintenance Due Date [...] Associated Diagnosis Comments CARDIOLOGY DOCUMENT SCAN 07/27/2024 CARDIOLOGY DOCUMENT SCAN Routine 07/08/2024 9:13 AM HEAD ATHLETIC TRAINER/STRENGTH COACH CARDIOLOGY DOCUMENT SCAN 07/08/2024 CARDIOLOGY DOCUMENT SCAN Routine 07/07/2024 3:20 PM HEAD ATHLETIC TRAINER/STRENGTH COACH CARDIOLOGY DOCUMENT SCAN Routine 07/06/2024 9:11 AM HEAD ATHLETIC TRAINER/STRENGTH COACH CARDIOLOGY DOCUMENT SCAN Routine 07/05/2024 9:10 AM HEAD ATHLETIC TRAINER/STRENGTH COACH CARDIOLOGY DOCUMENT SCAN Routine 07/05/2024 9:08 AM HEAD ATHLETIC TRAINER/STRENGTH COACH CARDIOLOGY DOCUMENT SCAN 07/05/2024 CARDIOLOGY DOCUMENT SCAN Routine 07/04/2024 9:07 AM HEAD ATHLETIC TRAINER/STRENGTH COACH CARDIOLOGY DOCUMENT SCAN Routine 07/04/2024 9:04 AM HEAD ATHLETIC TRAINER/STRENGTH COACH SCAN - RADIOLOGY/IMAGING 07/04/2024 from Last 3 Months Results * Cardiology Document Scan (07/27/2024) Anatomical Region Laterality Modality Other us Chloé Pineda NP CV CARDIAC SERVICES PROCEDUR ES Final Result * Cardiology Document Scan (07/08/2024 9:13 AM HEAD ATHLETIC TRAINER/STRENGTH COACH) Anatomical Region Laterality Modality Other us Lazaro Myers MD CV CARDIAC SERVICES PROCEDURES F inal Result * Cardiology Document Scan (07/08/2024) Anatomical Region Laterality Modality Other us Lorraine Nicole MD CV CARDIAC SERVICES PRO CEDURES Final Result * Cardiology Document Scan (07/07/2024 3:20 PM HEAD ATHLETIC TRAINER/STRENGTH COACH) Anatomical Region Laterality Modality Other Lorraine Nicole MD CV CARDIAC SERVICES PRO CEDURES Final Result * Cardiology Document Scan (07/06/2024 9:11 AM HEAD ATHLETIC TRAINER/STRENGTH COACH) Anatomical Region Laterality Modality Other Ed Rankin MD CV CARDIAC SERVICES PROCEDURES F inal Result * Cardiology Document Scan (07/05/2024 9:10 AM HEAD ATHLETIC TRAINER/STRENGTH COACH) Anatomical Region Laterality Modality Other Lorraine Nicole MD CV CARDIAC SERVICES PRO CEDURES Final Result * Cardiology Document Scan (07/05/2024 9:08 AM HEAD ATHLETIC TRAINER/STRENGTH COACH) Anatomical Region Laterality Modality Other Lorraine Nicole MD CV CARDIAC SERVICES PRO CEDURES Final Result * Cardiology Document Scan (07/05/2024) Anatomical Region Laterality Modality Other Lorraine Nicole MD CV CARDIAC SERVICES PRO CEDURES Edited Result - Final * Cardiology Document Scan (07/04/2024 9:07 AM HEAD ATHLETIC TRAINER/STRENGTH COACH) Anatomical Region Laterality Modality Other Lorraine Nicole MD CV CARDIAC SERVICES PRO CEDURES Final Result * Cardiology Document Scan (07/04/2024 9:04 AM HEAD ATHLETIC TRAINER/STRENGTH COACH) Anatomical Region Laterality Modality Other Lorraine Nicole MD CV CARDIAC SERVICES PRO CEDURES Final Result * SCAN - RADIOLOGY/IMAGING (07/04/2024) Anatomical Region Laterality Modality Other Hernan Yusuf MD Final Result from Last 3 Months Insurance [facility] CHOICE PLUS [facility] CHOICE PLUS Care Teams Food Technologist Relationship Specialty Start Date End Date Jolly Bauman MD PCP - General Family Medicine 12/13/20
--- OUTSIDE RECORDS SUMMARY | 2024-07-31 14:31 | XMS_ITS | Referral Summary ---
Author Organization [facility] Address [address] [place] [address] Care Team Providers Care Dog Handler Name Role Phone Jolly Bauman MD Primary Care Provider [phone] Encounters Date Type Department Care Team Description 07/27/2024 Orders Only [facility] [address] [place] [address] Chloé Pineda NP 07/17/2024 Orders Only [facility] Cardiology 10 [facility] [address] [place] [phone] Lorraine Nicole MD 07/17/2024 9:00 AM BARREL FINISHER Office Visit [facility] Cardiology 10 [facility] [address] [place] [phone] Sophie Quiles NP Pericardial effusion (Primary Dx); Pleural effusion; Hospital discharge follow-up 07/13/2024 Telephone [facility] Medical [facility] Cardiology [address] [facility] [address] [place] [phone] Sophie Quiles NP Chest Pain 07/08/2024 Orders Only [facility] [address] [place] [address] Lorraine Nicole MD 07/05/2024 Orders Only [facility] [address] [place] [address] Lorraine Nicole MD from Last 3 Months [...] on file Legal Sex Female 8:36 AM BARREL FINISHER Gender Identity Female 12/16/2020 4:04 PM CDT Sexual Orientation Straight 12/16/2020 4: 04 PM CDT Last Filed Vital Signs Vital Sign Reading Time Taken Comments Blood Pressure 118/74 07/17/2024 9:03 AM BARREL FINISHER Pulse 115 07/17/2024 9:03 AM BARREL FINISHER Temperature - - Respiratory Rate - - Oxygen Saturation 95% 07/17/2024 9:03 AM BARREL FINISHER Inhaled Oxygen Concentration - - Weight 77.1 kg (170 lb) 07/17/2024 9:03 AM BARREL FINISHER Height 160 cm (5' 3 ) 07/17/2024 9:03 AM BARREL FINISHER Body Mass Index 30.11 07/17/2024 9:03 AM BARREL FINISHER Plan of Treatment Not on file Procedures Procedure Name Priority Date/Time Associated Diagnosis Comments CARDIOLOGY DOCUMENT SCAN 07/27/2024 CARDIOLOGY DOCUMENT SCAN Routine 07/08/2024 9:13 AM BARREL FINISHER CARDIOLOGY DOCUMENT SCAN 07/08/2024 CARDIOLOGY DOCUMENT SCAN Routine 07/07/2024 3:20 PM BARREL FINISHER CARDIOLOGY DOCUMENT SCAN Routine 07/06/2024 9:11 AM BARREL FINISHER CARDIOLOGY DOCUMENT SCAN Routine 07/05/2024 9:10 AM BARREL FINISHER CARDIOLOGY DOCUMENT SCAN Routine 07/05/2024 9:08 AM BARREL FINISHER CARDIOLOGY DOCUMENT SCAN 07/05/2024 CARDIOLOGY DOCUMENT SCAN Routine 07/04/2024 9:07 AM BARREL FINISHER CARDIOLOGY DOCUMENT SCAN Routine 07/04/2024 9:04 AM BARREL FINISHER SCAN - RADIOLOGY/IMAGING 07/04/2024 from Last 3 Months Results * Cardiology Document Scan (07/27/2024) Anatomical Region Laterality Modality Other us Chloé Pineda NP CV CARDIAC SERVICES PROCEDUR ES Final Result * Cardiology Document Scan (07/08/2024 9:13 AM BARREL FINISHER) Anatomical Region Laterality Modality Other us Lazaro Myers MD CV CARDIAC SERVICES PROCEDURES F inal Result * Cardiology Document Scan (07/08/2024) Anatomical Region Laterality Modality Other us Lorraine Nicole MD CV CARDIAC SERVICES PRO CEDURES Final Result * Cardiology Document Scan (07/07/2024 3:20 PM BARREL FINISHER) Anatomical Region Laterality Modality Other us Lorraine Nicole MD CV CARDIAC SERVICES PRO CEDURES Final Result * Cardiology Document Scan (07/06/2024 9:11 AM BARREL FINISHER) Anatomical Region Laterality Modality Other us Ed Rankin MD CV CARDIAC SERVICES PROCEDURES F inal Result * Cardiology Document Scan (07/05/2024 9:10 AM BARREL FINISHER) Anatomical Region Laterality Modality Other us Lorraine Nicole MD CV CARDIAC SERVICES PRO CEDURES Final Result * Cardiology Document Scan (07/05/2024 9:08 AM BARREL FINISHER) Anatomical Region Laterality Modality Other us Lorraine Nicole MD CV CARDIAC SERVICES PRO CEDURES Final Result * Cardiology Document Scan (07/05/2024) Anatomical Region Laterality Modality Other Lorraine Nicole MD CV CARDIAC SERVICES PRO CEDURES Edited Result - Final * Cardiology Document Scan (07/04/2024 9:07 AM BARREL FINISHER) Anatomical Region Laterality Modality Other Lorraine Nicole MD CV CARDIAC SERVICES PRO CEDURES Final Result * Cardiology Document Scan (07/04/2024 9:04 AM BARREL FINISHER) Anatomical Region Laterality Modality Other Lorraine Nicole MD CV CARDIAC SERVICES PRO CEDURES Final Result * SCAN - RADIOLOGY/IMAGING (07/04/2024) Anatomical Region Laterality Modality Other Hernan Yusuf MD Final Result from Last 3 Months Insurance [facility] CHO[facility] PLUS [facility] PLUS [facility] PLUS Care Teams Dog Handler Relationship Specialty Start Date End Date Jolly Bauman MD PCP - General Family Medicine 12/13/20
== END 2024-07-31 12:06 | disposition home or self-care (01) ==
PROVIDERS: PCP Family Medicine; Visit Provider Family Medicine
DX: J90 Pleural effusion, not elsewhere classified (principal)
CPT/HCPCS: 71046

== ENCOUNTER 2024-08-23 15:41 | Outpatient (CLI) | payer OTHER, SELFPAY ==
--- NOTE | ~2024-08-23 | XR_ITS ---
CHEST RADIOGRAPH, PA AND LATERAL CLINICAL HISTORY: J90 - Pleural effusion, not elsewhere classified . COMPARISON: 07/31/2024 and dating back to 07/13/2024 TECHNIQUE: PA and lateral views of the chest. FINDINGS The cardiomediastinal silhouette is partially obscured. The right hemithorax is clear. Redemonstration of a large left-sided pleural effusion encompassing nearly the entirety of the left l ower lobe. IMPRESSION: Redemonstration of a large left-sided pleural effusion, as detailed above. Reviewed, dictated and finalized at location A.
--- OUTSIDE RECORDS SUMMARY | 2024-08-23 16:56 | XMS_ITS | Encounter Summary ---
Author Organization [facility] Address [address] [place] [address] Phone Care Team Providers Care Content Strategist Name Role Phone Jolly Bauman MD Primary Care Provider [phone] Reason for Referral * Cardiology (Routine) - Pending Review Specialty Diagnoses / Procedures Referred By Chinyere barba Referred To Contact Diagnoses Pericardial effusion Procedures Transthoracic Echo (TTE) With Bubble Study Edmond Bradford MD 1 [facility] [address] [place] [address] Phone: tel: fax: [address] [phone] Referral ID Status Reason Start Date Expiration Date V isits Requested Visits Authorized [id number] Pending Review 08/22/2024 09/21/2025 1 1 Encounter Details Date Type Department Care Team (Late st Contact Info) Description 08/22/2024 10:45 AM CDT Office Visit [facility] Cardiology [facility] Medical Office Building [address] [place] [address] Andrez Mckoy MD [address] [facility] [address] [place] [address] Pericardial effusion (Primary Dx) Social History Tobacco Use Types Packs/Day Years Used Date Smoking Tobacco: Never Smokeless Tobacco: Never Tobacco Cessation:Counseling Given: Not Answered Comments Unknown Sex and Gender Information Value Date Recorded Sex Assigned at Not on file 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 Gender Identity Female 12/16/2020 4:04 PM CDT Sexual Orientation Straight 12/16/2020 4: 04 PM CDT documented as of this encounter Last Filed Vital Signs Vital Sign Reading Time Taken Comments Blood Pressure 120/68 08/22/2024 10:45 AM CDT Pulse 128 08/22/2024 10:45 AM CDT Temperature - - Respiratory Rate - - Oxygen Saturation 98% 08/22/2024 10: 45 AM CDT Inhaled Oxygen Concentration - - Weight 73.4 kg (161 lb 12.8 oz) 025 10:45 AM CDT Height 160 cm (5' 3 ) 08/22/2024 10:45 AM CDT Body Mass Index 28.66 08/22/2024 10:45 AM CDT documented in this encounter Ordered Prescriptions Prescription Sig Dispense Quantity Refills Last Filled Start Date End Date colchicine (COLCRYS) 0.6 mg tablet Take 0.5 tablets (0.3 mg total) by mouth daily 15 tablet 1 08/22/2024 famotidine (PEPCID) 40 mg tablet Take 1 tablet (40 mg total) by mouth 2 (two) times a day 180 tablet 1 08/22/2024 documented in this encounter Plan of Treatment Scheduled Orders Name Type Priority Associated Diagnoses Order Schedule Transthoracic Echo (TTE) With Bubble Study Echocardiography Routine Pericardial effusion Expected: 11/21/2024, Expires: 11/21/2025 documented as of this encounter Procedures Procedure Name Priority Date/Time Associated Diagnosis Comments ECG 12-LEAD Routine 08/22/2024 10:50 AM CDT Pericardial effusion documented in this encounter Results * (ABNORMAL) Comprehensive metabolic panel (08/22/2024 12:04 PM CDT) Sodium 140 135 - 145 mmol/L Potassium, pl 3.9 3.3 - 4.9 mmol/L [facility] Chloride 103 97 - 110 mmol/L [facility] CO2 21(L) 22 - 32 mmol/L [facility] Anion gap 16(H) 2 - 15 mmol/L [facility] BUN 12 6 - 25 mg/dL [facility] Creatinine 0.59(L) 0.60 - 1.10 mg/dL [facility] Glucose 94 70 - 199 mg/dL [facility] Comment: Interpretive Data Fasting glucose >/= 126 mg/dl is diagnostic for diabetes. Fasting is defined as no caloric intake for at least 8 hours. Fasting glucose between 100 mg/dl to 125 mg/dl is diagnostic of prediabetes. In a patient with classic symptoms of hyperglycemia or hyperglycemic crisis, a random glucose >/= 200 mg/dl is diagnostic for diabetes. In the absence of unequivocal hyperglycemia, results should be confirmed by repeat testing. The classification and Diagnosis of Diabetes Diabetes Care 2021; 46: S19-S40. Current interpretive data was last revised 2022. Calcium 9.9 8.5 - 10.3 mg/dL [facility] Bilirubin, total 0.5 0.1 - 1.2 mg/dL [facility] Protein, pl 8.1 6.5 - 8.5 g/dL [facility] Albumin 3.8 3.5 - 5.0 g/dL [facility] Alk phos 95 40 - 130 Units/L [facility] ALT 13 7 - 45 Units/L [facility] AST 14 10 - 45 Units/L [facility] Blood 08/22/2024 12:0 4 PM CDT 08/22/2024 1:06 PM CDT Edmond Bradford MD LAB BLOOD ORDERABLES Fin al Result [facility] [address] [facility]. [place] [address] * (ABNORMAL) CRP (acute phase) (08/22/2024 12:04 PM CDT) CRP 143.4(H) <=10.0 mg/L Blood 08/22/2024 12:0 4 PM CDT 08/22/2024 1:06 PM CDT Edmond Bradford MD LAB BLOOD ORDERABLES Fin al Result Performing Organization Address [facility] Co de Phone Number [facility] [address] [facility] [place] [address] * (ABNORMAL) Erythrocyte sedimentation rate (08/22/2024 12:04 PM CDT) Pathologist [facility] Erythrocyte sedimentation rate 49(H) 1 - 30 mm/hr Blood 08/22/2024 12:0 4 PM CDT 08/22/2024 1:06 PM CDT Edmond Bradford MD LAB BLOOD ORDERABLES Fin al Result Performing Organization Address [facility] de Phone Number [facility] [address] [facility] [place] [address] * BRIAN ab eval w/reflex (08/22/2024 12:04 PM CDT) Pathologist [facility] BRIAN ab Negative Negative Comment: Interpretive Data Positive Screens will be reflexed to specific testing for Antibodies against the following antigens: Jennifer-1 Ab, CORE COMPOSER FEEDER Ab, Scl-70 Ab, Israel Ab, SS-A/Ro Ab, and SS- B/La Ab. Further testing for dsDNA, Centromere, or Ribosomal P antibodies is suggested in patient with a positive screen and negative specific antibodies. Current interpretive data was last revised on 2022. Testing performed by: [facility], [address] [facility], [place]., [address] Blood 08/22/2024 12:0 4 PM CDT 08/22/2024 4:10 PM CDT Edmond Bradford MD LAB BLOOD ORDERABLES Fin al Result Performing Organization Address [facility] de Phone Number [facility] [address] [facility] [place] [address] * CHERYL ab ql w/rflx to CHERYL qn (08/22/2024 12:04 PM CDT) CHERYL Negative Comment: Interpretive Data Normal range for CHERYL Qualitative Antibody = Negative. 1. CHERYL is performed using indirect immunofluorescence against HEp-2 cells 2. CHERYL titers are performed on all positive qualitative results. 3. A significantly positive CHERYL result is defined as a positive nuclear fluorescence at a titer of 1:80 or greater. 4. 15% of normal people above age 65 have significantly positive CHERYL results. 5% or less of normal people age 65 or under have significantly positive CHERYL results. Current interpretive data was last revised on 2020. Testing performed by: [facility], [address] [place] [address]., [address] Blood 08/22/2024 12:0 4 PM CDT 08/22/2024 4:10 PM CDT Edmond Bradford MD LAB BLOOD ORDERABLES Fin al Result Performing Organization Address [facility] de Phone Number [facility] [address] [facility] [place] [address] * ECG 12 lead (08/22/2024 10:50 AM CDT) Andrez Mckoy MD ECG ORDERABLES Edit ed Result - Final documented in this encounter Visit Diagnoses Diagnosis Pericardial effusion- Primary Unspecified disease of pericardium documented in this encounter Discontinued Medications Medication Sig Discontinue Reason Start Date End Da te cholecalciferol (cholecalciferol) 25 mcg (1,000 unit) tablet Therapy completed 08/22/2024 colchicine (COLCRYS) 0.6 mg tablet Take 1 tablet (0.6 mg total) by mouth 2 (two) times a day Therapy completed 07/08/2024 08/22/2024 ibuprofen (ADVIL,MOTRIN) 600 mg tablet Take 1 tablet (600 mg total) by mouth 3 (three) times a day Therapy completed 07/08/2024 08/22/[address] (PROTONIX) 40 mg EC tablet Take 1 tablet (40 mg total) by mouth daily Therapy completed 07/08/2024 08/22/2024 famotidine (PEPCID) 40 mg tablet Take 1 tablet (40 mg total) by mouth daily 08/22/2024 colchicine (COLCRYS) 0.3 mg split tablet 07/28/2024 08/22/2024 documented as of this encounter Historical Medications * This list may reflect changes made after this encounter. famotidine (PEPCID) 40 mg tablet Take 1 tablet (40 mg total) by mouth daily 08/22/2024 colchicine (COLCRYS) 0.3 mg split tablet 07/28/2024 08/22/2024 added in this encounter Care Teams Content Strategist Relationship Specialty Start Date End Date Jolly Bauman MD PCP - General Family Medicine 12/13/20 documented as of this encounter
--- OUTSIDE RECORDS SUMMARY | 2024-08-23 16:56 | XMS_ITS | Encounter Summary ---
Author Organization [facility] Address [address] [place] [address] Care Team Providers Care Home Lending Officer Name Role Phone Jolly Bauman MD Primary Care Provider [phone] Encounter Details Date Type Department Care Team (Late st Contact Info) Description 08/23/2024 Results Follow-Up [facility] [address] [place] [address] Andrez Mckoy MD [address] [address] Social History Tobacco Use Types Packs/Day Years Used Date Smoking Tobacco: Never Smokeless Tobacco: Never Comments Unknown Sex and Gender Information Value Date Recorded Sex Assigned at Not on file 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
--- OUTSIDE RECORDS SUMMARY | 2024-08-23 16:56 | XMS_ITS | Clinical Summary ---
Author Organization [facility] Address [address] [place] [address] Care Team Providers Care Medical Lab Assistant Name Role Phone Jolly Bauman MD Primary Care Provider [phone] Allergies Active Allergy Reactions Criticality Noted Date Comments Penicillins Hives Medium Reaction: HIVES, Medications famotidine (PEPCID) 40 mg tablet Take 1 tablet (40 mg total) by mouth 2 (two) times a day 180 tablet 1 08/23/19 25 Active colchicine (COLCRYS) 0.6 mg tablet Take 0.5 tablets (0.3 mg total) by mouth daily 15 tablet 1 08/23/19 25 025 Active cholecalcifero l (cholecalcifer ol) 25 mcg (1,000 unit) tablet 025 Discontinued( erapy completed) colchicine (COLCRYS) 0.6 mg tablet Take 1 tablet (0.6 mg total) by mouth 2 (two) times a day 07/08/19 25 025 Discontinued( erapy completed) ibuprofen (ADVIL,MOTRIN) 600 mg tablet Take 1 tablet (600 mg total) by mouth 3 (three) times a day 07/08/19 25 025 Discontinued( erapy completed) pantoprazole DR (PROTONIX) 40 mg EC tablet Take 1 tablet (40 mg total) by mouth daily 07/08/19 25 025 Discontinued(Th erapy completed) colchicine (COLCRYS) 0.3 mg split tablet 07/29/19 25 025 Discontinued famotidine (PEPCID) 40 mg tablet Take 1 tablet (40 mg total) by mouth daily 025 Discontinued Active Problems Problem Noted Date Diagnosed Date Lipoma of left upper extremity 02/13/2021 Left shoulder pain 02/13/2021 Pericardial effusion 12/17/2020 Other chest pain 12/17/2020 Neoplasm of connective and soft tissue 7 Encounters Date Type Department Care Team Description 08/23/2024 Results Follow-Up [facility] [address] [place] [address] Andrez Mckoy MD 08/22/2024 11:50 AM CDT Lab [facility] [address] [place] [address] Pericardial effusion 08/22/2024 10:45 AM CDT Office Visit [facility] Cardiology [facility] [address] [place] [address] Andrez Mckoy MD Pericardial effusion (Primary Dx) 08/14/2024 1:00 PM CDT Ancillary Procedure [facility] Medical [facility] Cardiology [address] [place] [address] [place] [phone] Pericardial effusion 08/14/2024 Results Follow-Up [facility] Cardiology [address] [place] [address] [place] [phone] Sophie Reyes NP Pericardial effusion (Primary Dx) 08/03/2024 Orders Only [facility] Cardiology [address] [place] [address] [place] [phone] Chloé Pineda NP 07/27/[address] [facility] [address] [place] [phone] Chloé Pineda NP 07/17/2024 9:00 AM LOAN SUPERVISOR Office Visit [facility] Cardiology [address] [facility] [address] [place] [phone] Sophie Reyes NP Pericardial effusion (Primary Dx); Pleural effusion; Hospital discharge follow-up 07/17/2024 Orders Only [facility]iology [address] [facility] [address] [place] [phone] Lorraine Nicole MD 07/13/2024 Telephone [facility]iology [address] [place] [address] [address] [place] [phone] Sophie Reyes NP Chest Pain 07/08/[address] [facility] Information Management [address] [place] [address] Lorraine Nicole MD 07/05/[address] [facility] Information Management [address] [place] [phone] Lorraine Nicole MD from Last 3 Months [...] on file Legal Sex Female 8:36 AM LOAN SUPERVISOR Gender Identity Female 12/16/2020 4:04 PM CDT [...] Mass Index 28.66 08/22/2024 10:45 AM CDT Plan of Treatment Health Maintenance Due Date Last Done Comments Breast Cancer Screening-Mammogram 1970 Cervical Cancer Screening 1970 Colon Cancer Screening-Colonoscopy 1970 Depression Screening 1970 Hepatitis C Screening 1970 DTaP/Tdap/Td Vaccine (1 - Tdap) 1981 Hepatitis B Screening 1988 Regular Well Visit/Exam 18-64 1988 Zoster Vaccine (1 of 2) 2020 Covid-19 Vaccine (3 - 2023-2 5 season) 2024 10/31/2020, 10/10/2020 Influenza Vaccine (Season Ended) 2025 Pneumococcal vaccine <65 Aged Out No longer eligible based on patient's age to complete this topic Procedures Procedure Name Priority Date/Time Associated Diagnosis Comments EGFR Routine 08/22/2024 12:04 PM CDT Pericardial effusion CHERYL QUALITATIVE WITH REFLEX TO CHERYL QUANTITATIVE Routine 08/22/2024 12:04 PM CDT Pericardial effusion BRIAN ANTIBODY EVALUATION WITH REFLEX Routine 08/22/2024 12:04 PM CDT Pericardial effusion ERYTHROCYTE SEDIMENTATION RATE Routine 08/22/2024 12:04 PM CDT Pericardial effusion CRP (ACUTE PHASE) Routine 08/22/2024 12: 04 PM CDT Pericardial effusion COMPREHENSIVE METABOLIC PANEL Routine 08/22/2024 12:04 PM CDT Pericardial effusion ECG 12-LEAD Routine 08/22/2024 10:50 AM CDT Pericardial effusion TRANSTHORACIC ECHO (TTE) LIMITED/FOLLOW UP W LTD DOPPLER/CF WO CONTRAST Routine 08/14/2024 1:16 PM CDT Pericardial effusion CARDIOLOGY DOCUMENT SCAN Routine 07/27/2024 10:51 AM CDT CARDIOLOGY DOCUMENT SCAN 07/27/2024 CARDIOLOGY DOCUMENT SCAN Routine 07/08/2024 9:13 AM LOAN SUPERVISOR CARDIOLOGY DOCUMENT SCAN 07/08/2024 CARDIOLOGY DOCUMENT SCAN Routine 07/07/2024 3:20 PM LOAN SUPERVISOR CARDIOLOGY DOCUMENT SCAN Routine 07/06/2024 9:11 AM LOAN SUPERVISOR CARDIOLOGY DOCUMENT SCAN Routine 07/05/2024 9:10 AM LOAN SUPERVISOR CARDIOLOGY DOCUMENT SCAN Routine 07/05/2024 9:08 AM LOAN SUPERVISOR CARDIOLOGY DOCUMENT SCAN 07/05/2024 CARDIOLOGY DOCUMENT SCAN Routine 07/04/2024 9:07 AM LOAN SUPERVISOR CARDIOLOGY DOCUMENT SCAN Routine 07/04/2024 9:04 AM LOAN SUPERVISOR SCAN - RADIOLOGY/IMAGING 07/04/2024 from Last 3 Months Results * CHERYL ab ql w/rflx to CHERYL [...] on 2020. Testing performed by: [facility], [address] [place]., [address] Blood 08/22/2024 12:0 4 PM CDT 08/22/2024 4:10 PM CDT Edmond Bradford MD LAB BLOOD ORDERABLES Fin al Result Performing Organization Address City/State/[facility] [place] Phone Number [facility]IN [facility] [address] [facility]. [place] [address] * eGFR (08/22/2024 12:04 PM CDT) eGFR >90 >=60 mL/min/1. 73 m2 Comment: Interpretive Data Reference Interval Normal >/= 90 mL/min/1.73m2 Mildly decreased* 60 - 89 mL/min/1.73m2 Mildly to moderately decreased 45 - 59 mL/min/1.73m2 Moderately to severely decreased 30 - 44 mL/min/1.73m2 Severely decreased 15 - 29 mL/min/1.73m2 Kidney Failure < 15 mL/min/1.73m2 *Relative to young adult level Estimated glomerular filtration rate is determined by the 2020 CKD-EPI equation recommended by the National Kidney Foundation (A Unifying Approach to GFR Estimation: Recommendations of the NKF-ASK Task Force on Reassessing the Inclusion of Race in Diagnosing Kidney Disease, JASN 2020). The CKD-EPI equation should not be used for patients with unstable renal function and has not been validated in children and those over 70. Current interpretive data was last reviewed 2021. Blood 08/22/2024 12:0 4 PM CDT 08/22/2024 1:06 PM CDT Edmond Bradford MD LAB BLOOD ORDERABLES Fin al Result Performing Organization Address [facility] Co de Phone Number CHIN B[facility] [phone] [employer] [place] [address] * BRIAN ab eval w/reflex (08/22/2024 12:04 PM CDT) BRIAN ab Negative Negative Comment: Interpretive Data Positive Screens will be reflexed to specific testing for Antibodies against the following antigens: Jennifer-1 Ab, AR MANAGER Ab, Scl-70 Ab, Israel Ab, SS-A/Ro Ab, and SS- B/La Ab. Further testing for dsDNA, Centromere, or Ribosomal P antibodies is suggested in patient with a positive screen and negative specific antibodies. Current interpretive data was last revised on 2022. Testing performed by: [facility], [address] [facility] [place] [address] Blood 08/22/2024 12:0 4 PM CDT 08/22/2024 4:10 PM CDT Edmond Bradford MD LAB BLOOD ORDERABLES Fin al Result Performing Organization Address [facility] Co de Phone Number CHIN B[facility] [phone] [employer] [address] * (ABNORMAL) Erythrocyte sedimentation rate (08/22/2024 12:04 PM CDT) Pathologist [facility] Erythrocyte sedimentation rate 49(H) 1 - 30 mm/hr Blood 08/22/2024 12:0 4 PM CDT 08/22/2024 1:06 PM CDT Edmond Bradford MD LAB BLOOD ORDERABLES Fin al Result Performing Organization Address [facility] de Phone Number [facility] [address] [facility] [place] [address] * (ABNORMAL) CRP (acute phase) (08/22/2024 12:04 PM CDT) [facility] CRP 143.4(H) <=10.0 mg/L Blood 08/22/2024 12:0 4 PM CDT 08/22/2024 1:06 PM CDT Edmond Bradford MD LAB BLOOD ORDERABLES Fin al Result Performing Organization Address [facility] de Phone Number [facility] [address] [facility] [place] [address] * (ABNORMAL) Comprehensive metabolic panel (08/22/2024 12:04 PM CDT) Pathologist [facility] Sodium 140 135 - 145 mmol/L Potassium, pl 3.9 3.3 - 4.9 mmol/L [facility] Chloride 103 97 - 110 mmol/L [facility] CO2 21(L) 22 - 32 mmol/L [facility] Anion gap 16(H) 2 - 15 mmol/L [facility] BUN 12 6 - 25 mg/dL [facility] Creatinine 0.59(L) 0.60 - 1.10 mg/dL [facility] Glucose 94 70 - 199 mg/dL [facility] Comment: Interpretive Data Fasting glucose >/= 126 [...] ORDERABLES Fin al Result Performing Organization Address City/State/[facility] Co de Phone Number CHIN REIS [address] [facility]. [place] [address] * ECG 12 lead (08/22/2024 10:50 AM CDT) Andrez Mckoy MD ECG ORDERABLES Edit ed Result - Final * TRANSTHORACIC ECHO (TTE) LIMITED/FOLLOW UP W LTD DOPPLER/CF WO CONTRAST (08/14/2024 1:16 PM CDT) LV EF 60-65 % CONS SCIMAGE Anatomical Region Laterality Modality Ultrasound 08/14/2024 12:5 3 PM CDT Narrative 08/14/2024 1:48 PM CDT [facility] Medical Group Cardiology [address], [place] [address] [address] [facility] [address], [place] [address] P:[phone] P:[phone] Echocardiographic Report Patient Name: JORDAN LÓPEZ M : 1970 Study Date: 08/14/2024 12:53:06 PM Gender: F Tech: Location: [facility] Provider: SOPHIE REYES Height(Cm): 160 BSA: 1.85 Weight(Kg): 77.1 Heart Rate: 95 BP: 118 / 74 Quality: Good Order Provider: SOPHIE REYES PROCEDURES: Echocardiographic Report: Limited Transthoracic echocardiogram with 2D, M-Mode imaging. With Strain Analysis. INDICATIONS: I31.39 Other pericardial effusion (noninflammatory). MEASUREMENTS: 2D/MM Value Range EF Mod BP 63 % [ 54 - 74 ] EF Teich MM 51 % [ 54 - 74 ] Estimated EF 60-65 % LVIDd 2D 4.05 cm [ 3.80 - 5.20 ] LVIDd MM 6.03 cm [ 3.80 - 5.20 ] LVIDs 2D 2.74 cm [ 2.20 - 3.50 ] LVIDs MM 4.44 cm [ 2.20 - 3.50 ] LVPWd MM 0.92 cm [ 0.60 - 0.90 ] IVSd 2D 0.97 cm [ 0.60 - 0.90 ] IVSd MM 1.16 cm [ 0.60 - 0.90 ] LA Dimension MM 3.11 cm [ 2.70 - 3.80 ] AoR Diam MM 3.52 cm [ 2.70 - 3.70 ] LA Volume Index 19 cc/m2 [ 16 - 34 ] 2D/MM Value Range - FINDINGS: Interpretation Site: Exam was interpreted at [facility]. Left Ventricle: Normal left ventricular systolic function. No focal wall motion abnormalities. Normal left ventricular size. Mild concentric left ventricular hypertrophy. Ejection fraction is measured at 63 %. Ejection Fraction is visually estimated to be 60-65 %. Global Longitudinal Strain is -17 %. GLS is borderline. Right Ventricle: Normal right ventricular size. Normal right ventricular systolic function. Left Atrium: There is mild enlargement of left atrium. Right Atrium: The right atrium is normal in size. Atrial Septum: Normal atrial septum. Mitral Valve: Normal appearance of the mitral valve. Aortic Valve: Aortic cusps appear mildly sclerotic. Trileaflet aortic valve. Tricuspid Valve: Normal appearance of the tricuspid valve. Pulmonic Valve: Normal appearance of the pulmonic valve. Pericardium: Moderate pericardial effusion. Echogenic material seen within the pericardial space. Thickened pericardium. Pleural effusion is seen on also. Aorta: Normal aortic root. IVC: Normal size and normal respiratory collapse consistent with normal right atrial pressure (<5 mmHg). CONCLUSIONS: Normal left ventricular systolic function. No focal wall motion abnormalities. Normal left ventricular size. Mild concentric left ventricular hypertrophy. Ejection fraction is measured at 63 %. Ejection Fraction is visually estimated to be 60-65 %. Global Longitudinal Strain is -17 %. GLS is borderline. There is mild enlargement of left atrium. Moderate pericardial effusion. Echogenic material seen within the pericardial space. Thickened pericardium. Significant pleural effusion is seen on also. No clear evidence of tamponade physiology. Normal sinus rhythm. Echolucency seen in the liver. Possible hepatic cyst but dedicated liver imaging/ultrasound recommended. Electronically Signed By: Ok Rodriguez MD 08/14/2024 1:47:34 PM CDT Procedure Note Ok Rodriguez MD - 08/14/2024 [facility] Medical Group Cardiology [address] [facility] [address] [address] [address] [facility] [address] [address] P:[phone] P:[phone] Echocardiographic Report Patient Name: JORDAN LÓPEZ M : 1970 Study Date: 08/14/2024 12:53:06 PM Gender: F Tech: Location: [place] Ref Provider: ERICSOPHIE Height(Cm): 160 BSA: 1.85 Weight(Kg): 77.1 Heart Rate: 95 BP: 118 / 74 Quality: Good Order Provider: ERICSOPHIE PROCEDURES: Echocardiographic Report: Limited Transthoracic echocardiogram with 2D, M-Mode imaging. With StrainAnalysis. INDICATIONS: I31.39 Other pericardial effusion (noninflammatory). MEASUREMENTS: 2D/MM Value Range EF Mod BP 63 % [ 54 - 74 ] EF Teich MM 51 % [ 54 - 74 ] Estimated EF 60-65 % LVIDd 2D 4.05 cm [ 3.80 - 5.20 ] LVIDd MM 6.03 cm [ 3.80 - 5.20 ] LVIDs 2D 2.74 cm [ 2.20 - 3.50 ] LVIDs MM 4.44 cm [ 2.20 - 3.50 ] LVPWd MM 0.92 cm [ 0.60 - 0.90 ] IVSd 2D 0.97 cm [ 0.60 - 0.90 ] IVSd MM 1.16 cm [ 0.60 - 0.90 ] LA Dimension MM 3.11 cm [ 2.70 - 3.80 ] AoR Diam MM 3.52 cm [ 2.70 - 3.70 ] LA Volume Index 19 cc/m2 [ 16 - 34 ] 2D/MM Value Range - FINDINGS: Interpretation Site: Exam was interpreted at [facility]. Left Ventricle: Normal left ventricular systolic function. No focal wall motionabnormalities. Normal left ventricular size. Mild concentric left ventricular hypertrophy.Ejection fraction is measured at 63 %. Ejection Fraction is visually estimated to be 60-65 %.Global Longitudinal Strain is -17 %. GLS is borderline. Right Ventricle: Normal right ventricular size. Normal right ventricular systolicfunction. Left Atrium: There is mild enlargement of left atrium. Right Atrium: The right atrium is normal in size. Atrial Septum: Normal atrial septum. Mitral Valve: Normal appearance of the mitral valve. Aortic Valve: Aortic cusps appear mildly sclerotic. Trileaflet aortic valve. Tricuspid Valve: Normal appearance of the tricuspid valve. Pulmonic Valve: Normal appearance of the pulmonic valve. Pericardium: Moderate pericardial effusion. Echogenic material seen within thepericardial space. Thickened pericardium. Pleural effusion is seen on also. Aorta: Normal aortic root. IVC: Normal size and normal respiratory collapse consistent with normal rightatrial pressure (<5 mmHg). CONCLUSIONS: Normal left ventricular systolic function. No focal wall motionabnormalities. Normal left ventricular size. Mild concentric left ventricular hypertrophy.Ejection fraction is measured at 63 %. Ejection Fraction is visually estimated to be 60-65 %.Global Longitudinal Strain is -17 %. GLS is borderline. There is mild enlargement of left atrium. Moderate pericardial effusion. Echogenic material seen within thepericardial space. Thickened pericardium. Significant pleural effusion is seen on also. Noclear evidence of tamponade physiology. Normal sinus rhythm. Echolucency seen in the liver. Possible hepatic cyst but dedicated liver imaging/ultrasound recommended. Electronically Signed By: Ok Rodriguez MD 08/14/2024 1:47:34 PM CDT Result [facility] Sophie Reyes NP CV ECHO PROCEDURES Final Result * Cardiology Document Scan (07/27/2024 10:51 AM CDT) Anatomical Region Laterality Modality Other Chloé Pineda NP CV CARDIAC SERVICES PROCEDUR ES Final Result * Cardiology Document Scan (07/27/2024) Anatomical Region Laterality Modality Other Chloé Pineda NP CV CARDIAC SERVICES PROCEDUR ES Final Result * Cardiology Document Scan (07/08/2024 9:13 AM LOAN SUPERVISOR) Anatomical Region Laterality Modality Other Lazaro Myers MD CV CARDIAC SERVICES PROCEDURES F inal Result * Cardiology Document Scan (07/08/2024) Anatomical Region Laterality Modality Other Lorraine Nicole MD CV CARDIAC SERVICES PRO CEDURES Final Result * Cardiology Document Scan (07/07/2024 3:20 PM LOAN SUPERVISOR) Anatomical Region Laterality Modality Other Lorraine Nicole MD CV CARDIAC SERVICES PRO CEDURES Final Result * Cardiology Document Scan (07/06/2024 9:11 AM LOAN SUPERVISOR) Anatomical Region Laterality Modality Other Ed Rankin MD CV CARDIAC SERVICES PROCEDURES F inal Result * Cardiology Document Scan (07/05/2024 9:10 AM LOAN SUPERVISOR) Anatomical Region Laterality Modality Other Lorraine Nicole MD CV CARDIAC SERVICES PRO CEDURES Final Result * Cardiology Document Scan (07/05/2024 9:08 AM LOAN SUPERVISOR) Anatomical Region Laterality Modality Other Result [facility] Lroraine Nicole MD CV CARDIAC SERVICES PRO CEDURES Final Result * Cardiology Document Scan (07/05/2024) Anatomical Region Laterality Modality Other Lorraine Nicole MD CV CARDIAC SERVICES PRO CEDURES Edited Result - Final * Cardiology Document Scan (07/04/2024 9:07 AM LOAN SUPERVISOR) Anatomical Region Laterality Modality Other Lorraine Nicole MD CV CARDIAC SERVICES PRO CEDURES Final Result * Cardiology Document Scan (07/04/2024 9:04 AM LOAN SUPERVISOR) Anatomical Region Laterality Modality Other Lorraine Nicole MD CV CARDIAC SERVICES PRO CEDURES Final Result * SCAN - RADIOLOGY/IMAGING (07/04/2024) Anatomical Region Laterality Modality Other Hernan Yusuf MD Edited Result - Final from Last 3 Months Insurance [place] [id number] [facility] CHOICE PLUS Care Teams Medical Lab Assistant Relationship Specialty Start Date End Date Jolly Bauman MD PCP - General Family Medicine 12/13/20
--- OUTSIDE RECORDS SUMMARY | 2024-08-23 16:56 | XMS_ITS | Encounter Summary ---
Author Organization [facility] Address [address] [place] [address] Care Team Providers Care Process Architect Name Role Phone Jolly Bauman MD Primary Care Provider [phone] Encounter Details Date Type Department Care Team (Late st Contact Info) Description 08/22/2024 11:50 AM CDT Lab [facility] [address] [place] [address] Pericardial effusion Social History Tobacco Use Types Packs/Day Years Used Date Smoking Tobacco: Never Smokeless Tobacco: Never Comments Unknown Sex and Gender Information Value Date Recorded Sex Assigned at Not on file Legal Sex Female 8:36 AM CLINICAL DIETICIAN Gender Identity Female 12/16/2020 4:04 PM CDT Sexual Orientation Straight 12/16/2020 4: 04 PM CDT documented as of this encounter Plan of Treatment Not on file documented as of this encounter Procedures Procedure Name Priority Date/Time Associated Diagnosis Comments CHERYL QUALITATIVE WITH REFLEX TO CHERYL QUANTITATIVE Routine 08/22/2024 12:04 PM CDT Pericardial effusion EGFR Routine 08/22/2024 12:04 PM CDT Pericardial effusion BRIAN ANTIBODY EVALUATION WITH REFLEX Routine 08/22/2024 12:04 PM CDT Pericardial effusion ERYTHROCYTE SEDIMENTATION RATE Routine 08/22/2024 12:04 PM CDT Pericardial effusion CRP (ACUTE PHASE) Routine 08/22/2024 12: 04 PM CDT Pericardial effusion COMPREHENSIVE METABOLIC PANEL Routine 08/22/2024 12:04 PM CDT Pericardial effusion documented in this encounter Results * eGFR (08/22/2024 12:04 PM CDT) eGFR [...] 4 PM CDT 08/22/2024 1:06 PM CDT us Edmond Bradford MD LAB BLOOD ORDERABLES Fin al Result [facility] [address] [facility]. Department [place] [address] * CHERYL ab ql w/rflx to CHERYL [...] last revised on 2020. Testing performed by: [facility], [address] [place] [address]., [id number] Blood 08/22/2024 12:0 4 PM CDT 08/22/2024 4:10 PM CDT Edmond Bradford MD LAB BLOOD ORDERABLES Fin al Result Performing Organization Address [facility] de Phone Number [facility] [address] [place] [facility] [address] * BRIAN ab eval w/reflex (08/22/2024 12:04 PM CDT) BRIAN ab Negative Negative Comment: Interpretive Data Positive Screens will be reflexed to specific testing for Antibodies against the following antigens: Jennifer-1 Ab, COVERAGE SPECIALIST RN Ab, Scl-70 Ab, Israel Ab, SS-A/Ro Ab, and SS- B/La Ab. Further testing for dsDNA, Centromere, or Ribosomal P antibodies is suggested in patient with a positive screen and negative specific antibodies. Current interpretive data was last revised on 2022. Testing performed by: [facility], [address] [place] [address]., [id number] Blood 08/22/2024 12:0 4 PM CDT 08/22/2024 4:10 PM CDT Edmond Bradford MD LAB BLOOD ORDERABLES Fin al Result Performing Organization Address [facility] Co de Phone Number [facility] [address] [facility] [place] [address] * (ABNORMAL) Erythrocyte sedimentation rate (08/22/2024 12:04 PM CDT) Pathologist [facility] Erythrocyte sedimentation rate 49(H) 1 - 30 mm/hr Blood 08/22/2024 12:0 4 PM CDT 08/22/2024 1:06 PM CDT Edmond Bradford MD LAB BLOOD ORDERABLES Fin al Result Performing Organization Address [facility] de Phone Number [facility] [address] [facility] [employer] [place], [place] [id number] * (ABNORMAL) CRP (acute phase) (08/22/2024 12:04 PM CDT) [facility] CRP 143.4(H) <=10.0 mg/L Blood 08/22/2024 12:0 4 PM CDT 08/22/2024 1:06 PM CDT Edmond Bradford MD LAB BLOOD ORDERABLES Fin al Result Performing Organization Address [facility] de Phone Number [facility] [address] [facility] [place] [address] * (ABNORMAL) Comprehensive metabolic panel (08/22/2024 12:04 PM CDT) [facility] Sodium 140 135 - 145 mmol/L Potassium, pl 3.9 3.3 - 4.9 mmol/L [facility] Chloride 103 97 - 110 mmol/L [facility] CO2 21(L) 22 - 32 mmol/L [facility] Anion gap 16(H) 2 - 15 mmol/L [facility] BUN 12 6 - 25 mg/dL [facility] Creatinine 0.59(L) 0.60 - 1.10 mg/dL [facility] Glucose 94 70 - 199 mg/dL [facility] Comment: Interpretive Data Fasting glucose >/= 126 [...] ORDERABLES Fin al Result Performing Organization Address City/State/[facility] Co ms Phone Number [facility] [address] [facility] Department [place] [address] documented in this encounter Visit Diagnoses Diagnosis Pericardial effusion Unspecified disease of pericardium documented in this encounter Care Teams Process Architect Relationship Specialty Start Date End Date Jolly Bauman MD PCP - General Family Medicine 12/13/20 documented as of this encounter
--- OUTSIDE RECORDS SUMMARY | 2024-08-23 16:56 | XMS_ITS | Encounter Summary ---
Author Organization [facility] Address [address] [place] [address] Care Team Providers Care Ore Miner Name Role Phone Jolly Bauman MD Primary Care Provider [phone] Encounter Details Date Type Department Care Team (Late st Contact Info) Description 07/05/2024 Orders Only [facility] Health Information Management [address] [place] [address] Lorraine Nicole MD 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
--- OUTSIDE RECORDS SUMMARY | 2024-08-23 16:56 | XMS_ITS | Referral Summary ---
Author Organization [facility] Address [address] [place] [address] Care Team Providers Care Supervisor Garage Name Role Phone Jolly Bauman MD Primary Care Provider [phone] Encounters Date Type Department Care Team Description 08/23/2024 Results Follow-Up [facility] [address] [place] [phone] Andrez Mckoy MD 08/22/2024 11:50 AM CDT Lab [facility] [address] [place] [address] Pericardial effusion 08/22/2024 10:45 AM CDT Office Visit [facility] Cardiology [address] [place] [address] Medical Office Building [address] [place] [phone] Andrez Mckoy MD Pericardial effusion (Primary Dx) 08/14/2024 Results Follow-Up [facility] Cardiology [address] [place] [phone] Sophie Reyes NP Pericardial effusion (Primary Dx) 08/14/2024 1:00 PM CDT Ancillary Procedure [facility] Medical [facility] Cardiology [address] [place] [address] Pericardial effusion 08/03/2024 Orders Only [facility] Cardiology [address] [place] [address] [place] [phone] Chloé Pnieda NP 07/27/2024 Orders Only [facility] Health Information Management [address] [place] [address] Chloé Pineda NP 07/17/2024 Orders Only [facility] Cardiology [address] [place] [address] [place] [phone] Lroraine Nicole MD 07/17/2024 9:00 AM PATIENT COORDINATOR Office Visit [facility] Cardiology [address] [place] [address] [place] [phone] Sophie Reyes NP Pericardial effusion (Primary Dx); Pleural effusion; Hospital discharge follow-up 07/13/2024 Telephone [facility] Cardiology [address] [place] [address] [place] [phone] Sophie Reyes NP Chest Pain 07/08/2024 Orders Only [facility] Health Information Management [address] [place] [address] Lorraine Nicole MD 07/05/2024 Orders Only [facility] Health Information Management [address] [place] [address] Lorraine Nicole MD from Last 3 Months [...] total) by mouth daily 07/08/19 25 025 Discontinued( erapy completed) colchicine (COLCRYS) 0.3 mg split [...] on file Legal Sex Female 8:36 AM PATIENT COORDINATOR Gender Identity Female 12/16/2020 4:04 PM CDT [...] 08/22/2024 10:45 AM CDT Plan of Treatment Not on file Procedures [...] CARDIOLOGY DOCUMENT SCAN Routine 07/08/2024 9:13 AM PATIENT COORDINATOR CARDIOLOGY DOCUMENT SCAN 07/08/2024 CARDIOLOGY DOCUMENT SCAN Routine 07/07/2024 3:20 PM PATIENT COORDINATOR CARDIOLOGY DOCUMENT SCAN Routine 07/06/2024 9:11 AM PATIENT COORDINATOR CARDIOLOGY DOCUMENT SCAN Routine 07/05/2024 9:10 AM PATIENT COORDINATOR CARDIOLOGY DOCUMENT SCAN Routine 07/05/2024 9:08 AM PATIENT COORDINATOR CARDIOLOGY DOCUMENT SCAN 07/05/2024 CARDIOLOGY DOCUMENT SCAN Routine 07/04/2024 9:07 AM PATIENT COORDINATOR CARDIOLOGY DOCUMENT SCAN Routine 07/04/2024 9:04 AM PATIENT COORDINATOR SCAN - RADIOLOGY/IMAGING 07/04/2024 from Last 3 [...] last revised on 2020. Testing performed by: [facility], [address] [place]., [address] Blood 08/22/2024 12:0 4 PM CDT 08/22/2024 4:10 PM CDT Edmond Bradford MD LAB BLOOD ORDERABLES Fin al Result Performing Organization Address City/[facility] Co de Phone Number [facility] [address] [address] Department [place] [address] * eGFR (08/22/2024 12:04 PM CDT) eGFR [...] LAB BLOOD ORDERABLES Fin al Result [facility] [address] [facility] [place] [address] * BRIAN ab eval w/reflex (08/22/2024 12:04 PM CDT) Pathologist [facility] BRIAN ab Negative Negative Comment: Interpretive Data Positive Screens will be reflexed to specific testing for Antibodies against the following antigens: Jennifer-1 Ab, COOKING APPLIANCE REPAIR TECHNICIAN Ab, Scl-70 Ab, Israel Ab, SS-A/Ro Ab, and SS- B/La Ab. Further testing for dsDNA, Centromere, or Ribosomal P antibodies is suggested in patient with a positive screen and negative specific antibodies. Current interpretive data was last revised on 2022. Testing performed by: [facility], [address] [place]., [address] Blood 08/22/2024 12:0 4 PM CDT 08/22/2024 4:10 PM CDT Edmond Bradford MD LAB BLOOD ORDERABLES Fin al Result Performing Organization Address City/[facility]/ZIP Co de Phone Number [facility] [address] [address] [employer]. [facility] [place] [address] * (ABNORMAL) Erythrocyte sedimentation rate (08/22/2024 12:04 PM CDT) Pathologist [facility] Erythrocyte sedimentation rate 49(H) 1 - 30 mm/hr Blood 08/22/2024 12:0 4 PM CDT 08/22/2024 1:06 PM CDT Edmond Bradford MD LAB BLOOD ORDERABLES Fin al Result [facility] [address] [facility] [place] [address] * (ABNORMAL) CRP (acute phase) (08/22/2024 12:04 PM CDT) Pathologist [facility] CRP 143.4(H) <=10.0 mg/L Blood 08/22/2024 12:0 4 PM CDT 08/22/2024 1:06 PM CDT Edmond Bradford MD LAB BLOOD ORDERABLES Fin al Result [facility] [address] [facility]. Department [place] [address] * (ABNORMAL) Comprehensive metabolic panel (08/22/2024 12:04 [...] LAB BLOOD ORDERABLES Fin al Result [facility] [address] [facility] Department [place] [address] * ECG 12 lead (08/22/2024 10:50 AM CDT) Andrez Mckoy MD ECG ORDERABLES Edit ed Result - Final * TRANSTHORACIC ECHO (TTE) LIMITED/FOLLOW UP W LTD DOPPLER/CF WO CONTRAST (08/14/2024 1:16 PM CDT) LV EF 60-65 % CONS SCIMAGE Anatomical Region Laterality Modality Ultrasound 08/14/2024 12:5 3 PM CDT Narrative 08/14/2024 1:48 PM CDT [facility] Cardiology [address] [facility] [address] [address] [address] [facility] [address], [place] [address] P:[phone] P:[phone] Echocardiographic Report Patient Name: JORDAN LÓPEZ M : 1970 Study Date: 08/14/2024 12:53:06 PM Gender: F Tech: Location: [place] Ref Provider: SOPHIE REYES Height(Cm): 160 BSA: 1.85 [...] FINDINGS: Interpretation Site: Exam was interpreted at [facility]. Left Ventricle: Normal left ventricular systolic function. [...] Procedure Note Ok Rodriguez MD - 08/14/2024 [facility] Cardiology [address] [facility] [address] [address] [address] [facility] [address], [place] [address] P:[phone] P:[phone] Echocardiographic Report Patient Name: JORDAN LÓPEZ M : 1970 Study Date: 08/14/2024 12:53:06 PM Gender: F Tech: Location: [facility] Provider: SOPHIE REYES Height(Cm): 160 BSA: 1.85 [...] FINDINGS: Interpretation Site: Exam was interpreted at [facility]. Left Ventricle: Normal left ventricular systolic function. [...] liver imaging/ultrasound recommended. Electronically Signed By: Ok Rdoriguez MD 08/14/2024 1:47:34 PM CDT Sophie Reyes NP CV ECHO PROCEDURES Final Result * Cardiology Document Scan (07/27/2024 10:51 AM CDT) Anatomical Region Laterality Modality Other Chloé Pineda NP CV CARDIAC SERVICES PROCEDUR ES Final Result * Cardiology Document Scan (07/27/2024) Anatomical Region Laterality Modality Other Chloé Pineda NP CV CARDIAC SERVICES PROCEDUR ES Final Result * Cardiology Document Scan (07/08/2024 9:13 AM PATIENT COORDINATOR) Anatomical Region Laterality Modality Other Lazaro Myers MD CV CARDIAC SERVICES PROCEDURES F inal Result * Cardiology Document Scan (07/08/2024) Anatomical Region Laterality Modality Other Lorraine Nicole MD CV CARDIAC SERVICES PRO CEDURES Final Result * Cardiology Document Scan (07/07/2024 3:20 PM PATIENT COORDINATOR) Anatomical Region Laterality Modality Other Lorraine Nicole MD CV CARDIAC SERVICES PRO CEDURES Final Result * Cardiology Document Scan (07/06/2024 9:11 AM PATIENT COORDINATOR) Anatomical Region Laterality Modality Other Ed Rankin MD CV CARDIAC SERVICES PROCEDURES F inal Result * Cardiology Document Scan (07/05/2024 9:10 AM PATIENT COORDINATOR) Anatomical Region Laterality Modality Other Lorraine Nicole MD CV CARDIAC SERVICES PRO CEDURES Final Result * Cardiology Document Scan (07/05/2024 9:08 AM PATIENT COORDINATOR) Anatomical Region Laterality Modality Other Lorraine Nicole MD CV CARDIAC SERVICES PRO CEDURES Final Result * Cardiology Document Scan (07/05/2024) Anatomical Region Laterality Modality Other Lorraine Nicole MD CV CARDIAC SERVICES PRO CEDURES Edited Result - Final * Cardiology Document Scan (07/04/2024 9:07 AM PATIENT COORDINATOR) Anatomical Region Laterality Modality Other Lorraine Nicole MD CV CARDIAC SERVICES PRO CEDURES Final Result * Cardiology Document Scan (07/04/2024 9:04 AM PATIENT COORDINATOR) Anatomical Region Laterality Modality Other Lorraine Nicole MD CV CARDIAC SERVICES PRO CEDURES Final Result * SCAN - RADIOLOGY/IMAGING (07/04/2024) Anatomical Region Laterality Modality Other Hernan Yusuf MD Edited Result - Final from Last 3 Months Insurance [facility] [employer] Address: [facility] [address] [place] [address] [employer] Address: [address] [place] [address] [facility] [employer]PPO Address: [address] [place] [id number] [facility] [employer] [employer]O Address: [facility] [address] [place] [address] Care Teams Supervisor Garage Relationship Specialty Start Date End Date Jolly Bauman MD PCP - General Family Medicine 12/13/20
== END 2024-08-23 15:42 | disposition home or self-care (01) ==
PROVIDERS: PCP Family Medicine; Visit Provider Internal Medicine Pulmonary Disease
DX: J90 Pleural effusion, not elsewhere classified (principal)
CPT/HCPCS: 71046

== ENCOUNTER 2024-08-28 09:25 | Outpatient (CLI) | payer OTHER, SELFPAY ==
--- NOTE | ~2024-08-28 | MM_ITS ---
EXAMINATION: MM screening ailyn BI w nancy HISTORY: Screening TECHNIQUE: Craniocaudal and mediolateral oblique 3-D tomosynthesis images were obtained and synthetic 2-D images were generated. CAD analysis was submitted and interpreted. COMPARISON: Comparison to multiple prior studies sequentially, with oldest reviewed study dated 2020. BREAST PARENCHYMAL COMPOSITION: The breasts are heterogeneously dense, which may obscure small masses . FINDINGS: In the upper central left breast, posterior third there are new asymmetries. The right elda st is stable without evidence for malignancy. IMPRESSION: 1. New left breast asymmetries upper central breast, posterior third. 2. Additional mammographic views and possible breast ultrasound are recommended. BI-RADS Category 0: Incomplete: Needs additional imaging evaluation. Reviewed, dictated and finalized at location B. IMPRESSION: 1. New left breast asymmetries upper central breast, posterior third. 2. Additional mammographic views and possible breast ultrasound are recommended . BI-RADS Category 0: Incomplete: Needs additional imaging evaluation.
== END 2024-08-28 09:26 | disposition home or self-care (01) ==
LOC: MICIMG 09:26
PROVIDERS: PCP Family Medicine; Visit Provider Obstetrics & Gynecology Gynecology
DX: Z12.31 Encounter for screening mammogram for malignant neoplasm of breast (principal); R92.8 Other abnormal and inconclusive findings on diagnostic imaging of breast
CPT/HCPCS: 77063; 77067

== ENCOUNTER 2024-09-19 11:08 | Outpatient (CLI) | payer OTHER, SELFPAY ==
--- NOTE | ~2024-09-19 | MMUS_ITS ---
EXAMINATION: MM diagnostic ailyn LT w nancy, US breast LT limited HISTORY: Follow-up left breast asymmetry TECHNIQUE: Additional 3-D tomosynthesis images of the left breast were performed and synthetic 2-D im ages were generated. CAD analysis was submitted and interpreted. High resolution breast ultrasound wa s performed. COMPARISON: Comparison to multiple prior studies sequentially, with oldest reviewed study dated 07/2020. BREAST PARENCHYMAL COMPOSITION: Not dense: There are scattered areas of fibroglandular density. FINDINGS: MAMMOGRAPHIC FINDINGS: Asymmetry in the upper central aspect of the left breast compresses with spot views, compatible with superimposed fibroglandular tissue. No discrete mass, architectural distortion or suspicious cluster of microcalcifications is identified. ULTRASOUND: Limited left breast ultrasound: At 11:00, 6 cm from the nipple there is a 5 mm simple cyst. At 9:00, 2 cm from the nipple there is a 3 mm cyst. No suspicious masses to suggest malignancy. IMPRESSION: 1. No evidence for malignancy in the left breast. 2. Routine yearly screening mammogram and regular clinical breast examination are recommended. BI-RADS Category 2: Benign finding(s). Reviewed, dictated and finalized at location A. IMPRESSION: 1. No evidence for malignancy in the left breast. 2. Routine yearly screening mammogram and regular clinical breast examination a re recommended. BI-RADS Category 2: Benign finding(s).
== END 2024-09-19 11:09 | disposition home or self-care (01) ==
LOC: MICIMG 11:08
PROVIDERS: PCP Family Medicine; Visit Provider Obstetrics & Gynecology Gynecology
DX: R92.8 Other abnormal and inconclusive findings on diagnostic imaging of breast (principal)
CPT/HCPCS: 76642; 77061; 77065; G0279

== ENCOUNTER 2024-11-22 10:21 | Outpatient (CLI) | payer OTHER, SELFPAY ==
--- NOTE | ~2024-11-22 | XR_ITS ---
Clinical Indication: Pleural effusion PA and lateral views of the chest: Comparison: 08/23/2024 Findings: The lungs are clear, without evidence of focal consolidation or pleural effusion. Cardiome diastinal silhouette is within normal limits. Bones and soft tissues are unremarkable. Impression: Normal chest. Previously noted left pleural effusion is resolved. Reviewed, dictated and finalized at location . Impression: Normal chest. Previously noted left pleural effusion is resolved.
--- OUTSIDE RECORDS SUMMARY | 2024-11-22 10:33 | XMS_ITS | Referral Summary ---
Author Organization [facility] Address [address] [place] [phone] Care Team Providers Care Refractive Surgeon Name Role Phone Jolly Bauman MD Primary Care Provider [phone] Encounters Date Type Department Care Team Description 10/24/2024 Telephone [facility] Cardiology [facility] Medical Office Building [address] [place] [address] Loree Kaiser 09/20/2024 Results Follow-Up [facility] Rheumatology [address] [place] [address] 5th [place] [address] [place] [address] Nito Nash MD Hepatitis C antibody Blood, Hepatitis B surface antibody (immune status) Blood, Hepatitis B Surface Antigen Blood 09/14/2024 Orders Only [facility] Cardiology 10 [facility] [address] [place] [phone] ProviderTania MD 09/14/2024 11:45 AM CDT Office Visit [facility] Medical [facility] Cardiology [address] [facility] [address] [place] [address] Lorraine Nicole MD Pericardial effusion (Primary Dx) 09/12/2024 Telephone [facility] Rheumatology [address] [place] [address] 5th [place] [address] [place] [address] Nito Nash MD 09/12/2024 10:05 AM CDT Lab [facility] Advanced [facility] [address] [place] [phone] Systemic involvement of connective tissue, unspecified; Pericardial effusion; Pleural effusion 09/12/2024 8:09 AM CDT - 09/12/2024 11:59 PM CDT Hospital Encounter [facility] Radiology [facility] ([facility]) [address] [place] [address] Pleural effusion Discharge Disposition: Discharge to home or self care 09/12/2024 9:00 AM CDT Office Visit [facility] Pulmonary [facility] 8th [place] [address] [place] [address] Juno Navarro Chi, MD Pleural effusion; Other pericardial effusion (noninflammatory) 09/07/2024 Orders Only [facility] Rheumatology [address] [place] [address] 5th [place] [address] [place] [address] Zeynep Thomas MD Sicca, unspecified type (Primary Dx) 09/04/2024 10:40 AM CDT Office Visit [facility] Rheumatology [address] [place] [address] 5th [place] [address] [place] [address] Zeynep Thomas MD Pericardial effusion (Primary Dx); Systemic involvement of connective tissue, unspecified; Pleural effusion; Sicca, unspecified type 08/31/2024 Results Follow-Up [facility] Cardiology [address] [facility] [address] [place] [address] Germaine Granados NP Transthoracic Echo (TTE) Limited/Followup 08/31/2024 1:00 PM CDT Ancillary Procedure [facility] Cardiology [address] [facility] [address] [place] [phone] Pericardial effusion 08/28/2024 Orders Only [facility] Pulmonary [address] [facility] 8th [place] [address] [place] [address] Algee, Taneshea S., RMA Pleural effusion (Primary Dx) 08/23/2024 Results Follow-Up [facility] 1 [place] [address] Andrez Mckoy MD Comprehensive metabolic panel, CRP (acute phase), Erythrocyte sedimentation rate, Additional followed-up results: 4 from Last 3 Months Allergies Active Allergy Reactions Criticality Noted Date Comments Penicillins Hives Medium Reaction: HIVES, Medications famotidine (PEPCID) 40 mg tablet Take 1 tablet (40 mg total) by mouth 2 (two) times a day 180 tablet 1 08/22/2024 Active colchicine (COLCRYS) 0.6 mg tablet Take 1/2 tablet (.3mg) twice daily 30 tablet 6 08/24/2024 Active Active Problems Problem Noted Date Diagnosed Date Pleural effusion 08/28/2024 Lipoma of left upper extremity 02/13/2021 Left [...] on file 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 Gender Identity Female 12/16/2020 4:04 PM CDT Sexual Orientation Straight 12/16/2020 4: 04 PM CDT Last Filed Vital Signs Vital Sign Reading Time Taken Comments Blood Pressure 122/80 09/14/2024 11:31 AM CDT Pulse 75 09/14/2024 11:31 AM CDT Temperature 36.2 C (97.2 F) 09/12/2024 8:20 AM CDT Respiratory Rate 18 09/12/2024 8:20 AM CDT Oxygen Saturation 99% 09/14/2024 11:31 AM CDT Inhaled Oxygen Concentration - - Weight 73.9 kg (163 lb) 09/14/2024 11:31 AM CDT Height 160 cm (5' 3) 09/14/2024 11:31 AM CDT Body Mass Index 28.87 09/14/2024 11:31 AM CDT Plan of Treatment Not on file Procedures Procedure Name Priority Date/Time Associated Diagnosis Comments MYOMARKER PANEL 3 Routine 09/16/2024 10: 27 AM CDT Systemic involvement of connective tissue, unspecified Sicca, unspecified type HEPATITIS B SURFACE ANTIGEN Routine 09/16/2024 10:27 AM CDT Systemic involvement of connective tissue, unspecified Sicca, unspecified type HEPATITIS B SURFACE ANTIBODY (IMMUNE STATUS) Routine 09/16/2024 10:27 AM CDT Systemic involvement of connective tissue, unspecified Sicca, unspecified type HEPATITIS C ANTIBODY Routine 09/16/2024 10:27 AM CDT Systemic involvement of connective tissue, unspecified Sicca, unspecified type XR CHEST PA LATERAL 2 VIEWS Schedule Routine, Read Routine (OP Routine) 09/12/2024 8:13 AM CDT Pleural effusion TRANSTHORACIC ECHO (TTE) LIMITED/FOLLOW UP WO DOPPLER/CF WO CONTRAST Routine 08/31/2024 1:34 PM CDT Pericardial effusion from Last 3 Months Results * Myomarker panel 3 (09/16/2024 10:27 AM CDT) Anti-Jennifer-1 Ab (RDL) <20 <20 Units [facility] - 01 Anti-PL-7 Ab (RDL) Negative Negative [facility] - 01 Anti-PL-12 Ab (RDL) Negative Negative [facility] - 01 Anti-EJ Ab (RDL) Negative Negative [facility] - 01 Anti-OJ Ab (RDL) Negative Negative [facility] - 01 Anti-SRP Ab (RDL) Negative Negative [facility] - 01 Anti-Mi-2 Ab (RDL) Negative Negative [facility] - 01 Eyrd-QZV-3wqft a Ab (RDL) <20 <20 Units [facility] - 01 Anti-MDA-5 Ab (CADM-140)(RDL ) <20 <20 Units [facility] - 01 Anti-NXP-2 (P140) Ab (RDL) <20 <20 Units [facility] - 01 Anti-SAE1 Ab, IgG (RDL) <20 <20 Units [facility] - 01 Anti-PM/Scl-10 0 Ab (RDL) <20 <20 Units [facility] - 01 Anti-Ku Ab (RDL) Negative Negative [facility] - 01 Anti-SS-A 52kD Ab, IgG (RDL) <20 <20 Units [facility] - 01 Anti-U1 NOTE KEEPER Ab (RDL) [facility] <20 <20 Units [facility] - 01 Anti-U2 NOTE KEEPER Ab (RDL) Negative Negative [facility] - 01 Anti-U3 NOTE KEEPER (Fibrillarin) (RDL) Negative Negative [facility] - 01 Comment: Interpretation for Anti-Jennifer-1, Bikr-TLD-5epkjc, Anti-MDA-5, Anti-NXP-2, Anti-SAE1, Anti-PM/Scl-100, Anti-SS-A 52 kD, Anti-U1 NOTE KEEPER: Negative: <20 Weak Positive: 20 - 39 Moderate Positive: 40 - 80 Strong Positive: >80 Blood 09/16/2024 10:2 7 AM CDT 09/16/2024 Narrative [facility] - 10/13/2024 2:08 AM CDT Test(s) 677767-Xwjg-TY-8 Ab (RDL); 983641-Owkt-XH-52 Ab (RDL); 525941-Tkxs-JF Ab (RDL); 816425-Zfox-GO Ab (RDL); 259050- Anti-SRP Ab (RDL); 477680-Whpi-Og-9 Ab (RDL); 860931- Rcwq-HQP-2qofpk Ab (RDL); 325593-Rqpr-QQD-1 Ab (CADM-140)(RDL); 465895-Tpum-VJW-2 (P140) Ab (RDL); 498202-Epaf-GIN3 Ab, IgG (RDL); 547686-Qver-DC/Scl-100 Ab (RDL); 185892-Deku-Xb Ab (RDL); 911380- Anti-SS-A 52kD Ab, IgG (RDL); 010418-Ohja-W1 NOTE KEEPER Ab (RDL); 042811- Anti-U3 NOTE KEEPER (Fibrillarin)(RDL) was developed and its performance characteristics determined by [facility]. It has not been cleared or approved by the Food and Drug Administration. Performed at: [facility] [address] [place] [id number] Die Sizer: Darius Jameson MD, Phone: [phone] Nito Nash MD LAB BLOOD ORDERABLES Jessie l Result Performing Organization Address [facility] de Phone Number [facility] - 01 * Hepatitis C antibody Blood (09/16/2024 10:27 AM CDT) Hep C Ab Non Reactive Non Reactive [facility] Comment: HCV antibody alone does not differentiate between previously resolved infection and active infection. Equivocal and Reactive HCV antibody results should be followed up with an HCV RNA test to support the diagnosis of active HCV infection. Blood 09/16/2024 10:2 7 AM CDT 09/16/2024 Narrative [facility] - 09/17/2024 11:09 AM CDT Performed at: [address] [id number] Die Sizer: Krish Denson PhD, Phone: [phone] Nito Nash MD LAB MICROBIOLOGY - GENERA L ORDERABLES Final Result Performing Organization Address [facility] de Phone Number [facility] - * Hepatitis B surface antibody (immune status) Blood (09/16/2024 10:27 AM CDT) Pathologist [facility] HBsAb (immune status) Non Reactive [facility] - 01 Comment: Non Reactive: Not immune to HBV infection. Equivocal: Unable to determine if anti-HBs is present at levels consistent with immunity. Reactive: Anti-HBs concentration detected at greater than 10 mIU/mL. Individual is considered to be immune to infection with HBV. Blood 09/16/2024 10:2 7 AM CDT 09/16/2024 Narrative [facility] - 09/17/2024 11:09 AM CDT Performed at: 01 [facility] [id number] Die Sizer: Krish Denson PhD, Phone: [phone] Nito Nash MD LAB MICROBIOLOGY - GENERA L ORDERABLES Final Result Performing Organization Address [facility] Co de Phone Number [facility] - 01 * Hepatitis B Surface Antigen Blood (09/16/2024 10:27 AM CDT) [facility] HepBsAg Negative Negative [facility] - 01 Blood 09/16/2024 10:2 7 AM CDT 09/16/2024 Narrative [facility] - 09/17/2024 11:09 AM CDT Performed at: [facility] [id number] Die Sizer: Krish Denson PhD, Phone: [phone] Nito Nash MD LAB MICROBIOLOGY - GENERA L ORDERABLES Final Result Performing Organization Address [facility] Co de Phone Number [facility] - * X-ray chest 2 views (09/12/2024 8:13 AM CDT) Anatomical Region Laterality Modality Body, Chest N/A Computed Radiogr aphy 09/12/2024 9:48 AM CDT Impressions 09/12/2024 10:14 AM CDT No prior radiograph is are available for comparison. Small left pleural effusion. No right pleural effusion. No pulmonary consolidation or pneumothorax. Normal cardiac mediastinal silhouette. Dictated by: Shin Beltre M.D. The radiology attending physician has personally reviewed this study, and had reviewed and/or edited this written report and agrees with it. Electronically signed by: Femi John M.D. Narrative 09/12/2024 10:14 AM CDT EXAMINATION: 2 view chest radiograph Procedure Note Femi John MD - 09/12/2024 EXAMINATION: 2 view chest radiograph IMPRESSION: No prior radiograph is are available for comparison. Small left pleural effusion. No right pleural effusion. No pulmonary consolidation or pneumothorax. Normal cardiac mediastinal silhouette. Dictated by: Shin Beltre M.D. The radiology attending physician has personally reviewed this study, and had reviewed and/or edited this written report and agrees with it. Electronically signed by: Femi John M.D. us Asif Hung MD IMG XR PROCEDURES Final R esult * TRANSTHORACIC ECHO (TTE) LIMITED/FOLLOW UP WO DOPPLER/CF WO CONTRAST (08/31/2024 1:34 PM CDT) Anatomical Region Laterality Modality Ultrasound 08/31/2024 1:05 PM CDT Narrative 08/31/2024 1:48 PM CDT [facility] Cardiology [address] [facility] [address], [place] [address] [address] [facility] [address] [address] P:[phone] P:[phone] Echocardiographic Report Patient Name: JORDAN LÓPEZ M : 1970 Study Date: 08/31/2024 1:05:39 PM Gender: F Tech: KARO Logan Provider: SOPHIE REYES Height(Cm): 160 BSA: 1.8 Weight(Kg): 73 Heart Rate: 71 BP: 120 / 68 Quality: Good Order Provider: SOPHIE REYES PROCEDURES: Echocardiographic Report: Limited Transthoracic echocardiogram with 2D, M-Mode, examination. INDICATIONS: F/U Pericardial Effusion. MEASUREMENTS: 2D/MM Value Range Doppler Value Range EF Mod BP 69 % [ 54 - 74 ] LVOT Diam 1.95 cm [ 1.70 - 2.10 ] EF Teich MM 65 % [ 54 - 74 ] LVIDd 2D 4.67 cm [ 3.80 - 5.20 ] LVIDd MM 4.67 cm [ 3.80 - 5.20 ] LVIDs 2D 2.69 cm [ 2.20 - 3.50 ] LVIDs MM 3.03 cm [ 2.20 - 3.50 ] LVPWd 2D 0.98 cm [ 0.60 - 0.90 ] LVPWd MM 0.78 cm [ 0.60 - 0.90 ] IVSd 2D 0.86 cm [ 0.60 - 0.90 ] IVSd MM 0.87 cm [ 0.60 - 0.90 ] LA Dimension 2D 2.73 cm [ 2.70 - 3.80 ] LA Dimension MM 2.71 cm [ 2.70 - 3.80 ] AoR Diam 2D 2.50 cm [ 2.70 - 3.70 ] AoR Diam MM 2.54 cm [ 2.70 - 3.70 ] LA Volume Index 34 cc/m2 [ 16 - 34 ] 2D/MM Value Range Doppler Value Range - FINDINGS: Interpretation Site: Exam was interpreted at [facility]. Left Ventricle: Ejection fraction is measured at 69 %. The left ventricle is normal in size and systolic function. The left ventricular ejection fraction is visually estimated to be 65- 70%. Resting Segmental Wall Motion Analysis: Total wall motion score is 1.00. There are no regional wall motion abnormalities. Right Ventricle: Normal right ventricular size. Normal right ventricular systolic function. Left Atrium: The left atrium is normal in size. Right Atrium: The right atrium is normal in size. Atrial Septum: The atrial septum is not well visualized. Mitral Valve: Normal appearance of the mitral valve. Aortic Valve: Normal appearance of the aortic valve. Tricuspid Valve: Normal appearance of the tricuspid valve. Pulmonic Valve: Pulmonic valve not well visualized. Pericardium: Normal pericardium with no significant pericardial effusion. Bilateral pleural effusion seen. Aorta: The aortic root at the level of the sinus of Valsalva measures 2.5 cm in diameter. IVC: The IVC is not well visualized. CONCLUSIONS: Normal pericardium with no significant pericardial effusion. Bilateral pleural effusion seen. Electronically Signed By: Dr. Ed Rankin 08/31/2024 1:48:28 PM CDT Procedure Note Ed Rankin MD - 08/31/2024 [facility] Cardiology [address], [place] [address] [address] [facility] [address], [place] [address] P:[phone] P:[phone] Echocardiographic Report Patient Name: JORDAN LÓPEZ M : 1970 Study Date: 08/31/2024 1:05:39 PM Gender: F Tech: KARO Ref Provider: SOPHIE REYES Height(Cm): 160 BSA: 1.8 Weight(Kg): 73 Heart Rate: 71 BP: 120 / 68 Quality: Good Order Provider: SOPHIE REYES PROCEDURES: Echocardiographic Report: Limited Transthoracic echocardiogram with 2D, M-Mode, examination. INDICATIONS: F/U Pericardial Effusion. MEASUREMENTS: 2D/MM Value Range Doppler ValueRange EF Mod BP 69 % [ 54 - 74 ] LVOT Diam 1.95 cm[ 1.70 - 2.10 ] EF Teich MM 65 % [ 54 - 74 ] LVIDd 2D 4.67 cm [ 3.80 - 5.20 ] LVIDd MM 4.67 cm [ 3.80 - 5.20 ] LVIDs 2D 2.69 cm [ 2.20 - 3.50 ] LVIDs MM 3.03 cm [ 2.20 - 3.50 ] LVPWd 2D 0.98 cm [ 0.60 - 0.90 ] LVPWd MM 0.78 cm [ 0.60 - 0.90 ] IVSd 2D 0.86 cm [ 0.60 - 0.90 ] IVSd MM 0.87 cm [ 0.60 - 0.90 ] LA Dimension 2D 2.73 cm [ 2.70 - 3.80 ] LA Dimension MM 2.71 cm [ 2.70 - 3.80 ] AoR Diam 2D 2.50 cm [ 2.70 - 3.70 ] AoR Diam MM 2.54 cm [ 2.70 - 3.70 ] LA Volume Index 34 cc/m2 [ 16 - 34 ] 2D/MM Value Range Doppler ValueRange - FINDINGS: Interpretation Site: Exam was interpreted at [facility]. Left Ventricle: Ejection fraction is measured at 69 %. The left ventricle is normal insize and systolic function. The left ventricular ejection fraction is visually estimated david 65- 70%. Resting Segmental Wall Motion Analysis: Total wall motion score is 1.00. There are no regional wall motionabnormalities. Right Ventricle: Normal right ventricular size. Normal right ventricular systolicfunction. Left Atrium: The left atrium is normal in size. Right Atrium: The right atrium is normal in size. Atrial Septum: The atrial septum is not well visualized. Mitral Valve: Normal appearance of the mitral valve. Aortic Valve: Normal appearance of the aortic valve. Tricuspid Valve: Normal appearance of the tricuspid valve. Pulmonic Valve: Pulmonic valve not well visualized. Pericardium: Normal pericardium with no significant pericardial effusion. Bilateralpleural effusion seen. Aorta: The aortic root at the level of the sinus of Valsalva measures 2.5 cm indiameter. IVC: The IVC is not well visualized. CONCLUSIONS: Normal pericardium with no significant pericardial effusion. Bilateralpleural effusion seen. Electronically Signed By: Dr. Ed Rankin 08/31/2024 1:48:28 PM CDT Sophie Reyes NP CV ECHO PROCEDURES Final Result from Last 3 Months Insurance [facility] CHOICE PLUS [facility] CHOICE PLUS [facility] CHOICE PLUS [facility] CHOICE PLUS Care Teams Refractive Surgeon Relationship Specialty Start Date End Date Jolly Bauman MD PCP - General Family Medicine 12/13/20
--- OUTSIDE RECORDS SUMMARY | 2024-11-22 10:33 | XMS_ITS | Encounter Summary ---
Author Organization [facility] Address [address] [place] [address] Phone Care Team Providers Care Mattress Inspector Name Role Phone Jolly Bauman MD Primary Care Provider [phone] Encounter Details Date Type Department Care Team (Late st Contact Info) Description 09/20/2024 Results Follow-Up [facility] Rheumatology [address] [facility] Medicine 5th [place] [address] [place] [address] Nito Nash MD [address] [address] Hepatitis C antibody Blood, Hepatitis B surface antibody (immune status) Blood, Hepatitis B Surface Antigen Blood Social History Tobacco Use Types Packs/Day Years Used Date Smoking Tobacco: Never Smokeless Tobacco: Never Comments Unknown Sex and Gender Information Value Date Recorded Sex Assigned at Not on file 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
--- OUTSIDE RECORDS SUMMARY | 2024-11-22 10:33 | XMS_ITS | Encounter Summary ---
Author Organization [facility] Address [address] [place] [address] Care Team Providers Care Direct Support Worker Name Role Phone Jolly Bauman MD Primary Care Provider [phone] Encounter Details Date Type Department Care Team (Late st Contact Info) Description 07/05/2024 Orders Only [facility] Health Information Management [address] [place] [address] Lorraine Nicole MD [address] [place] [address] [address] [place] [address] Social History Tobacco Use Types Packs/Day Years Used Date Smoking Tobacco: Never Smokeless Tobacco: Never Comments Unknown Sex and Gender Information Value Date Recorded Sex Assigned at Not on file 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 Gender Identity Female 12/16/2020 4:04 PM CDT Sexual Orientation Straight 12/16/2020 4: 04 PM CDT documented as of this encounter Plan of Treatment Not on file documented as of this encounter Procedures Procedure Name Priority Date/Time Associated Diagnosis Comments CARDIOLOGY DOCUMENT SCAN 07/05/2024 SCAN - RADIOLOGY/IMAGING 07/04/2024 documented in this encounter Results * Cardiology Document Scan (07/05/2024) Anatomical Region Laterality Modality Other us Lorraine Nicole MD CV CARDIAC SERVICES PRO CEDURES Edited Result - Final * SCAN - RADIOLOGY/IMAGING (07/04/2024) Anatomical Region Laterality Modality Other us Hernan Yusuf MD Edited Result - Final documented in this encounter Visit Diagnoses Not on filedocumented in this encounter Care Teams Direct Support Worker Relationship Specialty Start Date End Date Jolly Bauman MD PCP - General Family Medicine 12/13/20 documented as of this encounter
--- OUTSIDE RECORDS SUMMARY | 2024-11-22 10:33 | XMS_ITS | Clinical Summary ---
Author Organization [facility] Address [address] [place] [phone] Care Team Providers Care Grinder Hardboard Name Role Phone Jolly Bauman MD Primary Care Provider [phone] Allergies Active Allergy Reactions Criticality Noted Date [...] Type Department Care Team Description 10/24/2024 Telephone [facility] Cardiology [address] [facility] Medical Office Building [address] [place] [address] Loree Kaiser 09/20/2024 Results Follow-Up [facility] Rheumatology [address] [facility] 5th [place] [address] [place] [address] Nito Nash MD Hepatitis C antibody Blood, Hepatitis B surface antibody (immune status) Blood, Hepatitis B Surface Antigen Blood 09/14/2024 11:45 AM CDT Office Visit [facility] Cardiology [address] [facility] [address] [place] [phone] Lorraine Nicole MD Pericardial effusion (Primary Dx) 09/14/2024 Orders Only [facility] Cardiology [address] [place] [address] [place] [phone] ProviderTania MD 09/12/2024 10:05 AM CDT Lab [facility] [address] [place] [phone] Systemic involvement of connective tissue, unspecified; Pericardial effusion; Pleural effusion 09/12/2024 9:00 AM CDT Office Visit [facility] Pulmonary [address] [facility] Advanced Medicine 8th [place] [address] [place] [address] Juno Navarro Chi, MD Pleural effusion; Other pericardial effusion (noninflammatory) 09/12/2024 8:09 AM CDT - 09/12/2024 11:59 PM CDT Hospital Encounter [facility] Radiology [facility] [address] [place] [address] Pleural effusion Discharge Disposition: Discharge to home or self care 09/12/2024 Telephone [facility] Rheumatology [address] [place] [address] Advanced Medicine 5th [place] [address] [place] [address] Nito Nash MD 09/07/2024 Orders Only [facility] Rheumatology [address] [place] [address] Advanced Medicine 5th [place] [address] [place] [address] Zeynep Thomas MD Sicca, unspecified type (Primary Dx) 09/04/2024 10:40 AM CDT Office Visit [facility] Rheumatology [address] [place] [address] Advanced Medicine 5th [place] [address] [place] [address] Zeynep Thomas MD Pericardial effusion (Primary Dx); Systemic involvement of connective tissue, unspecified; Pleural effusion; Sicca, unspecified type 08/31/2024 1:00 PM CDT Ancillary Procedure [facility] Medical Group Cardiology [address] [place] [address] Pericardial effusion 08/31/2024 Results Follow-Up [facility] Medical [facility] Cardiology [address] [facility] [address] [place] [address] Germaine Granados NP Transthoracic Echo (TTE) Limited/Followup 08/28/2024 Orders Only [facility] Pulmonary [address] [facility] Advanced Medicine [address]th [place] [address] [place] [address] Yasir Andre RMA Pleural effusion (Primary Dx) 08/23/2024 Results Follow-Up [facility] [address] [place] [address] Andrez Mckoy MD Comprehensive metabolic panel, CRP (acute phase), Erythrocyte sedimentation rate, Additional followed-up results: 4 from Last 3 Months Surgical History Surgery Date Site/Laterality Comments CHOLECYSTECTOMY Medical History Medical History Date Comments Cholecystitis Pericardial effusion Plantar fasciitis 2012 Pleural effusion June 2024 Family History Medical History Relation Name Comments Asthma Daughter Juhi No Known Problems Father No Known Problems Mother No Known Problems Sister Autoimmune disease Neg Hx Relation Name Status Comments Daughter Juhi Alive Father Alive Mother Alive Sister Alive Social History Tobacco Use Types Packs/Day Years Used Date Smoking Tobacco: Never Smokeless Tobacco: Never Tobacco Cessation:Counseling Given: Not Answered Comments Unknown Sex and Gender Information Value Date Recorded Sex Assigned at Not on file 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 Gender Identity Female 12/16/2020 4:04 PM CDT [...] 09/14/2024 11:31 AM CDT Plan of Treatment Health Maintenance Due Date Last Done Comments Breast Cancer Screening-Mammogram 1970 Cervical Cancer Screening 1970 Colon Cancer Screening-Colonoscopy 1970 Depression Screening 1970 DTaP/Tdap/Td Vaccine (1 - Tdap) 1981 Hepatitis B Screening 1988 Regular Well Visit/Exam 18-64 1988 Zoster Vaccine (1 of 2) 2020 Covid-19 Vaccine (3 - 2023-2 5 season) 2024 10/31/2020, 10/10/2020 Influenza Vaccine (#1) 2025 Hepatitis C Screening Completed 09/16/2024 Pneumococcal vaccine <65 Aged Out No longer [...] Ab (RDL) Negative Negative [facility] - 01 Kbgo-UTF-7symc a Ab (RDL) <20 <20 Units [facility] [...] <20 <20 Units [facility] - 01 Anti-U1 LOBBY PORTER Ab (RDL) [facility] <20 <20 Units [facility] - 01 Anti-U2 LOBBY PORTER Ab (RDL) Negative Negative [facility] - 01 Anti-U3 LOBBY PORTER (Fibrillarin) (RDL) Negative Negative [facility] - 01 Comment: Interpretation for Anti-Jennifer-1, Ngfh-ASV-6udvhb, Anti-MDA-5, Anti-NXP-2, Anti-SAE1, Anti-PM/Scl-100, Anti-SS-A 52 kD, Anti-U1 LOBBY PORTER: Negative: <20 Weak Positive: 20 - 39 Moderate Positive: 40 - 80 Strong Positive: >80 Blood 09/16/2024 10:2 7 AM CDT 09/16/2024 Narrative [facility] - 10/13/2024 2:08 AM CDT Test(s) 574541-Uxgq-JY-9 Ab (RDL); 230535-Lcrw-EM-27 Ab (RDL); 161644-Npuw-FY Ab (RDL); 430406-Jltl-GY Ab (RDL); 991058- Anti-SRP Ab (RDL); 454685-Dixb-Me-8 Ab (RDL); 779331- Wejk-FAN-1jxpro Ab (RDL); 424929-Hwhv-GHD-5 Ab (CADM-140)(RDL); 911436-Boea-YOG-6 (P140) Ab (RDL); 495467-Otkg-FJX4 Ab, IgG (RDL); 711175-Hffw-WP/Scl-100 Ab (RDL); 367573-Adfg-Nu Ab (RDL); 891985- Anti-SS-A 52kD Ab, IgG (RDL); 404936-Pqbi-P7 LOBBY PORTER Ab (RDL); 526653- Anti-U3 LOBBY PORTER (Fibrillarin)(RDL) was developed and its performance characteristics determined by [facility]. It has not been cleared or approved by the Food and Drug Administration. Performed at: [facility] [address] [place] [id number] Force Variation Equipment Tender: Darius Jameson MD, Phone: [phone] Nito Nash MD LAB BLOOD ORDERABLES Jessie l Result [facility] - 01 * Hepatitis C antibody Blood (09/16/2024 10:27 AM CDT) Pathologist [facility] Hep C Ab Non Reactive Non Reactive [facility] - 01 Comment: HCV antibody alone does not differentiate between previously resolved infection and active infection. Equivocal and Reactive HCV antibody results should be followed up with an HCV RNA test to support the diagnosis of active HCV infection. Blood 09/16/2024 10:2 7 AM CDT 09/16/2024 Narrative [facility] - 09/17/2024 11:09 AM CDT Performed at: [address] [id number] [employer] Variation Equipment Tender: Krish Denson PhD, Phone: [phone] Nito Nash MD LAB MICROBIOLOGY - GENERA L ORDERABLES Final Result Performing Organization Address [facility] Co de Phone Number [facility] * Hepatitis B surface antibody (immune status) Blood (09/16/2024 10:27 AM CDT) [facility] HBsAb (immune status) Non Reactive [facility] - Comment: Non Reactive: Not immune to HBV infection. Equivocal: Unable to determine if anti-HBs is present at levels consistent with immunity. Reactive: Anti-HBs concentration detected at greater than 10 mIU/mL. Individual is considered to be immune to infection with HBV. Blood 09/16/2024 10:2 7 AM CDT 09/16/2024 Narrative [facility] - 09/17/2024 11:09 AM CDT Performed at: [address] [id number] [employer] Variation Equipment Tender: Krish Denson PhD, Phone: [phone] Nito Nash MD LAB MICROBIOLOGY - GENERA L ORDERABLES Final Result Performing Organization Address [facility] de Phone Number [facility] * Hepatitis B Surface Antigen Blood (09/16/2024 10:27 AM CDT) [facility] HepBsAg Negative Negative [facility] Blood 09/16/2024 10:2 7 AM CDT 09/16/2024 Narrative [facility] - 09/17/2024 11:09 AM CDT Performed at: [address] [id number] [employer] Variation Equipment Tender: Krish Denson PhD, Phone: [phone] Nito Nash MD LAB MICROBIOLOGY - GENERA L ORDERABLES Final Result Performing Organization Address [facility] Co de Phone Number [facility] * X-ray chest 2 views (09/12/2024 8:13 [...] it. Electronically signed by: Femi John M.D. Asif Hung MD IMG XR PROCEDURES Final R esult * TRANSTHORACIC ECHO (TTE) LIMITED/FOLLOW UP WO DOPPLER/CF WO CONTRAST (08/31/2024 1:34 PM CDT) Anatomical Region Laterality Modality Ultrasound 08/31/2024 1:05 PM CDT Narrative 08/31/2024 1:48 PM CDT [facility] Medical Group Cardiology [address] [facility] [address], [place] [address] [address], [place] [address] P:[phone] P:[phone] Echocardiographic Report Patient Name: JORDAN LÓPEZ M [...] FINDINGS: Interpretation Site: Exam was interpreted at [facility]. Left Ventricle: Ejection fraction is measured at [...] Procedure Note Ed Rankin MD - 08/31/2024 [facility] Medical [facility] Cardiology [address] [facility] [address] [id number] [address] [facility] [address], [place] [address] P:[phone] P:[phone] Echocardiographic Report Patient Name: JORDAN LÓPEZ M [...] FINDINGS: Interpretation Site: Exam was interpreted at [facility]. Left Ventricle: Ejection fraction is measured at [...] Final Result from Last 3 Months Insurance [facility] CHOICE PLUS Care Teams Grinder Hardboard Relationship Specialty Start Date End Date Jolly Bauman MD [phone] (work) PCP - General Family Medicine 12/13/20
== END 2024-11-22 10:22 | disposition home or self-care (01) ==
PROVIDERS: PCP Family Medicine; Visit Provider Internal Medicine Critical Care Medicine
DX: J90 Pleural effusion, not elsewhere classified (principal)
CPT/HCPCS: 71046